=== PATIENT | male | born 1955 | race African-American/Black ===

== ENCOUNTER → 2017-02-03 | Outpatient (CLI) | payer MEDICARE, BC ==
--- NOTE | 2017-02-10 13:30 | SLS ---
DATE OF SERVICE: 02/03/2017 A 61-year-old gentleman who has been followed in the sleep center for treatment of obstructive sleep apnea-hypopnea syndrome. Patient continued treatment with CPAP every night without significant problem. He lost his weight from 345 pounds down to 314 pounds. No sleepiness during the day. [place] Sleepiness scale is 3. I checked his CPAP unit, usage is 29 out of 30 nights for more than 4 hours. Humidity is at 5. CPAP pressure 15 cm of water. Patient is on hemodialysis for endstage renal disease. MEDICATIONS: Naproxen, Nephro Caps, nitroglycerine, Sensipar, Tramadol. During physical exam, patient in no distress. BP 138/86, HR 102, RR 19, height 7.5, weight 314.6, BMP 44.8, temperature 98.3, oxygen saturation at room air 98% . OROPHARYNX: Low position of soft palate. ABDOMEN: Obese. NECK: Supple, no JVD, thyroid is not palpable. LUNGS: Clear to percussion and to auscultation. Good air exchange. No wheezing or rhonchi. HEART: S1, S2. No murmur, gallops or rubs. EXTREMITIES: No clubbing or cyanosis. 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 Cranial nerves 2 to 7 intact. There is no fasciculation or atrophy noted. No focal deficits observed. IMPRESSION: 1. Obstructive sleep apnea-hypopnea syndrome, on control with CPAP on 15 cm of water. 2. Obesity. 3. Endstage renal disease or hemodialysis. 4. Hypertension. 5. Gout. PLAN: 1. Continue treatment with CPAP every night for the whole night. 2. Continue losing weight. 3. No driving if feeling any sleepiness. 4. Sleep hygiene with regular time in bed for at least 8 hours. 5. Prescription for all necessary CPAP supplies. 6. Follow up visit in 1 year. ALEX
== END ==
LOC: SLEEP 13:24
PROVIDERS: ATTEND Internal Medicine
DX: G47.33 Obstructive sleep apnea (adult) (pediatric) (principal); E66.9 Obesity, unspecified; I10 Essential (primary) hypertension; M10.9 Gout, unspecified; N18.6 End stage renal disease

== ENCOUNTER → 2017-12-22 | Outpatient (CLI) | payer MEDICARE, BC ==
--- NOTE | 2017-12-22 16:15 | PN ---
PROGRESS NOTE DATE OF SERVICE: 12/22/2017 62-year-old gentleman who has been followed in the Sleep Center for treatment of obstructive sleep apnea-hypopnea syndrome. The patient continued to use his CPAP equipment every night for the whole night without any pressure related present to the mask fitting, pressure, or humidification. No snoring with the machine. [place] Sleepiness Scale is 1. The patient is on hemodialysis 3 times per week for end-stage renal disease. Medications the same. Naproxen, Nephrocaps, nitroglycerin, Sensipar, Tramadol. PHYSICAL EXAM: Patient in no distress. BP 125/79, HR around 100, RR 16, height 5 feet 9 inches, weight 310, which is 4 pounds less than during previous visit, BMI 45.7, temperature 98.1, oxygen saturation on room air 98%. Oropharynx extremely low position of soft palate. ABDOMEN: Obese. Neck Supple, no JVD. Thyroid is not palpable. LUNGS Clear to percussion and to auscultation. Good air exchange. No wheezing or rhonchi. HEART S1, S2 regular. No murmurs, gallops, or rubs. ABDOMEN: Obese. Soft and nontender. Bowel sounds are present. No organomegaly appreciated. EXTREMITIES No clubbing or cyanosis. COFFEE HOST Awake, alert, and oriented X3. Cranial nerves 2 to 7 intact. There is no fasciculation or atrophy. noted. No focal deficits observed. Under physical exam normal just: My template. IMPRESSION: 1. Obstructive sleep apnea-hypopnea syndrome on control with CPAP at 15 cm of water. Patient demonstrated good compliance with treatment benefitting from treatment. 2. End-stage renal disease, on treatment with hemodialysis. 3. Obesity. 4. Hypertension. 5. History of gout. PLAN: 1. Patient will continue to use his CPAP equipment every night for the whole night. 2. Prescription for all necessary CPAP supplies including mask, tube, filters. 3. The patient will continue to get his supplies for CPAP treatment on a regular basis. 4. Losing weight. 5. No driving if feeling sleepiness. 6. Followup visit in 1 year or earlier if patient has any problems. Thank you very much for allowing me to participate in management of your patient. Sincerely, Emery Kaiser MD, PhD, FAASM Diplomat of [place] [employer] [place] [employer] Driver License Agent of [facility] JAY / SESAR: [id number] /
== END | disposition home or self-care (01) ==
LOC: SLEEP 13:55
PROVIDERS: ATTEND Internal Medicine
DX: G47.33 Obstructive sleep apnea (adult) (pediatric) (principal); E66.9 Obesity, unspecified; I12.0 Hypertensive chronic kidney disease with stage 5 chronic kidney disease or end stage renal disease; N18.6 End stage renal disease; M10.9 Gout, unspecified; Z68.42 Body mass index [BMI] 45.0-49.9, adult; Z99.89 Dependence on other enabling machines and devices; Z99.2 Dependence on renal dialysis; Z79.891 Long term (current) use of opiate analgesic; Z79.899 Other long term (current) drug therapy

== ENCOUNTER 2018-08-25 13:54 | Inpatient (IN) | payer MEDICARE, BC ==
[2018-08-25] MEDS ORDERED: SODIUM CHLORIDE 0.9% 500 ML 500 ML IV STA (14:17)
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
--- NOTE | 2018-08-25 15:05 | XR ---
EXAMINATION TYPE: XR chest 2V DATE OF EXAM: 08/25/2018 COMPARISON: March 12, 2016 HISTORY: Shortness of breath TECHNIQUE: Frontal and lateral views of the chest are obtained. FINDINGS: Scattered senescent parenchymal changes noted. Hyperinflation compatible with COPD. No evidence for infiltrate. No evidence for atelectasis. Heart size is stable. Mediastinal structures are stable and grossly unremarkable. No evidence for hilar prominence. Degenerative changes dorsal spine. IMPRESSION: 1. No evidence for acute pulmonary disease.
[2018-08-25 15:09] LABS: Basophils % (A) 1 %; Eosinophils # (A) 0.1 k/uL (0-0.7); Eosinophils % (A) 2 %; HCT 31.3 % (39.0-53.0); HGB 10.4 gm/dL (13.0-17.5); Lymphocytes # (A) 0.9 k/uL (1.0-4.8); Lymphocytes % (A) 16 %; MCH 30.4 pg (25.0-35.0); MCHC 33.2 g/dL (31.0-37.0); MCV 91.5 fL (80.0-100.0); Mean Platelet Volume 8.1; Monocytes # (A) 0.2 k/uL (0-1.0); Monocytes % (A) 4 %; Neutrophils # (A) 4.5 k/uL (1.3-7.7); Neutrophils % (A) 76 %; Platelet Count 177 k/uL (150-450); RBC 3.42 m/uL (4.30-5.90); RDW 14.9 % (11.5-15.5); WBC 5.9 k/uL (3.8-10.6)
[2018-08-25 15:19] LABS: Albumin 3.9 g/dL (3.5-5.0); Calcium 10.2 mg/dL (8.4-10.2); Potassium 3.5 mmol/L (3.5-5.1); Total Bilirubin 0.7 mg/dL (0.2-1.3); Total Protein 6.9 g/dL (6.3-8.2)
[2018-08-25 15:20] LABS: INR 0.9 (<1.2); Partial Thromboplastin Time 23.2 sec (22.0-30.0)
[2018-08-25 15:43] LABS: Troponin I 0.045 ng/mL (0.000-0.034)
[2018-08-25] MEDS ORDERED: NALOXONE 0.4 MG/ML 1 ML VIAL IV PRN (17:37)
[2018-08-25] MEDS ORDERED: HYDROcodone/APAP 5-325MG 1 EACH TAB PO PRN (17:37)
[2018-08-25] MEDS ORDERED: ACETAMINOPHEN TAB 325 MG TAB PO PRN (17:37)
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
[2018-08-25 18:21] VITALS: BMI 45.9
[2018-08-25] MEDS ORDERED: NAPROXEN 250 MG TAB PO PRN (18:39)
[2018-08-25] MEDS ORDERED: Potassium Replacement Protocol 1 EACH MISC MISCELLANE PRN (18:45)
[2018-08-25] MEDS: SODIUM CHLORIDE 0.9% 1,000 ML IV SCH (19:07)
[2018-08-25] MEDS: POTASSIUM CHLORIDE ER 20 MEQ TAB.ER PO SCH ×2 (19:07→19:44)
[2018-08-25] MEDS: ATORVASTATIN 40 MG TAB PO SCH (19:44)
[2018-08-25 21:46] LABS: Creatine Kinase MB 0.8 ng/mL (0.0-2.4)
[2018-08-25 21:47] LABS: Troponin I 0.058 ng/mL (0.000-0.034)
[2018-08-26 03:39] LABS: Albumin 3.6 g/dL (3.5-5.0); Calcium 10.2 mg/dL (8.4-10.2); Magnesium 2.2 mg/dL (1.6-2.3); Potassium 3.8 mmol/L (3.5-5.1); Total Bilirubin 0.6 mg/dL (0.2-1.3); Total Protein 6.4 g/dL (6.3-8.2)
[2018-08-26 03:50] LABS: Creatine Kinase MB 0.8 ng/mL (0.0-2.4)
[2018-08-26 04:04] LABS: Troponin I 0.053 ng/mL (0.000-0.034)
[2018-08-26] MEDS ORDERED: ENOXAPARIN 40 MG/0.4 ML SYRINGE SQ SCH (09:00)
[2018-08-26] MEDS: ASPIRIN 325 MG TAB PO SCH (10:24)
--- NOTE | 2018-08-26 10:39 | P.PN ---
Subjective Progress Note Date: 08/26/18 Principal diagnosis: Dizziness Patient was seen and examined. No acute events overnight. Patient reports one episode of lightheadedness as he stood up from the bed this morning. Patient reports improved chest pressure, numbness morning. He denies any shortness of breath or palpitations at this time. Objective - Vital Signs Vital signs: Vital Signs Temp 97.6 F 08/26/18 08:20 Pulse 86 08/26/18 08:20 Resp 19 08/26/18 08:20 BP 121/67 08/26/18 08:20 Pulse Ox 100 08/26/18 08:20 Intake & Output 08/25/18 08/26/18 08/26/18 18:59 06:59 18:59 Intake Total 240 160 360 Balance 240 160 360 Weight 141.2 kg 141.7 kg Intake: Intake, IV Titration 160 Amount Sodium Chloride 0.9% 1, 160 000 ml @ 20 mls/hr IV . Q24H JACI Rx#:[id number] Oral 240 360 Other: Voiding Method Urinal # Voids 0 - Exam General: [no distress], [appears at stated age] Derm: [warm], [dry] Head: [atraumatic], [normocephalic], [symmetric] Eyes: [EOMI], [no lid lag], [anicteric sclera] Mouth: [no lip lesion], [mucus membranes moist] Cardiovascular: [S1S2 reg], [no murmur], [positive DP pulse bilateral] Lungs: [CTA bilateral], [no rhonchi, no rales] , [no accessory muscle use] Abdominal: [soft], [ nontender to palpation], [obese abdomen], [no appreciable organomegaly] Ext: [no gross muscle atrophy], [no edema], [no contractures], [left upper extremity fistula] Neuro: [no focal neuro deficits] Psych: [Alert], [oriented], [appropriate affect] - Labs CBC & Chem 7: 08/25/18 14:45 08/26/18 02:48 Labs: Abnormal Lab Results - Last 24 Hours (Table) 08/25/18 08/25/18 08/25/18 Range/Units 14:45 14:45 14:45 RBC 3.42 L (4.30-5.90) m/uL Hgb 10.4 L (13.0-17.5) gm/dL Hct 31.3 L (39.0-53.0) % Lymphocytes # 0.9 L (1.0-4.8) k/uL Sodium (137-145) mmol/L Chloride 92 L (98-107) mmol/L Carbon Dioxide 34 H (22-30) mmol/L BUN 25 H (9-20) mg/dL Creatinine 4.89 H (0.66-1.25) mg/dL Glucose 137 H (74-99) mg/dL Total Creatine Kinase 217 H (55-170) U/L Troponin I 0.045 H* (0.000-0.034) ng/mL LDL Cholesterol, Calc (0-99) mg/dL 08/25/18 08/26/18 08/26/18 Range/Units 20:47 02:48 02:48 RBC (4.30-5.90) m/uL Hgb (13.0-17.5) gm/dL Hct (39.0-53.0) % Lymphocytes # (1.0-4.8) k/uL Sodium 136 L (137-145) mmol/L Chloride 95 L (98-107) mmol/L Carbon Dioxide (22-30) mmol/L BUN 37 H (9-20) mg/dL Creatinine 6.43 H (0.66-1.25) mg/dL Glucose (74-99) mg/dL Total Creatine Kinase 182 H 175 H (55-170) U/L Troponin I 0.058 H* 0.053 H* (0.000-0.034) ng/mL LDL Cholesterol, Calc 122 H (0-99) mg/dL Assessment and Plan Assessment: Assessment and Plan 1. Presyncopal episode with blurry vision 2. Chest pressure 3. ESRD 4. Hypertension 5. h/o [place] and CVA 1. Appears to be orthostatic but questionable given history, reports labile blood pressure. Plans to rule out acute coronary syndrome. Telemetry monitoring. Fall precautions. Monitor and replace electrolytes. Will obtain orthostats, echocardiogram. Will follow cardiology recommendations. 2. Concerns for acute coronary syndrome. Troponin 0.045, 0.058, 0.053 with EKG showing normal sinus rhythm. Elevated troponin likely leak from ESRD. ACS ruled out. Will follow echocardiogram results. Will follow cardiology recommendations. 3. BUN 25 to 37, creatinine 4.89 to 6.43, GFR 14 to 10. Nephrology consulted for hemodialysis, Tuesday schedule. We will monitor and replace electrolytes. Keep potassium greater than 4 and magnesium greater than 2. Daily BMP. 4. BP is 121/67. Patient is not on any antihypertensives at home. Will continue to monitor vitals, adjust medications as necessary. 5. We will start aspirin 325 mg by mouth daily, Lipitor 40 mg by mouth at bedtime. Patient would benefit from beta tracy given his previous history of [place] but we will defer that decision to cardiology due to his hypotensive nature. Lipid panel shows an elevated LDL of 122. Patient names his brother Shola Castellon indicates that he can make decisions for himself. Patient requests to be full code. Patient is admitted for presyncopal episode, chest pressure. Acute coronary syndrome ruled out. Cardiology is on consult, echocardiogram pending.
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
--- NOTE | 2018-08-26 12:53 | ECHOF ---
Referral Reason:CHest pressure MEASUREMENTS -------- HEIGHT: 175.3 cm WEIGHT: 141.5 kg BP: RVIDd: 2.8 cm (< 3.3) IVSd: 1.5 cm (0.6 - 1.1) LVIDd: 5.3 cm (3.9 - 5.3) LVPWd: 1.9 cm (0.6 - 1.1) IVSs: 1.8 cm LVIDs: 4.0 cm LVPWs: 1.8 cm LA Diam: 3.6 cm (2.7 - 3.8) Ao Diam: 3.9 cm (2.0 - 3.7) AV Cusp: 2.0 cm (1.5 - 2.6) LA Diam: 3.6 cm (2.7 - 3.8) MV EXCURSION: 19.783 mm (> 18.000) MV EF SLOPE: 70 mm/s (70 - 150) EPSS: 0.5 cm MV E Alden: 0.56 m/s MV DecT: 306 ms MV A Alden: 0.81 m/s MV E/A Ratio: 0.70 RAP: 5.00 mmHg RVSP: 15.70 mmHg FINDINGS -------- Sinus rhythm. This was a technically adequate study. Morbid Obesity The left ventricular size is normal. There is moderate concentric left ventricular hypertrophy. O verall left ventricular systolic function is normal with, an EF between 55 - 60 %. The right ventricle is normal in size. The left atrial size is normal. The right atrial size is normal. There is mild aortic valve sclerosis. There is no evidence of aortic regurgitation. Mild mitral annular calcification present. Mild mitral regurgitation is present. Mild tricuspid regurgitation present. There is no evidence of pulmonary hypertension. The right v entricular systolic pressure, as measured by Doppler, is 15.70mmHg. Trace/mild (physiologic) pulmonic regurgitation. The aortic root size is normal. There is no pericardial effusion. CONCLUSIONS -------- 1. Morbid Obesity 2. The left ventricular size is normal. 3. There is moderate concentric left ventricular hypertrophy. 4. Overall left ventricular systolic function is normal with, an EF between 55 - 60 %. 5. The right ventricle is normal in size. 6. The left atrial size is normal. 7. The right atrial size is normal. 8. There is mild aortic valve sclerosis. 9. Mild mitral annular calcification present. 10. Mild mitral regurgitation is present. 11. Mild tricuspid regurgitation present. 12. There is no evidence of pulmonary hypertension. 13. The right ventricular systolic pressure, as measured by Doppler, is 15.70mmHg. 14. Trace/mild (physiologic) pulmonic regurgitation. 15. The aortic root size is normal. 16. There is no pericardial effusion. TIMBER BUCKER: Jennifer Hernandez RDCS
[2018-08-26] MEDS: CALCIUM ACETATE 667 MG CAP PO PRN (17:59)
[2018-08-26] MEDS: SODIUM CHLORIDE 0.9% 1,000 ML IV SCH (18:00)
[2018-08-26] MEDS: ATORVASTATIN 40 MG TAB PO SCH (19:37)
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
[2018-08-27] MEDS: CALCIUM ACETATE 667 MG CAP PO PRN ×3 (07:56→17:25)
[2018-08-27] MEDS: ENOXAPARIN 30 MG/0.3 ML SYRINGE SQ SCH (07:56)
[2018-08-27] MEDS: ASPIRIN 325 MG TAB PO SCH (07:56)
--- NOTE | 2018-08-27 12:09 | P.PN ---
Subjective Progress Note Date: 08/27/18 Principal diagnosis: Chest pain Patient was seen and examined. No acute events overnight. Patient reports one episode of chest pressure last night as he was laying in bed. The chest pressure was associated with numbness in the left upper extremity fingers. Patient reports that the pain lasted for a couple of hours as he dosed off, a resolved as he woke up. He reports some dizziness when standing this morning to take a shower. He denies any shortness of breath or palpitations. No nausea or vomiting. No fever or chills. Objective - Vital Signs Vital signs: Vital Signs Temp 97 F L 08/27/18 08:00 Pulse 83 08/27/18 08:00 Resp 18 08/27/18 08:00 BP 120/75 08/27/18 08:00 Pulse Ox 97 08/27/18 08:00 Intake & Output 08/26/18 08/27/18 08/27/18 18:59 06:59 18:59 Intake Total 860 760 Balance 860 760 Weight 144.4 kg Intake: Intake, IV Titration 140 160 Amount Sodium Chloride 0.9% 1, 140 160 000 ml @ 20 mls/hr IV . Q24H [facility] Rx#:[id number] Oral 720 600 Other: Voiding Method Urinal # Voids 2 - Exam General: [no distress], [appears at stated age] Derm: [warm], [dry] Head: [atraumatic], [normocephalic], [symmetric] Eyes: [EOMI], [no lid lag], [anicteric sclera] Mouth: [no lip lesion], [mucus membranes moist] Cardiovascular: [S1S2 reg], [no murmur], [positive DP pulse bilateral] Lungs: [CTA bilateral], [no rhonchi, no rales] , [no accessory muscle use] Abdominal: [soft], [ nontender to palpation], [obese abdomen], [no appreciable organomegaly] Ext: [no gross muscle atrophy], [no edema], [no contractures], [left upper extremity fistula] Neuro: [no focal neuro deficits] Psych: [Alert], [oriented], [appropriate affect] - Labs CBC & Chem 7: 08/25/18 14:45 08/26/18 02:48 Assessment and Plan Assessment: Assessment and Plan 1. Presyncopal episode with blurry vision 2. Chest pressure 3. ESRD 4. Hypertension 5. h/o [place] and CVA 1. Appears to be orthostatic but questionable given history, reports labile blood pressure. Acute coronary syndrome has been ruled out. Telemetry monitoring. Fall precautions. Echocardiogram shows EF between 55-60% with moderate LVH. Monitor and replace electrolytes. Orthostats negative. Will follow cardiology recommendations. 2. Concerns for acute coronary syndrome. Troponin 0.045, 0.058, 0.053 with EKG showing normal sinus rhythm. Elevated troponin likely leak from ESRD. ACS ruled out. Discussed with Dr. Potter, plans for stress test tomorrow. 3. BUN 25 to 37, creatinine 4.89 to 6.43, GFR 14 to 10. Nephrology consulted for hemodialysis, Tuesday schedule. We will monitor and replace electrolytes. Keep potassium greater than 4 and magnesium greater than 2. Daily BMP. 4. BP is 120/75. Patient is not on any antihypertensives at home. Will continue to monitor vitals, adjust medications as necessary. 5. We will start aspirin 325 mg by mouth daily, Lipitor 40 mg by mouth at bedtime. Patient would benefit from beta tracy given his previous history of [place] but we will defer that decision to cardiology due to his hypotensive nature. Lipid panel shows an elevated LDL of 122. Patient names his brother Shola Castellon indicates that he can make decisions for himself. Patient requests to be full code. Patient is admitted for presyncopal episode, chest pressure. Acute coronary syndrome ruled out. Stress test tomorrow. Cardiology is on board.
[2018-08-27 13:07] LABS: HCT 29.3 % (39.0-53.0); HGB 10.2 gm/dL (13.0-17.5); MCH 31.4 pg (25.0-35.0); MCHC 34.8 g/dL (31.0-37.0); MCV 90.3 fL (80.0-100.0); Mean Platelet Volume 7.7; Platelet Count 150 k/uL (150-450); RBC 3.25 m/uL (4.30-5.90); RDW 14.8 % (11.5-15.5); WBC 4.9 k/uL (3.8-10.6)
[2018-08-27 13:14] LABS: Calcium 10.5 mg/dL (8.4-10.2); Potassium 4.5 mmol/L (3.5-5.1)
--- NOTE | 2018-08-27 13:34 | P.PN ---
Subjective Progress Note Date: 08/27/18 Principal diagnosis: Chest pain This is a pleasant 63-year-old -[place]cu[place] male patient with a past medical history significant for end stage renal disease currently maintaining hemodialysis 3 times a week presented to the emergency room because he was not feeling well. For the last several days, the patient noticed that his blood pressure has been low around dialysis. He has been checking the blood pressure and it has been in the 80s and sometimes in the 60s millimeters mercury. He was feeling dizzy and lightheaded with the low blood pressure. No syncope. Beside that he has been experiencing intermittent episodes of chest discomfort described as a pressure across the chest without any radiation to the arm or neck or shoulders and without any associated symptoms. The patient blood pressure has been on the low side. He did undergo orthostatic blood pressure this morning and that came in to be unremarkable. He is not on any blood pressure medications at home nor in the hospital. The EKG showed sinus rhythm with nonspecific changes in the inferolateral leads. The cardiac enzymes were checked and came in to be slightly abnormal but they are not consistent with acute coronary syndrome and they are flat across the board. Chest x-ray did not show any acute abnormalities. On follow-up with the patient today, August 272018, he stated he is feeling slightly better but he still have chest discomfort. I am going to consider proceeding with a stress test tomorrow morning. Objective - Vital Signs Vital signs: Vital Signs Temp 97 F L 08/27/18 08:00 Pulse 88 08/27/18 12:34 Resp 17 08/27/18 12:34 BP 125/70 08/27/18 12:34 Pulse Ox 96 08/27/18 12:34 Intake & Output 08/26/18 08/27/18 08/27/18 18:59 06:59 18:59 Intake Total 860 760 360 Balance 860 760 360 Weight 144.4 kg Intake: Intake, IV Titration 140 160 Amount Sodium Chloride 0.9% 1, 140 160 000 ml @ 20 mls/hr IV . Q24H [facility] Rx#:[id number] Oral 720 600 360 Other: Voiding Method Urinal # Voids 2 2 - Constitutional General appearance: Present: no acute distress - Respiratory Respiratory: bilateral: diminished - Cardiovascular Rhythm: regular Heart sounds: normal: S1, S2 - Labs CBC & Chem 7: 08/27/18 12:44 08/27/18 12:44 Labs: Abnormal Lab Results - Last 24 Hours (Table) 08/27/18 08/27/18 Range/Units 12:44 12:44 RBC 3.25 L (4.30-5.90) m/uL Hgb 10.2 L (13.0-17.5) gm/dL Hct 29.3 L (39.0-53.0) % Chloride 95 L (98-107) mmol/L BUN 61 H (9-20) mg/dL Creatinine 9.92 H* (0.66-1.25) mg/dL Glucose 109 H (74-99) mg/dL Calcium 10.5 H (8.4-10.2) mg/dL Assessment and Plan Assessment: Assessment #1 hypotension which has improved #2 dizziness and lightheadedness secondary to low blood pressure #3 chest discomfort #4 mildly abnormal cardiac enzymes not consistent with acute coronary syndrome #5 End stage renal disease on dialysis Plan #1 continue the current medical regimen #2 proceed with a stress test tomorrow morning
[2018-08-27] MEDS: SODIUM CHLORIDE 0.9% 1,000 ML IV SCH (18:09)
[2018-08-27] MEDS: ATORVASTATIN 40 MG TAB PO SCH (20:11)
[2018-08-28] MEDS ORDERED: REGADENOSON 0.4 MG/5 ML SYRINGE IV ONE (09:00)
[2018-08-28] MEDS ORDERED: CAFFEINE CITRATE 60 MG/3 ML VIAL IV PRN (09:00)
--- NOTE | 2018-08-28 12:08 | NM ---
EXAMINATION TYPE: NM stress lexiscan cardiolite DATE OF EXAM: 08/28/2018 COMPARISON: NONE HISTORY: Chest pain. Family history of coronary artery disease, personal history of stroke in 2001 an d 2 prior heart attacks presents with syncope and chest pain as well as difficulty breathing and numb ness in neck. TECHNIQUE: After the intravenous administration of 10.32 mCi Tc 99m Sestamibi - Cardiolite resting S PECT images acquired 50 minutes post injection. The patient received 0.4mg Lexiscan, 25.9 mCi Tc 99m Sestamibi - Stress images obtained [address] injection FINDINGS: Review of stress and rest SPECT images demonstrates diminished radiotracer uptake anteroseptal wall b asilar to mid segment suspicious for old infarct. There is diminished radiotracer uptake on stress im ages versus rest images involving the anterolateral left ventricular wall more prominent near the ape x in which area of acute ischemia cannot be excluded seen on short axis and vertical long axis images . Gated analysis shows overall ejection fraction of 49%. There is elevated end-diastolic volume of 19 4 cc IMPRESSION: There is evidence of old infarct with underlying dilated cardiomyopathy. Cannot exclude a cute ischemia inferior lateral left ventricular wall near apex. Need to further investigate with dire ct catheter angiogram should be based on clinical and EKG correlation.
[2018-08-28] MEDS: CALCIUM ACETATE 667 MG CAP PO PRN (12:37)
--- NOTE | 2018-08-28 14:23 | P.PN ---
Subjective Progress Note Date: 08/28/18 Principal diagnosis: Lightheadedness Patient was seen and examined today. No acute events overnight. Patient reports one episode of lightheadedness when standing up this morning. He denies any chest pain, palpitations. No nausea or vomiting. No fever or chills. Tolerating diet well. Just came back from [facility], pending dialysis. Objective - Vital Signs Vital signs: Vital Signs Temp 97.5 F L 08/28/18 11:52 Pulse 83 08/28/18 11:52 Resp 20 08/28/18 11:52 BP 123/71 08/28/18 11:52 Pulse Ox 100 08/28/18 11:52 Intake & Output 08/27/18 08/28/18 08/28/18 18:59 06:59 18:59 Intake Total 720 960 360 Balance 720 960 360 Weight 145.2 kg 145.15 kg Intake: Oral 720 960 360 Other: Voiding Method Urinal Urinal # Voids 2 2 - Exam General: [no distress], [appears at stated age] Derm: [warm], [dry] Head: [atraumatic], [normocephalic], [symmetric] Eyes: [EOMI], [no lid lag], [anicteric sclera] Mouth: [no lip lesion], [mucus membranes moist] Cardiovascular: [S1S2 reg], [no murmur], [positive DP pulse bilateral] Lungs: [CTA bilateral], [no rhonchi, no rales] , [no accessory muscle use] Abdominal: [soft], [ nontender to palpation], [obese abdomen], [no appreciable organomegaly] Ext: [no gross muscle atrophy], [no edema], [no contractures], [left upper extremity fistula] Neuro: [no focal neuro deficits] Psych: [Alert], [oriented], [appropriate affect] - Labs CBC & Chem 7: 08/27/18 12:44 08/27/18 12:44 Assessment and Plan Assessment: Assessment and Plan 1. Presyncopal episode with blurry vision 2. Chest pressure 3. ESRD 4. Hypertension 5. h/o [place] and CVA 1. Appears to be orthostatic but questionable given history, reports labile blood pressure. Acute coronary syndrome has been ruled out. Telemetry monitoring. Fall precautions. Echocardiogram shows EF between 55-60% with moderate LVH. Monitor and replace electrolytes. Orthostats negative. Will follow cardiology recommendations. 2. Concerns for acute coronary syndrome. Troponin 0.045, 0.058, 0.053 with EKG showing normal sinus rhythm. Elevated troponin likely leak from ESRD. ACS ruled out. Lexiscan shows old infarct with underlying dilated cardiomyopathy, cannot exclude acute ischemia in the inferior lateral left ventricular wall near the apex. Would recommend cardiac catheterization, will follow cardiology recommendations. 3. BUN 61, creatinine 9.92, GFR 6. Nephrology consulted for hemodialysis, Tuesday schedule. We will monitor and replace electrolytes. Keep potassium greater than 4 and magnesium greater than 2. Daily BMP. 4. BP is 123/71. Patient is not on any antihypertensives at home. Will continue to monitor vitals, adjust medications as necessary. 5. We will start aspirin 325 mg by mouth daily, Lipitor 40 mg by mouth at bedtime. Patient would benefit from beta tracy given his previous history of [place] but we will defer that decision to cardiology due to his hypotensive nature. Lipid panel shows an elevated LDL of 122. Patient names his brother Shola Castellon indicates that he can make decisions for himself. Patient requests to be full code. Patient is admitted for presyncopal episode, chest pressure. Acute coronary syndrome ruled out. Stress test positive, pending Cardiology evaluation for possible intervention.
[2018-08-28] MEDS ORDERED: ATORVASTATIN 80 MG TAB PO STA (15:31)
[2018-08-28] MEDS ORDERED: ASPIRIN 325 MG TAB PO STA (15:31)
[2018-08-28] MEDS ORDERED: ALPRAZolam 0.25 MG TAB PO PRN (15:31)
[2018-08-28] MEDS ORDERED: ALPRAZolam 0.5 MG TAB PO PRN (15:31)
[2018-08-28] MEDS ORDERED: NITROGLYCERIN SL TABS 0.4 MG TAB SUBLINGUAL PRN (15:31)
[2018-08-28] MEDS ORDERED: SODIUM CHLORIDE 0.9% 1,000 ML in EMPTY BAG 1 BAG IV ONE (15:31)
[2018-08-28] MEDS: ASPIRIN 325 MG TAB PO SCH (16:01)
[2018-08-28] MEDS: ENOXAPARIN 30 MG/0.3 ML SYRINGE SQ SCH (16:01)
[2018-08-28] MEDS: ATORVASTATIN 40 MG TAB PO SCH (16:02)
[2018-08-28] MEDS ORDERED: VERAPAMIL 2.5 MG/ML 2 ML AMP ONE (16:02)
[2018-08-28] MEDS ORDERED: LIDOCAINE 1% INJ 10MG/ML (20 ML MDV) ONE (16:02)
[2018-08-28] MEDS ORDERED: SODIUM CHLORIDE 0.9% 500 ML 500 ML IV ONE (16:07)
[2018-08-28] MEDS ORDERED: HEPARIN SODIUM 1,000 UN/ML (10ML VL) ONE (16:26)
[2018-08-28] MEDS ORDERED: LIDOCAINE 1% INJ 10MG/ML (20 ML MDV) SQ ONE (16:28)
[2018-08-28] MEDS ORDERED: MIDAZOLAM 2 MG/2 ML VIAL IV ONE (16:28)
[2018-08-28] MEDS: VERAPAMIL SYRINGE (5 MG/10 ML) INTRAARTER ONE ×2 (16:29→16:39)
[2018-08-28] MEDS ORDERED: HEPARIN SODIUM 1,000 UN/ML (10ML VL) IV ONE (16:31)
[2018-08-28] MEDS ORDERED: IOPAMIDOL-370 125ML BTL INJ ONE (16:39)
[2018-08-28] MEDS ORDERED: RX INFO: IV CONTRAST WAS GIVEN 1 EACH MISC MISCELLANE PRN (16:43)
[2018-08-28] MEDS ORDERED: SODIUM CHLORIDE 0.9% 1,000 ML IV SCH (16:45)
--- NOTE | 2018-08-28 17:06 | CC ---
CARDIAC CATHETERIZATION REPORT DATE OF SERVICE: 08/28/2018 PERFORMING PHYSICIAN: Leo Potter MD, aoc director combat plans officer. PROCEDURES PERFORMED: 1. Selective right and left coronary angiogram. 2. Left heart catheterization. INDICATION: This is a pleasant 63-year-old gentleman with end-stage renal disease, on hemodialysis, as well as hypertension and dyslipidemia who presented to the hospital with chest discomfort and underwent myocardial perfusion imaging stress test and that revealed reversible defects. Because of that, a heart catheterization was advised. APPROACH: Right radial artery. COMPLICATIONS: None. LEVEL OF SEDATION: Moderate, with sedation length of 12 minutes. PROCEDURE DESCRIPTION: After obtaining informed consent, the patient was brought to the cardiac lab analyst. The right radial artery was cannulated using micropuncture technique. The micropuncture wire passed easily. Then I placed a 6-[place] sheath in the right radial artery. After that I gave the patient 2 mg of verapamil IA and 10,000 units of heparin IV. Subsequently I performed selective right and left coronary angiogram using JR4 and JL3.5 catheters. Left heart catheterization was performed using 6-[place]izen [place] pigtail catheter. The procedure was completed without any complication. SELECTIVE CORONARY ANGIOGRAM: 1. The right coronary artery is an aneurysmal vessel and it is a dominant vessel. It does not have any obstructive coronary artery disease. It is calcified as well. 2. The left main is angiographically normal. It bifurcates into left circumflex and left anterior descending artery. 3. The left circumflex is aneurysmal. The proximal circumflex gives rise to a large OM branch which is aneurysmal and bifurcates into 3 subbranches that appeared to be angiographically normal and the circumflex continues after that as a moderate- caliber vessel in the AV groove. The circumflex itself does not have any obstructive disease. 4. The LAD is aneurysmal as well. The proximal LAD appeared to be normal. The mid LAD appeared to be normal and gives rise to 3 diagonal branches that appeared to be angiographically normal. The LAD distally appeared to be normal. HEMODYNAMICS: The left ventricular end-diastolic pressure was 20 mmHg and no gradient was seen across the aortic valve. CONCLUSION: 1. Aneurysmal right and left coronary systems. 2. No evidence of any obstructive coronary artery disease. 3. Elevated left ventricular end-diastolic pressure. POST-PROCEDURE MANAGEMENT: 1. Medical treatment. 2. Follow up with the patient. MMODL / IJN: [id number] /
[2018-08-28] MEDS: SODIUM CHLORIDE 0.9% 1,000 ML IV SCH (18:12)
[2018-08-28] MEDS ORDERED: GELATIN SPONGE,ABSORB (LARGE) 1 EACH SPONGE ONE (21:05)
[2018-08-29] MEDS: ENOXAPARIN 30 MG/0.3 ML SYRINGE SQ SCH (08:54)
[2018-08-29] MEDS: ASPIRIN 325 MG TAB PO SCH (08:54)
[2018-08-29 09:03] LABS: Basophils % (A) 1 %; Eosinophils # (A) 0.2 k/uL (0-0.7); Eosinophils % (A) 3 %; HCT 25.8 % (39.0-53.0); HGB 8.9 gm/dL (13.0-17.5); Lymphocytes # (A) 0.8 k/uL (1.0-4.8); Lymphocytes % (A) 17 %; MCH 31.3 pg (25.0-35.0); MCHC 34.6 g/dL (31.0-37.0); MCV 90.4 fL (80.0-100.0); Mean Platelet Volume 7.7; Monocytes # (A) 0.2 k/uL (0-1.0); Monocytes % (A) 4 %; Neutrophils # (A) 3.3 k/uL (1.3-7.7); Neutrophils % (A) 73 %; Platelet Count 138 k/uL (150-450); RBC 2.86 m/uL (4.30-5.90); RDW 14.9 % (11.5-15.5); WBC 4.6 k/uL (3.8-10.6)
[2018-08-29 09:07] LABS: Calcium 9.7 mg/dL (8.4-10.2); Potassium 5.3 mmol/L (3.5-5.1)
--- NOTE | 2018-08-29 10:47 | EST ---
- Stress Test Note Stress Test Results/Findings: Exam Performed: NM stress lexiscan cardiolite Exam Date: 08/28/18 Reason for Exam: CP, SYNCOPE Height: 5 ft 9 in Weight: 145.15 kg Protocol: LEXISCAN CARDIOLITE Stage: NA Duration of Exercise: NA Resting Heart Rate: 80 Resting Blood Pressure: 139/86 Maximum Achieved Heart Rate: 91 Maximum Achieved Blood Pressure: 159/70 85% PMHR: 135 100% PMHR: 159 METS: NA Technologist Comment: Stress Test Results/Findings: Baseline heart rate 80 beats a minute, Baseline blood pressure 139/86 mmHg Baseline twelve-lead ECG shows sinus rhythm with biphasic T waves in V5 and V6 sinus rhythm Patient received Lexiscan infusion per protocol No chest pain Heart rate and blood pressure remained stable No ECG evidence of ischemia Occasional PVCs Nuclear portion will be reported separately MTDD
[2018-08-29 11:56] VITALS: PULSE 85; RESP 15; TEMP 96.7
--- NOTE | 2018-08-29 12:20 | P.PN ---
Subjective Patient is seen in follow-up for end-stage renal disease. He is maintained on hemodialysis on a Tuesday schedule. Currently seen for follow for allowing hemodialysis. Denies chest pain or shortness of breath. Patient had cardiac catheterization yesterday which revealed no evidence of obstructive disease. Vital signs are stable. General: The patient appeared well nourished and normally developed. HEENT: Head exam is unremarkable. Neck is without jugular venous distension. LUNGS: Lungs are clear to auscultation and percussion. Breath sounds decreased. HEART: Rate and Rhythm are regular. First and second heart sounds normal. No murmurs, rubs or gallops. ABDOMEN: Abdominal exam reveals normal bowel sounds. Non-tender and non- distended. No evidence of peritonitis. EXTREMITITES: No clubbing, cyanosis, or edema. Objective - Vital Signs Vital signs: Vital Signs Temp 96.7 F L 08/29/18 11:54 Pulse 85 08/29/18 11:54 Resp 15 08/29/18 11:54 BP 152/83 08/29/18 11:54 Pulse Ox 99 08/29/18 11:54 Intake & Output 08/28/18 08/29/18 08/29/18 18:59 06:59 18:59 Intake Total 920 150 600 Balance 920 150 600 Weight 145.15 kg 144.9 kg Intake: IV 100 Intake, IV Titration 100 150 Amount Sodium Chloride 0.9% 1, 100 150 000 ml @ 50 mls/hr IV . Q20H JACI Rx#:[id number] Oral 720 600 Other: Voiding Method Urinal Urinal Toilet # Voids 2 2 1 - Labs CBC & Chem 7: 08/29/18 06:59 08/29/18 06:59 Labs: Abnormal Lab Results - Last 24 Hours (Table) 08/29/18 08/29/18 Range/Units 06:59 06:59 RBC 2.86 L (4.30-5.90) m/uL Hgb 8.9 L (13.0-17.5) gm/dL Hct 25.8 L (39.0-53.0) % Plt Count 138 L (150-450) k/uL Lymphocytes # 0.8 L (1.0-4.8) k/uL Potassium 5.3 H (3.5-5.1) mmol/L Chloride 96 L (98-107) mmol/L BUN 60 H (9-20) mg/dL Creatinine 10.33 H* (0.66-1.25) mg/dL Assessment and Plan Plan: Assessment: 1. End-stage renal disease maintained on hemodialysis on a Tuesday schedule. 2. Anemia of chronic kidney disease. 3. Chronic kidney disease mineral bone disease maintained on PhosLo. 4. Chest pain status post cardiac catheterization on August 28 which revealed no obstructive process. 5. Mild hyperkalemia secondary to chronic kidney disease. Plan: Currently seen while undergoing hemodialysis. Next treatment tomorrow. Stable to be discharged home from nephrology standpoint.
--- NOTE | 2018-08-29 13:32 | P.DS ---
Providers Date of admission: 08/29/18 08:27 Expected date of discharge: 08/29/18 Attending physician: Jones Mercado MD Consults: 08/25/18 16:38 Consult Physician Urgent Consulting Provider: Leo Potter Consult Reason/Comments: nearSyncope Do you want consulting provider notified?: Yes 08/25/18 17:38 Consult Physician Urgent Consulting Provider: Josafat Moinque Consult Reason/Comments: ESRD on HD MWF Do you want consulting provider notified?: Yes Primary care physician: Stated None Hospital Course: Discharge Diagnosis: Presyncope Aneurismal Right and Left Coronary Systems Chest pain, negative cath End stage renal disease HTN Elevated troponin secondary to end-stage renal disease and not reflective of acute coronary syndrome. Hospital Course: Patient is a 63-year-old -[place]og[place] male with a past medical history of end-stage renal disease on hemodialysis Tuesday/Tuesday/Tuesday, prior myocardial infarction, prior CVA, hypertension, and obstructive sleep apnea who presented to the emergency department for lightheadedness associated with blurry vision and chest pressure. In the ER he was found to have a slight anemia and elevated BNP. EKG showed normal sinus rhythm. He was admitted for evaluation of presyncope and chest pain. He was seen by cardiology and underwent Lexiscan stress test on 08/28 which showed possible acute ischemia. This was followed up by cardiac catheterization with Dr. Potter. He was noted to have an aneurysmal left and right coronary systems but did not have any areas of decreased flow. He will be maintained on aspirin therapy. He'll follow up with cardiology as an outpatient. He currently does not have a PCP and he is referred to Dr. Shahram Cooney to establish care. He had full elevated blood pressures prior to dialysis and low blood pressures. He is encouraged to continue to check his blood pressure at dialysis 3 times weekly. He will resume his typical dialysis schedule on 08/30 at the [place] location. Patient seen and examined at bedside. He denies any chest pain or lightheadedness. No nausea, vomiting, fever, or chills. Vital signs reviewed and stable. General: non toxic, no distress, appears at stated age Derm: warm, dry Head: atraumatic, normocephalic, symmetric Eyes: EOMI, no lid lag, anicteric sclera Mouth: no lip lesion, mucus membranes moist Cardiovascular: S1S2 reg, no murmur, positive posterior tibial pulse bilateral, Lungs: CTA bilateral, no rhonchi, no rales , no accessory muscle use Abdominal: soft, nontender to palpation, no guarding, no appreciable organomegaly Ext: no gross muscle atrophy, no edema, no contractures Neuro: CN II-XI grossly intact, no focal neuro deficits Psych: Alert, oriented, appropriate affect A total of 25 minutes of time were spent preparing this complex discharge summary . Pertinent Studies: Lexiscan stress test-old infarct with underlying cardiomyopathy, cannot exclude acute ischemia inferiorly lateral left ventricle wall near the apex Echocardiogram-ejection fraction 55-60% Procedures: Cardiac catheterization 08/28-aneurysmal dilation of left and right coronary systems Patient Condition at Discharge: Stable Plan - Discharge Summary Discharge Rx Participant: No New Discharge Prescriptions: New Atorvastatin [Lipitor] 40 mg PO HS #30 tab Continue Calcium Acetate [PhosLo] 1,334 - 2,668 mg PO AC-TID PRN PRN Reason: MEALS Naproxen [Naprosyn] 500 mg PO BID PRN PRN Reason: Pain Discharge Medication List Calcium Acetate [PhosLo] 1,334 - 2,668 mg PO AC-TID PRN 08/25/18 [History] Naproxen [Naprosyn] 500 mg PO BID PRN 08/25/18 [History] Atorvastatin [Lipitor] 40 mg PO HS #30 tab 08/29/18 [Rx] Follow up Appointment(s)/Referral(s): Leo Potter MD [STAFF PHYSICIAN] - 1 Week (Office will call with follow up appointment.) None,Stated [Primary Care Provider] - 1-2 days Patient Instructions/Handouts: *Surgery [facility] - After Heart Catheterization - Recording Studio Intern Instructions, Heart Healthy Diet (DC), Coronary Intravascular Stent Placement (DC)
[2018-08-29 14:35] VITALS: BP 171/83
[2018-08-29] MEDS ORDERED: amLODIPine 5 MG TAB PO SCH (15:30)
--- NOTE | 2018-08-29 15:43 | P.PN ---
Subjective Progress Note Date: 08/29/18 This is a pleasant 63-year-old -[place] gentleman with past medical history significant for end-stage renal disease on hemodialysis, hypertension, prior CVA, hyperlipidemia, sleep apnea, presented to the hospital with chest discomfort, underwent a stress test that was positive for reversible ischemia. Subsequent to that patient underwent a cardiac catheterization yesterday by Dr. Nelson which revealed an aneurysmal right and left coronary system with no evidence of obstructive coronary artery disease. Elevated left ventricular end- diastolic pressure. Patient was seen and examined this morning, feels well, denies any chest discomfort. Currently undergoing dialysis. Blood pressure 152 /80 with a heart rate in the 80s, 99% on room air. We will add Norvasc to the patient's medication regime today for more optimal blood pressure control. Objective - Vital Signs Vital signs: Vital Signs Temp 96.7 F L 08/29/18 11:54 Pulse 85 08/29/18 12:00 Resp 15 08/29/18 11:54 BP 171/83 08/29/18 12:00 Pulse Ox 99 08/29/18 11:54 Intake & Output 08/28/18 08/29/18 08/29/18 18:59 06:59 18:59 Intake Total 920 150 600 Balance 920 150 600 Weight 145.15 kg 144.9 kg Intake: IV 100 Intake, IV Titration 100 150 Amount Sodium Chloride 0.9% 1, 100 150 000 ml @ 50 mls/hr IV . Q20H JACI Rx#:[id number] Oral 720 600 Other: Voiding Method Urinal Urinal Toilet # Voids 2 2 1 - Exam Vital signs reviewed and stable. General: non toxic, no distress, appears at stated age Derm: warm, dry Head: atraumatic, normocephalic, symmetric Eyes: EOMI, no lid lag, anicteric sclera Mouth: no lip lesion, mucus membranes moist Cardiovascular: S1S2 reg, no murmur, positive posterior tibial pulse bilateral, Lungs: CTA bilateral, no rhonchi, no rales , no accessory muscle use Abdominal: soft, nontender to palpation, no guarding, no appreciable organomegaly Ext: no gross muscle atrophy, no edema, no contractures right radial site clean and dry, good distal pulse. Neuro: CN II-XI grossly intact, no focal neuro deficits Psych: Alert, oriented, appropriate affect - Labs CBC & Chem 7: 08/29/18 06:59 08/29/18 06:59 Labs: Abnormal Lab Results - Last 24 Hours (Table) 08/29/18 08/29/18 Range/Units 06:59 06:59 RBC 2.86 L (4.30-5.90) m/uL Hgb 8.9 L (13.0-17.5) gm/dL Hct 25.8 L (39.0-53.0) % Plt Count 138 L (150-450) k/uL Lymphocytes # 0.8 L (1.0-4.8) k/uL Potassium 5.3 H (3.5-5.1) mmol/L Chloride 96 L (98-107) mmol/L BUN 60 H (9-20) mg/dL Creatinine 10.33 H* (0.66-1.25) mg/dL Assessment and Plan Plan: Assessment #1 hypotension which has improved, patient now quite hypertensive #2 dizziness and lightheadedness secondary to low blood pressure #3 chest discomfort #4 mildly abnormal cardiac enzymes not consistent with acute coronary syndrome, status post stress test which revealed reversible ischemia. Cardiac catheterization performed yesterday revealed aneurysmal right and left coronary systems with no evidence of obstructive coronary artery disease #5 End stage renal disease on dialys Plan From cardiology's perspective, patient may be able to be discharged home today. We will add a small dose of Norvasc to his medication regime. Follow-up appointment will be made in the office post discharge. DNP note has been reviewed, I agree with a documented findings and plan of care. Patient was seen and examined.
[2018-08-30] MEDS ORDERED: ASPIRIN 81 MG PO SCH (09:00)
== END 2018-08-29 15:34 | disposition home or self-care (01) | DRG 286 ==
LOC: EC 13:54 → 3SCARD 16:38 → OBSVTOIN 08-29 08:27
PROVIDERS: ADMIT Internal Medicine; ATTEND Internal Medicine
PROC: B2111ZZ Fluoroscopy of Multiple Coronary Arteries using Low Osmolar Contrast (ICD-10-PCS; 2018-08-28)
PROC: 5A1D70Z Performance of Urinary Filtration, Intermittent, Less than 6 Hours Per Day (ICD-10-PCS; 2018-08-28)
PROC: 4A023N7 Measurement of Cardiac Sampling and Pressure, Left Heart, Percutaneous Approach (ICD-10-PCS; principal; 2018-08-28 14:00)
DX: R07.9 Chest pain, unspecified (principal); N18.6 End stage renal disease; I42.0 Dilated cardiomyopathy; R55 Syncope and collapse; I72.8 Aneurysm of other specified arteries; I95.9 Hypotension, unspecified; I50.9 Heart failure, unspecified; I11.0 Hypertensive heart disease with heart failure; E87.5 Hyperkalemia; D63.1 Anemia in chronic kidney disease; E78.5 Hyperlipidemia, unspecified; G47.33 Obstructive sleep apnea (adult) (pediatric); I25.2 Old myocardial infarction; E83.89 Other disorders of mineral metabolism; R77.9 Abnormality of plasma protein, unspecified; T39.395S Adverse effect of other nonsteroidal anti-inflammatory drugs [NSAID], sequela; H53.8 Other visual disturbances; Z79.82 Long term (current) use of aspirin; Z79.899 Other long term (current) drug therapy; Z86.73 Personal history of transient ischemic attack (TIA), and cerebral infarction without residual deficits; Z99.2 Dependence on renal dialysis; Z82.49 Family history of ischemic heart disease and other diseases of the circulatory system; Z83.3 Family history of diabetes mellitus
CPT/HCPCS: 36415; 71046; 78452; 80048; 80053; 80061; 82533; 82550; 82553; 83690; 83735; 83880; 84484; 85025; 85027; 85610; 85730; 86704; 86706; 87340; 90935; 93005; 93017; 93306; 93458; 94760; 99285

== ENCOUNTER → 2018-10-19 | Outpatient (CLI) | payer MEDICARE, BC ==
--- NOTE | 2018-10-19 12:36 | SFUN ---
SLEEP CENTER FOLLOW UP NOTE This 63-year-old gentleman has been followed in sleep center for treatment of obstructive sleep apnea-hypopnea syndrome. About 1 month ago the patient was hospitalized for chest pain. Had a cardiac cath which showed aneurysms of coronary arteries. Patient continued to use his CPAP equipment every night for the whole night. I checked his CPAP unit. CPAP pressure is 15 cm of water. Usage is every night more than 4 hours. Machine does not have information about apnea-hypopnea index. Patient lost about 50 pounds since his previous sleep study which was done more than 5 years ago. His CPAP unit also old more than 5 years and does not have information about the apnea-hypopnea index. [place] Sleepiness Scale today is 6. Patient continues to have dialysis 3 times a day. MEDICATIONS: Naproxen, Nephrocaps, nitroglycerin, , tramadol. PHYSICAL EXAMINATION: During physial exam, an gentleman without distress. VITAL SIGNS: BP 127/79, HR 91, RR 16, height 5 feet 11 inches, weight 314.0 pounds, body mass index 43.7, temperature 98.0, oxygen saturation on room air 97%. HEENT: PERRLA, EOMI. Oropharynx extremely low position of soft palate. Mallampati 4. NECK: Supple, no JVD. Thyroid is not palpable. LUNGS: Clear to percussion and to auscultation. Good air exchange. No wheezing or rhonchi. HEART: S1, S2 regular. No murmurs, gallops, or rubs. ABDOMEN: Obese. EXTREMITIES: No clubbing or cyanosis. AGRICULTURE SALES ACCOUNT MANAGER: Awake, alert, and oriented X3. Cranial nerves 2 to 7 intact. There is no fasciculation or atrophy. noted. No focal deficits observed. IMPRESSION: 1. Obstructive sleep apnea-hypopnea syndrome. The patient demonstrated 100% compliance with treatment benefitting from treatment. The patient lost around 50 pounds since the previous sleep study, CPAP unit is old. 2. Obesity, body mass index 43.7. 3. End-stage renal disease, on treatment with dialysis 3 times per week. 4. History of asthma. 5. Hypertension. 6. Aneurysms of coronary arteries by results of recent cardiac cath. 7. History of gout. PLAN: 1. We will repeat CPAP titration for evaluation of effective CPAP pressure now after patient lost weight significantly and also to get for him new CPAP if necessary BiPAP unit. 2. Losing weight. 3. Sleep hygiene with regular time in bed for at least 8 hours. 4. No driving if feeling any sleepiness. Thank you very much for allowing me to participate in management of your patient/ Sincerely, Emery Kaiser MD, PhD, FAASM Diplomat of [place] [employer] [place] [employer] [facility] [place] MMODL / ALINAN: [id number] /
== END ==
LOC: SLEEP 10:34
PROVIDERS: ATTEND Internal Medicine
DX: G47.33 Obstructive sleep apnea (adult) (pediatric) (principal); E66.9 Obesity, unspecified; I12.0 Hypertensive chronic kidney disease with stage 5 chronic kidney disease or end stage renal disease; N18.6 End stage renal disease; I25.41 Coronary artery aneurysm; M10.9 Gout, unspecified; Z87.09 Personal history of other diseases of the respiratory system; Z68.41 Body mass index [BMI] 40.0-44.9, adult; Z99.89 Dependence on other enabling machines and devices; Z79.899 Other long term (current) drug therapy

== ENCOUNTER 2018-12-14 10:25 | Inpatient (IN) | payer MEDICARE, BC ==
[2018-12-14] MEDS ORDERED: MECLIZINE 12.5 MG TAB PO STA (11:03)
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
[2018-12-14 11:55] LABS: Basophils % (A) 1 %; Eosinophils # (A) 0.2 k/uL (0-0.7); Eosinophils % (A) 3 %; HCT 34.6 % (39.0-53.0); HGB 11.7 gm/dL (13.0-17.5); Lymphocytes # (A) 0.7 k/uL (1.0-4.8); Lymphocytes % (A) 16 %; MCH 29.2 pg (25.0-35.0); MCHC 33.7 g/dL (31.0-37.0); MCV 86.6 fL (80.0-100.0); Monocytes # (A) 0.2 k/uL (0-1.0); Monocytes % (A) 5 %; Neutrophils # (A) 3.4 k/uL (1.3-7.7); Neutrophils % (A) 74 %; Platelet Count 152 k/uL (150-450); Poikilocytosis Slight; RDW 14.8 % (11.5-15.5); WBC 4.6 k/uL (3.8-10.6)
[2018-12-14 12:13] LABS: INR 3.4 (<1.2); Partial Thromboplastin Time 43.4 sec (22.0-30.0); Prothrombin Time 32.9 sec (9.0-12.0)
--- NOTE | 2018-12-14 12:30 | CT ---
EXAMINATION TYPE: CT brain wo con DATE OF EXAM: 12/14/2018 COMPARISON: None HISTORY: 63-year-old male with pain, Dizziness, Left sided numbness TECHNIQUE: Examination was done in axial plane without intravenous contrast. Coronal and sagittal r econstructions performed. CT DLP: 1091.4 mGycm Automated exposure control for dose reduction was used. FINDINGS: There is no evidence of acute intracranial hemorrhage, acute ischemic changes, mass, mass-effect, or extra-axial fluid collection. There is no effacement of cerebral sulci or basal subarachnoid cister ns. There is no hydrocephalus. There is no midline shift. Mcfarlane-white matter distinction is preserv ed. Partially empty sella. Trace mucosal thickening ethmoid air cells. Prominent vascular calcifications proximal V4 segment vertebral arteries and within the carotid sipho ns. Some additional scattered punctate atherosclerotic calcifications are present in the more periphe ral circulation. Mild generalized atrophy. Moderate patchy periventricular deep white matter hypodensities. IMPRESSION: Mild generalized atrophy and moderate patchy changes of chronic small vessel ischemic disease. No acu te intracranial abnormality seen.
[2018-12-14 12:35] LABS: Calcium 8.7 mg/dL (8.4-10.2); Total Bilirubin 0.6 mg/dL (0.2-1.3); Total Protein 6.7 g/dL (6.3-8.2)
[2018-12-14] MEDS ORDERED: NALOXONE 0.4 MG/ML 1 ML VIAL IV PRN (14:25)
[2018-12-14] MEDS: MECLIZINE 25 MG TAB PO PRN (17:14)
[2018-12-14] MEDS: CALCIUM ACETATE 667 MG CAP PO PRN (17:14)
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
[2018-12-14] MEDS: ATORVASTATIN 40 MG TAB PO SCH (21:06)
[2018-12-15] MEDS: MECLIZINE 25 MG TAB PO PRN ×4 (03:09→19:52)
[2018-12-15] MEDS: CALCIUM ACETATE 667 MG CAP PO PRN (07:52)
[2018-12-15 08:16] LABS: Albumin 4.1 g/dL (3.5-5.0); Calcium 8.9 mg/dL (8.4-10.2); Potassium 4.6 mmol/L (3.5-5.1); Total Bilirubin 0.6 mg/dL (0.2-1.3); Total Protein 6.9 g/dL (6.3-8.2)
[2018-12-15 08:49] LABS: Appearance,Urine Cloudy (Clear); Bacteria,Urine Rare /hpf; Bilirubin,Urine Negative (Negative); Blood,Urine Small (Negative); Color,Urine Yellow; Glucose,Urine (UA) Negative (Negative); Ketones,Urine Negative (Negative); Leukocyte Esterase,Urine Large (Negative); Mucus,Urine Rare /hpf; Nitrite,Urine Negative (Negative); Protein,Urine 3+ (Negative); RBC,Urine 10 /hpf (0-5); Specific Gravity,Urine 1.015 (1.001-1.035); Squamous Epithelial Cell,Urine 2 /hpf (0-4); Urobilinogen,Urine <2.0 mg/dL (<2.0); WBC,Urine 89 /hpf (0-5)
--- NOTE | 2018-12-15 10:45 | P.PN ---
Subjective 63-year-old male was admitted secondary to vertigo area neurology validate the patient and recommended carotid Doppler and also an MRI and MRA. Patient's dizziness improved but still has the symptoms. Patient will be continued on meclizine. Constitutional: Denied any fatigue denied any fever. Cardio vascular: denied any chest pain, palpitations Gastrointestinal denied any nausea vomiting Pulmonary: Denied any shortness of breath cough Neurologic denied any new focal deficits All inpatient medications were reviewed and appropriate changes in these medications as dictated in the interval history and assessment and plan. Objective - Vital Signs Vital signs: Vital Signs Temp 97 F L 12/15/18 08:00 Pulse 89 12/15/18 08:00 Resp 18 12/15/18 08:00 BP 141/80 12/15/18 08:00 Pulse Ox 99 12/15/18 08:00 Intake & Output 12/14/18 12/15/18 12/15/18 18:59 06:59 18:59 Intake Total 10 240 Balance 10 240 Weight 140.7 kg 140.8 kg Intake: IV 10 .9 10 Oral 240 - Exam PHYSICAL EXAMINATION: GENERAL: The patient is alert and oriented x3, not in any acute distress. Well developed, well nourished. HEENT: Pupils are round and equally reacting to light. EOMI. No scleral icterus. No conjunctival pallor. Normocephalic, atraumatic. No pharyngeal erythema. No thyromegaly. CARDIOVASCULAR: S1 and S2 present. No murmurs, rubs, or gallops. PULMONARY: Chest is clear to auscultation, no wheezing or crackles. ABDOMEN: Soft, nontender, nondistended, normoactive bowel sounds. No palpable organomegaly. MUSCULOSKELETAL: No joint swelling or deformity. EXTREMITIES: No cyanosis, clubbing, or pedal edema. NEUROLOGICAL: Gross neurological examination did not reveal any focal deficits. Cerebellar exam is within normal limits SKIN: No rashes. - Labs CBC & Chem 7: 12/14/18 11:40 12/15/18 07:14 Labs: Abnormal Lab Results - Last 24 Hours (Table) 12/14/18 12/14/18 12/14/18 Range/Units 11:40 11:40 11:40 RBC 4.00 L (4.30-5.90) m/uL Hgb 11.7 L (13.0-17.5) gm/dL Hct 34.6 L (39.0-53.0) % Lymphocytes # 0.7 L (1.0-4.8) k/uL PT 32.9 H (9.0-12.0) sec INR 3.4 H (<1.2) APTT 43.4 H (22.0-30.0) sec Chloride 94 L (98-107) mmol/L Carbon Dioxide 32 H (22-30) mmol/L BUN 42 H (9-20) mg/dL Creatinine 8.67 H* (0.66-1.25) mg/dL Urine Protein (Negative) Urine Blood (Negative) Ur Leukocyte Esterase (Negative) Urine RBC (0-5) /hpf Urine WBC (0-5) /hpf Urine WBC Clumps (None) /hpf Urine Bacteria (None) /hpf Urine Mucus (None) /hpf 12/15/18 12/15/18 Range/Units 07:14 08:15 RBC (4.30-5.90) m/uL Hgb (13.0-17.5) gm/dL Hct (39.0-53.0) % Lymphocytes # (1.0-4.8) k/uL PT (9.0-12.0) sec INR (<1.2) APTT (22.0-30.0) sec Chloride 94 L (98-107) mmol/L Carbon Dioxide (22-30) mmol/L BUN 56 H (9-20) mg/dL Creatinine 10.45 H* (0.66-1.25) mg/dL Urine Protein 3+ H (Negative) Urine Blood Small H (Negative) Ur Leukocyte Esterase Large H (Negative) Urine RBC 10 H (0-5) /hpf Urine WBC 89 H (0-5) /hpf Urine WBC Clumps Occasional H (None) /hpf Urine Bacteria Rare H (None) /hpf Urine Mucus Rare H (None) /hpf Assessment and Plan Plan: -Vertigo: Appears to be peripheral vertigo, will continue with meclizine. Nephrology evaluated the patient, and neurology evaluated the patient should undergo ultrasound of the carotids and MRI. 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 Patient says this is the reason why he is on Coumadin although patient may have A. fib which is rate controlled continue with Coumadin for now -Metabolic bone disease for which we'll continue with Della
--- NOTE | 2018-12-15 10:45 | P.CNNES ---
History of Present Illness Consult date: 12/15/18 Reason for Consult: Dizziness Chief complaint: Dizziness and numbness History of Present Illness: Patient is a 63-year-old male with history of hypertension, end-stage renal disease, who states that about 3 weeks ago he started having episodes of dizziness lightheadedness and left arm numbness. The symptoms comes and goes. It was short lasting in the beginning, but now they're lasting longer. The dizziness can occur in sitting standing or laying position. He states that he does not have to move to get dizzy, could be laying or sitting and becomes dizzy and everything started spinning around. The dizziness lasts for about half an hour to couple hours. Likewise the numbness is also occurring only the left arm lasting for a couple minutes. Patient denies any slurred speech facial droop or diplopia. He gets blurred vision when he gets dizzy but no loss of vision. Denies any focal weakness. Patient denies any problems with the ear like fullness in the ears, pain in the ears, discharge pain or tinnitus or loss of hearing. Patient currently is on Coumadin for "3 enlarged arteries", initiated by his concrete pump operator helper about a month ago. Patient underwent computed tomography scan of the head, which revealed mild generalized atrophy and moderate patchy changes of chronic small vessel ischemic disease. Visualized paranasal sinuses are clear. External auditory canal is clear with no excessive wax. Patient's blood test shows WBC 4.6, hemoglobin 11.7 platelets 152. PT is 32.9, INR 3.4. Sodium is normal BOM is 56 creatinine 10.45 urinalysis showed large amount of leukocyte Estrace, 89 RBCs and rare bacteria Review of Systems Patient denies any diplopia. Denies neck pain. Denies headaches, any injury. Constitutional: Reports as per HPI Eyes: bilateral blurred vision, denies decreased vision, denies diplopia, denies photophobia, denies loss of peripheral vision Ears: deny: decreased hearing, ear discharge, earache, tinnitus Ears, nose, mouth and throat: Reports as per HPI Cardiovascular: Denies chest pain, Denies shortness of breath Gastrointestinal: Denies dyspepsia, Denies vomiting Past Medical History Past Medical History: Heart Failure, CVA/TIA, Dialysis, Hyperlipidemia, Hypertension, Myocardial Infarction (LA), Osteoarthritis (OA), Renal Disease, Sleep Apnea/CPAP/BIPAP Additional Past Medical History / Comment(s): ESRD with hemodialysis M,W,F-last time 12/13/18, pulmonary edema d/t missed dialysis, chronic anemia, aneurysmal L/R coronary systems, leaky heart valve, CVA with no residual, JEWEL with Cpap, arthritis R foot and r knee. Last Myocardial Infarction Date:: 2013 History of Any Multi-Drug Resistant Organisms: None Reported Past Surgical History: Heart Catheterization Additional Past Surgical History / Comment(s): Cardiac caths with last one done 08/2018, fistular L upper arm, L neck stab wound-scar tissue (keloids) removals and radiation to area to stop keloid formation. Past Anesthesia/Blood Transfusion Reactions: No Reported Reaction Smoking Status: Never smoker - Past Family History Father Family Medical History: Coronary Artery Disease (CAD), Myocardial Infarction (LA) Additional Family Medical History / Comment(s): Pt cannot recall at what age his father had his LA Mother Family Medical History: Diabetes Mellitus Medications and Allergies Home Medications Medication Instructions Recorded Confirmed Type Calcium Acetate [PhosLo] 2,001 mg PO TID-W/MEALS PRN 08/25/18 12/14/18 History Atorvastatin [Lipitor] 40 mg PO HS #30 tab 08/29/18 12/14/18 Rx Warfarin [Coumadin] 2.5 mg PO WE 12/14/18 12/14/18 History Warfarin [Coumadin] 5 mg PO SUMOTUTHFRSA 12/14/18 12/14/18 History Allergies Allergy/AdvReac Type Severity Reaction Status Date / Time No Known Allergies Allergy Verified 12/14/18 10:50 Physical Examination - Vital Signs Vital Signs: Vital Signs Temp Pulse Pulse Resp BP BP Pulse Ox 12/15/18 08:00 97 F L 89 18 141/80 99 12/15/18 04:00 98.9 F 89 18 132/78 96 12/15/18 00:00 99.1 F 91 18 123/69 97 12/14/18 20:00 98.5 F 89 18 111/61 93 L 12/14/18 16:00 98 F 93 20 123/72 97 12/14/18 15:18 98.3 F 86 18 143/85 98 12/14/18 14:00 89 18 144/86 98 12/14/18 13:30 90 18 144/90 99 12/14/18 13:00 89 18 136/99 99 12/14/18 12:30 87 18 132/81 100 12/14/18 12:00 90 14 125/80 98 12/14/18 11:30 125/80 12/14/18 11:00 18 127/84 99 12/14/18 10:35 98.3 F 97 18 132/93 98 Intake and Output 12/14/18 12/15/18 12/15/18 22:59 06:59 14:59 Intake Total 10 240 Balance 10 240 Intake: IV 10 .9 10 Oral 240 Other: Weight 140.7 kg 140.8 kg On examination patient is a middle aged Afro-Tongan male, moderately obese in no acute distress. He is alert and awake fully oriented to time place and person. Speech and language functions are normal. On cranial nerve examination, pupils are round and reacting to light. Visual blakely are full on confrontation. Face is symmetric, tongue protrudes midline. Hearing normal. On muscle strength testing there is no pronator drift and the strength is normal in arms and legs. Reflexes are symmetric. No ataxia. Tone and bulk of mus cles normal. No obvious bruit, S1 and S2 audible. Results - Laboratory Findings CBC and BMP: 12/14/18 11:40 12/15/18 07:14 Abnormal Lab Findings: Abnormal Labs 12/14/18 12/14/18 12/14/18 11:40 11:40 11:40 RBC 4.00 L Hgb 11.7 L Hct 34.6 L Lymphocytes # 0.7 L PT 32.9 H INR 3.4 H APTT 43.4 H Chloride 94 L Carbon Dioxide 32 H BUN 42 H Creatinine 8.67 H* Urine Protein Urine Blood Ur Leukocyte Esterase Urine RBC Urine WBC Urine WBC Clumps Urine Bacteria Urine Mucus 12/15/18 12/15/18 07:14 08:15 RBC Hgb Hct Lymphocytes # PT INR APTT Chloride 94 L Carbon Dioxide BUN 56 H Creatinine 10.45 H* Urine Protein 3+ H Urine Blood Small H Ur Leukocyte Esterase Large H Urine RBC 10 H Urine WBC 89 H Urine WBC Clumps Occasional H Urine Bacteria Rare H Urine Mucus Rare H Assessment and Plan Assessment: * Recurrent episodes of vertigo of unclear etiology. Rule out TIA. Rule out p eripheral vestibular dysfunction * Recurrent episodes of left arm numbness, unclear etiology. The patient has no neck pain. Rule out TIA, less likely CTS. * Hypertension * Hyperlipidemia * End-stage renal disease on hemodialysis * Obesity Plan: * Patient will undergo carotid Doppler to rule out carotid stenosis. * We will also check MRI of the brain and MRA of the brain without contrast to rule out any vertebrobasilar insufficiency. * We will check hemoglobin A1c. * Further management will be based upon above test results.
--- NOTE | 2018-12-15 11:20 | US ---
"EXAMINATION TYPE: US carotid duplex BILAT DATE OF EXAM: 12/15/2018 COMPARISON: NONE CLINICAL HISTORY: CVA. EXAM MEASUREMENTS: RIGHT: Peak Systolic Velocity (PSV) cm/sec ----- Right CCA: 62.7 ----- Right ICA: 104.7 ----- Right ECA: 81.4 ICA/CCA ratio: 1.7 RIGHT: End Diastole cm/sec ----- Right CCA: 7.8 ----- Right ICA: 12.8 ----- Right ECA: 11.5 LEFT: Peak Systolic Velocity (PSV) cm/sec ----- Left CCA: 74.1 ----- Left ICA: 42.5 ----- Left ECA: 80.5 ICA/CCA ratio: 0.6 LEFT: End Diastole cm/sec ----- Left CCA: 9.6 ----- Left ICA: 17.1 ----- Left ECA: 4.2 VERTEBRALS (direction of flow): Right Vertebral: Antegrade Left Vertebral: Antegrade Rhythm: Arrhythmia Thrombus seen in right IJV. Floor nurse Sanjiv given technologist impression. No elevated velocities. Te chnically difficult study due to neck size. Carotid dives deep and is difficult to image. No significant focal plaque at carotid bulb level bilaterally. Partial occlusive thrombus right inter nal jugular vein noted on image 31 and 32 of 60. IMPRESSION: No significant stenosis in internal carotid arteries bilaterally. Partial occlusive th rombus in the right internal jugular vein is present. Criteria for Assigning % of Stenosis / Diameter reduction (Estimation based on the indirect measurements of the internal carotid artery velocities (ICA PSV). 1. Normal (no stenosis)=ICA PSV < 125 cm/s: ratio < 2.0: ICA EDV<40 cm/s. 2. Less than 50% stenosis=ICA PSV < 125 cm/s: ratio < 2.0: ICA EDV<40 cm/s. 3. 50 to 69% stenosis=ICA PSV of 125 to 230 cm/s: ration 2.0 ? 4.0: ICA EDV 40-100 cm/s. 4. Greater than 70% stenosis to near occlusion= ICA PSV > 230 cm/s: ratio > 4.0: ICA EDV > 100 cm/s. 5. Near occlusion= ICA PSV velocities may be low or undetectable: variable ratio and ICA EDV. 6. Total occlusion=unable to detect flow. A Yellow level critical message alert has been initiated for Bebe Townsend via the [id number] [id number] | Critical Results System on 12/15/2018 11:18 AM. This message alert has been sent to Bebe gonzales via the preferences provided by the clinician for the receipt of Radiology Critical Findings. [facility] [id number]."
[2018-12-15] MEDS: CALCIUM ACETATE 667 MG CAP PO SCH ×2 (12:42→17:42)
--- NOTE | 2018-12-15 14:26 | CONS ---
CONSULTATION REASON FOR CONSULT: End-stage renal disease. HISTORY OF PRESENT ILLNESS: Patient is a 63-year-old male with history of end-stage renal disease, on hemodialysis on a Tuesday, Tuesday, Tuesday schedule. He was admitted to the hospital with complaints of dizziness. He was started on meclizine and he states he is feeling better. The patient had been evaluated by Neurology and MRI has been ordered. PAST MEDICAL HISTORY: End-stage renal disease on hemodialysis, hypertension, history of CVA/TIA, hyperlipidemia, coronary artery disease, history of coronary artery aneurysms, maintained on anticoagulation. PAST SURGICAL HISTORY: AV fistula the left arm, cardiac catheterizations, surgery for keloid on the neck wound. SOCIAL HISTORY: Negative for smoking, drug abuse or alcohol abuse. MEDICATIONS: Medications at home prior to admission include PhosLo, Lipitor, Coumadin. ALLERGIES: None. PHYSICAL EXAMINATION: On examination, patient is comfortable, awake, alert, oriented x3, not in any acute distress. Blood pressure was 141/80, heart rate 89 per minute. He is afebrile. EXAMINATION OF THE HEART: S1, S2. EXAMINATION OF THE LUNGS: Bilateral breath sounds are heard. Abdomen is soft, nontender. Examination of lower extremities shows no evidence of edema. ENGINE REPAIRER PRODUCTION exam is grossly intact. LABS: Labs show hemoglobin of 11.7, sodium 137, potassium 4.6, BUN 56, serum creatinine 10.45. ASSESSMENT: 1. End-stage renal disease, on hemodialysis on a Tuesday, Tuesday, Tuesday schedule. The patient will be dialyzed today. He has a left arm AV fistula. 2. Vertigo. Currently maintained on meclizine, being followed by Neurology. MRI has been ordered. 3. Coronary artery aneurysms, maintained on anticoagulation, being followed by Cardiology as outpatient. 4. Chronic kidney disease mineral bone disorder, maintained on PhosLo which we will continue. PLAN: Hemodialysis today. Continue phosphate binders. Await further workup from Neurology. MMODL / IJN: [id number] /
[2018-12-15] MEDS ORDERED: WARFARIN 5 MG TAB PO SCH (18:00)
[2018-12-15 18:11] LABS: Prothrombin Time 28.5 sec (9.0-12.0)
[2018-12-15 18:28] LABS: Hemoglobin A1C 5.6 % (4.0-6.0)
[2018-12-15] MEDS: ATORVASTATIN 40 MG TAB PO SCH (19:52)
[2018-12-16 06:38] LABS: HCT 31.8 % (39.0-53.0); HGB 10.6 gm/dL (13.0-17.5); MCHC 33.4 g/dL (31.0-37.0); MCV 86.7 fL (80.0-100.0); Mean Platelet Volume 8.4; Platelet Count 140 k/uL (150-450); Poikilocytosis Slight; RBC 3.67 m/uL (4.30-5.90); RDW 14.6 % (11.5-15.5); WBC 4.6 k/uL (3.8-10.6)
[2018-12-16] MEDS: CALCIUM ACETATE 667 MG CAP PO SCH (06:50)
[2018-12-16] MEDS: MECLIZINE 25 MG TAB PO PRN (06:55)
[2018-12-16 07:00] LABS: INR 2.7 (<1.2); Prothrombin Time 25.7 sec (9.0-12.0)
[2018-12-16 07:01] LABS: Calcium 9.1 mg/dL (8.4-10.2); Potassium 4.5 mmol/L (3.5-5.1)
[2018-12-16 09:20] VITALS: BP 119/69; PULSE 103; RESP 16; TEMP 96.4
--- NOTE | 2018-12-16 10:24 | P.DS ---
Providers Date of admission: 12/15/18 15:19 Attending physician: Josue Clemente MD Consults: 12/14/18 14:26 Consult Physician Routine Consulting Provider: Yenifer Bai Consult Reason/Comments: Parasthesia left side; Dizziness Do you want consulting provider notified?: Yes 12/14/18 16:43 Consult Physician Routine Consulting Provider: Sharona Bernal Consult Reason/Comments: hemodialysis patient, MWF Do you want consulting provider notified?: Yes Primary care physician: Stated None Hospital Course: 63-year-old male was admitted secondary to vertigo area neurology evaluated the patient and recommended carotid Doppler and also an MRI and MRA. Patient's dizziness improved but still has the symptoms. Patient will be continued on meclizine. 12/16/2018 Patient's dizziness improved even compared to yesterday. Patient was discharged on meclizine carotid Doppler did not show any significant atherosclerotic occlusive disease. We're unable to get MRI and MRA because of his body habitus patient the will be discharged today follow with neurology as an outpatient and the patient will undergo open MRI. The possibility of was vertebral insufficiency is low but that need to be ruled out. Patient will be referred to vestibular rehab. PHYSICAL EXAMINATION: GENERAL: The patient is alert and oriented x3, not in any acute distress. Well developed, well nourished. HEENT: Pupils are round and equally reacting to light. EOMI. No scleral icterus. No conjunctival pallor. Normocephalic, atraumatic. No pharyngeal erythema. No thyromegaly. CARDIOVASCULAR: S1 and S2 present. No murmurs, rubs, or gallops. PULMONARY: Chest is clear to auscultation, no wheezing or crackles. ABDOMEN: Soft, nontender, nondistended, normoactive bowel sounds. No palpable organomegaly. MUSCULOSKELETAL: No joint swelling or deformity. EXTREMITIES: No cyanosis, clubbing, or pedal edema. NEUROLOGICAL: Gross neurological examination did not reveal any focal deficits. Cerebellar exam is within normal limits SKIN: No rashes. Assessment and Plan Plan: -Vertigo: Appears to be peripheral vertigo, will continue with meclizine. -End-stage renal disease on hemodialysis -Aneurysmal dilatation of the left and right coronary systems on cardiac catheterization. Possibility of atrial fibrillation presently sinus rhythm with some PVCs -Metabolic bone disease for which we'll continue with PhosLo Patient Condition at Discharge: Serious Plan - Discharge Summary Discharge Rx Participant: No New Discharge Prescriptions: New Meclizine [Antivert] 25 mg PO QID PRN #30 tab PRN Reason: Vertigo Continue Calcium Acetate [PhosLo] 2,001 mg PO TID-W/MEALS PRN PRN Reason: MEALS Atorvastatin [Lipitor] 40 mg PO HS #30 tab Warfarin [Coumadin] 2.5 mg PO WE Warfarin [Coumadin] 5 mg PO SUMOTUTHFRSA Discharge Medication List Calcium Acetate [PhosLo] 2,001 mg PO TID-W/MEALS PRN 08/25/18 [History] Atorvastatin [Lipitor] 40 mg PO HS #30 tab 08/29/18 [Rx] Warfarin [Coumadin] 2.5 mg PO WE 12/14/18 [History] Warfarin [Coumadin] 5 mg PO SUMOTUTHFRSA 12/14/18 [History] Meclizine [Antivert] 25 mg PO QID PRN #30 tab 12/16/18 [Rx] Follow up Appointment(s)/Referral(s): Shilpi Carrizales MD [REFERRING] - 1 Week Maggie Araujo MD [STAFF PHYSICIAN] - 1 Week None,Stated [Primary Care Provider] - 1-2 days Discharge Disposition: HOME SELF-CARE
--- NOTE | 2018-12-16 17:55 | PN ---
PROGRESS NOTE Patient is seen for followup for end-stage renal disease. He was admitted with dizziness and vertigo. Patient has been evaluated by Neurology. An MRI was ordered. However, patient states he was not able to fit in the machine. He is maintained on meclizine. He will likely be discharged today. PHYSICAL EXAMINATION: On examination, blood pressure was 119/69, heart rate 103 per minute. Patient is afebrile. EXAMINATION OF THE HEART: S1, S2. EXAMINATION OF THE LUNGS: Bilateral breath sounds are heard. Abdomen is soft, nontender. Examination of the lower extremities shows no significant edema. Chronic skin changes are noted. LABS: No new labs. ASSESSMENT: 1. End-stage renal disease, on hemodialysis on a Tuesday, Tuesday, Tuesday schedule. 2. Vertigo, maintained on meclizine. 3. Chronic kidney disease mineral bone disorder. 4. Coronary artery aneurysms. PLAN: Hemodialysis on Tuesday if the patient is still in the hospital, otherwise, he will follow up as outpatient. MMODL / IJN: [id number] /
[2018-12-20] MEDS ORDERED: WARFARIN 2.5 MG TAB PO SCH (18:00)
== END 2018-12-16 12:05 | disposition home or self-care (01) | DRG 149 ==
LOC: EC 10:25 → 3SCARD 14:42 → OBSVTOIN 12-15 15:19
PROVIDERS: ADMIT Internal Medicine; ATTEND Internal Medicine
PROC: 5A1D70Z Performance of Urinary Filtration, Intermittent, Less than 6 Hours Per Day (ICD-10-PCS; principal; 2018-12-15)
DX: H81.399 Other peripheral vertigo, unspecified ear (principal); N18.6 End stage renal disease; I13.2 Hypertensive heart and chronic kidney disease with heart failure and with stage 5 chronic kidney disease, or end stage renal disease; Z68.41 Body mass index [BMI] 40.0-44.9, adult; I50.9 Heart failure, unspecified; Z99.2 Dependence on renal dialysis; E66.9 Obesity, unspecified; E78.5 Hyperlipidemia, unspecified; G47.33 Obstructive sleep apnea (adult) (pediatric); M17.11 Unilateral primary osteoarthritis, right knee; M19.071 Primary osteoarthritis, right ankle and foot; I25.10 Atherosclerotic heart disease of native coronary artery without angina pectoris; E83.89 Other disorders of mineral metabolism; I25.41 Coronary artery aneurysm; Z99.89 Dependence on other enabling machines and devices; I25.2 Old myocardial infarction; Z86.73 Personal history of transient ischemic attack (TIA), and cerebral infarction without residual deficits; Z79.01 Long term (current) use of anticoagulants; Z79.899 Other long term (current) drug therapy; Z83.3 Family history of diabetes mellitus; Z82.49 Family history of ischemic heart disease and other diseases of the circulatory system
CPT/HCPCS: 36415; 70450; 80048; 80053; 81001; 83036; 84484; 85025; 85027; 85610; 85730; 90935; 93005; 93880; 94760; 99285

== ENCOUNTER → 2019-03-08 | Outpatient (CLI) | payer MEDICARE, BC ==
--- NOTE | 2019-03-08 12:33 | SFUN ---
SLEEP CENTER FOLLOW UP NOTE DATE OF SERVICE: 03/08/2019 This 63-year-old gentleman has been followed in sleep center for treatment of obstructive sleep apnea-hypopnea syndrome. Recently patient had CPAP titration and after that he received new CPAP unit. Today is his first visit after he received his new unit. The patient is able to use machine every night for the whole night without significant problem with the usage. [place] Sleepiness Scale today is 4. I checked the patient's CPAP unit, range of the pressure 10 to 16. Usage is 30 out of 30 nights for more than 4 hours with average usage is 10.8 hours per night. Average pressure is 15.8. Leak is 34 L/minute, which is quite high for the nasal mask. Patient is using Mirage FX standard mask. Reading for the last night showed leak is 47 L/minutes. Apnea-hypopnea index is 12.5 for the last night and average for the last month is 17.5. PHYSICAL EXAMINATION: During physical exam, patient in no distress. VITAL SIGNS: BP 162/97, HR 82, RR 16, weight 306 pounds, temperature 98.2, oxygen saturation at room air 98%. HEENT: PERRLA, EOMI. Oropharynx extremely low position of soft palate. Mallampati 4. NECK: Supple, no JVD. Thyroid is not palpable. LUNGS: Clear to percussion and to auscultation. Good air exchange. No wheezing or rhonchi. HEART: S1, S2 regular. No murmurs, gallops, or rubs. ABDOMEN: Obese. EXTREMITIES: No clubbing or cyanosis. GARMENT FORM ASSEMBLER: Awake, alert, and oriented X3. Cranial nerves 2 to 7 intact. There is no fasciculation or atrophy. noted. No focal deficits observed. IMPRESSION: 1. Patient demonstrated 100% compliance with treatment with CPAP therapy, benefitting from treatment, but reading showed leak from the mask and apnea-hypopnea index above range. 2. Obesity. 3. Asthma. 4. End-stage renal disease on treatment with dialysis. 5. Hypertension. 6. History of an aneurysmal coronary artery. 7. History of gout. PLAN: 1. I will change range of pressure in CPAP unit to the high level of 19. 2. Prescription for the chinstrap. 3. We may consider to use full-face mask for the patient possibly DreamWear. 4. Losing weight. 5. Sleep hygiene with regular time in bed for at least 7-1/2 to 8 hours. 6. No driving if feeling any sleepiness. Thank you very much for allowing me to participate in management of your patient . Sincerely, Emery Kaiser MD, PhD, FAASM Diplomat of [place] [employer] [place] [employer] Developer of [facility] [place] MMODL / IJN: [id number] /

== ENCOUNTER → 2019-05-17 | Outpatient (CLI) | payer MEDICARE, BC ==
--- NOTE | 2019-05-17 12:46 | SFUN ---
SLEEP CENTER FOLLOW UP NOTE DATE OF SERVICE: 05/17/2019 A 63-year-old gentleman who has been followed in the Sleep Center for treatment of obstructive sleep apnea-hypopnea syndrome. During last visit, which was about 2 months ago, average apnea-hypopnea index reading from the machine was 17.5, and leak was 47 L/minute. Subsequently, I increased range of the pressure from 10 to 19 cm of water AutoPap regimen. Patient continued to use his CPAP equipment every night. He feels better with the higher pressure. He still continued to use the same mask. He did not receive Dream Wear mask yet. I checked his CPAP unit, range of the pressure 10 to 19, average pressure 17. Leak is 23 L/minute, which is borderline. Apnea-hypopnea index for the last month 9.6, which is about 2 times better than during the previous visit with total apnea index 8.6, central apnea index 1.0. [place] Sleepiness Scale today is 4, which is normal. PHYSICAL EXAM: Patient in no distress, BP 167/98, HR 92, RR 16, height 5, 10 inches, weight 219, body mass index 42.7, temp is 98.0, oxygen saturation at room air 99%. OROPHARYNX: Extremely low soft palate. Mallampati 4. ABDOMEN: Obese. Neck Supple, no JVD. Thyroid is not palpable. LUNGS Clear to percussion and to auscultation. Good air exchange. No wheezing or rhonchi. HEART S1, S2 regular. No murmurs, gallops, or rubs. EXTREMITIES No clubbing or cyanosis. ONLINE PRODUCER Awake, alert, and oriented X3. Cranial nerves 2 to 7 intact. There is no fasciculation or atrophy. noted. No focal deficits observed. IMPRESSION: 1. Patient demonstrated 100% compliance with the treatment, benefitting from treatment. Still mild abnormalities of respiration with the CPAP. 2. Obesity. 3. Asthma. 4. End-stage renal disease, on treatment with dialysis. 5. Hypertension. 6. History of gout. 7. History of of the coronary artery. PLAN: 1. I will increase range of the pressure from 2, automatic regimen from 10-20 cm of water. 2. Patient will continue to use equipment every night for the whole night. 3. Patient will be to get Dream Wear full-face mask. 4. Losing weight. 5. Sleep hygiene with regular time in bed for at least 8 hours. 6. No driving if feeling sleepiness. 7. Followup visit in 2 months. Thank you very much for allowing me to participate in the management of your patient. Sincerely, Emery Kaiser MD, PhD, FAASM Diplomat of [place] [employer] [place] [employer] Treasury Accountant of [facility] [place] MMODL / ALINAN: [id number] /
== END | disposition home or self-care (01) ==
LOC: SLEEP 11:43
PROVIDERS: ATTEND Internal Medicine
DX: G47.33 Obstructive sleep apnea (adult) (pediatric) (principal); E66.9 Obesity, unspecified; I12.0 Hypertensive chronic kidney disease with stage 5 chronic kidney disease or end stage renal disease; J45.909 Unspecified asthma, uncomplicated; N18.6 End stage renal disease; Z68.41 Body mass index [BMI] 40.0-44.9, adult; Z99.2 Dependence on renal dialysis; Z87.39 Personal history of other diseases of the musculoskeletal system and connective tissue; Z86.79 Personal history of other diseases of the circulatory system

== ENCOUNTER 2019-05-24 11:35 | Inpatient (IN) | payer MEDICARE, BC ==
--- NOTE | 2019-05-24 12:08 | ED ---
General Adult HPI <Dominick Almazan - Last Filed: 05/24/19 14:19> - General Source: patient Mode of arrival: wheelchair Limitations: no limitations <Eduardo Caban - Last Filed: 05/24/19 14:55> - General Chief complaint: Shortness of Breath Stated complaint: ZAFAR Time Seen by Provider: 05/24/19 11:53 - History of Present Illness Initial comments: Patient is a 63-year-old male with history of heart failure and chronic kidney disease is presenting to the emergency department with a chief complaint of shortness of breath. Patient reports his symptoms started today when he developed dyspnea on exertion. Patient denies any chest pain at this point. Patient does have a headache but denies any blurry vision lightheadedness or dizziness. Patient reports she has not been to dialysis for over a week due to a confrontation with the cardiac technician that works there. Patient denies any calf pain or lower extremity swelling. Patient reports he only takes a cholesterol pill and Coumadin. Patient does have sleep apnea but denies asthma COPD or smoking. (Eduardo Caban) - Related Data Home Medications Medication Instructions Recorded Confirmed Calcium Acetate [PhosLo] 2,001 mg PO TID-W/MEALS 08/25/18 05/24/19 Warfarin [Coumadin] 5 mg PO SUMOTUTHFRSA 12/14/18 05/24/19 Previous Rx's Medication Instructions Recorded Atorvastatin [Lipitor] 40 mg PO HS #30 tab 08/29/18 Allergies Allergy/AdvReac Type Severity Reaction Status Date / Time No Known Allergies Allergy Verified 05/24/19 14:34 Review of Systems ROS Other: All systems not noted in ROS Statement are negative. <Dominick Almazan - Last Filed: 05/24/19 14:19> ROS Other: All systems not noted in ROS Statement are negative. <Eduardo Caban - Last Filed: 05/24/19 14:55> ROS Statement: Those systems with pertinent positive or pertinent negative responses have been documented in the HPI. Past Medical History Past Medical History: Heart Failure, CVA/TIA, Dialysis, Hyperlipidemia, Hypertension, Myocardial Infarction (ID), Osteoarthritis (OA), Renal Disease, Sleep Apnea/CPAP/BIPAP Additional Past Medical History / Comment(s): ESRD with hemodialysis M,W,F-last time 12/13/18, pulmonary edema d/t missed dialysis, chronic anemia, aneurysmal L/R coronary systems, leaky heart valve, CVA with no residual, JEWEL with Cpap, ar thritis R foot and r knee. Last Myocardial Infarction Date:: 2013 History of Any Multi-Drug Resistant Organisms: None Reported Past Surgical History: Heart Catheterization Additional Past Surgical History / Comment(s): Cardiac caths with last one done 08/2018, fistular L upper arm, L neck stab wound-scar tissue (keloids) removals and radiation to area to stop keloid formation. Past Anesthesia/Blood Transfusion Reactions: No Reported Reaction Past Psychological History: No Psychological Hx Reported Smoking Status: Never smoker Past Alcohol Use History: None Reported Past Drug Use History: None Reported - Past Family History Father Family Medical History: Coronary Artery Disease (CAD), Myocardial Infarction (ID) Additional Family Medical History / Comment(s): Pt cannot recall at what age his father had his ID Mother Family Medical History: Diabetes Mellitus <Eduardo Caban - Last Filed: 05/24/19 14:55> General Exam Limitations: no limitations General appearance: alert, in no apparent distress Head exam: Present: atraumatic, normocephalic, normal inspection Eye exam: Present: normal appearance Pupils: Present: normal accommodation ENT exam: Present: normal exam, normal oropharynx, mucous membranes moist, TM's normal bilaterally, normal external ear exam Neck exam: Present: normal inspection, full ROM Respiratory exam: Present: normal lung sounds bilaterally Cardiovascular Exam: Present: regular rate, normal rhythm, normal heart sounds Extremities exam: Present: normal inspection, full ROM Back exam: Present: normal inspection, full ROM Neurological exam: Present: alert, oriented X3 Psychiatric exam: Present: normal affect, normal mood Skin exam: Present: warm, intact, normal color <Eduardo Caban - Last Filed: 05/24/19 14:55> Course <Dominick Almazan - Last Filed: 05/24/19 14:19> Vital Signs 05/24/19 05/24/19 05/24/19 11:38 12:23 13:15 Temperature 97.4 F L Pulse Rate 95 92 81 Respiratory 20 22 20 Rate Blood Pressure 227/116 205/131 203/137 O2 Sat by Pulse 98 98 Oximetry 05/24/19 14:00 Temperature Pulse Rate Respiratory Rate Blood Pressure 199/129 O2 Sat by Pulse Oximetry - Reevaluation(s) Reevaluation #1: 05/24/19 14:19 ANGEL LUIS supervision: I proceeded [id number] evaluation the patient he did present with complaints of shortness of breath he is a dialysis patient but has not had dialysis for 1 week. He normally gets at a Tuesday out of town. He complained of shortness of breath. He was found have markedly elevated blood pressure he did respond to IV labetalol with improvement in his well- being. I did discuss the case with Dr. Hill as well as a Dr. Bernal. Patient be admitted with urgent dialysis. 05/24/19 14:21 E troponin elevation is likely secondary to the renal failure. Patient will complaints of chest pain (Dominick Almazan) Medical Decision Making - Lab Data Result diagrams: 05/24/19 12:19 05/24/19 12:19 <Dominick Almazan - Last Filed: 05/24/19 14:19> - Lab Data Result diagrams: 05/24/19 12:19 05/24/19 12:19 <Eduardo Caban - Last Filed: 05/24/19 14:55> - Medical Decision Making Patient is 63-year-old male with history of CKG and heart failure is presenting to emergency Department with a chief complaint of shortness of breath. Patient has not been to dialysis for about a week. Patient reports over the last day he has developed shortness of breath and reports dyspnea on exertion. Patient does report mild substernal chest pressure without any radiation. Patient denies any episodes nausea or vomiting or diaphoresis. Initial troponin was elevated although there also appeared to be elevated earlier in the year. Patient has poor kidney function although that is expected considering he isn't dialysis. EKG shows no ST elevation. Patient would need urgent dialysis which is causing the elevated blood pressure. Patient given 2 doses of labetalol. Patient will be admitted for further medical management along with dialysis. Patient given hydralazine on when necessary orders. Dr. Almazan also examined the patient and is in agreement with the treatment plan. Patient will be admitted to Dr. Gauthier. Nephrology consulted. (Eduardo Caban) - Lab Data Lab Results 10/17/19 10/17/19 10/17/19 Range/Units 12:19 12:19 12:19 WBC 4.2 (3.8-10.6) k/uL RBC 3.69 L (4.30-5.90) m/uL Hgb 10.9 L (13.0-17.5) gm/dL Hct 33.1 L (39.0-53.0) % MCV 89.5 (80.0-100.0) fL MCH 29.4 (25.0-35.0) pg MCHC 32.8 (31.0-37.0) g/dL RDW 14.5 (11.5-15.5) % Plt Count 111 L (150-450) k/uL Neutrophils % 78 % Lymphocytes % 15 % Monocytes % 4 % Eosinophils % 3 % Basophils % 1 % Neutrophils # 3.3 (1.3-7.7) k/uL Lymphocytes # 0.6 L (1.0-4.8) k/uL Monocytes # 0.2 (0-1.0) k/uL Eosinophils # 0.1 (0-0.7) k/uL Basophils # 0.0 (0-0.2) k/uL PT 29.5 H (9.0-12.0) sec INR 3.1 H (<1.2) APTT 40.8 H (22.0-30.0) sec D-Dimer 0.37 (<0.60) mg/L FEU Sodium 141 (137-145) mmol/L Potassium 5.2 H (3.5-5.1) mmol/L Chloride 97 L (98-107) mmol/L Carbon Dioxide 24 (22-30) mmol/L Anion Gap 20 mmol/L BUN 101 H* (9-20) mg/dL Creatinine 20.04 H* (0.66-1.25) mg/dL Est GFR (CKD-EPI)AfAm 2 (>60 ml/min/1.73 sqM) Est GFR (CKD-EPI)NonAf 2 (>60 ml/min/1.73 sqM) Glucose 99 (74-99) mg/dL Calcium 9.3 (8.4-10.2) mg/dL Total Bilirubin 0.6 (0.2-1.3) mg/dL AST 54 (17-59) U/L ALT 95 H (21-72) U/L Alkaline Phosphatase 61 (38-126) U/L Troponin I (0.000-0.034) ng/mL NT-Pro-B Natriuret Pep pg/mL Total Protein 7.0 (6.3-8.2) g/dL Albumin 4.2 (3.5-5.0) g/dL 05/24/19 05/24/19 Range/Units 12:19 12:19 WBC (3.8-10.6) k/uL RBC (4.30-5.90) m/uL Hgb (13.0-17.5) gm/dL Hct (39.0-53.0) % MCV (80.0-100.0) fL MCH (25.0-35.0) pg MCHC (31.0-37.0) g/dL RDW (11.5-15.5) % Plt Count (150-450) k/uL Neutrophils % % Lymphocytes % % Monocytes % % Eosinophils % % Basophils % % Neutrophils # (1.3-7.7) k/uL Lymphocytes # (1.0-4.8) k/uL Monocytes # (0-1.0) k/uL Eosinophils # (0-0.7) k/uL Basophils # (0-0.2) k/uL PT (9.0-12.0) sec INR (<1.2) APTT (22.0-30.0) sec D-Dimer (<0.60) mg/L FEU Sodium (137-145) mmol/L Potassium (3.5-5.1) mmol/L Chloride (98-107) mmol/L Carbon Dioxide (22-30) mmol/L Anion Gap mmol/L BUN (9-20) mg/dL Creatinine (0.66-1.25) mg/dL Est GFR (CKD-EPI)AfAm (>60 ml/min/1.73 sqM) Est GFR (CKD-EPI)NonAf (>60 ml/min/1.73 sqM) Glucose (74-99) mg/dL Calcium (8.4-10.2) mg/dL Total Bilirubin (0.2-1.3) mg/dL AST (17-59) U/L ALT (21-72) U/L Alkaline Phosphatase (38-126) U/L Troponin I 0.057 H* (0.000-0.034) ng/mL NT-Pro-B Natriuret Pep 14237 pg/mL Total Protein (6.3-8.2) g/dL Albumin (3.5-5.0) g/dL Disposition <Dominick Almazan - Last Filed: 05/24/19 14:19> Is patient prescribed a controlled substance at d/c from ED?: No Time of Disposition: 14:55 <Eduadro Caban - Last Filed: 05/24/19 14:55> Clinical Impression: Congestive heart failure, Hypertensive emergency, Chronic renal failure syndrome, Elevated troponin Disposition: ADMITTED IP TO THIS HOSP Condition: Good
[2019-05-24] MEDS ORDERED: hydrALAZINE HCL 20 MG/ML 1 ML VIAL IVP STA (12:29)
[2019-05-24] MEDS ORDERED: LABETALOL 5 MG/ML VIAL MDV IVP STA ×2 (12:34→13:52)
[2019-05-24 12:36] LABS: Basophils % (A) 1 %; Eosinophils # (A) 0.1 k/uL (0-0.7); Eosinophils % (A) 3 %; HCT 33.1 % (39.0-53.0); HGB 10.9 gm/dL (13.0-17.5); Lymphocytes # (A) 0.6 k/uL (1.0-4.8); Lymphocytes % (A) 15 %; MCH 29.4 pg (25.0-35.0); MCHC 32.8 g/dL (31.0-37.0); MCV 89.5 fL (80.0-100.0); Mean Platelet Volume 8.9; Monocytes # (A) 0.2 k/uL (0-1.0); Monocytes % (A) 4 %; Neutrophils # (A) 3.3 k/uL (1.3-7.7); Neutrophils % (A) 78 %; Platelet Count 111 k/uL (150-450); RBC 3.69 m/uL (4.30-5.90); RDW 14.5 % (11.5-15.5); WBC 4.2 k/uL (3.8-10.6)
--- NOTE | 2019-05-24 12:44 | XR ---
EXAMINATION TYPE: XR chest 2V DATE OF EXAM: 05/24/2019 COMPARISON: 08/25/2018 INDICATION: Difficulty breathing TECHNIQUE: Frontal and lateral views of the chest are obtained. FINDINGS: The heart size is enlarged. Mediastinum is prominent. The aorta is unfolded arch appears prominent. C onsider possible aneurysm.. The pulmonary vasculature is somewhat prominent. Scattered mild increased lung markings. The lung bases. Early volume overload should be considered.. There is mild blunting of the right costophrenic angle. Small pleural effusion should be considered. IMPRESSION: 1. Clinical consideration for early volume overload or mild congestive heart failure is recommended.
[2019-05-24 12:50] LABS: D-Dimer 0.37 mg/L FEU (<0.60); INR 3.1 (<1.2); Partial Thromboplastin Time 40.8 sec (22.0-30.0); Prothrombin Time 29.5 sec (9.0-12.0)
[2019-05-24 13:22] LABS: Albumin 4.2 g/dL (3.5-5.0); Calcium 9.3 mg/dL (8.4-10.2); Potassium 5.2 mmol/L (3.5-5.1); Total Bilirubin 0.6 mg/dL (0.2-1.3)
[2019-05-24] MEDS ORDERED: CALCIUM CARBONATE 500 MG CHEWABLE PO PRN (14:26)
[2019-05-24] MEDS ORDERED: ONDANSETRON 4 MG/2 ML VIAL IVP PRN (14:26)
[2019-05-24] MEDS ORDERED: LACTULOSE 20 GM/30 ML CUP PO PRN (14:26)
[2019-05-24] MEDS ORDERED: MORPHINE SULFATE 4 MG/ML SYRINGE IV PRN (14:26)
[2019-05-24] MEDS ORDERED: NALOXONE 0.4 MG/ML 1 ML VIAL IV PRN (14:26)
[2019-05-24] MEDS ORDERED: ACETAMINOPHEN TAB 325 MG TAB PO PRN (17:12)
--- NOTE | 2019-05-24 17:17 | P.HPIM ---
History of Present Illness H&P Date: 05/24/19 Chief Complaint: Shortness of breath 63-year-old male with PMH of diastolic CHF, ESRD on hemodialysis Tuesday, hypertension, dyslipidemia, CAD and sleep apnea presents the ED for shortness of breath. Patient states that he woke up this morning feeling short of breath at rest. Patient also experienced a frontal headache that he described as dull in nature. When symptoms persisted this prompted the patient to come to the ED. Patient denies any stiff neck or photophobia. Patient states that he usually gets dialysis on a Tuesday schedule, but has missed dialysis over the past week, his last session was on Tuesday. Patient reports taking Coumadin for "enlarged blood vessels and the heart to prevent clotting". Patient denies any lower extremity edema, nausea or vomiting, fever or chills, cough, chest pain, palpitations, changes in bowel habits. No changes in appetite or weight. Patient denies any dizziness, numbness/weakness testing of the extremities. Patient reports being oliguric. In the ED, patient was noted to be hypertensive with BP 205/131. CBC showed hemoglobin 10.9, platelets 111. Coagulation panel showed INR 3.1. D-dimer was negative. CMP showed potassium 5.2, chloride 97, BUN 101, creatinine 20.04, ALT 95. Troponin was 0.057, EKG showing normal sinus rhythm prolonged QT and incomplete RBBB. BNP was 33,500 with chest x-ray showing volume overload. Patient is admitted for pulmonary edema likely due to missed dialysis sessions and CHF exacerbation and hypertensive urgency with nephrology on consult. Review of Systems Pertinent positives and negatives as discussed in HPI, a complete review of systems was performed and all other systems are negative. Past Medical History Past Medical History: Heart Failure, CVA/TIA, Dialysis, Hyperlipidemia, Hypertension, Myocardial Infarction (SC), Osteoarthritis (OA), Renal Disease, Sleep Apnea/CPAP/BIPAP Additional Past Medical History / Comment(s): ESRD with hemodialysis M,W,F-last time 12/13/18, pulmonary edema d/t missed dialysis, chronic anemia, aneurysmal L/R coronary systems, leaky heart valve, CVA with no residual, JEWEL with Cpap, arthritis R foot and r knee. Last Myocardial Infarction Date:: 2013 History of Any Multi-Drug Resistant Organisms: None Reported Past Surgical History: Heart Catheterization Additional Past Surgical History / Comment(s): Cardiac caths with last one done 08/2018, fistular L upper arm, L neck stab wound-scar tissue (keloids) removals and radiation to area to stop keloid formation. Past Anesthesia/Blood Transfusion Reactions: No Reported Reaction Past Psychological History: No Psychological Hx Reported Smoking Status: Never smoker Past Alcohol Use History: None Reported Past Drug Use History: None Reported - Past Family History Father Family Medical History: Coronary Artery Disease (CAD), Myocardial Infarction (SC) Additional Family Medical History / Comment(s): Pt cannot recall at what age his father had his SC Mother Family Medical History: Diabetes Mellitus Medications and Allergies Home Medications Medication Instructions Recorded Confirmed Type Calcium Acetate [PhosLo] 2,001 mg PO TID-W/MEALS 08/25/18 05/24/19 History Atorvastatin [Lipitor] 40 mg PO HS #30 tab 08/29/18 05/24/19 Rx Warfarin [Coumadin] 5 mg PO SUMOTUTHFRSA 12/14/18 05/24/19 History Allergies Allergy/AdvReac Type Severity Reaction Status Date / Time No Known Allergies Allergy Verified 05/24/19 14:34 Physical Exam Vitals: Vital Signs Temp Pulse Resp BP Pulse Ox 05/24/19 15:00 186/108 96 05/24/19 14:00 199/129 05/24/19 13:15 81 20 203/137 05/24/19 12:23 92 22 205/131 98 05/24/19 11:38 97.4 F L 95 20 227/116 98 Intake and Output 05/24/19 05/24/19 05/24/19 06:59 14:59 22:59 Other: Weight 136 kg General: [non toxic], [no distress], [appears at stated age] Derm: [warm], [dry] Head: [atraumatic], [normocephalic], [symmetric] Eyes: [EOMI], [no lid lag], [anicteric sclera] Mouth: [no lip lesion], [mucus membranes moist] Cardiovascular: [S1S2 reg], [no murmur], [positive DP pulse bilateral], Lungs: [CTA bilateral], [no rhonchi, no rales] , [no accessory muscle use] Abdominal: [soft], [ nontender to palpation], [no guarding], [no appreciable organomegaly] Ext: [no gross muscle atrophy], [no edema], [no contractures], [chronic lower extremity skin changes], [left upper extremity fistula with thrill] Neuro: [ CN II-XI grossly intact], [no focal neuro deficits] Psych: [Alert], [oriented], [appropriate affect] Results CBC & Chem 7: 05/24/19 12:05/24/19 12: Labs: Abnormal Lab Results - Last 24 Hours (Table) 05/24/19 05/24/19 05/24/19 Range/Units 12: 12: 12: RBC 3.69 L (4.30-5.90) m/uL Hgb 10.9 L (13.0-17.5) gm/dL Hct 33.1 L (39.0-53.0) % Plt Count 111 L (150-450) k/uL Lymphocytes # 0.6 L (1.0-4.8) k/uL PT 29.5 H (9.0-12.0) sec INR 3.1 H (<1.2) APTT 40.8 H (22.0-30.0) sec Potassium 5.2 H (3.5-5.1) mmol/L Chloride 97 L (98-107) mmol/L BUN 101 H* (9-20) mg/dL Creatinine 20.04 H* (0.66-1.25) mg/dL ALT 95 H (21-72) U/L Troponin I (0.000-0.034) ng/mL 05/24/19 Range/Units 12:19 RBC (4.30-5.90) m/uL Hgb (13.0-17.5) gm/dL Hct (39.0-53.0) % Plt Count (150-450) k/uL Lymphocytes # (1.0-4.8) k/uL PT (9.0-12.0) sec INR (<1.2) APTT (22.0-30.0) sec Potassium (3.5-5.1) mmol/L Chloride (98-107) mmol/L BUN (9-20) mg/dL Creatinine (0.66-1.25) mg/dL ALT (21-72) U/L Troponin I 0.057 H* (0.000-0.034) ng/mL Assessment and Plan Assessment: Assessment and plan Shortness of breath due to volume overload from missed dialysis and diastolic CHF exacerbation Hypertensive urgency Troponin elevation likely from demand ischemia ESRD on hemodialysis Tuesday Hyperkalemia Supratherapeutic INR BNP is 33,500 with chest x-ray showing signs of volume overload. Has also missed dialysis over the past week. Plans: Initiate dialysis today. Will likely need dialysis tomorrow as well. O2 per NC to maintain O2 saturation greater than 92%. Strict intake and output take. Daily weights. Follow nephrology consultation. Keep potassium greater than 4 and magnesium greater than 2. Follow cardiology consultation. Patient received hydralazine IV and labetalol in the ED. Plans: Hydralazine as needed for SBP greater than 200. Start Coreg 12.5 mg by mouth twice a day and amlodipine 10 mg by mouth daily. Telemetry monitoring. Monitor vitals, adjust medications as necessary. Follow cardiology consultation. Troponin 0.057 with EKG showing normal sinus rhythm and incomplete RBBB and prolonged QT. Likely demand ischemia. Plans: Trend troponin/EKG to rule out ACS. Telemetry monitoring. Follow cardiology consultation. BUN 101, creatinine 20.04. Hemodialysis Tuesday was a Tuesday. Plans: Follow nephrology recommendations. Restart calcium acetate. Potassium 5.2. Likely due to ESRD. Plans: Needs hemodialysis. Repeat BMP in the morning. INR 3.1. States that he takes due to enlarged arteries in the heart to prevent clots. Plans: Needs follow-up with his drawing hand. Coumadin as per pharmacy dosing. DVT prophylaxis: [SCD] Discussed with: [Patient] Anticipated discharge: [2 days] Anticipated discharge place: [Home] A total of [45] minutes was spent on the care of this complex patient more than 50% of the time was spent in counseling and care coordination. Patient would like to remain full code at this time. Patient names his brother Shola decision-maker in the case that he can't make decisions for himself. Patient is admitted for anticipated greater than 48 hours admission for multiple dialysis sessions along with blood pressure control and cardiology evaluation.
[2019-05-24] MEDS ORDERED: WARFARIN 5 MG TAB PO ONE ×2 (18:00→21:45)
[2019-05-24] MEDS ORDERED: WARFARIN 5 MG TAB PO SCH (18:00)
[2019-05-24 19:56] VITALS: BMI 43.0
[2019-05-24] MEDS: CALCIUM ACETATE 667 MG CAP PO SCH (20:27)
[2019-05-24] MEDS: amLODIPine 10 MG TAB PO SCH (20:29)
[2019-05-24] MEDS: CARVEDILOL 12.5 MG TAB PO SCH (20:30)
[2019-05-24] MEDS: ATORVASTATIN 40 MG TAB PO SCH (20:30)
[2019-05-24] MEDS: FAMOTIDINE 20 MG TAB PO SCH (20:31)
[2019-05-24] MEDS: hydrALAZINE HCL 20 MG/ML 1 ML VIAL IVP PRN ×2 (20:33→23:52)
[2019-05-25] MEDS: HYDROcodone/APAP 5-325MG 1 EACH TAB PO PRN ×2 (03:39→15:29)
[2019-05-25] MEDS: CALCIUM ACETATE 667 MG CAP PO SCH ×3 (06:45→17:14)
[2019-05-25] MEDS: CARVEDILOL 12.5 MG TAB PO SCH ×2 (06:45→17:14)
[2019-05-25 06:51] LABS: INR 3.9 (<1.2); Prothrombin Time 37.7 sec (9.0-12.0)
[2019-05-25 06:53] LABS: HCT 28.9 % (39.0-53.0); HGB 9.8 gm/dL (13.0-17.5); MCH 29.3 pg (25.0-35.0); MCHC 33.9 g/dL (31.0-37.0); MCV 86.4 fL (80.0-100.0); Mean Platelet Volume 6.6; Platelet Count 123 k/uL (150-450); RBC 3.34 m/uL (4.30-5.90); RDW 14.2 % (11.5-15.5); WBC 3.6 k/uL (3.8-10.6)
[2019-05-25 07:15] LABS: Albumin 3.8 g/dL (3.5-5.0); Magnesium 2.1 mg/dL (1.6-2.3); Potassium 4.5 mmol/L (3.5-5.1); Total Bilirubin 0.6 mg/dL (0.2-1.3); Total Protein 6.6 g/dL (6.3-8.2)
[2019-05-25] MEDS: FAMOTIDINE 20 MG TAB PO SCH (08:26)
[2019-05-25] MEDS: amLODIPine 10 MG TAB PO SCH (08:26)
--- NOTE | 2019-05-25 10:13 | P.CRDCN ---
History of Present Illness Consult date: 05/25/19 Requesting physician: Corbin Hill Consult reason: hypertension Chief complaint: Shortness of breath History of present illness: This is a 63-year-old -[place] gentleman with history of end-stage renal disease on hemodialysis Tuesday and Tuesday, history of hypertension, hyperlipidemia, sleep apnea, prior CVA, hyperlipidemia, paroxysmal atrial fibrillation, although the patient does have a history of hypertension, his hypertension medications were discontinued in August because he was quite hypotensive during dialysis and during that admission. Patient underwent a ca rdiac catheterization in August of this year which revealed aneurysmal right and left coronary systems no evidence of any obstructive coronary artery disease and elevated left ventricular end-diastolic pressure. He also had an echocardiogram with Doppler study performed in August which revealed a normal left ventricular systolic function. He presents to the hospital with symptoms of shortness of breath. He also was experiencing headache. He states that he missed and entire week's worth of dialysis. Blood pressure on arrival here 227/116, heart rate in the 90s, 90% on room air. Blood pressure this morning 144/82 with a heart rate in the 80s, 96% on room air. White blood cell count 3. 6, hemoglobin 9.8, platelet count 123. Pro time 37.7 with an INR 3.9. D-dimer 0.37. Sodium 141, potassium 4.5, chloride 99, having, BUN 101 on admission with a creatinine of 20, this morning 71 and 15.5. Troponins 0.05, 0.08, 0.07. BNP level 33,500. At the time of my examination this morning, patient is currently receiving dialysis. He complained still of a mild headache that his breathing is improved significantly. He does still make some urine, however in very minimal amounts. Past Medical History Past Medical History: Heart Failure, CVA/TIA, Dialysis, Hyperlipidemia, Hypertension, Myocardial Infarction ([place]), Osteoarthritis (OA), Renal Disease, Sleep Apnea/CPAP/BIPAP Additional Past Medical History / Comment(s): ESRD with hemodialysis M,W,F- pulmonary edema d/t missed dialysis, chronic anemia, aneurysmal L/R coronary systems, leaky heart valve, CVA with no residual, JEWEL with Cpap, arthritis R foot and r knee. Last Myocardial Infarction Date:: 2013 History of Any Multi-Drug Resistant Organisms: None Reported Past Surgical History: Heart Catheterization Additional Past Surgical History / Comment(s): Cardiac caths with last one done 08/2018, fistular L upper arm, L neck stab wound-scar tissue (keloids) removals and radiation to area to stop keloid formation. Past Anesthesia/Blood Transfusion Reactions: No Reported Reaction Past Psychological History: No Psychological Hx Reported Additional Psychological History / Comment(s): Pt resides alone. He uses a cane prn. He drives. 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 He states he was a heavy drinker at one time but rare alcohol the past 7 yrs. Past Drug Use History: None Reported - Past Family History Father Family Medical History: Coronary Artery Disease (CAD), Myocardial Infarction ([place]) Additional Family Medical History / Comment(s): Pt cannot recall at what age his father had his [place] Mother Family Medical History: Diabetes Mellitus Medications and Allergies Home Medications Medication Instructions Recorded Confirmed Type Calcium Acetate [PhosLo] 2,001 mg PO TID-W/MEALS 08/25/18 05/24/19 History Atorvastatin [Lipitor] 40 mg PO HS #30 tab 08/29/18 05/24/19 Rx Warfarin [Coumadin] 5 mg PO SUMOTUTHFRSA 12/14/18 05/24/19 History Allergies Allergy/AdvReac Type Severity Reaction Status Date / Time No Known Allergies Allergy Verified 05/24/19 14:34 Physical Exam Vitals: Vital Signs Temp Pulse Pulse Resp BP BP Pulse Ox 05/25/19 07:52 98.8 F 82 18 144/83 96 05/25/19 04:00 98.0 F 83 17 159/96 96 05/25/19 00:30 147/83 05/24/19 23:00 97.2 F L 90 16 189/109 98 05/24/19 21:35 100 05/24/19 21:23 97.9 F 90 16 190/107 98 05/24/19 20:20 97.6 F 83 16 204/118 97 05/24/19 20:00 97.6 F 80 17 204/118 96 05/24/19 18:52 98 F 20 05/24/19 18:26 79 18 174/99 05/24/19 15:00 186/108 96 05/24/19 14:00 199/129 05/24/19 13:15 81 20 203/137 05/24/19 12:23 92 22 205/131 98 05/24/19 11:38 97.4 F L 95 20 227/116 98 Intake and Output 05/24/19 05/25/19 05/25/19 22:59 06:59 14:59 Intake Total 180 Output Total 3000 Balance -3000 180 Intake: Oral 180 Output: Hemodialysis 3000 Other: Voiding Method Urinal Urinal Urinal Weight 136.6 kg 136.1 kg PHYSICAL EXAMINATION: GENERAL: 63-year-old -[place] gentleman in no acute distress at the time of my examination HEENT: Head is atraumatic, normocephalic. Pupils equal, round. Sclera anicteric. Conjunctiva are clear. Mucous membranes of the mouth are moist. Neck is supple. There is no elevated jugular venous pressure. No carotid bruit is heard. HEART EXAMINATION: Heart S1, S2 normal. No murmur or gallop heard. CHEST EXAMINATION: Lungs reveal diminished air entry to bilateral bases. ABDOMEN: Soft, obese, nontender. Bowel sounds are heard. No organomegaly noted. EXTREMITIES: 2+ peripheral pulses with no evidence of peripheral edema and no calf tenderness noted. NEUROLOGIC patient is awake, alert and oriented 3 . . Results 05/25/19 06:31 05/25/19 06:31 Cardiac Enzymes 05/24/19 05/24/19 05/24/19 Range/Units 12:19 12:19 19:37 AST 54 (17-59) U/L Troponin I 0.057 H* 0.080 H* (0.000-0.034) ng/mL 05/25/19 05/25/19 Range/Units 02:07 06:31 AST 40 (17-59) U/L Troponin I 0.071 H* (0.000-0.034) ng/mL Coagulation 05/24/19 05/25/19 Range/Units 12:19 06:31 PT 29.5 H 37.7 H (9.0-12.0) sec APTT 40.8 H (22.0-30.0) sec CBC 05/24/19 05/25/19 Range/Units 12:19 06:31 WBC 4.2 3.6 L (3.8-10.6) k/uL RBC 3.69 L 3.34 L (4.30-5.90) m/uL Hgb 10.9 L 9.8 L (13.0-17.5) gm/dL Hct 33.1 L 28.9 L (39.0-53.0) % Plt Count 111 L 123 L (150-450) k/uL Comprehensive Metabolic Panel 05/24/19 05/25/19 Range/Units 12: 06:31 Sodium 141 141 (137-145) mmol/L Potassium 5.2 H 4.5 (3.5-5.1) mmol/L Chloride 97 L 99 (98-107) mmol/L Carbon Dioxide 24 27 (22-30) mmol/L BUN 101 H* 71 H (9-20) mg/dL Creatinine 20.04 H* 15.59 H* (0.66-1.25) mg/dL Glucose 99 99 (74-99) mg/dL Calcium 9.3 9.0 (8.4-10.2) mg/dL AST 54 40 (17-59) U/L ALT 95 H 79 H (21-72) U/L Alkaline Phosphatase 61 48 (38-126) U/L Total Protein 7.0 6.6 (6.3-8.2) g/dL Albumin 4.2 3.8 (3.5-5.0) g/dL Current Medications Generic Name Dose Route Start Last Admin Trade Name Freq PRN Reason Stop Dose Admin Acetaminophen 650 mg 05/24/19 17:12 Tylenol Tab PO Q6HR PRN Mild Pain or Fever > 100.5 Hydrocodone Bitart/Acetaminophen 1 each 05/24/19 17:12 05/25/19 03:39 Tensed 5-325 PO 1 each Q4HR PRN Administration Moderate Pain Amlodipine Besylate 10 mg 05/24/19 17:15 05/25/19 08:26 Norvasc PO 10 mg DAILY JACI Administration Atorvastatin Calcium 40 mg 05/24/19 21:00 05/24/19 20:30 Lipitor PO 40 mg HS JACI Administration Calcium Acetate 2,001 mg 05/24/19 17:30 05/25/19 06:45 Phoslo PO 2,001 mg TID-W/MEALS JACI Administration Calcium Carbonate/Glycine 1,000 mg 05/24/19 14:26 Tums PO Q4HR PRN Dyspepsia Carvedilol 12.5 mg 05/24/19 17:30 05/25/19 06:45 Coreg PO 12.5 mg BID-W/MEALS JACI Administration Famotidine 20 mg 05/24/19 21:00 05/25/19 08:26 Pepcid PO 20 mg BID JACI Administration Hydralazine HCl 10 mg 05/24/19 15:00 05/24/19 20:33 Apresoline IVP 10 mg Q3HR PRN Administration SYSTOLIC BP OVER 200 Lactulose 20 gm 05/24/19 14:26 Cephulac PO DAILY PRN Constipation Miscellaneous Information 1 each 05/24/19 17:15 Coumadin Per Pharmacy MISCELLANE DIRECTED PRN Per Protocol Morphine Sulfate 4 mg 05/24/19 14:26 Morphine Sulfate (Inj) IV Q4HR PRN Severe Pain Naloxone HCl 0.2 mg 05/24/19 14:26 Narcan IV Q2M PRN Opioid Reversal Ondansetron HCl 4 mg 05/24/19 14:26 Zofran IVP Q8HR PRN Nausea And Vomiting Warfarin Sodium 0 mg 05/25/19 18:00 Coumadin PO 05/25/19 18:01 ONCE@1800 ONE Intake and Output 05/24/19 05/25/19 05/25/19 22:59 06:59 14:59 Intake Total 180 Output Total 3000 Balance -3000 180 Intake: Oral 180 Output: Hemodialysis 3000 Other: Voiding Method Urinal Urinal Urinal Weight 136.6 kg 136.1 kg Patient Weight 05/26/19 06:59 Weight 136.1 kg 05/25/19 06:31 05/25/19 06:31 EKG Interpretations (text) EKG shows normal sinus rhythm with no acute changes. Assessment and Plan Plan: Assessment and plan #1 symptoms of shortness of breath secondary to volume overload from missed dialysis. Combination of also diastolic congestive heart failure. #2 hypertensive urgency #3 abnormal troponin, no significant rise and fall pattern, likely secondary to renal failure #4 end-stage renal disease on hemodialysis #5 hyperkalemia #6 history of paroxysmal atrial fibrillation, on Coumadin for anticoagulation, I NR 3.9 this morning. #7 sleep apnea #8 hyperlipidemia #9 no documented coronary artery disease, patient had a cardiac catheterization in August of this year which revealed aneurysmal right and left coronary system, no evidence of any obstructive coronary artery disease Plan We will repeat an echocardiogram with Doppler study. Patient is currently receiving dialysis. Norvasc 10 mg daily has been added to the patient's medication regime. Further recommendations to follow. DNP note has been reviewed, I agree with a documented findings and plan of care. Patient was seen and examined.
--- NOTE | 2019-05-25 10:40 | P.DS ---
Providers Date of admission: 05/24/19 14:19 Expected date of discharge: 05/25/19 Attending physician: Corbin Hill MD Consults: 05/24/19 14:26 Consult Physician Stat Consulting Provider: Sharona Bernal Consult Reason/Comments: Dialysis, heart failure, shortness of breath Do you want consulting provider notified?: Yes 05/24/19 17:09 Consult Physician Stat Consulting Provider: Leo Potter Consult Reason/Comments: hypertensive urgency, troponin elevation Do you want consulting provider notified?: Yes Primary care physician: Stated None Hospital Course: 63-year-old male with PMH of diastolic CHF, ESRD on hemodialysis Tuesday, hypertension, dyslipidemia, CAD and sleep apnea presents the ED for shortness of breath. Patient states that he woke up this morning feeling short of breath at rest. Patient also experienced a frontal headache that he described as dull in nature. When symptoms persisted this prompted the patient to come to the ED. Patient denies any stiff neck or photophobia. Patient states that he usually gets dialysis on a Tuesday schedule, but has missed dialysis over the past week, his last session was on Tuesday. Patient reports taking Coumadin for "enlarged blood vessels and the heart to prevent clotting". Patient denies any lower extremity edema, nausea or vomiting, fever or chills, cough, chest pain, palpitations, changes in bowel habits. No changes in appetite or weight. Patient denies any dizziness, numbness/weakness testing of the extremities. Patient reports being oliguric. In the ED, patient was noted to be hypertensive with BP 205/131. CBC showed hemoglobin 10.9, platelets 111. Coagulation panel showed INR 3.1. D-dimer was negative. CMP showed potassium 5.2, chloride 97, BUN 101, creatinine 20.04, ALT 95. Troponin was 0.057, EKG showing normal sinus rhythm prolonged QT and incomplete RBBB. BNP was 33,500 with chest x-ray showing volume overload. Patient is admitted for pulmonary edema likely due to missed dialysis sessions and CHF exacerbation and hypertensive urgency with nephrology on consult. Postoperative shortness of breath was due to volume overload from missed dialysis and diastolic CHF exacerbation. Patient underwent dialysis on the day of admission. Nephrology was consulted to initiate dialysis. Patient was also noted to be in hypertensive urgency with SBP greater than 200 and DVT greater than 100 on admission. He was given hydralazine and labetalol IV for better blood pressure control. He was started on Coreg 12.5 mg by mouth twice a day along with amlodipine 10 mg by mouth daily and cardiology was consulted for further recommendations. Patient was noted to have elevated troponins thought to be due to demand ischemia from hypertensive emergency. Troponin was 0.057, 0.080, 0.071 with EKG showing sinus rhythm incomplete RBBB and prolonged QT, acute coronary syndrome was ruled out. Patient was initially hyperkalemic to 5.2 which was corrected with dialysis. Patient was seen and examined. No acute events overnight. Patient reports improvement in his breathing since admission but continues to be dyspneic with exertion. His blood pressure is improved since dialysis and starting antihypertensive medication. He denies any chest pain, or palpitations. No nausea or vomiting. No fever or chills. General: [non toxic], [no distress], [appears at stated age] Derm: [warm], [dry] Head: [atraumatic], [normocephalic], [symmetric] Eyes: [EOMI], [no lid lag], [anicteric sclera] Mouth: [no lip lesion], [mucus membranes moist] Cardiovascular: [S1S2 reg], [no murmur], [positive DP pulse bilateral], Lungs: [CTA bilateral], [no rhonchi, no rales] , [no accessory muscle use] Abdominal: [soft], [ nontender to palpation], [no guarding], [no appreciable organomegaly] Ext: [no gross muscle atrophy], [no edema], [no contractures], [chronic lower extremity skin changes], [left upper extremity fistula with thrill] Neuro: [ CN II-XI grossly intact], [no focal neuro deficits] Psych: [Alert], [oriented], [appropriate affect] Assessment and plan Shortness of breath due to volume overload from missed dialysis and diastolic CHF exacerbation Hypertensive urgency Troponin elevation likely from demand ischemia ESRD on hemodialysis Tuesday Supratherapeutic INR Resolved: Hyperkalemia BNP is 33,500 with chest x-ray showing signs of volume overload. Has also missed dialysis over the past week. Plans: Dialysis again today. O2 per NC to maintain O2 saturation greater than 92%. Strict intake and output take. Daily weights. Follow nephrology consultation. Keep potassium greater than 4 and magnesium greater than 2. Follow cardiology consultation. Patient received hydralazine IV and labetalol in the ED. Plans: Hydralazine as needed for SBP greater than 200. Start Coreg 12.5 mg by mouth twice a day and amlodipine 10 mg by mouth daily. Telemetry monitoring. Monitor vitals, adjust medications as necessary. Follow cardiology consultation. Troponin 0.057, 0.08, 0.071 with EKG showing normal sinus rhythm and incomplete RBBB and prolonged QT. Likely demand ischemia. ACS ruled out. Plans: Telemetry monitoring. Follow-up echocardiogram. Follow cardiology consultation. BUN 101-71, creatinine 20.04-15.59. Hemodialysis Tuesday and Tuesday. Plans: Follow nephrology recommendations. Restart calcium acetate. INR 3.1-3.9. States that he takes due to enlarged arteries in the heart to prevent clots. 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 Coumadin as per pharmacy dosing. [Patient admitted for volume overload due to missed dialysis. His symptoms have improved since initiating dialysis. ACS has been ruled out. Blood pressure is better controlled. Follow cardiology and nephrology recommendations. Likely DC tomorrow.] Pertinent Studies: Chest x-ray Patient Condition at Discharge: Good Plan - Discharge Summary New Discharge Prescriptions: No Action Calcium Acetate [PhosLo] 2,001 mg PO TID-W/MEALS Atorvastatin [Lipitor] 40 mg PO HS #30 tab Warfarin [Coumadin] 5 mg PO SUMOTUTHFRSA Discharge Medication List Calcium Acetate [PhosLo] 2,001 mg PO TID-W/MEALS 08/25/18 [History] Atorvastatin [Lipitor] 40 mg PO HS #30 tab 08/29/18 [Rx] Warfarin [Coumadin] 5 mg PO SUMOTUTHFRSA 12/14/18 [History] Follow up Appointment(s)/Referral(s): None,Stated [Primary Care Provider] - 1-2 days
--- NOTE | 2019-05-25 13:56 | P.NPCON ---
History of Present Illness - Reason for Consult end stage renal disease - History of Present Illness Reason for consultation: End-stage renal disease History of present illness: Patient is a 63-year-old male seen in renal consultation for end-stage renal disease. He is maintained on hemodialysis on Tuesday schedule. Patient missed 1 week of hemodialysis prior to admission. Patient wants to change his hemodialysis unit which is being worked up by Multimedia Assistant. Patient underwent Hemodialysis yesterday and is currently seen while undergoing Hemodialysis yoday. Dyspnea is improved. No Vomiting or Diarrhea. Oral Intake Is Fair. Patient has been evaluated by cardiology. Echocardiogram is pending. Norvasc has been added. Patient states he wasn't taking any antihypertensives d ue to his blood pressure being low. Blood pressure this admission was over 200 systolic but has now improved. Vital signs are stable. General: The patient appeared well nourished and normally developed. HEENT: Head exam is unremarkable. Neck is without jugular venous distension. LUNGS: Lungs are clear to auscultation and percussion. Breath sounds decreased. HEART: Rate and Rhythm are regular. First and second heart sounds normal. No murmurs, rubs or gallops. ABDOMEN: Abdominal exam reveals normal bowel sounds. Non-tender and non- distended. No evidence of peritonitis. EXTREMITITES: No clubbing, cyanosis, or edema. Past Medical History Past Medical History: Heart Failure, CVA/TIA, Dialysis, Hyperlipidemia, Hypertension, Myocardial Infarction ([place]), Osteoarthritis ([place]), Renal Disease, Sleep Apnea/CPAP/BIPAP Additional Past Medical History / Comment(s): ESRD with hemodialysis M,W,F- pulmonary edema d/t missed dialysis, chronic anemia, aneurysmal L/R coronary systems, leaky heart valve, CVA with no residual, JEWEL with Cpap, arthritis R foot and r knee. Last Myocardial Infarction Date:: 2013 History of Any Multi-Drug Resistant Organisms: None Reported Past Surgical History: Heart Catheterization Additional Past Surgical History / Comment(s): Cardiac caths with last one done 08/2018, fistular L upper arm, L neck stab wound-scar tissue (keloids) removals and radiation to area to stop keloid formation. Past Anesthesia/Blood Transfusion Reactions: No Reported Reaction Past Psychological History: No Psychological Hx Reported Additional Psychological History / Comment(s): Pt resides alone. He uses a cane prn. He drives. 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 He states he was a heavy drinker at one time but rare alcohol the past 7 yrs. Past Drug Use History: None Reported - Past Family History Father Family Medical History: Coronary Artery Disease (CAD), Myocardial Infarction ([place]) Additional Family Medical History / Comment(s): Pt cannot recall at what age his father had his [place] Mother Family Medical History: Diabetes Mellitus Medications and Allergies Home Medications Medication Instructions Recorded Confirmed Type Calcium Acetate [PhosLo] 2,001 mg PO TID-W/MEALS 08/25/18 05/24/19 History Atorvastatin [Lipitor] 40 mg PO HS #30 tab 08/29/18 05/24/19 Rx Warfarin [Coumadin] 5 mg PO SUMOTUTHFRSA 12/14/18 05/24/19 History Allergies Allergy/AdvReac Type Severity Reaction Status Date / Time No Known Allergies Allergy Verified 05/24/19 14:34 Physical Exam Vitals: Vital Signs Temp Pulse Pulse Resp BP BP Pulse Ox 05/25/19 11:37 97.7 F 76 18 156/93 96 05/25/19 07:52 98.8 F 82 18 144/83 96 05/25/19 04:00 98.0 F 83 17 159/96 96 05/25/19 00:30 147/83 05/24/19 23:00 97.2 F L 90 16 189/109 98 05/24/19 21:35 100 05/24/19 21:23 97.9 F 90 16 190/107 98 05/24/19 20:20 97.6 F 83 16 204/118 97 05/24/19 20:00 97.6 F 80 17 204/118 96 05/24/19 18:52 98 F 20 05/24/19 18:26 79 18 174/99 05/24/19 15:00 186/108 96 05/24/19 14:00 199/129 Intake and Output 05/24/19 05/25/19 05/25/19 22:59 06:59 14:59 Intake Total 180 Output Total 3000 Balance -3000 180 Intake: Oral 180 Output: Hemodialysis 3000 Other: Voiding Method Urinal Urinal Urinal Weight 136.6 kg 136.1 kg Results - Lab Results Most recent lab results Calcium 9.0 mg/dL (8.4-10.2) 05/25/19 06:31 Magnesium 2.1 mg/dL (1.6-2.3) 05/25/19 06:31 05/25/19 06:31 05/25/19 06:31 Assessment and Plan Plan: Assessment: 1. End-stage renal disease maintained on hemodialysis on Tuesday schedule. Patient has a left upper extremity AV fistula. 2. Noncompliance with hemodialysis outpatient. 3. Dyspnea secondary to volume overload. 4. Hypertension with chronic kidney disease. Partially volume sensitive. 5. Chronic kidney disease mineral bone disease maintained on PhosLo. Plan: Currently seen while undergoing hemodialysis. Next treatment on Tuesday. owner manager to help facilitate hemodialysis set up at the [facility]. Amlodipine and Coreg started this admission. F/u ECHO. Thank you for the consultation. I will continue to follow the patient with you during his hospital stay.
[2019-05-25] MEDS ORDERED: WARFARIN 0.5 MG TAB PO ONE (18:00)
--- NOTE | 2019-05-25 18:45 | ECHOF ---
Referral Reason:htn MEASUREMENTS -------- HEIGHT: 152.4 cm WEIGHT: 136.1 kg BP: RVIDd: 3.0 cm (< 3.3) IVSd: 1.3 cm (0.6 - 1.1) LVIDd: 5.6 cm (3.9 - 5.3) LVPWd: 1.5 cm (0.6 - 1.1) IVSs: 1.6 cm LVIDs: 4.3 cm LVPWs: 2.2 cm LA Diam: 3.4 cm (2.7 - 3.8) Ao Diam: 3.9 cm (2.0 - 3.7) AV Cusp: 2.0 cm (1.5 - 2.6) LA Diam: 3.2 cm (2.7 - 3.8) MV EXCURSION: 22.560 mm (> 18.000) MV EF SLOPE: 89 mm/s (70 - 150) EPSS: 0.9 cm MV E Alden: 0.60 m/s MV DecT: 174 ms MV A Alden: 0.80 m/s MV E/A Ratio: 0.76 AV maxP.36 mmHg AV maxP.36 mmHg AV meanP.76 mmHg RAP: 5.00 mmHg RVSP: 16.97 mmHg FINDINGS -------- Sinus rhythm. This was a technically adequate study. The left ventricular size is normal. There is mild concentric left ventricular hypertrophy. Overa ll left ventricular systolic function is normal with, an EF between 55 - 60 %. The right ventricle is normal in size. The left atrial size is normal. The right atrial size is normal. There is mild aortic regurgitation. There is mild aortic stenosis present. Peak/mean gradient acr oss the Aortic Valve is 14.36mmHg / 7.76mmHg. Mild mitral annular calcification present. Mild mitral regurgitation is present. Mild tricuspid regurgitation present. Right ventricular systolic pressure is normal at < 35 mmHg. There is no evidence of pulmonary hypertension. There is no pulmonic regurgitation present. Aortic Root is dilated and measures 3.9cm. There is a small, generalized pericardial effusion present. CONCLUSIONS -------- 1. Sinus rhythm. 2. This was a technically adequate study. 3. The left ventricular size is normal. 4. There is mild concentric left ventricular hypertrophy. 5. Overall left ventricular systolic function is normal with, an EF between 55 - 60 %. 6. The right ventricle is normal in size. 7. The left atrial size is normal. 8. The right atrial size is normal. 9. There is mild aortic regurgitation. 10. There is mild aortic stenosis present. 11. Peak/mean gradient across the Aortic Valve is 14.36mmHg / 7.76mmHg. 12. Mild mitral annular calcification present. 13. Mild mitral regurgitation is present. 14. Mild tricuspid regurgitation present. 15. Right ventricular systolic pressure is normal at < 35 mmHg. 16. There is no evidence of pulmonary hypertension. 17. There is no pulmonic regurgitation present. 18. Aortic Root is dilated and measures 3.9cm. 19. There is a small, generalized pericardial effusion present. TECHNICAL MGR: Jennifer Hernandez RDCS
[2019-05-25] MEDS: ATORVASTATIN 40 MG TAB PO SCH (21:48)
[2019-05-26 04:36] VITALS: RESP 18
[2019-05-26] MEDS: CARVEDILOL 12.5 MG TAB PO SCH (06:49)
[2019-05-26] MEDS: CALCIUM ACETATE 667 MG CAP PO SCH ×2 (06:49→11:58)
[2019-05-26] MEDS: amLODIPine 10 MG TAB PO SCH (07:58)
[2019-05-26 08:04] LABS: INR 2.5 (<1.2); Prothrombin Time 24.6 sec (9.0-12.0)
[2019-05-26] MEDS ORDERED: FAMOTIDINE 20 MG TAB PO SCH (09:00)
--- NOTE | 2019-05-26 09:13 | P.PN ---
Subjective Progress Note Date: 05/26/19 Principal diagnosis: Shortness of breath Patient seen and examined. No acute events overnight. Patient reports significant improvement in his breathing since admission. States that he is back to baseline. He denies any chest pain or palpitations. No nausea or vomiting. No fever or chills. Has appointment with dialysis on Tuesday. He does complain of some swelling in the left upper extremity fistula along with some warmth. Objective - Vital Signs Vital signs: Vital Signs Temp 98 F 05/26/19 04:00 Pulse 79 05/26/19 04:00 Resp 18 05/26/19 04:00 BP 135/85 05/26/19 04:00 Pulse Ox 96 05/26/19 04:00 Intake & Output 05/25/19 05/26/19 05/26/19 18:59 06:59 18:59 Intake Total 900 222 360 Balance 900 222 360 Weight 136.1 kg 135.2 kg Intake: Oral 900 222 360 Other: Voiding Method Urinal Toilet Urinal # Voids 1 - Exam General: [non toxic], [no distress], [appears at stated age] Derm: [warm], [dry] Head: [atraumatic], [normocephalic], [symmetric] Eyes: [EOMI], [no lid lag], [anicteric sclera] Mouth: [no lip lesion], [mucus membranes moist] Cardiovascular: [S1S2 reg], [no murmur], [positive DP pulse bilateral], Lungs: [CTA bilateral], [no rhonchi, no rales] , [no accessory muscle use] Abdominal: [soft], [ nontender to palpation], [no guarding], [no appreciable organomegaly] Ext: [no gross muscle atrophy], [no edema], [no contractures], [chronic lower extremity skin changes], [left upper extremity fistula with thrill, warm to touch, no significant swelling or erythema noted] Neuro: [ [no focal neuro deficits] Psych: [Alert], [oriented], [appropriate affect] - Labs CBC & Chem 7: 05/25/19 06:31 05/25/19 06:31 Labs: Abnormal Lab Results - Last 24 Hours (Table) 05/26/19 Range/Units 06:47 PT 24.6 H (9.0-12.0) sec INR 2.5 H (<1.2) Assessment and Plan Assessment: Assessment and plan Shortness of breath due to volume overload from missed dialysis and diastolic CHF exacerbation Hypertensive urgency Troponin elevation likely from demand ischemia ESRD on hemodialysis Tuesday Supratherapeutic INR Resolved: Hyperkalemia, supratherapeutic INR BNP is 33,500 with chest x-ray showing signs of volume overload. Has also missed dialysis over the past week. Echocardiogram shows EF 55-60% with mild concentric LVH. Plans: Restart dialysis on Tuesday. O2 per NC to maintain O2 saturation greater than 92%. Strict intake and output take. Daily weights. Follow nephrology consultation. Keep potassium greater than 4 and magnesium greater than 2. Follow cardiology consultation. Patient received hydralazine IV and labetalol in the ED. Plans: Hydralazine as needed for SBP greater than 200. Continue Coreg 12.5 mg by mouth twice a day and amlodipine 10 mg by mouth daily. Telemetry monitoring. Monitor vitals, adjust medications as necessary. Follow cardiology consultation. Troponin 0.057, 0.08, 0.071 with EKG showing normal sinus rhythm and incomplete RBBB and prolonged QT. Likely demand ischemia. ACS ruled out. Echocardiogram as above. Plans: Telemetry monitoring. Follow cardiology consultation. BUN 101-71, creatinine 20.04-15.59. Hemodialysis Tuesday and Tuesday. Plans: Follow nephrology recommendations. Restart calcium acetate. [Patient admitted for volume overload due to missed dialysis. His symptoms have improved since initiating dialysis. ACS has been ruled out. Blood pressure is better controlled. Complains of swelling at fistula site. Obtain CBC to check for leukocytosis and BMP. Will get nephrology to evaluate. Likely DC today.]
[2019-05-26 09:17] VITALS: TEMP 97
[2019-05-26 09:55] LABS: Basophils # (A) 0.1 k/uL (0-0.2); Basophils % (A) 3 %; Eosinophils # (A) 0.2 k/uL (0-0.7); Eosinophils % (A) 6 %; HCT 31.8 % (39.0-53.0); HGB 10.4 gm/dL (13.0-17.5); Hypochromasia Slight; Lymphocytes # (A) 0.8 k/uL (1.0-4.8); Lymphocytes % (A) 31 %; MCHC 32.8 g/dL (31.0-37.0); Monocytes # (A) 0.2 k/uL (0-1.0); Monocytes % (A) 7 %; Neutrophils # (A) 1.4 k/uL (1.3-7.7); Neutrophils % (A) 51 %; Platelet Count 115 k/uL (150-450); RBC 3.47 m/uL (4.30-5.90); RDW 14.5 % (11.5-15.5); WBC 2.8 k/uL (3.8-10.6)
[2019-05-26 10:02] LABS: Calcium 9.3 mg/dL (8.4-10.2); Potassium 4.7 mmol/L (3.5-5.1)
--- NOTE | 2019-05-26 10:19 | P.PN ---
Subjective Progress Note Date: 05/26/19 Seen and examined for the follow-up of ESRD on hemodialysis. Complaining of some swelling in the fistula. No nausea vomiting diarrhea. Had dialysis yesterday. Objective - Vital Signs Vital signs: Vital Signs Temp 97 F L 05/26/19 08:20 Pulse 78 05/26/19 08:20 Resp 18 05/26/19 08:20 BP 131/76 05/26/19 08:20 Pulse Ox 99 05/26/19 08:20 Intake & Output 05/25/19 05/26/19 05/26/19 18:59 06:59 18:59 Intake Total 900 222 360 Balance 900 222 360 Weight 136.1 kg 135.2 kg Intake: Oral 900 222 360 Other: Voiding Method Urinal Toilet Urinal # Voids 1 - Exam No acute distress. S1-S2 heard Lungs clear Left upper arm AV fistula. 2 pseudoaneurysms, not shiny or tenderness. Trace edema - Labs CBC & Chem 7: 05/25/19 06:31 05/26/19 06:47 Labs: Abnormal Lab Results - Last 24 Hours (Table) 05/26/19 05/26/19 Range/Units 06:47 06:47 PT 24.6 H (9.0-12.0) sec INR 2.5 H (<1.2) BUN 45 H (9-20) mg/dL Creatinine 9.94 H* (0.66-1.25) mg/dL Assessment and Plan Assessment: #1 ESRD on hemodialysis MWF schedule via left upper arm AV fistula. #2 noncompliance with hemodialysis #3 left upper arm AV fistula with 2 pseudoaneurysms. #4 hypertension with ESRD #5 anemia with ESRD #6 metabolic bone disease with ESRD. Plan: #1 clinical signs and symptoms of infection in the fistula. He needs an angiogram to look for the venous stenosis,, which can be done as outpatient. #2 plan hemodialysis Tuesday if he stays in the hospital. #3 telephonic case manager working on dialysis chair time at [facility] dialysis unit. #4 ESRD medications.
[2019-05-26 10:23] LABS: MCV 91.6 fL (80.0-100.0)
[2019-05-26 13:09] VITALS: BP 131/83; PULSE 74
--- NOTE | 2019-05-26 16:48 | P.PN ---
Subjective This is Nathalie Martinez PA-C dictating a progress note on this patient The patient was interviewed and examined by me as well as by Dr. Cheney Case discussed with Dr. Cheney and he agrees with the plan of care IMPRESSION / ASSESSMENT: Shortness of breath secondary to volume overload from his dialysis, improved after receiving dialysis Diastolic congestive heart failure, macerated with volume overload from missing dialysis, symptoms improved Hypertensive urgency, blood pressure has improved Abnormal troponin secondary to renal failure ESRD on dialysis History of paroxysmal A. fib, on Coumadin, has been sinus overnight Dyslipidemia PLAN: Continue current medication regimen Encouraged patient to be compliant with dialysis Patient is clear for discharge from a cardiac standpoint HPI/interval history Patient is a 63-year-old male with a past medical history of ESRD on dialysis, hypertension, dyslipidemia, sleep apnea, paroxysmal atrial fibrillation who presented with shortness of breath. He had missed dialysis. He was quite hypertensive on admission. He received dialysis on admission. Telemetry revealed sinus rhythm in the 70s overnight. His blood pressure has improved since receiving dialysis. Patient seen and examined resting comfortably in bed, lying flat. States his breathing has improved. No chest pain or dizziness. EXAMINATION Temperature 90.7F, pulse 78, respirations 18, blood pressure 131/76, oxygen s aturation 99% on room air Patient seen and examined resting comfortably in bed, in no acute distress Lungs are clear to auscultation bilaterally Heart is regular, no murmurs noted No lower extremity edema No elevated JVD REVIEW OF LABS, ECG WBC 2.8, hemoglobin 10.4, platelets 115, potassium 4.7, BUN 45, creatinine 9.94 Objective - Vital Signs Vital signs: Vital Signs Temp 97 F L 05/26/19 08:20 Pulse 74 05/26/19 12:15 Resp 18 05/26/19 12:15 BP 131/83 05/26/19 12:15 Pulse Ox 99 05/26/19 12:15 Intake & Output 05/25/19 05/26/19 05/26/19 18:59 06:59 18:59 Intake Total 900 222 720 Balance 900 222 720 Weight 136.1 kg 135.2 kg Intake: Oral 900 222 720 Other: Voiding Method Urinal Toilet Urinal # Voids 1 - Labs CBC & Chem 7: 05/26/19 06:47 05/26/19 06:47 Labs: Abnormal Lab Results - Last 24 Hours (Table) 05/26/19 05/26/19 05/26/19 Range/Units 06:47 06:47 06:47 WBC 2.8 L (3.8-10.6) k/uL RBC 3.47 L (4.30-5.90) m/uL Hgb 10.4 L (13.0-17.5) gm/dL Hct 31.8 L (39.0-53.0) % Plt Count 115 L (150-450) k/uL Lymphocytes # 0.8 L (1.0-4.8) k/uL PT 24.6 H (9.0-12.0) sec INR 2.5 H (<1.2) BUN 45 H (9-20) mg/dL Creatinine 9.94 H* (0.66-1.25) mg/dL
[2019-05-26] MEDS ORDERED: WARFARIN 2 MG TAB PO ONE (18:00)
== END 2019-05-26 13:38 | disposition home or self-care (01) | DRG 291 ==
LOC: EC 11:35 → 3SCARD 14:19
PROVIDERS: ADMIT Family Medicine; ATTEND Family Medicine
PROC: 5A1D70Z Performance of Urinary Filtration, Intermittent, Less than 6 Hours Per Day (ICD-10-PCS; principal; 2019-05-24)
DX: I13.2 Hypertensive heart and chronic kidney disease with heart failure and with stage 5 chronic kidney disease, or end stage renal disease (principal); I50.33 Acute on chronic diastolic (congestive) heart failure; N18.6 End stage renal disease; I16.1 Hypertensive emergency; I24.8 Other forms of acute ischemic heart disease; D63.1 Anemia in chronic kidney disease; N25.0 Renal osteodystrophy; E78.5 Hyperlipidemia, unspecified; E87.5 Hyperkalemia; G47.30 Sleep apnea, unspecified; I25.10 Atherosclerotic heart disease of native coronary artery without angina pectoris; I25.2 Old myocardial infarction; I45.10 Unspecified right bundle-branch block; I48.0 Paroxysmal atrial fibrillation; R79.1 Abnormal coagulation profile; Z79.01 Long term (current) use of anticoagulants; Z79.899 Other long term (current) drug therapy; Z82.49 Family history of ischemic heart disease and other diseases of the circulatory system; Z83.3 Family history of diabetes mellitus; Z86.73 Personal history of transient ischemic attack (TIA), and cerebral infarction without residual deficits; Z91.15 Patient's noncompliance with renal dialysis; Z99.2 Dependence on renal dialysis; Z99.89 Dependence on other enabling machines and devices
CPT/HCPCS: 36415; 71046; 80048; 80053; 83735; 83880; 84484; 85025; 85027; 85379; 85610; 85730; 90935; 93005; 93306; 96374; 96376; 99285

== ENCOUNTER 2019-06-04 01:00 | Inpatient (IN) | payer MEDICARE, BC ==
[2019-06-04] MEDS ORDERED: ONDANSETRON 4 MG/2 ML VIAL IVP STA (01:43)
[2019-06-04 01:55] LABS: Basophils % (A) 0 %; Eosinophils # (A) 0.1 k/uL (0-0.7); Eosinophils % (A) 2 %; HCT 32.6 % (39.0-53.0); HGB 10.8 gm/dL (13.0-17.5); Lymphocytes # (A) 0.2 k/uL (1.0-4.8); Lymphocytes % (A) 5 %; MCH 29.3 pg (25.0-35.0); MCHC 33.2 g/dL (31.0-37.0); MCV 88.4 fL (80.0-100.0); Mean Platelet Volume 6.8; Monocytes # (A) 0.1 k/uL (0-1.0); Monocytes % (A) 2 %; Neutrophils # (A) 3.7 k/uL (1.3-7.7); Neutrophils % (A) 91 %; RBC 3.69 m/uL (4.30-5.90); RDW 14.2 % (11.5-15.5); WBC 4.1 k/uL (3.8-10.6)
[2019-06-04 02:04] LABS: INR 1.8 (<1.2); Partial Thromboplastin Time 29.9 sec (22.0-30.0); Prothrombin Time 17.9 sec (9.0-12.0)
[2019-06-04 02:05] LABS: Albumin 4.2 g/dL (3.5-5.0); Potassium 4.3 mmol/L (3.5-5.1); Total Bilirubin 0.7 mg/dL (0.2-1.3); Total Protein 7.1 g/dL (6.3-8.2)
[2019-06-04 02:21] LABS: Platelet Count 85 k/uL (150-450)
--- NOTE | 2019-06-04 02:44 | XR ---
EXAM: XR Chest, 1 View CLINICAL HISTORY: ITS.REASON XR Reason: dyspnea TECHNIQUE: Frontal view of the chest. COMPARISON: Chest radiography 05/24/19 FINDINGS: Lungs: Central interstitial edema suspected. No dense consolidation. Overall lung volumes are low. Pleural space: No significant pleural effusion or pneumothorax. Heart: Cardiomegaly and/or pericardial effusion. Mediastinum: There is no definite mediastinal or hilar enlargement. Trachea is unremarkable. Bones/joints: Unremarkable. Vasculature: Vascular congestion. IMPRESSION: Findings can be seen congestive heart failure exacerbation in the appropriate clinical setting.
[2019-06-04] MEDS ORDERED: NALOXONE 0.4 MG/ML 1 ML VIAL IV PRN (06:51)
[2019-06-04] MEDS ORDERED: ACETAMINOPHEN TAB 325 MG TAB PO PRN (06:51)
--- NOTE | 2019-06-04 06:55 | ED ---
SOB HPI - General Chief Complaint: Shortness of Breath Stated Complaint: ZAFAR Time Seen by Provider: 06/04/19 01:29 Source: patient Mode of arrival: ambulatory Limitations: no limitations - History of Present Illness Initial Comments: this patient is 63-year-old man with history of end-stage renal disease on hemodialysis. He states that he did have his normal dialysis session on Tuesday. He knows that over the course of the evening and into this morning he has been feeling more short of breath. He notes that his feet appear more swollen than usual. He is concerned that he is developing a degree of volume overload. MD Complaint: shortness of breath -: hour(s) Consistency: constant Improves With: upright position Worsens With: lying flat Known History Of: diabetes Associated Symptoms: cough, orthopnea Treatments Prior to Arrival: none - Related Data Home Medications Medication Instructions Recorded Confirmed Calcium Acetate [PhosLo] 2,001 mg PO TID-W/MEALS 08/25/18 06/04/19 Warfarin [Coumadin] 5 mg PO SUMOTUTHFRSA 12/14/18 06/04/19 Previous Rx's Medication Instructions Recorded Atorvastatin [Lipitor] 40 mg PO HS #30 tab 08/29/18 Carvedilol [Coreg*] 12.5 mg PO BID-W/MEALS #60 tab 05/26/19 amLODIPine [Norvasc] 10 mg PO DAILY #30 tab 05/26/19 Allergies Allergy/AdvReac Type Severity Reaction Status Date / Time No Known Allergies Allergy Verified 06/04/19 07:11 Review of Systems ROS Statement: Those systems with pertinent positive or pertinent negative responses have been documented in the HPI. ROS Other: All systems not noted in ROS Statement are negative. Past Medical History Past Medical History: Heart Failure, CVA/TIA, Dialysis, Hyperlipidemia, Hypertension, Myocardial Infarction ([place]), Osteoarthritis (OA), Renal Disease, Sleep Apnea/CPAP/BIPAP Additional Past Medical History / Comment(s): ESRD with hemodialysis M,W,F- pulmonary edema d/t missed dialysis, chronic anemia, aneurysmal L/R coronary systems, leaky heart valve, CVA with no residual, JEWEL with Cpap, arthritis R rio t and r knee. Last Myocardial Infarction Date:: 2013 History of Any Multi-Drug Resistant Organisms: None Reported Past Surgical History: Heart Catheterization Additional Past Surgical History / Comment(s): Cardiac caths with last one done 08/2018, fistular L upper arm, L neck stab wound-scar tissue (keloids) removals and radiation to area to stop keloid formation. Past Anesthesia/Blood Transfusion Reactions: No Reported Reaction Past Psychological History: No Psychological Hx Reported Smoking Status: Never smoker Past Alcohol Use History: None Reported Past Drug Use History: None Reported - Past Family History Father Family Medical History: Coronary Artery Disease (CAD), Myocardial Infarction ([place]) Additional Family Medical History / Comment(s): Pt cannot recall at what age his father had his [place] Mother Family Medical History: Diabetes Mellitus General Exam Limitations: no limitations General appearance: alert, in no apparent distress Head exam: Present: atraumatic, normocephalic Eye exam: Present: normal appearance ENT exam: Present: normal oropharynx Neck exam: Present: normal inspection, full ROM Respiratory exam: Present: respiratory distress (I'll tachypnea), rales (Bilateral bases). Absent: wheezes, rhonchi, stridor Cardiovascular Exam: Present: normal rhythm, tachycardia, normal heart sounds. Absent: systolic murmur, diastolic murmur, rubs, gallop GI/Abdominal exam: Present: soft. Absent: distended, tenderness, guarding, rebound, rigid, mass Extremities exam: Present: normal inspection, normal capillary refill. Absent: pedal edema, calf tenderness Back exam: Present: normal inspection. Absent: CVA tenderness (R), CVA tenderness (L) Neurological exam: Present: alert Skin exam: Present: warm, dry, intact, normal color. Absent: rash Course Vital Signs 06/04/19 06/04/19 06/04/19 01:03 02:08 03:36 Temperature 99.7 F H 99.6 F Pulse Rate 110 H 98 90 Respiratory 24 18 20 Rate Blood Pressure 169/103 146/78 134/76 O2 Sat by Pulse 98 100 98 Oximetry 06/04/19 06/04/19 06:28 07:37 Temperature 98.9 F 98.1 F Pulse Rate 82 81 Respiratory 18 16 Rate Blood Pressure 127/69 111/61 O2 Sat by Pulse 99 98 Oximetry Medical Decision Making - Medical Decision Making Shouldn't 63-year-old man on hemodialysis who presents with volume overload. Case is discussed with nephrology and dialysis will be arranged here. Patient has improved with medical management. - Lab Data Result diagrams: 06/04/19 01:26 06/04/19 01:26 Lab Results 06/04/19 06/04/19 06/04/19 Range/Units 01: 01: 01:26 WBC 4.1 (3.8-10.6) k/uL RBC 3.69 L (4.30-5.90) m/uL Hgb 10.8 L (13.0-17.5) gm/dL Hct 32.6 L (39.0-53.0) % MCV 88.4 (80.0-100.0) fL MCH 29.3 (25.0-35.0) pg MCHC 33.2 (31.0-37.0) g/dL RDW 14.2 (11.5-15.5) % Plt Count 85 L (150-450) k/uL Neutrophils % 91 % Lymphocytes % 5 % Monocytes % 2 % Eosinophils % 2 % Basophils % 0 % Neutrophils # 3.7 (1.3-7.7) k/uL Lymphocytes # 0.2 L (1.0-4.8) k/uL Monocytes # 0.1 (0-1.0) k/uL Eosinophils # 0.1 (0-0.7) k/uL Basophils # 0.0 (0-0.2) k/uL Manual Slide Review Performed PT (9.0-12.0) sec INR (<1.2) APTT (22.0-30.0) sec Sodium 140 (137-145) mmol/L Potassium 4.3 (3.5-5.1) mmol/L Chloride 96 L (98-107) mmol/L Carbon Dioxide 31 H (22-30) mmol/L Anion Gap 13 mmol/L BUN 42 H (9-20) mg/dL Creatinine 9.34 H* (0.66-1.25) mg/dL Est GFR (CKD-EPI)AfAm 6 (>60 ml/min/1.73 sqM) Est GFR (CKD-EPI)NonAf 5 (>60 ml/min/1.73 sqM) Glucose 102 H (74-99) mg/dL Calcium 9.0 (8.4-10.2) mg/dL Magnesium 2.0 (1.6-2.3) mg/dL Total Bilirubin 0.7 (0.2-1.3) mg/dL AST 159 H (17-59) U/L ALT 146 H (21-72) U/L Alkaline Phosphatase 61 (38-126) U/L Troponin I (0.000-0.034) ng/mL NT-Pro-B Natriuret Pep 85205 pg/mL Total Protein 7.1 (6.3-8.2) g/dL Albumin 4.2 (3.5-5.0) g/dL 06/04/19 06/04/19 Range/Units 01:26 01:26 WBC (3.8-10.6) k/uL RBC (4.30-5.90) m/uL Hgb (13.0-17.5) gm/dL Hct (39.0-53.0) % MCV (80.0-100.0) fL MCH (25.0-35.0) pg MCHC (31.0-37.0) g/dL RDW (11.5-15.5) % Plt Count (150-450) k/uL Neutrophils % % Lymphocytes % % Monocytes % % Eosinophils % % Basophils % % Neutrophils # (1.3-7.7) k/uL Lymphocytes # (1.0-4.8) k/uL Monocytes # (0-1.0) k/uL Eosinophils # (0-0.7) k/uL Basophils # (0-0.2) k/uL Manual Slide Review PT 17.9 H (9.0-12.0) sec INR 1.8 H (<1.2) APTT 29.9 (22.0-30.0) sec Sodium (137-145) mmol/L Potassium (3.5-5.1) mmol/L Chloride (98-107) mmol/L Carbon Dioxide (22-30) mmol/L Anion Gap mmol/L BUN (9-20) mg/dL Creatinine (0.66-1.25) mg/dL Est GFR (CKD-EPI)AfAm (>60 ml/min/1.73 sqM) Est GFR (CKD-EPI)NonAf (>60 ml/min/1.73 sqM) Glucose (74-99) mg/dL Calcium (8.4-10.2) mg/dL Magnesium (1.6-2.3) mg/dL Total Bilirubin (0.2-1.3) mg/dL AST (17-59) U/L ALT (21-72) U/L Alkaline Phosphatase (38-126) U/L Troponin I 0.039 H* (0.000-0.034) ng/mL NT-Pro-B Natriuret Pep pg/mL Total Protein (6.3-8.2) g/dL Albumin (3.5-5.0) g/dL - EKG Data -: EKG Interpreted by Me EKG shows normal: sinus rhythm, axis (normal), intervals (normal), QRS complexes (incomplete right bundle branch block), ST-T waves (normal) Rate: tachycardia (rate 107 bpm) Disposition Clinical Impression: Chronic renal failure syndrome, Admission for dialysis, Congestive heart failure Disposition: ADMITTED IP TO THIS [facility] Condition: Fair
[2019-06-04] MEDS ORDERED: WARFARIN 5 MG TAB PO SCH (07:00)
[2019-06-04] MEDS: CARVEDILOL 12.5 MG TAB PO SCH ×2 (10:15→18:17)
[2019-06-04] MEDS: amLODIPine 10 MG TAB PO SCH (10:15)
[2019-06-04] MEDS: CALCIUM ACETATE 667 MG CAP PO SCH ×3 (10:15→18:15)
--- NOTE | 2019-06-04 11:46 | P.NPCON ---
History of Present Illness - Reason for Consult end stage renal disease - History of Present Illness Reason for consultation: End-stage renal disease History of present illness: Patient is a 63-year-old male seen in consultation for end-stage renal disease. He is maintained on hemodialysis on Tuesday schedule. Last hemodialysis was on Tuesday. Patient presented to the hospital due to shortness of breath that began early this morning. He denies history of asthma or COPD. Patient felt as if he was fluid overloaded. He did have 2 episodes of emesis this morning. No diarrhea. Patient also states that his left arm felt numb. He denies any drainage from his fistula recently. He does admit to chills. His temperature was 99.7F on admission. Currently he feels well. No abdominal pain. Hemodynamically stable. Vital signs are stable. General: The patient appeared well nourished and normally developed. HEENT: Head exam is unremarkable. Neck is without jugular venous distension. LUNGS: Lungs are clear to auscultation and percussion. Breath sounds decreased. HEART: Rate and Rhythm are regular. First and second heart sounds normal. No murmurs, rubs or gallops. ABDOMEN: Abdominal exam reveals normal bowel sounds. Non-tender and non- distended. No evidence of peritonitis. EXTREMITITES: No clubbing, cyanosis, or edema. Past Medical History Past Medical History: Heart Failure, CVA/TIA, Dialysis, Hyperlipidemia, Hypertension, Myocardial Infarction ([place]), Osteoarthritis (OA), Renal Disease, Sleep Apnea/CPAP/BIPAP, Vascular Disorder Additional Past Medical History / Comment(s): Pt recently admitted to [facility] on 05/24/19 with SOB/volume overload-missed dialysis/exacerbation CHF. Other hx: ESRD with hemodialysis M,W,F- pulmonary edema d/t missed dialysis, chronic anemia,metabolic bone disease, possible paroxysmal afib, aneurysmal L/R coronary systems, leaky heart valve, CVA with no residual, JEWEL with Cpap, vertigo at times, arthritis R foot and r knee. Last Myocardial Infarction Date:: 2013 History of Any Multi-Drug Resistant Organisms: None Reported Past Surgical History: Heart Catheterization Additional Past Surgical History / Comment(s): Cardiac caths with last one done 08/2018, fistular L upper arm, L neck stab wound-scar tissue (keloids) removals and radiation to area to stop keloid formation. Past Anesthesia/Blood Transfusion Reactions: No Reported Reaction Smoking Status: Never smoker - Past Family History Father Family Medical History: Coronary Artery Disease (CAD), Myocardial Infarction ([place]) Additional Family Medical History / Comment(s): Pt cannot recall at what age his father had his [place] Mother Family Medical History: Coronary Artery Disease (CAD), Diabetes Mellitus Medications and Allergies Home Medications Medication Instructions Recorded Confirmed Type Calcium Acetate [PhosLo] 2,001 mg PO TID-W/MEALS 08/25/18 06/04/19 History Atorvastatin [Lipitor] 40 mg PO HS #30 tab 08/29/18 06/04/19 Rx Warfarin [Coumadin] 5 mg PO SUMOTUTHFRSA 12/14/18 06/04/19 History Carvedilol [Coreg*] 12.5 mg PO BID-W/MEALS #60 tab 05/26/19 06/04/19 Rx amLODIPine [Norvasc] 10 mg PO DAILY #30 tab 05/26/19 06/04/19 Rx Allergies Allergy/AdvReac Type Severity Reaction Status Date / Time No Known Allergies Allergy Verified 06/04/19 07:11 Physical Exam Vitals: Vital Signs Temp Pulse Pulse Resp BP BP Pulse Ox 06/04/19 08:00 98 F 81 14 135/91 97 06/04/19 07:37 98.1 F 81 16 111/61 98 06/04/19 06:28 98.9 F 82 18 127/69 99 06/04/19 03:36 99.6 F 90 20 134/76 98 06/04/19 02:08 98 18 146/78 100 06/04/19 01:03 99.7 F H 110 H 24 169/103 98 Intake and Output 06/03/19 06/04/19 06/04/19 22:59 06:59 14:59 Intake Total 296 Balance 296 Intake: Oral 296 Other: Voiding Method Toilet Weight 138 kg Results - Lab Results Most recent lab results Calcium 9.0 mg/dL (8.4-10.2) 06/04/19 01:26 Magnesium 2.0 mg/dL (1.6-2.3) 06/04/19 01:26 06/04/19 01:26 06/04/19 01:26 Assessment and Plan Plan: Assessment: 1. End-stage renal disease maintained on hemodialysis on Tuesday schedule. 2. Dyspnea. Component of volume overload. 3. Anemia of chronic kidney disease. Hemoglobin at goal. 4. Hypertension with chronic kidney disease. Controlled. 5. Chronic kidney disease mineral bone disease maintained on PhosLo. Plan: Hemodialysis today with goal 3 L ultrafiltration. Follow-up cultures. Patient to follow-up with vascular surgery outpatient for fistulogram with possible angioplasty. Patient states he has an appointment scheduled. Thank you for the consultation. I will continue to follow the patient with you during his hospital stay.
--- NOTE | 2019-06-04 11:54 | P.HPIM ---
History of Present Illness H&P Date: 06/04/19 Chief Complaint: Left chest pressure with left arm achiness/numbness prior to presentation. This 63-year-old Afro-[place] male with past medical history significant for HFpEF, ESRD on HD (MWF), hypertension, hyperlipidemia, non-obstructive coronary artery disease, paroxysmal atrial fibrillation on warfarin, obstructive sleep apnea on CPAP, osteoarthritis, CVA without residual, who presented to the emergency room last night with above symptoms. Patient reports that his chest pressure was not associated with any activity or exertion. He states that it was also associated with orthopnea as he was unable to lay down and use his CPAP machine, diaphoresis, nausea/vomiting 3. Patient describes pain as dull achy heavy pressure-like sensation on the left chest with achy pain left arm and left hand numbness and tingling. It was 7/10 in intensity and nonradiating and it lasted for 3-4 hours. Patient got concerned and came back to the emergency room although he was just recently discharged home about a week ago where he was admitted for CHF exacerbation and he was stabilized and sent home. Patient has echocardiogram done at that time which showed concentric left ventricle hypertrophy, 55-60% ejection fraction, mild aortic regurgitation and mild mitral and tricuspid regurgitations. 3.9 cm aortic root dilation and no pulmonary hypertension was reported. 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 Patient was evaluated in the emergency room EKG showed sinus tachycardia with the incomplete right bundle branch block. Chest x-ray was reported as the pulmonary vascular congestion. Patient hemoglobin 10.8, platelet 85,000, BNP was 21,500, INR 1.8, troponin I 0.039, AST ALT mildly elevated with BUN 42 creatinine 9.3. Patient was admitted under hospitalist service for further management. Now patient denies chest pain, palpitation, headaches, dizziness, lightheadedness, nausea, vomiting, fever, chills, cough and denies rest of the review system. Review of Systems 12 point review of system was negative other than mentioned above in the HPI. Past Medical History Past Medical History: Heart Failure, CVA/TIA, Dialysis, Hyperlipidemia, Hypertension, Myocardial Infarction ([place]), Osteoarthritis ([place]), Renal Disease, Sleep Apnea/CPAP/BIPAP, Vascular Disorder Additional Past Medical History / Comment(s): Pt recently admitted to [facility] on 05/24/19 with SOB/volume overload-missed dialysis/exacerbation CHF. Other hx: ESRD with hemodialysis M,W,F- pulmonary edema d/t missed dialysis, chronic anemia,metabolic bone disease, possible paroxysmal afib, aneurysmal L/R coronary systems, leaky heart valve, CVA with no residual, JEWEL with Cpap, vertigo at times, arthritis R foot and r knee. Last Myocardial Infarction Date:: 2013 History of Any Multi-Drug Resistant Organisms: None Reported Past Surgical History: Heart Catheterization Additional Past Surgical History / Comment(s): Cardiac caths with last one done 08/2018, fistular L upper arm, L neck stab wound-scar tissue (keloids) removals and radiation to area to stop keloid formation. Past Anesthesia/Blood Transfusion Reactions: No Reported Reaction Smoking Status: Never smoker - Past Family History Father Family Medical History: Coronary Artery Disease (CAD), Myocardial Infarction ([place]) Additional Family Medical History / Comment(s): Pt cannot recall at what age his father had his [place] Mother Family Medical History: Coronary Artery Disease (CAD), Diabetes Mellitus Medications and Allergies Home Medications Medication Instructions Recorded Confirmed Type Calcium Acetate [PhosLo] 2,001 mg PO TID-W/MEALS 08/25/18 06/04/19 History Atorvastatin [Lipitor] 40 mg PO HS #30 tab 08/29/18 06/04/19 Rx Warfarin [Coumadin] 5 mg PO SUMOTUTHFRSA 12/14/18 06/04/19 History Carvedilol [Coreg*] 12.5 mg PO BID-W/MEALS #60 tab 05/26/19 06/04/19 Rx amLODIPine [Norvasc] 10 mg PO DAILY #30 tab 05/26/19 06/04/19 Rx Allergies Allergy/AdvReac Type Severity Reaction Status Date / Time No Known Allergies Allergy Verified 06/04/19 07:11 Physical Exam Vitals: Vital Signs Temp Pulse Pulse Resp BP BP Pulse Ox 06/04/19 08:00 98 F 81 14 135/91 97 06/04/19 07:37 98.1 F 81 16 111/61 98 06/04/19 06:28 98.9 F 82 18 127/69 99 06/04/19 03:36 99.6 F 90 20 134/76 98 06/04/19 02:08 98 18 146/78 100 06/04/19 01:03 99.7 F H 110 H 24 169/103 98 Intake and Output 06/03/19 06/04/19 06/04/19 22:59 06:59 14:59 Intake Total 296 Balance 296 Intake: Oral 296 Other: Voiding Method Toilet Weight 138 kg - Constitutional General appearance: cooperative, mild distress (Respiratory.), morbidly obese - EENT Eyes: EOMI, normal appearance - Neck Neck: no lymphadenopathy, normal ROM, no rigidity, no stridor, no thyromegaly - Respiratory Respiratory: bilateral: diminished (At bases.), rales (Basal.), negative: dullness, rhonchi, wheezing - Cardiovascular Rhythm: regular Heart sounds: normal: S1, S2 Abnormal Heart Sounds: no systolic murmur, no diastolic murmur, no S3 Gallop, no S4 Gallop - Gastrointestinal General gastrointestinal: no distended, normal bowel sounds, no rigid, soft, no tenderness - Neurologic No focal neurological deficits noted. Neurologic: CNII-XII intact - Psychiatric Psychiatric: A&O x's 3, appropriate affect Results CBC & Chem 7: 06/04/19 01:26 06/04/19 01:26 Labs: Abnormal Lab Results - Last 24 Hours (Table) 06/04/19 06/04/19 06/04/19 Range/Units 01:26 01:26 01:26 RBC 3.69 L (4.30-5.90) m/uL Hgb 10.8 L (13.0-17.5) gm/dL Hct 32.6 L (39.0-53.0) % Plt Count 85 L (150-450) k/uL Lymphocytes # 0.2 L (1.0-4.8) k/uL PT 17.9 H (9.0-12.0) sec INR 1.8 H (<1.2) Chloride 96 L (98-107) mmol/L Carbon Dioxide 31 H (22-30) mmol/L BUN 42 H (9-20) mg/dL Creatinine 9.34 H* (0.66-1.25) mg/dL Glucose 102 H (74-99) mg/dL AST 159 H (17-59) U/L ALT 146 H (21-72) U/L Troponin I (0.000-0.034) ng/mL 06/04/19 Range/Units 01:26 RBC (4.30-5.90) m/uL Hgb (13.0-17.5) gm/dL Hct (39.0-53.0) % Plt Count (150-450) k/uL Lymphocytes # (1.0-4.8) k/uL PT (9.0-12.0) sec INR (<1.2) Chloride (98-107) mmol/L Carbon Dioxide (22-30) mmol/L BUN (9-20) mg/dL Creatinine (0.66-1.25) mg/dL Glucose (74-99) mg/dL AST (17-59) U/L ALT (21-72) U/L Troponin I 0.039 H* (0.000-0.034) ng/mL Chest x-ray: report reviewed Thrombosis Risk Factor Assmnt - DVT/VTE Prophylaxis DVT/VTE Prophylaxis: Contraindicated - See note (Already on Warfarin for Proxysmal Atrial Fibrillation.) - Choose All That Apply Any of the Below Risk Factors Present?: Yes Each Factor Represents 1 point: Obesity (BMI >25), Swollen legs (current) Other Risk Factors: Yes Each Risk Factor Represents 2 Points: Age 61-74 years Other congenital or acquired thrombophilia - If yes, enter type in comment: No Thrombosis Risk Factor Assessment Total Risk Factor Score: 4 Thrombosis Risk Factor Assessment Level: Moderate Risk Assessment and Plan Plan: 1- Atypical Chest Pain r/o ACS. 2- HFpEF possible mild exacerbation due to above. 3- Elevated LFTs of ? cause or ? Significance. 4- Anemia of chronic disease. 5- Thrombocytopenia most likely related to pt's ESRD. 6- ESRD on HD, Nephrology on case. 7- Proxysmal Atrial Fibrillation on Warfarin. 8- HTN. 9- HLD. 10-Non Obstructive CAD. PLAN:- 1- Cardiology consult placed for further management of elevated Troponin-I in face of his symptoms. Further management per recs from Cardiology. 2- Will monitor strict I's and O's with daily weight and pt. is clinically not in heart failure, will continue current management. 3- Not sure why LFT's are elevated, will monitor the if continue to worsens, will consult GI for further evaluation and w/u. 4- patient's hemoglobin is stable and we will continue to monitor while he is in the hospital. 5- patient to demonstrate opinion could be multifactorial including but not limited to ESRD. No clinical evidence of bleeding at this point. 6- Dr. Monique was consulted for continuation of hemodialysis and ESRD management, await his input and recommendation. 7- currently patient is sinus rhythm, his INR is 1.8 we will continue warfarin as per pharmacy dosing service. 8- blood pressure is stable with slightly diastolic hypertension, I will continue amlodipine for now. Will monitor patient's vitals. 9- patient's statin will be continued for dyslipidemia. 10- patient was admitted for management of his presenting symptoms and once stable and cleared by cardiology services patient will be discharged home. Time with Patient: Greater than 30
--- NOTE | 2019-06-04 14:08 | P.CRDCN ---
History of Present Illness History of present illness: This is a pleasant 63-year-old male past medical history significant for end stage renal disease on hemodialysis, chronic diastolic heart failure, hypertension, dyslipidemia, obstructive sleep apnea, paroxysmal atrial fibrillation on long-term anticoagulation and CVA. He follows in the office with Dr. Potter. He underwent cardiac catheterization 08/2018 revealing normal coronary arteries with no obstructive disease, aneurysmal right and left system with elevated LVEDP. He presented to the hospital with symptoms for shortness of breath that started this morning. He is seen and examined sitting up in the chair eating lunch. He went to dialysis on Tuesday and states they removed the typical amount of fluid. He denies chest discomfort, breathing is stable, no dizziness or palpitations. Nephrology has set up for him to have dialysis here today. EKG reveals sinus tachycardia heart rate of 107, nonspecific ST abnormalities. Chest x-ray negative for pleural effusion, interstitial edema suspected. Laboratory data reviewed, WBC 4.1, hemoglobin 10.8, platelets 85, sodium 140, potassium 4.3, creatinine 9.34 with a GFR 6, AST 159, ALT 149, creatinine 0.039 and proBNP 21,500. Current cardiac medications include Coumadin, amlodipine 10 mg daily, carvedilol. 55 mg twice a day and atorvastatin 40 mg daily. Most recent echocardiogram obtained 05/25/2019 reveals preserved LV systolic function with ejection fraction 55-60%, mild aortic stenosis with a mean gradient of 7 mmHg. At the time of my exam: CONSTITUTIONAL: Denies fever. Denies chills. EYES: Denies blurred vision. Denies vision changes. Denies eye pain. EARS, NOSE, MOUTH & THROAT: Denies headache. Denies sore throat. Denies ear pain. CARDIOVASCULAR: Denies chest pain. Denies shortness of breath. Denies orthopnea. Denies PND. Denies palpitations. RESPIRATORY: Denies cough. GASTROINTESTINAL: Denies abdominal pain. Denies diarrhea. Denies constipation. Denies nausea. Denies vomiting. MUSCULOSKELETAL: Denies myalgias. INTEGUMENTARY: Denies pruitis. Denies rash. NEUROLOGIC: Denies numbness. Denies tingling. Denies weakness. PSYCHIATRIC: Denies anxiety. Denies depression. ENDOCRINE: Denies fatigue. Denies weight change. Denies polydipsia. Denies polyurina. GENITOURINARY: Denies burning, hematuria or urgency with micturation. HEMATOLOGIC: Denies history of anemia. Denies bleeding. Blood pressure 135/91 with a heart rate of 81 afebrile maintaining oxygen saturation on room GENERAL: This is a 63-year-old -[place] male in no apparent distress at the time of my examination. HEENT: Head is atraumatic, normocephalic. Pupils are equal, round. Sclerae anicteric. Conjunctivae are clear. Mucous membranes of the mouth are moist. Neck is supple. There is no jugular venous distention. No carotid bruit is heard. LUNGS: Faint rales left lung base, no wheezes or rhonchi. Right lungs clear. No chest wall tenderness is noted on palpation or with deep breathing. HEART: Regular rate and rhythm with soft systolic ejection murmur at the base, no rubs or gallops. S1 and S2 heard. ABDOMEN: Soft, nontender. Bowel sounds are heard. No organomegaly noted. EXTREMITIES: No evidence of peripheral edema and no calf tenderness noted. VASCULAR: Radial and dorsalis pedis pulses palpated, no evidence of clubbing. NEUROLOGIC: Patient is awake, alert and oriented x3. ASSESSMENT Fluid volume overload secondary to end-stage renal disease Mild troponin abnormality secondary to chronic kidney disease, not indicative of an acute coronary event. Recent cardiac catheterization revealing normal coronary arteries with no obstructive disease. Hypertension Dyslipidemia Paroxysmal atrial fibrillation on long-term anticoagulation History of CVA in the past Morbid obesity, BMI 44 PLAN Troponin elevation is chronic and secondary to abnormal renal function. Not indicative of ACS. Normal cath 08/2018. Continue current medical regimen. Dialysis should improve his volume status. Follow up with Dr. Potter upon discharge. We will follow as needed, thank you kindly for this consultation. Nurse Practitioner note has been reviewed, I agree with a documented findings and plan of care. Patient was seen and examined. Past Medical History Past Medical History: Heart Failure, CVA/TIA, Dialysis, Hyperlipidemia, Hypertension, Myocardial Infarction ([place]), Osteoarthritis (OA), Renal Disease, Sleep Apnea/CPAP/BIPAP, Vascular Disorder Additional Past Medical History / Comment(s): Pt recently admitted to [facility] on 05/24/19 with SOB/volume overload-missed dialysis/exacerbation CHF. Other hx: ESRD with hemodialysis M,W,F- pulmonary edema d/t missed dialysis, chronic anemia,metabolic bone disease, possible paroxysmal afib, aneurysmal L/R c oronary systems, leaky heart valve, CVA with no residual, JEWEL with Cpap, vertigo at times, arthritis R foot and r knee. Last Myocardial Infarction Date:: 2013 History of Any Multi-Drug Resistant Organisms: None Reported Past Surgical History: Heart Catheterization Additional Past Surgical History / Comment(s): Cardiac caths with last one done 08/2018, fistular L upper arm, L neck stab wound-scar tissue (keloids) removals and radiation to area to stop keloid formation. Past Anesthesia/Blood Transfusion Reactions: No Reported Reaction Smoking Status: Never smoker - Past Family History Father Family Medical History: Coronary Artery Disease (CAD), Myocardial Infarction ([place]) Additional Family Medical History / Comment(s): Pt cannot recall at what age his father had his [place] Mother Family Medical History: Coronary Artery Disease (CAD), Diabetes Mellitus Medications and Allergies Home Medications Medication Instructions Recorded Confirmed Type Calcium Acetate [PhosLo] 2,001 mg PO TID-W/MEALS 08/25/18 06/04/19 History Atorvastatin [Lipitor] 40 mg PO HS #30 tab 08/29/18 06/04/19 Rx Warfarin [Coumadin] 5 mg PO SUMOTUTHFRSA 12/14/18 06/04/19 History Carvedilol [Coreg*] 12.5 mg PO BID-W/MEALS #60 tab 05/26/19 06/04/19 Rx amLODIPine [Norvasc] 10 mg PO DAILY #30 tab 05/26/19 06/04/19 Rx Allergies Allergy/AdvReac Type Severity Reaction Status Date / Time No Known Allergies Allergy Verified 06/04/19 07:11 Physical Exam Vitals: Vital Signs Temp Pulse Pulse Resp BP BP Pulse Ox 06/04/19 08:00 98 F 81 14 135/91 97 06/04/19 07:37 98.1 F 81 16 111/61 98 06/04/19 06:28 98.9 F 82 18 127/69 99 06/04/19 03:36 99.6 F 90 20 134/76 98 06/04/19 02:08 98 18 146/78 100 06/04/19 01:03 99.7 F H 110 H 24 169/103 98 Intake and Output 06/03/19 06/04/19 06/04/19 22:59 06:59 14:59 Intake Total 592 Balance 592 Intake: Oral 592 Other: Voiding Method Toilet Weight 138 kg Results 06/04/19 01:26 06/04/19 01:26 Cardiac Enzymes 06/04/19 06/04/19 Range/Units 01:26 01:26 AST 159 H (17-59) U/L Troponin I 0.039 H* (0.000-0.034) ng/mL Coagulation 06/04/19 Range/Units 01:26 PT 17.9 H (9.0-12.0) sec APTT 29.9 (22.0-30.0) sec CBC 06/04/19 Range/Units 01:26 WBC 4.1 (3.8-10.6) k/uL RBC 3.69 L (4.30-5.90) m/uL Hgb 10.8 L (13.0-17.5) gm/dL Hct 32.6 L (39.0-53.0) % Plt Count 85 L (150-450) k/uL Comprehensive Metabolic Panel 06/04/19 Range/Units 01:26 Sodium 140 (137-145) mmol/L Potassium 4.3 (3.5-5.1) mmol/L Chloride 96 L (98-107) mmol/L Carbon Dioxide 31 H (22-30) mmol/L BUN 42 H (9-20) mg/dL Creatinine 9.34 H* (0.66-1.25) mg/dL Glucose 102 H (74-99) mg/dL Calcium 9.0 (8.4-10.2) mg/dL AST 159 H (17-59) U/L ALT 146 H (21-72) U/L Alkaline Phosphatase 61 (38-126) U/L Total Protein 7.1 (6.3-8.2) g/dL Albumin 4.2 (3.5-5.0) g/dL Current Medications Generic Name Dose Route Start Last Admin Trade Name Freq PRN Reason Stop Dose Admin Acetaminophen 650 mg 06/04/19 06:51 Tylenol Tab PO Q6HR PRN Mild Pain or Fever > 100.5 Amlodipine Besylate 10 mg 06/04/19 09:00 06/04/19 10:15 Norvasc PO 10 mg DAILY JACI Administration Atorvastatin Calcium 40 mg 06/04/19 21:00 Lipitor PO HS JACI Calcium Acetate 2,001 mg 06/04/19 07:30 06/04/19 12:34 Phoslo PO 2,001 mg TID-W/MEALS JACI Administration Carvedilol 12.5 mg 06/04/19 07:30 06/04/19 10:15 Coreg PO 12.5 mg BID-W/MEALS JACI Administration Miscellaneous Information 1 each 06/04/19 07:40 Coumadin Per Pharmacy MISCELLANE DIRECTED PRN INR Naloxone HCl 0.2 mg 06/04/19 06:51 Narcan IV Q2M PRN Opioid Reversal Warfarin Sodium 6 mg 06/04/19 18:00 Coumadin PO 06/04/19 18:01 ONCE@1800 ONE Intake and Output 06/03/19 06/04/19 06/04/19 22:59 06:59 14:59 Intake Total 592 Balance 592 Intake: Oral 592 Other: Voiding Method Toilet Weight 138 kg 06/04/19 01:26 06/04/19 01:26
[2019-06-04] MEDS ORDERED: WARFARIN 3 MG TAB PO ONE (18:00)
[2019-06-04] MEDS ORDERED: ATORVASTATIN 40 MG TAB PO SCH (21:00)
[2019-06-05 07:33] LABS: INR 2.1 (<1.2); Prothrombin Time 20.6 sec (9.0-12.0)
[2019-06-05] MEDS: CALCIUM ACETATE 667 MG CAP PO SCH ×2 (07:39→12:52)
[2019-06-05] MEDS: CARVEDILOL 12.5 MG TAB PO SCH (07:45)
[2019-06-05] MEDS: amLODIPine 10 MG TAB PO SCH (07:53)
[2019-06-05 08:38] VITALS: RESP 16
--- NOTE | 2019-06-05 12:10 | P.PN ---
Subjective Patient is seen in follow-up for end-stage liver disease. He is maintained on hemodialysis on Tuesday schedule. No active complaints at this time. Dyspnea is improved. Vital signs are stable. General: The patient appeared well nourished and normally developed. HEENT: Head exam is unremarkable. Neck is without jugular venous distension. LUNGS: Lungs are clear to auscultation and percussion. Breath sounds decreased. HEART: Rate and Rhythm are regular. First and second heart sounds normal. No murmurs, rubs or gallops. ABDOMEN: Abdominal exam reveals normal bowel sounds. Non-tender and non- distended. No evidence of peritonitis. EXTREMITITES: No clubbing, cyanosis, or edema. Objective - Vital Signs Vital signs: Vital Signs Temp 97.7 F 06/05/19 07:00 Pulse 71 06/05/19 07:00 Resp 16 06/05/19 07:00 BP 116/78 06/05/19 07:00 Pulse Ox 100 06/05/19 07:00 Intake & Output 06/04/19 06/05/19 06/05/19 18:59 06:59 18:59 Intake Total 1788 220 Output Total 3300 Balance -1512 220 Weight 135.4 kg Intake: Oral 1488 220 Hemodialysis 300 Output: Hemodialysis 3300 Other: Voiding Method Toilet Toilet - Labs CBC & Chem 7: 06/04/19 01:26 06/04/19 01:26 Labs: Abnormal Lab Results - Last 24 Hours (Table) 06/05/19 Range/Units 06:16 PT 20.6 H (9.0-12.0) sec INR 2.1 H (<1.2) Microbiology - Last 24 Hours (Table) 06/04/19 02:07 Blood Culture - Preliminary Blood No Growth after 24 hours Assessment and Plan Plan: Assessment: 1. End-stage renal disease maintained on hemodialysis on Tuesday schedule. 2. Dyspnea. Component of volume overload. Improved. 3. Anemia of chronic kidney disease. Hemoglobin at goal. 4. Hypertension with chronic kidney disease. Controlled. 5. Chronic kidney disease mineral bone disease maintained on PhosLo. Plan: Hemodialysis tomorrow with goal 2-3 L ultrafiltration. Follow-up cultures. Patient to follow-up with vascular surgery outpatient for fistulogram with possible angioplasty. Patient states he has an appointment scheduled. Stable to be discharged home from nephrology standpoint.
--- NOTE | 2019-06-05 14:14 | P.DS ---
Providers Date of admission: 06/04/19 06:51 Expected date of discharge: 06/05/19 Attending physician: Chilo Quiroz MD Consults: 06/04/19 06:53 Consult Physician Urgent Consulting Provider: Sharona Bernal Consult Reason/Comments: Dialysis patient. Do you want consulting provider notified?: Already Contacted 06/04/19 10:50 Consult Physician Routine Consulting Provider: Leo Potter Consult Reason/Comments: chest pain,left arm numbness,increased troponins Do you want consulting provider notified?: Yes Primary care physician: Stated None Hospital Course: This 63-year-old Afro-[place] male with past medical history significant for HFpEF, ESRD on HD (MWF), hypertension, hyperlipidemia, non-obstructive coronary artery disease, paroxysmal atrial fibrillation on warfarin, obstructive sleep apnea on CPAP, osteoarthritis, CVA without residual, who presented to the emergency room last night with Left chest pressure with left arm achiness/numbness. Patient reports that his chest pressure was not associated with any activity or exertion. He states that it was also associated with orthopnea as he was unable to lay down and use his CPAP machine, diaphoresis, nausea/vomiting 3. Patient describes pain as dull achy heavy pressure-like sensation on the left chest with achy pain left arm and left hand numbness and tingling. It was 7/10 in intensity and nonradiating and it lasted for 3-4 hours. Patient got concerned and came back to the emergency room although he was just recently discharged home about a week ago where he was admitted for CHF exacerbation and he was stabilized and sent home. Patient has echocardiogram done at that time which showed concentric left ventricle hypertrophy, 55-60% ejection fraction, mild aortic regurgitation and mild mitral and tricuspid regurgitations. 3.9 cm aortic root dilation and no pulmonary hypertension was reported. 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 Patient was evaluated in the emergency room EKG showed sinus tachycardia with the incomplete right bundle branch block. Chest x-ray was reported as the pulmonary vascular congestion. Patient hemoglobin 10.8, platelet 85,000, BNP was 21,500, INR 1.8, troponin I 0.039, AST ALT mildly elevated with BUN 42 creatinine 9.3. Cardiology cleared him from cardiac stand point that his elevated trops were due to renal failure. Pt. received HD with 3 lit fluid removed yesterday and he felt much better. O:- VSS, Afebrile, decrease BS at lung bases without ronchi or wheezes but crackles at bases. Abdomen sofe, BS+, non T/D, PP+, no edema noted. ASSESSMENT:- 1- Atypical Chest Pain r/o ACS. 2- HFpEF possible mild exacerbation due to above. 3- Elevated LFTs of ? cause or ? Significance. 4- Anemia of chronic disease. 5- Thrombocytopenia most likely related to pt's ESRD. 6- ESRD on HD, Nephrology on case. 7- Proxysmal Atrial Fibrillation on Warfarin. 8- HTN. 9- HLD. 10-Non Obstructive CAD. PLAN:- 1- Clinically stable and is cleared by Dr. Monique for discahrge home today, please see D/C instructions. Assessment: As Above. Patient Condition at Discharge: Fair Plan - Discharge Summary Discharge Rx Participant: No New Discharge Prescriptions: Continue Calcium Acetate [PhosLo] 2,001 mg PO TID-W/MEALS Atorvastatin [Lipitor] 40 mg PO HS #30 tab Warfarin [Coumadin] 5 mg PO SUMOTUTHFRSA Carvedilol [Coreg*] 12.5 mg PO BID-W/MEALS #60 tab amLODIPine [Norvasc] 10 mg PO DAILY #30 tab Discharge Medication List Calcium Acetate [PhosLo] 2,001 mg PO TID-W/MEALS 08/25/18 [History] Atorvastatin [Lipitor] 40 mg PO HS #30 tab 08/29/18 [Rx] Warfarin [Coumadin] 5 mg PO SUMOTUTHFRSA 12/14/18 [History] Carvedilol [Coreg*] 12.5 mg PO BID-W/MEALS #60 tab 05/26/19 [Rx] amLODIPine [Norvasc] 10 mg PO DAILY #30 tab 05/26/19 [Rx] Follow up Appointment(s)/Referral(s): Leo Potter MD [STAFF PHYSICIAN] - 06/18/19 3:00 pm Sharee Adams MD [STAFF PHYSICIAN] - 1 Week (Please call office to schedule this appointment, Dr. Red Montgomery is the new provider in place of Dr. Adams.) Ulises,Red [STAFF PHYSICIAN] - 1 Week None,Stated [Primary Care Provider] - 1-2 days Activity/Diet/Wound Care/Special Instructions: 1- Renal diet with 1200 to 1500 per day fluid restriction. 2- Follow-up with you warfarin clinic for PT/INR check in 1-2 days. Discharge Disposition: HOME SELF-CARE
[2019-06-05 14:35] VITALS: BP 128/84; PULSE 73; TEMP 97.5
[2019-06-05] MEDS ORDERED: WARFARIN 5 MG TAB PO ONE (18:00)
== END 2019-06-05 16:18 | disposition home or self-care (01) | DRG 291 ==
LOC: EC 01:00 → 4SSUR 06:51
PROVIDERS: ADMIT Internal Medicine; ATTEND Internal Medicine
PROC: 5A1D70Z Performance of Urinary Filtration, Intermittent, Less than 6 Hours Per Day (ICD-10-PCS; principal; 2019-06-04)
DX: I13.2 Hypertensive heart and chronic kidney disease with heart failure and with stage 5 chronic kidney disease, or end stage renal disease (principal); N18.6 End stage renal disease; I50.33 Acute on chronic diastolic (congestive) heart failure; Z68.41 Body mass index [BMI] 40.0-44.9, adult; R07.89 Other chest pain; E66.01 Morbid (severe) obesity due to excess calories; E11.22 Type 2 diabetes mellitus with diabetic chronic kidney disease; D69.59 Other secondary thrombocytopenia; E83.9 Disorder of mineral metabolism, unspecified; I08.3 Combined rheumatic disorders of mitral, aortic and tricuspid valves; K72.90 Hepatic failure, unspecified without coma; D63.1 Anemia in chronic kidney disease; I48.0 Paroxysmal atrial fibrillation; I77.810 Thoracic aortic ectasia; I25.10 Atherosclerotic heart disease of native coronary artery without angina pectoris; I45.10 Unspecified right bundle-branch block; G47.33 Obstructive sleep apnea (adult) (pediatric); E78.5 Hyperlipidemia, unspecified; R79.89 Other specified abnormal findings of blood chemistry; I25.2 Old myocardial infarction; M19.071 Primary osteoarthritis, right ankle and foot; M17.11 Unilateral primary osteoarthritis, right knee; Z99.2 Dependence on renal dialysis; Z79.01 Long term (current) use of anticoagulants; Z79.899 Other long term (current) drug therapy; Z86.73 Personal history of transient ischemic attack (TIA), and cerebral infarction without residual deficits; Z99.89 Dependence on other enabling machines and devices; Z98.890 Other specified postprocedural states; Z82.49 Family history of ischemic heart disease and other diseases of the circulatory system; Z83.3 Family history of diabetes mellitus
CPT/HCPCS: 36415; 71045; 80053; 83735; 83880; 84484; 85025; 85610; 85730; 87040; 90935; 93005; 96374; 99285

== ENCOUNTER → 2019-09-06 | Outpatient (CLI) | payer MEDICARE, BC ==
--- NOTE | 2019-09-06 12:11 | SFUN ---
SLEEP CENTER FOLLOW UP NOTE DATE OF SERVICE: 09/06/2019 A 64-year-old gentleman who has been followed in the Sleep Center for treatment of obstructive sleep apnea-hypopnea syndrome. The patient continued to use CPAP equipment every night for the whole night. Sleeps well with the machine. Several months ago, apnea-hypopnea index increased to 17.5 with the leads 47 L/minute by increase range of the pressure at that time, 10-19. Then on the following visit, which was in May of 2019, apnea-hypopnea index was 9.6, and I put machine in automatic regimen with range of the pressure 10-20 cm of water. During today's visit. I checked his CPAP unit, range of the pressure 10-20 cm of water. Average pressure 17.8 cm of water. Apnea-hypopnea index reading for the last month 13.3 with leak 26 L/minute. Central apnea index 2.3. I reviewed results of the previous sleep study and showed the range of the pressure, which was recommended during titration. The same is patient has now. The patient has lost about 20 pounds since previous visit. [place] Sleepiness Scale today is only 4, which is normal. PHYSICAL EXAM: Patient in no distress. BP 141/83, HR 80, RR 16, height 5, 10, weight 293.6, temperature 97.3, oxygen saturation at room air 97%. Body mass index 42.0. OROPHARYNX: Extremely low soft palate, Mallampati 4. ABDOMEN: Obese and surgery on the left arm. Ss of 60 which is for the recent surgery for the artery. The patient is on hemodialysis with. IMPRESSION: 1. Obstructive sleep apnea-hypopnea syndrome. Patient demonstrated 100% compliance with treatment benefitting from treatment. 2. Obesity. 3. Asthma. 4. End-stage renal disease, on treatment with dialysis 3 times per week. 5. Hypertension. 6. History of gout. 7. History of coronary artery aneurysm. PLAN: 1. Patient will continue to use CPAP treatment every night for the whole night. 2. Prescription for all necessary CPAP supplies. 3. Continue losing weight. 4. Sleep hygiene reviewed. 5. Seven 0.5 hours. 6. No driving if feeling sleepiness. 7. Follow-up visit in 3 months because apnea-hypopnea index slightly increased during reading from the machine since early in December. MMODL / IJN: [id number] /
== END | disposition home or self-care (01) ==
LOC: SLEEP 10:40
PROVIDERS: ATTEND Internal Medicine
DX: G47.33 Obstructive sleep apnea (adult) (pediatric) (principal); E66.9 Obesity, unspecified; J45.909 Unspecified asthma, uncomplicated; I12.0 Hypertensive chronic kidney disease with stage 5 chronic kidney disease or end stage renal disease; N18.6 End stage renal disease; Z99.2 Dependence on renal dialysis; Z68.41 Body mass index [BMI] 40.0-44.9, adult; Z87.39 Personal history of other diseases of the musculoskeletal system and connective tissue; Z86.79 Personal history of other diseases of the circulatory system

== ENCOUNTER → 2020-06-04 | Outpatient (CLI) | payer MEDICARE, BC ==
--- NOTE | 2020-06-04 17:44 | SFUN ---
SLEEP CENTER FOLLOW UP NOTE DATE OF SERVICE: 06/04/2020 This patient is a 64-year-old gentleman who has been followed in Sleep Center for treatment of obstructive sleep apnea-hypopnea syndrome. During the previous visit, his apnea-hypopnea index increased to 13.3 with central apnea index 2.3. Leak at that time was 26 L/minute. At present, the patient continues to use his CPAP equipment every night for the whole night. According to him, he sleeps well with the machine and is not experiencing any problems. Before I talked to him about the possibility of using the chinstrap with a nasal mask, but he does not feel comfortable with the chinstrap. I checked his CPAP unit. Range of the pressure is 10 to 20 with average pressure of 17.9. Usage is 30/30 nights and the patient sleeps quite long with the machine, about 13 hours per night. Leak is up to 41 L/minute. Apnea-hypopnea index for the last month is 11.4 and for the last night 8. Central apnea index is 2.0. During the previous visit, again, it was 13.3, so apnea-hypopnea index is reduced compared to the previous visit. PHYSICAL EXAMINATION: GENERAL: A pleasant -[place]in[place] gentleman without distress. VITAL SIGNS: BP 106/65, HR 85, RR 15, height 5 feet 10 inches, weight 289.2, temperature 97.5, oxygen saturation at room air 99%. HEENT: PERRLA, EOMI. Evaluation of oropharynx showed tongue protrudes midline. Extremely low position of soft palate. Mallampati IV. NECK: Supple. No JVD. Thyroid is not palpable. LUNGS: Clear to percussion and to auscultation. Good air exchange. No wheezing or rhonchi. HEART: S1, S2 regular. No murmurs, gallops or rubs. ABDOMEN: Obese. EXTREMITIES: No clubbing or cyanosis. SCHOOL AGE LEAD TEACHER: Awake, alert, and oriented X3. Cranial nerves 2 to 7 intact. There is no fasciculation or atrophy. noted. No focal deficits observed. IMPRESSION: 1. Obstructive sleep apnea-hypopnea syndrome. Patient demonstrated 100% compliance with treatment, benefitting from treatment. 2. Obesity. 3. Asthma. 4. End-stage renal disease, on treatment with dialysis. 5. Hypertension. 6. History of gout. 7. History of coronary artery aneurysm. PLAN: 1. Patient will continue to use PAP equipment every night for the whole night. 2. Sleep hygiene with regular time in bed for at least 7-1/2 to 8 hours. 3. Precautions related to driving. No driving if feeling sleepiness. 4. I will maintain all necessary prescription for PAP supplies including mask, tube, filters. 5. Watching weight. 6. No driving if feeling sleepiness. 7. Follow-up visit in 6 months or earlier if patient has any problems. 8. I again talked to the patient about the necessity of using a chin strap to prevent leak which is possibly related to opening his mouth. Sincerely, Emery Kaiser MD, PhD, FAASM Diplomat of [place] [employer] [employer] Prot[employer] of [facility] [place] JAY / SESAR: [id number] /
== END | disposition home or self-care (01) ==
LOC: SLEEP 11:57
PROVIDERS: ATTEND Internal Medicine
DX: G47.33 Obstructive sleep apnea (adult) (pediatric) (principal); J45.909 Unspecified asthma, uncomplicated; E66.9 Obesity, unspecified; I12.9 Hypertensive chronic kidney disease with stage 1 through stage 4 chronic kidney disease, or unspecified chronic kidney disease; N18.5 Chronic kidney disease, stage 5; Z86.79 Personal history of other diseases of the circulatory system; Z87.39 Personal history of other diseases of the musculoskeletal system and connective tissue

== ENCOUNTER → 2021-04-02 | Outpatient (CLI) | payer MEDICARE, BC ==
--- NOTE | 2021-04-02 20:49 | SFUN ---
SLEEP CENTER FOLLOW UP NOTE DATE OF SERVICE: 04/02/2021 This 65-year-old gentleman has been followed in Sleep Center for treatment of obstructive sleep apnea-hypopnea syndrome. The patient continues to use his CPAP equipment every night and also during any naps which he is taking. Patient is also on hemodialysis 3 times a week. His [place] Sleepiness Scale today is 8, which is in normal range. I checked his CPAP unit. Usage is 100% of the time for more than 4 hours. Average 11.8 hours per night. Leak is 36 L/minute, which is slightly increased. Range of the pressure is 10-20 with average pressure 17.4. Apnea-hypopnea index is 12.6, which includes central apnea-hypopnea index 3.1. The patient's weight increased by about 7 pounds since previous visit. Maximal pressure in the machine is 20 cm of water, and that is what the machine has now. MEDICATIONS: 1. Amlodipine 10 mg twice a day. 2. Calcium acetate 667 mg 3 capsules 3 times a day. 3. Coreg 6.25 mg twice a day. 4. Coumadin 5 mg once a day. 5. Lipitor 40 mg once a day. 6. Metoprolol 75 mg twice a day. 7. Midodrine 5 mg as needed before and. PHYSICAL EXAMINATION: GENERAL: A pleasant -[place]ine[place] gentleman without distress. VITAL SIGNS: BP 121/65, HR 72, RR 15, height 5 feet 10 inches, weight 296 pounds, body mass index 42.4, temperature 99.0, oxygen saturation at room air 94%. HEENT: PERRLA, EOMI, evaluation of oropharynx showed tongue protrudes midline. Extremely low position of soft palate; Mallampati IV. NECK: Supple, no JVD. Thyroid is not palpable. LUNGS: Clear to percussion and to auscultation. Good air exchange. No wheezing or rhonchi. HEART: S1, S2 regular. No murmurs, gallops, or rubs. ABDOMEN: Obese. EXTREMITIES: No clubbing or cyanosis. YARD BRAKEMAN: Awake, alert, and oriented X3. Cranial nerves 2 to 7 intact. There is no fasciculation or atrophy. noted. No focal deficits observed. IMPRESSION: 1. Obstructive sleep apnea-hypopnea syndrome. Patient demonstrated 100% compliance with treatment, benefitting from treatment. Slightly increased apnea-hypopnea index. AutoPAP maximal pressure. 2. End-stage renal disease, on treatment with dialysis 3 times a week. 3. Obesity. The patient's weight increased by 7 pounds. 4. Asthma. 5. Hypertension. 6. History of gout. 7. History of coronary artery aneurysm. PLAN: 1. Patient will continue to use PAP equipment every night for the whole night. 2. Sleep hygiene with regular time in bed for at least 7-1/2 to 8 hours. 3. Precautions related to driving. No driving if feeling sleepiness. 4. I will maintain all necessary prescription for PAP supplies including mask, tube, filters. 5. Watching weight. 6. Follow-up visit in 6 months or earlier if patient has any problems. 7. We may consider repeating titration with possible usage of BiPAP in the future, although clinically patient sleeps well on CPAP. Sincerely, Emery Kaiser MD, PhD, FAASM Diplomat of [place] [employer] Sleep Medicine Board of [place] [employer] Sales Consulting Director of [facility] [employer] MMODL / ALINAN: [id number] /
== END ==
LOC: SLEEP 12:56
PROVIDERS: ATTEND Internal Medicine
DX: G47.33 Obstructive sleep apnea (adult) (pediatric) (principal); I12.0 Hypertensive chronic kidney disease with stage 5 chronic kidney disease or end stage renal disease; N18.6 End stage renal disease; Z99.2 Dependence on renal dialysis; E66.9 Obesity, unspecified; J45.909 Unspecified asthma, uncomplicated; Z87.39 Personal history of other diseases of the musculoskeletal system and connective tissue; Z86.79 Personal history of other diseases of the circulatory system; Z68.41 Body mass index [BMI] 40.0-44.9, adult; Z79.899 Other long term (current) drug therapy

== ENCOUNTER 2021-10-17 23:29 | Inpatient (IN) | payer MEDICARE, BC ==
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
[2021-10-17] MEDS ORDERED: SODIUM CHLORIDE 0.9% 1,000 ML IV STA (23:56)
[2021-10-17] MEDS ORDERED: MORPHINE SULFATE 4 MG/ML SYRINGE IV STA (23:56)
[2021-10-18 01:57] LABS: Anisocytosis Slight; Basophils # (A) 0.1 k/uL (0-0.2); Basophils % (A) 1 %; Eosinophils # (A) 0.6 k/uL (0-0.7); Eosinophils % (A) 11 %; HCT 26.1 % (39.0-53.0); HGB 8.6 gm/dL (13.0-17.5); Hypochromasia Slight; Lymphocytes # (A) 0.6 k/uL (1.0-4.8); Lymphocytes % (A) 11 %; MCHC 33.1 g/dL (31.0-37.0); MCV 90.8 fL (80.0-100.0); Monocytes # (A) 0.2 k/uL (0-1.0); Monocytes % (A) 5 %; Neutrophils # (A) 3.4 k/uL (1.3-7.7); Neutrophils % (A) 69 %; Platelet Count 205 k/uL (150-450); Poikilocytosis Slight; RBC 2.88 m/uL (4.30-5.90); RDW 17.1 % (11.5-15.5); WBC 4.9 k/uL (3.8-10.6)
[2021-10-18 03:24] LABS: Prothrombin Time 97.2 sec (9.0-12.0)
[2021-10-18 03:36] LABS: Magnesium 2.6 mg/dL (1.6-2.3); Phosphorus 5.8 mg/dL (2.5-4.5); Potassium 5.1 mmol/L (3.5-5.1); Total Bilirubin 0.7 mg/dL (0.2-1.3); Total Protein 5.8 g/dL (6.3-8.2)
[2021-10-18 03:39] LABS: INR 9.4 (<1.2); Partial Thromboplastin Time 95.7 sec (22.0-30.0)
[2021-10-18] MEDS ORDERED: ONDANSETRON 4 MG/2 ML VIAL IVP PRN (03:54)
[2021-10-18] MEDS ORDERED: NALOXONE 0.4 MG/ML 1 ML VIAL IV PRN ×2 (03:54→14:34)
[2021-10-18] MEDS ORDERED: PHYTONADIONE 5 MG in SODIUM CHLORIDE 0.9% 50 ML IVPB STA (03:54)
[2021-10-18] MEDS: SODIUM CHLORIDE 0.9% 1,000 ML IV SCH (07:34)
[2021-10-18] MEDS: HYDROmorphone 1 MG/ML 1 ML SYRINGE IVP PRN (08:09)
[2021-10-18] MEDS: LORazepam 2 MG/ML INJ IV PRN ×2 (11:41→23:29)
[2021-10-18 14:31] LABS: Glucose,Whole Blood 108 mg/dL (75-99)
[2021-10-18] MEDS ORDERED: MIDODRINE 5 MG TAB PO PRN (14:35)
[2021-10-18] MEDS ORDERED: ACETAMINOPHEN TAB 325 MG TAB PO PRN (14:35)
[2021-10-18 14:49] LABS: ABG Base Excess 5.7 mmol/L; ABG HCO3 31 mmol/L (21-25); ABG Oxygen Saturation 98.3 % (94-97); ABG PCO2 57 mmHg (35-45); ABG PH 7.35 (7.35-7.45); ABG PO2 109 mmHg (83-108); ABG TCO2 33 mmol/L (19-24); Allen Test Performed? Yes
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
[2021-10-18 16:00] LABS: Anisocytosis Slight; Basophils % (A) 1 %; Eosinophils # (A) 0.6 k/uL (0-0.7); Eosinophils % (A) 10 %; HCT 25.3 % (39.0-53.0); HGB 8.2 gm/dL (13.0-17.5); Hypochromasia Slight; Lymphocytes # (A) 0.7 k/uL (1.0-4.8); Lymphocytes % (A) 11 %; MCH 29.4 pg (25.0-35.0); MCHC 32.5 g/dL (31.0-37.0); MCV 90.6 fL (80.0-100.0); Monocytes # (A) 0.3 k/uL (0-1.0); Monocytes % (A) 5 %; Neutrophils # (A) 4.4 k/uL (1.3-7.7); Neutrophils % (A) 73 %; Platelet Count 181 k/uL (150-450); Poikilocytosis Slight; RBC 2.79 m/uL (4.30-5.90); RDW 16.4 % (11.5-15.5); WBC 6.1 k/uL (3.8-10.6)
[2021-10-18] MEDS ORDERED: DARBEPOETIN ALFA 60 MCG/0.3 ML SYRINGE SQ SCH (16:00)
[2021-10-18 16:07] LABS: INR 2.1 (<1.2); Prothrombin Time 21.6 sec (9.0-12.0)
[2021-10-18 16:09] LABS: Calcium 8.8 mg/dL (8.4-10.2); Potassium 5.5 mmol/L (3.5-5.1); Total Bilirubin 0.8 mg/dL (0.2-1.3); Total Protein 5.9 g/dL (6.3-8.2)
[2021-10-18 16:54] LABS: Hepatitis B Surface Antigen Nonreactive (Nonreactive)
[2021-10-18 17:29] LABS: Hepatitis B Surface Antibody Reactive (Nonreactive)
[2021-10-18] MEDS: CALCIUM CARB-MAG CARB-FOLIC 1 EACH TAB PO SCH (18:51)
[2021-10-18] MEDS: CALCIUM ACETATE 667 MG TAB PO SCH (18:51)
[2021-10-18] MEDS: METOPROLOL TARTRATE 25 MG TAB PO SCH (21:30)
[2021-10-18] MEDS: ATORVASTATIN 40 MG TAB PO SCH (21:31)
[2021-10-19] MEDS: SODIUM CHLORIDE 0.9% 1,000 ML IV SCH (03:34)
[2021-10-19] MEDS: CALCIUM CARB-MAG CARB-FOLIC 1 EACH TAB PO SCH ×3 (06:38→20:30)
[2021-10-19] MEDS: CALCIUM ACETATE 667 MG TAB PO SCH ×3 (06:38→20:30)
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
[2021-10-19] MEDS: MULTIVITAMINS, THERA 1 EACH TAB PO SCH (09:52)
[2021-10-19] MEDS: AMIODARONE 200 MG TAB PO SCH (09:52)
[2021-10-19] MEDS: METOPROLOL TARTRATE 25 MG TAB PO SCH ×2 (09:52→20:29)
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
[2021-10-19 15:24] LABS: Anisocytosis Slight; Basophils % (A) 1 %; Eosinophils # (A) 0.6 k/uL (0-0.7); Eosinophils % (A) 10 %; HCT 22.5 % (39.0-53.0); HGB 7.4 gm/dL (13.0-17.5); Hypochromasia Slight; Lymphocytes # (A) 0.6 k/uL (1.0-4.8); Lymphocytes % (A) 11 %; MCH 29.6 pg (25.0-35.0); MCHC 32.8 g/dL (31.0-37.0); MCV 90.1 fL (80.0-100.0); Mean Platelet Volume 8.2; Monocytes # (A) 0.3 k/uL (0-1.0); Monocytes % (A) 5 %; Neutrophils % (A) 72 %; Platelet Count 199 k/uL (150-450); Poikilocytosis Slight; RDW 16.2 % (11.5-15.5); WBC 5.5 k/uL (3.8-10.6)
[2021-10-19 15:31] LABS: INR 2.2 (<1.2); Prothrombin Time 22.5 sec (9.0-12.0)
[2021-10-19 15:37] LABS: Albumin 2.8 g/dL (3.5-5.0); Calcium 8.5 mg/dL (8.4-10.2); Magnesium 2.5 mg/dL (1.6-2.3); Phosphorus 6.4 mg/dL (2.5-4.5); Potassium 5.8 mmol/L (3.5-5.1); Total Bilirubin 0.8 mg/dL (0.2-1.3); Total Protein 5.7 g/dL (6.3-8.2)
[2021-10-19] MEDS: ATORVASTATIN 40 MG TAB PO SCH (20:29)
[2021-10-19] MEDS: HYDROcodone/APAP 5-325MG 1 EACH TAB PO PRN (20:31)
[2021-10-20] MEDS: SODIUM CHLORIDE 0.9% 1,000 ML IV SCH (04:27)
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
[2021-10-20 09:16] LABS: Anisocytosis Slight; HCT 24.2 % (39.0-53.0); HGB 7.7 gm/dL (13.0-17.5); Hypochromasia Moderate; INR 2.9 (<1.2); MCH 29.6 pg (25.0-35.0); MCHC 31.9 g/dL (31.0-37.0); Mean Platelet Volume 7.6; Platelet Count 205 k/uL (150-450); Poikilocytosis Slight; Prothrombin Time 28.7 sec (9.0-12.0); RDW 16.8 % (11.5-15.5); WBC 4.8 k/uL (3.8-10.6)
[2021-10-20] MEDS: METOPROLOL TARTRATE 25 MG TAB PO SCH ×2 (09:33→19:59)
[2021-10-20] MEDS: AMIODARONE 200 MG TAB PO SCH (09:33)
[2021-10-20] MEDS: MULTIVITAMINS, THERA 1 EACH TAB PO SCH (09:34)
[2021-10-20 10:35] LABS: Calcium 8.9 mg/dL (8.4-10.2); Magnesium 2.4 mg/dL (1.6-2.3); Total Bilirubin 0.8 mg/dL (0.2-1.3); Total Protein 5.9 g/dL (6.3-8.2)
[2021-10-20] MEDS: CALCIUM CARB-MAG CARB-FOLIC 1 EACH TAB PO SCH ×3 (11:15→17:58)
[2021-10-20] MEDS: CALCIUM ACETATE 667 MG TAB PO SCH ×3 (11:15→17:58)
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
[2021-10-20] MEDS: HYDROcodone/APAP 5-325MG 1 EACH TAB PO PRN (19:59)
[2021-10-20] MEDS: ATORVASTATIN 40 MG TAB PO SCH (19:59)
[2021-10-21] MEDS: SODIUM CHLORIDE 0.9% 1,000 ML IV SCH (03:41)
[2021-10-21] MEDS: HYDROcodone/APAP 5-325MG 1 EACH TAB PO PRN ×3 (05:57→19:39)
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
[2021-10-21] MEDS: MULTIVITAMINS, THERA 1 EACH TAB PO SCH (09:11)
[2021-10-21] MEDS: CALCIUM CARB-MAG CARB-FOLIC 1 EACH TAB PO SCH ×3 (09:11→16:44)
[2021-10-21] MEDS: METOPROLOL TARTRATE 25 MG TAB PO SCH ×2 (09:11→19:38)
[2021-10-21] MEDS: AMIODARONE 200 MG TAB PO SCH (09:11)
[2021-10-21] MEDS: CALCIUM ACETATE 667 MG TAB PO SCH ×3 (09:11→16:44)
[2021-10-21] MEDS: HYDROmorphone 1 MG/ML 1 ML SYRINGE IVP PRN (10:47)
[2021-10-21 11:37] LABS: Anisocytosis Slight; HCT 22.3 % (39.0-53.0); HGB 7.4 gm/dL (13.0-17.5); Hypochromasia Slight; MCV 90.8 fL (80.0-100.0); Platelet Count 205 k/uL (150-450); Poikilocytosis Slight; RBC 2.46 m/uL (4.30-5.90); RDW 16.6 % (11.5-15.5); WBC 4.8 k/uL (3.8-10.6)
[2021-10-21 12:06] LABS: INR 3.6 (<1.2); Prothrombin Time 35.5 sec (9.0-12.0)
[2021-10-21 12:12] LABS: Albumin 2.8 g/dL (3.5-5.0); Calcium 8.7 mg/dL (8.4-10.2); Potassium 5.1 mmol/L (3.5-5.1); Total Bilirubin 0.8 mg/dL (0.2-1.3); Total Protein 5.5 g/dL (6.3-8.2)
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
[2021-10-21] MEDS: ATORVASTATIN 40 MG TAB PO SCH (19:38)
[2021-10-22 02:40] LABS: % Iron Saturation 20.05 (15.00-50.00)
[2021-10-22] MEDS: CALCIUM CARB-MAG CARB-FOLIC 1 EACH TAB PO SCH ×3 (06:34→17:14)
[2021-10-22] MEDS: CALCIUM ACETATE 667 MG TAB PO SCH ×3 (06:34→17:04)
[2021-10-22 07:30] LABS: Anisocytosis Slight; HCT 24.9 % (39.0-53.0); HGB 8.1 gm/dL (13.0-17.5); Hypochromasia Moderate; MCHC 32.4 g/dL (31.0-37.0); MCV 92.5 fL (80.0-100.0); Mean Platelet Volume 7.7; Platelet Count 210 k/uL (150-450); Poikilocytosis Slight; RDW 16.6 % (11.5-15.5); WBC 4.3 k/uL (3.8-10.6)
[2021-10-22 07:46] LABS: INR 3.7 (<1.2); Prothrombin Time 36.8 sec (9.0-12.0)
[2021-10-22 07:48] LABS: Albumin 2.9 g/dL (3.5-5.0); Calcium 8.8 mg/dL (8.4-10.2); Magnesium 2.4 mg/dL (1.6-2.3); Potassium 4.4 mmol/L (3.5-5.1); Total Bilirubin 0.8 mg/dL (0.2-1.3); Total Protein 5.8 g/dL (6.3-8.2)
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
[2021-10-22] MEDS: MULTIVITAMINS, THERA 1 EACH TAB PO SCH (10:02)
[2021-10-22] MEDS: HYDROcodone/APAP 5-325MG 1 EACH TAB PO PRN (10:02)
[2021-10-22] MEDS: AMIODARONE 200 MG TAB PO SCH (10:02)
[2021-10-22] MEDS: METOPROLOL TARTRATE 25 MG TAB PO SCH (10:02)
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
[2021-10-22 17:03] VITALS: BP 145/75; PULSE 73; RESP 17; TEMP 97.8
== END 2021-10-22 18:25 | DRG 314 ==
LOC: EC 23:29 → 3SCARD 10-18 03:54
PROVIDERS: ADMIT Internal Medicine; ATTEND Internal Medicine
PROC: 5A1D70Z Performance of Urinary Filtration, Intermittent, Less than 6 Hours Per Day (ICD-10-PCS; principal; 2021-10-19)
DX: T82.838A Hemorrhage due to vascular prosthetic devices, implants and grafts, initial encounter (principal); N18.6 End stage renal disease; D68.9 Coagulation defect, unspecified; E87.1 Hypo-osmolality and hyponatremia; I13.2 Hypertensive heart and chronic kidney disease with heart failure and with stage 5 chronic kidney disease, or end stage renal disease; I31.3 Pericardial effusion (noninflammatory); I50.32 Chronic diastolic (congestive) heart failure; N17.9 Acute kidney failure, unspecified; D63.1 Anemia in chronic kidney disease; E66.9 Obesity, unspecified; I25.41 Coronary artery aneurysm; Z68.35 Body mass index [BMI] 35.0-35.9, adult; E78.5 Hyperlipidemia, unspecified; E87.5 Hyperkalemia; G47.33 Obstructive sleep apnea (adult) (pediatric); I25.10 Atherosclerotic heart disease of native coronary artery without angina pectoris; I08.3 Combined rheumatic disorders of mitral, aortic and tricuspid valves; I25.2 Old myocardial infarction; I48.0 Paroxysmal atrial fibrillation; Z86.73 Personal history of transient ischemic attack (TIA), and cerebral infarction without residual deficits; E83.9 Disorder of mineral metabolism, unspecified; T45.515A Adverse effect of anticoagulants, initial encounter; Z99.2 Dependence on renal dialysis; S72.001D Fracture of unspecified part of neck of right femur, subsequent encounter for closed fracture with routine healing; S12.9XXD Fracture of neck, unspecified, subsequent encounter; V49.9XXD Car occupant (driver) (passenger) injured in unspecified traffic accident, subsequent encounter; Z98.890 Other specified postprocedural states; M17.11 Unilateral primary osteoarthritis, right knee; M19.071 Primary osteoarthritis, right ankle and foot; Z92.3 Personal history of irradiation; Z60.2 Problems related to living alone; Z77.22 Contact with and (suspected) exposure to environmental tobacco smoke (acute) (chronic); Z79.01 Long term (current) use of anticoagulants; Z79.899 Other long term (current) drug therapy; Z82.49 Family history of ischemic heart disease and other diseases of the circulatory system; Z83.3 Family history of diabetes mellitus
CPT/HCPCS: 36415; 36600; 80053; 82728; 82805; 83540; 83550; 83735; 84100; 84484; 85025; 85027; 85610; 85730; 86704; 86706; 87340; 90935; 93005; 96365; 96375; 99285

== ENCOUNTER 2021-10-23 12:21 | Observation (INO) | payer MEDICARE, BC ==
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
[2021-10-23 14:57] LABS: Anisocytosis Slight; Basophils % (A) 1 %; Eosinophils # (A) 0.5 k/uL (0-0.7); Eosinophils % (A) 11 %; HCT 24.8 % (39.0-53.0); HGB 7.9 gm/dL (13.0-17.5); Hypochromasia Slight; Lymphocytes # (A) 0.8 k/uL (1.0-4.8); Lymphocytes % (A) 18 %; MCH 29.1 pg (25.0-35.0); MCHC 31.9 g/dL (31.0-37.0); MCV 91.1 fL (80.0-100.0); Mean Platelet Volume 7.8; Monocytes # (A) 0.3 k/uL (0-1.0); Monocytes % (A) 6 %; Neutrophils # (A) 2.8 k/uL (1.3-7.7); Neutrophils % (A) 63 %; Platelet Count 196 k/uL (150-450); Poikilocytosis Slight; RBC 2.72 m/uL (4.30-5.90); RDW 16.7 % (11.5-15.5); WBC 4.5 k/uL (3.8-10.6)
[2021-10-23 15:14] LABS: Albumin 3.1 g/dL (3.5-5.0); Calcium 9.3 mg/dL (8.4-10.2); Potassium 4.7 mmol/L (3.5-5.1); Total Bilirubin 0.7 mg/dL (0.2-1.3)
[2021-10-23] MEDS ORDERED: GELATIN SPONGE,ABSORB (LARGE) 1 EACH SPONGE ONE (17:00)
--- NOTE | 2021-10-23 19:05 | CT ---
EXAMINATION TYPE: CT brain bruce wo con DATE OF EXAM: 10/23/2021 COMPARISON: 12/14/2018 HISTORY: AMS CT DLP: 1851.9 mGycm Automated exposure control for dose reduction was used. Images of the brain and cervical spine obtained without contrast. There is diffuse cerebral cortical atrophy. There is extensive hypodensity in the periventricular whi te matter. There is no mass effect or midline shift. There is no sign of intracranial hemorrhage. The re is some enlargement of the ventricles. The calvarium is intact. There is normal aeration of the ma stoid sinuses. Cervical vertebra have fairly normal alignment. There is degenerative disc space narrowing throughout the cervical spine with mild spurring of the endplates. There is a 12 mm triangular-shaped chip fracture of the anterior base of the C2 vertebral body with n o displacement. There is fracture of the left-sided lamina of C6 without significant displacement. There is also frac ture apparently through the pedicle of C6 on the left side. There is fracture of the superior articul ar facet of C7 on the left side. This is adjacent to the pedicle the C6 fracture. There are some meta llic densities in the soft tissues posterior to this the T2 and C3 spinous processes. IMPRESSION: There are fractures of C2 and C6 and C7 as above. I do not see evidence of an unstable fracture. Spondylotic changes. Cerebral atrophy and chronic small vessel ischemia without change compared to old exam..
[2021-10-23] MEDS ORDERED: NALOXONE 0.4 MG/ML 1 ML VIAL IV PRN (21:31)
[2021-10-24] MEDS ORDERED: METOPROLOL TARTRATE 25 MG TAB PO SCH (03:30)
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
[2021-10-24] MEDS ORDERED: ACETAMINOPHEN TAB 325 MG TAB PO PRN (08:45)
[2021-10-24] MEDS ORDERED: AMIODARONE 200 MG TAB PO SCH (09:00)
[2021-10-24] MEDS ORDERED: MIDODRINE 5 MG TAB PO PRN (09:00)
[2021-10-24] MEDS ORDERED: APIXABAN 5 MG TAB PO SCH (09:00)
--- NOTE | 2021-10-24 10:14 | P.CN ---
Psychiatric Consult - . Consult date: 10/24/21 Consult:: 10/24/21 10:00 History of present illness: This is a 66-year-old male who presents emergency Department from a longterm they stated the patient was weak and not acting normally. Patient disagrees with this he states he has no complaints he skipped dialysis because he wanted to talk to one of the longterm workers because he felt as though that person was going to some of his personal belongings. Patient is alert and oriented 3 and again he is without complaints. Patient states he realizes he probably should've gone to dialysis now probably upset the staff. Emergency room history: Patient who presented for altered mental status but was awake alert and oriented, dialysis was ordered because he missed his outpatient dialysis. While getting dialysis through dialysis nurse contacted me and states that she is known this patient for a long period of time and that he is not himself at all right now. She states that he is having visual hallucinations. He's having conversations with people who were not in the room. His personality is completely change from his baseline she's concerned about him. Given that a person who knows the patient quite well is reporting a significant changes and head CT was obtained given the history of remote cervical spine, CT of the head and cervical spine were obtained. No acute findings in the head, cervical spine is stable. Mental status: Patient was seen in his room. Per staff nurse at the longterm who has known the patient for years, he was seeing things that were not there. He was talking to people that were not around. He skipped dialysis and became paranoid and thought people at the longterm were going through his belongings. He is alert and orientated time place and person. He stated he came to Hospital yesterday and that he was in [facility]. He stated the month was October. He stated the president was [employer] and before him was [employer] and before him was a black president. He stated that his kidneys failed 9 years ago and he has been on dialysis ever since. When asked if he has any visual hallucinations or he thinks that the people were out to get him he stated that he does not want to talk about it. He kept laying in the bed with his eyes closed and he had a oxygen cannula going on. He denied if he wanted to hurt himself or hurt somebody else. he denied any history of anxiety or panic attacks. He denied any history of depression or mood swings. 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 He will continue to be followed up on medical unit to make sure that his mental status is cleared.
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
[2021-10-24 12:48] LABS: INR 3.1 (<1.2)
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
[2021-10-24 15:18] VITALS: BP 99/57; PULSE 86; RESP 15; TEMP 97.7
--- NOTE | 2021-10-24 15:38 | P.PN ---
Progress Note - Text Case was discussed with Dr. Gaffney son over the phone, he is not available to consult formally on this patient. Patient already was evaluated for the cervical spinal fractures and has follow-up with neurosurgical services (verified with [facility] Patient will not require transfer to a tertiary care center as there was an appropriate treatment plan in place for cervical fractures prior to this admission. Patient is under the care of Dr. Tamez from [facility] for these fractures.
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
[2021-10-24] MEDS ORDERED: HYDROcodone/APAP 5-325MG 1 EACH TAB PO PRN (16:16)
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
[2021-10-24] MEDS ORDERED: ATORVASTATIN 40 MG TAB PO SCH (21:00)
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
== END 2021-10-24 16:32 ==
LOC: EC 12:21 → 5NMEDONC 21:31 → 4SSUR 21:45
PROVIDERS: ADMIT Internal Medicine; ATTEND Internal Medicine
DX: F07.81 Postconcussional syndrome (principal); Z91.15 Patient's noncompliance with renal dialysis; S12.600A Unspecified displaced fracture of seventh cervical vertebra, initial encounter for closed fracture; S12.100A Unspecified displaced fracture of second cervical vertebra, initial encounter for closed fracture; I13.2 Hypertensive heart and chronic kidney disease with heart failure and with stage 5 chronic kidney disease, or end stage renal disease; I50.9 Heart failure, unspecified; N18.6 End stage renal disease; I25.10 Atherosclerotic heart disease of native coronary artery without angina pectoris; I25.2 Old myocardial infarction; E78.5 Hyperlipidemia, unspecified; R44.1 Visual hallucinations; I69.351 Hemiplegia and hemiparesis following cerebral infarction affecting right dominant side; M19.90 Unspecified osteoarthritis, unspecified site; F05 Delirium due to known physiological condition; F06.2 Psychotic disorder with delusions due to known physiological condition; M89.9 Disorder of bone, unspecified; L91.0 Hypertrophic scar; I48.91 Unspecified atrial fibrillation; G47.30 Sleep apnea, unspecified; D64.9 Anemia, unspecified; R79.1 Abnormal coagulation profile; Z79.01 Long term (current) use of anticoagulants; Z79.899 Other long term (current) drug therapy; Z99.2 Dependence on renal dialysis; Z71.3 Dietary counseling and surveillance; Z71.89 Other specified counseling; Z77.22 Contact with and (suspected) exposure to environmental tobacco smoke (acute) (chronic); Z83.3 Family history of diabetes mellitus; Z82.49 Family history of ischemic heart disease and other diseases of the circulatory system; Y84.1 Kidney dialysis as the cause of abnormal reaction of the patient, or of later complication, without mention of misadventure at the time of the procedure
CPT/HCPCS: 99285; 36415; 93005; 80053; 84443; 82607; 82140; 82746; 85025; 85610; 72125; 70450; G0378 ×2; 90935

== ENCOUNTER 2021-10-28 08:01 | Inpatient (IN) | payer MEDICARE, BC ==
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
[2021-10-28 08:40] LABS: Anisocytosis Slight; Basophils % (A) 1 %; Eosinophils # (A) 0.3 k/uL (0-0.7); Eosinophils % (A) 7 %; HCT 24.1 % (39.0-53.0); HGB 7.9 gm/dL (13.0-17.5); Hypochromasia Slight; Lymphocytes # (A) 0.7 k/uL (1.0-4.8); Lymphocytes % (A) 14 %; MCH 30.1 pg (25.0-35.0); MCHC 32.6 g/dL (31.0-37.0); MCV 92.1 fL (80.0-100.0); Mean Platelet Volume 8.2; Monocytes # (A) 0.2 k/uL (0-1.0); Monocytes % (A) 4 %; Neutrophils # (A) 3.4 k/uL (1.3-7.7); Neutrophils % (A) 73 %; Platelet Count 163 k/uL (150-450); Poikilocytosis Slight; RBC 2.62 m/uL (4.30-5.90); RDW 17.1 % (11.5-15.5); WBC 4.7 k/uL (3.8-10.6)
[2021-10-28 08:48] LABS: INR 1.6 (<1.2); Partial Thromboplastin Time 33.3 sec (22.0-30.0); Prothrombin Time 16.7 sec (9.0-12.0)
[2021-10-28 08:58] LABS: Albumin 3.2 g/dL (3.5-5.0); Calcium 8.5 mg/dL (8.4-10.2); Phosphorus 3.1 mg/dL (2.5-4.5); Potassium 3.7 mmol/L (3.5-5.1); Total Bilirubin 0.8 mg/dL (0.2-1.3); Total Protein 6.2 g/dL (6.3-8.2)
[2021-10-28 09:16] LABS: Glucose,Whole Blood 101 mg/dL (75-99)
--- NOTE | 2021-10-28 09:39 | CT ---
EXAMINATION TYPE: CT brain wo con DATE OF EXAM: 10/28/2021 COMPARISON: CT dated 10/23/2021 HISTORY: Altered mental status CT DLP: 1099.4 mGycm Automated exposure control for dose reduction was used. TECHNIQUE: CT scan of the brain is performed without IV contrast administration. FINDINGS: Brain volume loss changes, likely age-related. Bilateral cerebral white matter hypodensities, likely representing chronic microvascular ischemic changes. Scattered arterial atherosclerotic calcification s. Tiny left inferior cerebellar infarct, stable. No acute intracranial hemorrhage. No gross acute corti katerin infarct. No midline shift, herniation or ventriculomegaly. Unremarkable hope-basal cisterns, sella and CP angles. No gross space-occupying lesion, vasogenic manolo ma or mass effect. Unremarkable orbits. Clear visualized paranasal sinuses. Minimal opacification of the inferior mastoi d air cells. No aggressive bone lesion. IMPRESSION: Brain volume loss changes and chronic microvascular ischemic changes with left inferior cerebellar ch ronic infarct. No acute intracranial hemorrhage or gross acute cortical infarct however a small acute or hyperacute infarct cannot be excluded. Further MRI with DWI assessment can be considered if clinically required.
[2021-10-28] MEDS ORDERED: NALOXONE 0.4 MG/ML 1 ML VIAL IV PRN (10:51)
[2021-10-28] MEDS ORDERED: MIDODRINE 5 MG TAB PO PRN (14:04)
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
[2021-10-28] MEDS: CALCIUM ACETATE 667 MG TAB PO SCH (16:58)
[2021-10-28] MEDS: APIXABAN 5 MG TAB PO SCH (16:58)
[2021-10-28] MEDS: CALCIUM CARB-MAG CARB-FOLIC 1 EACH TAB PO SCH (17:21)
[2021-10-28] MEDS: METOPROLOL TARTRATE 25 MG TAB PO SCH (21:00)
[2021-10-28] MEDS: DOCUSATE 100 MG CAP PO SCH (21:00)
[2021-10-28] MEDS: ATORVASTATIN 40 MG TAB PO SCH (21:00)
[2021-10-29] MEDS ORDERED: PHENYLEPHRINE 10 MG/ML VIAL SQ PRN (06:05)
[2021-10-29] MEDS ORDERED: BENZOCAINE 20% HEMORRHOIDAL OINT 28GM RECTAL PRN (06:13)
[2021-10-29] MEDS: ACETAMINOPHEN TAB 325 MG TAB PO PRN ×2 (08:18→13:25)
[2021-10-29] MEDS: METOPROLOL TARTRATE 25 MG TAB PO SCH ×2 (08:36→20:14)
[2021-10-29] MEDS: CALCIUM CARB-MAG CARB-FOLIC 1 EACH TAB PO SCH ×3 (08:36→17:20)
[2021-10-29] MEDS: DOCUSATE 100 MG CAP PO SCH ×2 (08:36→20:12)
[2021-10-29] MEDS: APIXABAN 5 MG TAB PO SCH ×2 (08:37→17:20)
[2021-10-29] MEDS: CALCIUM ACETATE 667 MG TAB PO SCH ×3 (08:37→17:20)
[2021-10-29] MEDS: AMIODARONE 200 MG TAB PO SCH (08:37)
[2021-10-29] MEDS: MULTIVITAMINS, THERA 1 EACH TAB PO SCH (08:37)
[2021-10-29 09:31] LABS: African American GFR (CKD) 8 (>60 ml/min/1.73 sqM); Anion Gap 8 mmol/L; Blood Urea Nitrogen 38 mg/dL (9-20); Calcium 9.1 mg/dL (8.4-10.2); Carbon Dioxide 31 mmol/L (22-30); Chloride 90 mmol/L (98-107); Glucose 118 mg/dL (74-99); Non-African American GFR(CKD) 7 (>60 ml/min/1.73 sqM); Potassium 5.2 mmol/L (3.5-5.1); Sodium 129 mmol/L (137-145)
[2021-10-29 09:40] LABS: Anisocytosis Slight; Basophils % (A) 1 %; Eosinophils # (A) 0.3 k/uL (0-0.7); Eosinophils % (A) 4 %; HCT 26.2 % (39.0-53.0); HGB 8.6 gm/dL (13.0-17.5); Hypochromasia Slight; Lymphocytes # (A) 0.7 k/uL (1.0-4.8); Lymphocytes % (A) 12 %; MCH 29.5 pg (25.0-35.0); MCHC 32.7 g/dL (31.0-37.0); MCV 90.1 fL (80.0-100.0); Mean Platelet Volume 8.4; Monocytes # (A) 0.2 k/uL (0-1.0); Monocytes % (A) 4 %; Neutrophils # (A) 4.3 k/uL (1.3-7.7); Neutrophils % (A) 76 %; Platelet Count 159 k/uL (150-450); Poikilocytosis Moderate; RBC 2.91 m/uL (4.30-5.90); RDW 17.6 % (11.5-15.5); WBC 5.6 k/uL (3.8-10.6)
[2021-10-29] MEDS ORDERED: HYDROcodone/APAP 5-325MG 1 EACH TAB PO PRN (09:49)
[2021-10-29] MEDS: polyethylene glycoL 3350 17 GM POWD.PACK PO SCH ×2 (10:11→20:14)
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
--- NOTE | 2021-10-29 14:34 | EEG ---
ELECTROENCEPHALOGRAM REPORT DATE OF SERVICE: 10/29/2021 PREAMBLE: This is a 66-year-old male with altered mental status. EEG FINDINGS: This is a 21-channel digital EEG recorded with video component, utilizing 10/20 international system with referential and bipolar montages. Background consists of moderately well developed and regulated mixed frequencies of 7 to 8 hertz mixed theta and alpha activity, posterior-dominant, seen in bihemispheric region. Background seems to be minimally reactive to eye opening and closing. Photic driving response was not clearly seen. Intermittent periods of moderate-voltage generalized delta slowing were seen in bihemispheric region. Different stages of sleep were not seen. No focal or generalized epileptiform activity was seen. IMPRESSION: This is an abnormal EEG due to intermittent background slowing of mild to moderate degree. This is suggestive of mild generalized cerebral dysfunction, as can be seen with toxic metabolic encephalopathy. No epileptiform activity was seen. MMODL / IJN: [id number] /
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
[2021-10-29] MEDS ORDERED: LIDOCAINE 4% CREAM 5 GM TUBE TOPICAL PRN (16:22)
[2021-10-29] MEDS: ATORVASTATIN 40 MG TAB PO SCH (20:12)
[2021-10-30] MEDS ORDERED: DIPHENOX-ATROP 2.5-0.025 MG 1 EACH TAB PO PRN (05:25)
[2021-10-30] MEDS: polyethylene glycoL 3350 17 GM POWD.PACK PO SCH ×2 (08:02→21:42)
[2021-10-30] MEDS: DOCUSATE 100 MG CAP PO SCH ×2 (08:02→21:42)
[2021-10-30] MEDS: APIXABAN 5 MG TAB PO SCH ×3 (08:08→16:54)
[2021-10-30] MEDS: METOPROLOL TARTRATE 25 MG TAB PO SCH ×3 (08:08→21:41)
[2021-10-30] MEDS: CALCIUM ACETATE 667 MG TAB PO SCH ×3 (08:08→16:55)
[2021-10-30] MEDS: CALCIUM CARB-MAG CARB-FOLIC 1 EACH TAB PO SCH ×3 (08:09→16:55)
[2021-10-30] MEDS: MULTIVITAMINS, THERA 1 EACH TAB PO SCH (08:09)
[2021-10-30] MEDS: AMIODARONE 200 MG TAB PO SCH (08:09)
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
[2021-10-30] MEDS: ATORVASTATIN 40 MG TAB PO SCH (21:41)
[2021-10-30] MEDS: CYCLOBENZAPRINE 5 MG TAB PO PRN (23:28)
[2021-10-30] MEDS: ACETAMINOPHEN TAB 325 MG TAB PO PRN (23:28)
[2021-10-31] MEDS ORDERED: GELATIN SPONGE,ABSORB (LARGE) 1 EACH SPONGE ONE (07:00)
[2021-10-31] MEDS ORDERED: LIDOCAINE 1% INJ 10MG/ML (20 ML MDV) ONE (07:00)
[2021-10-31] MEDS: METOPROLOL TARTRATE 25 MG TAB PO SCH ×2 (09:31→20:29)
[2021-10-31] MEDS: polyethylene glycoL 3350 17 GM POWD.PACK PO SCH ×3 (09:31→23:01)
[2021-10-31] MEDS: CALCIUM ACETATE 667 MG TAB PO SCH ×3 (09:31→17:26)
[2021-10-31] MEDS: MULTIVITAMINS, THERA 1 EACH TAB PO SCH (09:31)
[2021-10-31] MEDS: DOCUSATE 100 MG CAP PO SCH ×2 (09:32→20:29)
[2021-10-31] MEDS: APIXABAN 5 MG TAB PO SCH ×2 (09:32→15:37)
[2021-10-31] MEDS: AMIODARONE 200 MG TAB PO SCH (09:32)
[2021-10-31] MEDS: CALCIUM CARB-MAG CARB-FOLIC 1 EACH TAB PO SCH ×3 (09:33→17:26)
[2021-10-31] MEDS: CYCLOBENZAPRINE 5 MG TAB PO PRN (09:38)
[2021-10-31] MEDS: ACETAMINOPHEN TAB 325 MG TAB PO PRN ×2 (09:38→20:25)
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
[2021-10-31] MEDS: ATORVASTATIN 40 MG TAB PO SCH (20:25)
[2021-11-01] MEDS: polyethylene glycoL 3350 17 GM POWD.PACK PO SCH ×2 (08:06→21:15)
[2021-11-01] MEDS: METOPROLOL TARTRATE 25 MG TAB PO SCH ×2 (08:06→21:14)
[2021-11-01] MEDS: ACETAMINOPHEN TAB 325 MG TAB PO PRN (08:07)
[2021-11-01] MEDS: APIXABAN 5 MG TAB PO SCH ×2 (08:07→16:07)
[2021-11-01] MEDS: AMIODARONE 200 MG TAB PO SCH (08:07)
[2021-11-01] MEDS: CALCIUM ACETATE 667 MG TAB PO SCH ×3 (08:08→16:06)
[2021-11-01] MEDS: CALCIUM CARB-MAG CARB-FOLIC 1 EACH TAB PO SCH ×3 (08:08→16:07)
[2021-11-01] MEDS: MULTIVITAMINS, THERA 1 EACH TAB PO SCH (08:09)
[2021-11-01] MEDS: DOCUSATE 100 MG CAP PO SCH ×2 (08:10→21:15)
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
[2021-11-01] MEDS ORDERED: SODIUM FERRIC GLUCONAT-SUCROSE 125 MG in SODIUM CHLORIDE 0.9% 100 ML IVPB ONE (10:15)
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
[2021-11-01] MEDS: ATORVASTATIN 40 MG TAB PO SCH (21:14)
[2021-11-02] MEDS: ACETAMINOPHEN TAB 325 MG TAB PO PRN ×2 (01:37→07:56)
[2021-11-02] MEDS: polyethylene glycoL 3350 17 GM POWD.PACK PO SCH (08:47)
[2021-11-02] MEDS: METOPROLOL TARTRATE 25 MG TAB PO SCH (08:47)
[2021-11-02] MEDS: AMIODARONE 200 MG TAB PO SCH (08:47)
[2021-11-02] MEDS: MULTIVITAMINS, THERA 1 EACH TAB PO SCH (08:48)
[2021-11-02] MEDS: DOCUSATE 100 MG CAP PO SCH (08:48)
[2021-11-02] MEDS: CALCIUM ACETATE 667 MG TAB PO SCH ×2 (08:48→12:53)
[2021-11-02] MEDS: APIXABAN 5 MG TAB PO SCH (08:48)
[2021-11-02] MEDS: CALCIUM CARB-MAG CARB-FOLIC 1 EACH TAB PO SCH ×2 (08:53→12:53)
--- NOTE | 2021-11-02 11:22 | P.PN ---
Subjective Patient is seen in follow-up for end-stage renal disease. He is maintained on hemodialysis on Tuesday schedule. Tolerating dialysis well. No chest pain or shortness of breath. No pain at this time. Hemodynamically stable. Vital signs are stable. General: The patient appeared well nourished and normally developed. HEENT: Head exam is unremarkable. LUNGS: Breath sounds decreased. HEART: Rate and Rhythm are regular. ABDOMEN: Soft, no distention. EXTREMITITES: No edema. Objective - Vital Signs Vital signs: Vital Signs Temp 98.0 F 11/02/21 07:48 Pulse 71 11/02/21 07:48 Resp 16 11/02/21 07:48 BP 115/70 11/02/21 07:48 Pulse Ox 100 11/02/21 07:48 Intake & Output 11/01/21 11/02/21 11/02/21 18:59 06:59 18:59 Other: # Voids 1 1 # Bowel Movements 2 2 - Labs CBC & Chem 7: 10/29/21 08:42 10/29/21 08:42 Assessment and Plan Plan: Assessment: 1. End-stage renal disease maintained on hemodialysis on Tuesday ay schedule. 2. Anemia of chronic kidney disease maintained on Aranesp. 3. A. fib. On anticoagulation and amiodarone. Also on Lopressor. 4. Chronic kidney disease mineral bone disease maintained on PhosL and magnebind. 5. Hallucinations. Seen by neurology and psychiatry. Improved. [place] and Flexeril stopped. Plan: Currently seen while undergoing hemodialysis. Add Aranesp.
[2021-11-02] MEDS ORDERED: DARBEPOETIN ALFA 40 MCG/0.4 ML SYRINGE SQ SCH (12:00)
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
[2021-11-02 14:08] VITALS: BP 138/89; PULSE 72; RESP 18; TEMP 97.8
--- NOTE | 2021-11-04 12:48 | CDI ---
Documentation Clarification Form Date: 11/04/21 From: Shanae Martin Admit Date: 10/30/2021 02:05:00 PM Patient Name: Darion Hamilton Visit Number: [id number] Discharge Date: 11/02/2021 04:00:00 PM ATTENTION: The Clinical Documentation Specialists (CDI) and [facility] Coding Staff appreciate your assistance in clarifying documentation. Please respond to the clarification below the line at the bottom and electronically sign. The CDI & [facility] Coding staff will review the response and follow-up if needed. Please note: Queries are made part of the Legal Health Record. If you have any questions, please contact the author of this message via ITS. Dr. Jerrod Chin, Atrial Fibrillation is documented in H&P, Dr Bai's consult and DS. Additional clarification regarding the type of atrial fibrillation is requested. History/Risk Factors: HTN w CHF & ESRD, metabolic encephalopathy due to opoids and postconcussion syndrome, anemia in CKD, on dialysis Clinical Indicators: Atrial fibrillation currently on Eliquis. EKG/telemetry: Sinus rhythm with first degree AV block Treatment: Home meds and hospital meds: Eliquis 5 mg PO BID : Please clarify the type of atrial fibrillation, if known: [ X ] Chronic [ ] Permanent [ ] Paroxysmal [ ] Persistent [ ] Other, please specify [ ] Unable to determine MTDD
== END 2021-11-02 16:00 | DRG 91 ==
LOC: EC 08:01 → 4SSUR 10:51 → INTOOBSV 10:51 → 4SSUR 13:07 → OBSVTOIN 10-30 14:05
PROVIDERS: ADMIT Internal Medicine; ATTEND Internal Medicine
PROC: 5A1D70Z Performance of Urinary Filtration, Intermittent, Less than 6 Hours Per Day (ICD-10-PCS; principal; 2021-10-29)
DX: G92.8 Other toxic encephalopathy (principal); N18.6 End stage renal disease; I48.20 Chronic atrial fibrillation, unspecified; I13.2 Hypertensive heart and chronic kidney disease with heart failure and with stage 5 chronic kidney disease, or end stage renal disease; F07.81 Postconcussional syndrome; D63.1 Anemia in chronic kidney disease; E83.9 Disorder of mineral metabolism, unspecified; I50.9 Heart failure, unspecified; Z99.2 Dependence on renal dialysis; T40.2X5A Adverse effect of other opioids, initial encounter; G47.33 Obstructive sleep apnea (adult) (pediatric); I25.10 Atherosclerotic heart disease of native coronary artery without angina pectoris; I25.2 Old myocardial infarction; E78.5 Hyperlipidemia, unspecified; I44.0 Atrioventricular block, first degree; K59.4 Anal spasm; K64.9 Unspecified hemorrhoids; R79.1 Abnormal coagulation profile; R19.7 Diarrhea, unspecified; M19.90 Unspecified osteoarthritis, unspecified site; S72.001D Fracture of unspecified part of neck of right femur, subsequent encounter for closed fracture with routine healing; S82.001D Unspecified fracture of right patella, subsequent encounter for closed fracture with routine healing; S12.100D Unspecified displaced fracture of second cervical vertebra, subsequent encounter for fracture with routine healing; S12.500D Unspecified displaced fracture of sixth cervical vertebra, subsequent encounter for fracture with routine healing; S12.600D Unspecified displaced fracture of seventh cervical vertebra, subsequent encounter for fracture with routine healing; Z79.01 Long term (current) use of anticoagulants; Z79.891 Long term (current) use of opiate analgesic; Z79.899 Other long term (current) drug therapy; Z86.718 Personal history of other venous thrombosis and embolism; Z86.73 Personal history of transient ischemic attack (TIA), and cerebral infarction without residual deficits; Z87.2 Personal history of diseases of the skin and subcutaneous tissue; Z87.39 Personal history of other diseases of the musculoskeletal system and connective tissue; Z92.3 Personal history of irradiation; V89.2XXD Person injured in unspecified motor-vehicle accident, traffic, subsequent encounter; Y92.410 Unspecified street and highway as the place of occurrence of the external cause; Z82.49 Family history of ischemic heart disease and other diseases of the circulatory system; Z83.3 Family history of diabetes mellitus
CPT/HCPCS: 36415; 70450; 80048; 80053; 84100; 84484; 85025; 85610; 85730; 87324; 90935; 93005; 95816; 99285

== ENCOUNTER 2021-11-18 21:42 | Emergency (ER) | payer MEDICARE, BC ==
[2021-11-18 22:02] VITALS: TEMP 98.3
[2021-11-19 00:50] LABS: Anisocytosis Slight; Basophils % (A) 1 %; Eosinophils # (A) 0.3 k/uL (0-0.7); Eosinophils % (A) 8 %; HGB 7.6 gm/dL (13.0-17.5); Hypochromasia Moderate; Lymphocytes # (A) 0.5 k/uL (1.0-4.8); Lymphocytes % (A) 14 %; MCH 29.3 pg (25.0-35.0); MCHC 31.5 g/dL (31.0-37.0); MCV 92.9 fL (80.0-100.0); Mean Platelet Volume 9.2; Monocytes # (A) 0.2 k/uL (0-1.0); Monocytes % (A) 6 %; Neutrophils # (A) 2.5 k/uL (1.3-7.7); Neutrophils % (A) 68 %; Platelet Count 163 k/uL (150-450); Poikilocytosis Slight; RBC 2.58 m/uL (4.30-5.90); RDW 16.9 % (11.5-15.5); WBC 3.7 k/uL (3.8-10.6)
[2021-11-19 01:12] LABS: Albumin 3.2 g/dL (3.5-5.0); Calcium 9.4 mg/dL (8.4-10.2); Potassium 3.5 mmol/L (3.5-5.1); Total Bilirubin 0.5 mg/dL (0.2-1.3); Total Protein 6.1 g/dL (6.3-8.2)
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
[2021-11-19] MEDS ORDERED: HYDROcodone/APAP 5-325MG 1 EACH TAB PO STA (04:56)
--- NOTE | 2021-11-19 05:31 | CT ---
EXAMINATION TYPE: CT brain wo con DATE OF EXAM: 11/19/2021 COMPARISON: 10/28/2021 HISTORY: AMS CT DLP: 1190.40 mGycm Automated exposure control for dose reduction was used. There is diffuse cerebral cortical atrophy. There is no mass effect or midline shift. There is no sig n of intracranial hemorrhage. Calvarium is intact. There is moderate patchy hypodensity in the perive ntricular white matter. Skull base is intact. IMPRESSION: Cerebral atrophy. Chronic small vessel ischemia. No change compared to old exam
[2021-11-19 11:30] VITALS: BP 134/77; PULSE 70; RESP 20
== END 2021-11-19 11:22 | disposition home or self-care (01) ==
LOC: EC 21:42
DX: R44.1 Visual hallucinations (principal); I13.2 Hypertensive heart and chronic kidney disease with heart failure and with stage 5 chronic kidney disease, or end stage renal disease; I50.9 Heart failure, unspecified; N18.6 End stage renal disease; E78.5 Hyperlipidemia, unspecified; I25.2 Old myocardial infarction; M19.90 Unspecified osteoarthritis, unspecified site; Z99.2 Dependence on renal dialysis; Z79.01 Long term (current) use of anticoagulants; Z79.899 Other long term (current) drug therapy
CPT/HCPCS: 36415; 70450; 80053; 82075; 84443; 85025; 99285

== ENCOUNTER 2022-05-31 12:50 | Observation (INO) | payer BC, MEDICARE ==
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
[2022-05-31 14:06] LABS: Anisocytosis Slight; Basophils % (A) 1 %; Eosinophils # (A) 0.4 k/uL (0-0.7); Eosinophils % (A) 9 %; HCT 24.8 % (39.0-53.0); HGB 7.5 gm/dL (13.0-17.5); Hypochromasia Marked; Lymphocytes # (A) 0.7 k/uL (1.0-4.8); Lymphocytes % (A) 17 %; MCH 27.5 pg (25.0-35.0); MCHC 30.4 g/dL (31.0-37.0); MCV 90.4 fL (80.0-100.0); Mean Platelet Volume 8.8; Monocytes # (A) 0.2 k/uL (0-1.0); Monocytes % (A) 5 %; Neutrophils # (A) 2.6 k/uL (1.3-7.7); Neutrophils % (A) 66 %; Platelet Count 138 k/uL (150-450); Poikilocytosis Slight; RBC 2.74 m/uL (4.30-5.90); RDW 17.3 % (11.5-15.5); WBC 3.9 k/uL (3.8-10.6)
[2022-05-31 14:19] LABS: Albumin 3.1 g/dL (3.5-5.0); Calcium 8.4 mg/dL (8.4-10.2); Magnesium 2.3 mg/dL (1.6-2.3); Phosphorus 8.2 mg/dL (2.5-4.5); Potassium 5.8 mmol/L (3.5-5.1); Total Bilirubin 0.4 mg/dL (0.2-1.3); Total Protein 5.7 g/dL (6.3-8.2)
--- NOTE | 2022-05-31 14:38 | XR ---
EXAMINATION TYPE: XR humerus LT DATE OF EXAM: 05/31/2022 CLINICAL HISTORY: pain TECHNIQUE: Frontal and lateral images of the left humerus are obtained. COMPARISON: None. FINDINGS: There is no acute fracture/dislocation evident. The joint spaces appear within normal limi ts. Probable hemodialysis access fistula with aneurysm. This could be further evaluated with ultrasou nd if felt to be indicated. IMPRESSION: There is no acute fracture or dislocation. ICD 10 NO FRACTURE, INITIAL EVALUATION
[2022-05-31] MEDS ORDERED: ONDANSETRON 4 MG/2 ML VIAL IVP PRN (14:54)
[2022-05-31] MEDS ORDERED: NALOXONE 0.4 MG/ML 1 ML VIAL IV PRN (14:54)
[2022-05-31] MEDS ORDERED: HYDROcodone/APAP 5-325MG 1 EACH TAB PO PRN (14:54)
[2022-05-31] MEDS ORDERED: ACETAMINOPHEN TAB 325 MG TAB PO PRN (14:54)
--- NOTE | 2022-05-31 15:36 | XR ---
EXAMINATION TYPE: XR chest 2V DATE OF EXAM: 05/31/2022 3:29 PM COMPARISON: Chest radiographs from 05/27/2019 TECHNIQUE: XR chest 2V Frontal and lateral views of the chest. CLINICAL INDICATION:Male, 66 years old with history of CHF; FINDINGS: Lungs/Pleura: Right pleural effusion with associated subsegmental atelectasis. No pneumothorax. The l eft lung is without evidence of focal consolidation or pneumothorax. Pulmonary vascularity: Unremarkable. Heart/mediastinum: Cardiomediastinal silhouette is enlarged and partially obscured on the right. Ath erosclerotic calcifications are seen in the aorta. Musculoskeletal: No acute osseous pathology. Lines/Tubes: Left internal jugular central venous catheter with distal tip at the cavoatrial junction. IMPRESSION: 1. Left central venous catheter with tip projecting at the superior cavoatrial junction in appropria te position. 2. Right pleural effusion with associated subsegmental atelectasis. Given cardiomegaly is also prese nt, findings may represent acute exacerbation of congestive heart failure.
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
--- NOTE | 2022-05-31 16:20 | US ---
EXAMINATION TYPE: US extremity nonvasc mass LT DATE OF EXAM: 05/31/2022 COMPARISON: NONE CLINICAL HISTORY: Palpable masses on left upper arm. Left medial upper arm: 2 hypoechoic complex vascular masses seen with more superior mass measuring 7 .1 x 2.9 x 3.4cm, unable to get full measurements on inferior mass due to partially covered by bandag e. 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 Vascular consult advised.
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
[2022-05-31] MEDS: SEVELAMER 800 MG TAB PO SCH (17:08)
[2022-05-31] MEDS ORDERED: SODIUM ZIRCONIUM CYCLOSILICATE 10 GM PACKET PO ONE ×2 (17:40→22:45)
[2022-05-31] MEDS ORDERED: INSULIN REGULAR 100 UNIT/ML VIAL (IV) IV ONE ×2 (17:40→22:15)
[2022-05-31] MEDS: DEXTROSE 50% SYRINGE 50 ML IVP STA (18:26)
[2022-05-31] MEDS ORDERED: QUEtiapine 25 MG TAB PO SCH (20:00)
[2022-05-31] MEDS: APIXABAN 5 MG TAB PO SCH (20:44)
[2022-05-31] MEDS: ATORVASTATIN 40 MG TAB PO SCH (20:44)
[2022-05-31] MEDS ORDERED: DEXTROSE 50% SYRINGE 50 ML IVP STA (22:02)
[2022-05-31] MEDS ORDERED: CALCIUM GLUCONATE IN NACL 1 GM in SALINE 1 100ML.BAG IVPB ONE (22:15)
[2022-05-31] MEDS ORDERED: SODIUM BICARB 8.4% 50 ML SYR (1 MEQ/ML) IV STA (22:31)
[2022-06-01 04:25] LABS: Anisocytosis Slight; Basophils % (A) 1 %; Eosinophils # (A) 0.3 k/uL (0-0.7); Eosinophils % (A) 9 %; HCT 24.5 % (39.0-53.0); HGB 7.5 gm/dL (13.0-17.5); Hypochromasia Marked; Lymphocytes # (A) 0.7 k/uL (1.0-4.8); Lymphocytes % (A) 20 %; MCH 27.9 pg (25.0-35.0); MCHC 30.5 g/dL (31.0-37.0); MCV 91.6 fL (80.0-100.0); Mean Platelet Volume 9.2; Monocytes # (A) 0.2 k/uL (0-1.0); Monocytes % (A) 5 %; Neutrophils # (A) 2.2 k/uL (1.3-7.7); Neutrophils % (A) 63 %; Platelet Count 127 k/uL (150-450); RBC 2.68 m/uL (4.30-5.90); RDW 16.8 % (11.5-15.5); WBC 3.5 k/uL (3.8-10.6)
[2022-06-01] MEDS: SEVELAMER 800 MG TAB PO SCH ×3 (06:53→20:57)
[2022-06-01] MEDS ORDERED: DEXTROSE 50% SYRINGE 50 ML IVP ONE ×2 (08:38→08:42)
[2022-06-01 08:39] LABS: Glucose,Whole Blood 24 mg/dL (70-110)
[2022-06-01] MEDS ORDERED: DEXTROSE 50% SYRINGE 50 ML IVP STA ×2 (08:39)
[2022-06-01] MEDS: DEXTROSE 50% SYRINGE 50 ML IVP STA (08:39)
[2022-06-01 08:50] LABS: Glucose,Whole Blood 161 mg/dL (70-110)
[2022-06-01 09:01] LABS: Glucose,Whole Blood 122 mg/dL (70-110)
[2022-06-01 09:14] LABS: ALT 12 U/L (4-49); AST 21 U/L (17-59); African American GFR (CKD) 7 (>60 ml/min/1.73 sqM); Albumin/Globulin Ratio 1.1; Alkaline Phosphatase 43 U/L (38-126); Anion Gap 10 mmol/L; Blood Urea Nitrogen 54 mg/dL (9-20); Calcium 8.2 mg/dL (8.4-10.2); Carbon Dioxide 29 mmol/L (22-30); Chloride 98 mmol/L (98-107); Globulin 2.8 g/dL; Glucose 105 mg/dL (74-99); Non-African American GFR(CKD) 6 (>60 ml/min/1.73 sqM); Potassium 4.1 mmol/L (3.5-5.1); Sodium 137 mmol/L (137-145); Total Bilirubin 0.5 mg/dL (0.2-1.3); Total Protein 5.8 g/dL (6.3-8.2)
[2022-06-01 09:14] LABS: Glucose,Whole Blood 87 mg/dL (70-110)
[2022-06-01] MEDS: LACTOBACILLUS ACIDOPH & BULGAR 1 EACH PACKET PO SCH (09:29)
[2022-06-01] MEDS: APIXABAN 5 MG TAB PO SCH ×2 (09:29→20:56)
[2022-06-01] MEDS: FOLIC ACID-VIT B COMPLEX-VIT C 1 CAP PO SCH (09:29)
[2022-06-01] MEDS: METOPROLOL SUCCINATE (ER) 50 MG TAB.ER.24H PO SCH (09:29)
[2022-06-01] MEDS: ASPIRIN 81 MG PO SCH (09:29)
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
[2022-06-01] MEDS ORDERED: DEXTROSE 5%-0.9% NACL 1,000 ML IV SCH (09:45)
[2022-06-01 10:04] LABS: Glucose,Whole Blood 76 mg/dL (70-110)
[2022-06-01 10:34] LABS: % Iron Saturation 30.91 (15.00-50.00)
[2022-06-01 10:35] LABS: African American GFR (CKD) 4.4 (60.0-200.0); Anion Gap 15.5 mmol/L (10.00-18.00); BUN/Creat Ratio 5.78 Ratio (12.00-20.00); Blood Urea Nitrogen 71.7 mg/dL (9.0-27.0); Calcium 8.7 mg/dL (8.7-10.3); Carbon Dioxide 27.5 mmol/L (20.0-27.5); Non-African American GFR(CKD) 3.8 (60.0-200.0); Potassium 4.7 mmol/L (3.5-5.5)
[2022-06-01 11:01] LABS: Glucose,Whole Blood 68 mg/dL (70-110)
[2022-06-01 11:16] LABS: Glucose,Whole Blood 72 mg/dL (70-110)
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
[2022-06-01] MEDS ORDERED: DARBEPOETIN ALFA 40 MCG/0.4 ML SYRINGE SQ SCH (12:00)
[2022-06-01 12:12] LABS: Glucose,Whole Blood 108 mg/dL (70-110)
[2022-06-01 13:03] LABS: Glucose,Whole Blood 143 mg/dL (70-110)
[2022-06-01 14:11] LABS: Glucose,Whole Blood 133 mg/dL (70-110)
[2022-06-01 15:05] LABS: Glucose,Whole Blood 135 mg/dL (70-110)
[2022-06-01 15:59] LABS: Glucose,Whole Blood 146 mg/dL (70-110)
[2022-06-01 16:33] LABS: Glucose,Whole Blood 135 mg/dL (70-110)
[2022-06-01 17:15] LABS: Glucose,Whole Blood 115 mg/dL (70-110)
[2022-06-01 18:09] LABS: Glucose,Whole Blood 102 mg/dL (70-110)
[2022-06-01 18:42] LABS: % Iron Saturation 35.65 (15.00-50.00)
[2022-06-01 19:05] LABS: Glucose,Whole Blood 96 mg/dL (70-110)
[2022-06-01 19:55] LABS: Glucose,Whole Blood 87 mg/dL (70-110)
[2022-06-01] MEDS: DEXTROSE 10% IN WATER 1,000 ML with SODIUM CHLORIDE 4MEQ/ML VIAL 153.8 MEQ IV SCH (20:56)
[2022-06-01] MEDS: ATORVASTATIN 40 MG TAB PO SCH (20:57)
[2022-06-01 22:04] LABS: Glucose,Whole Blood 120 mg/dL (70-110)
[2022-06-01 23:07] LABS: Glucose,Whole Blood 121 mg/dL (70-110)
[2022-06-01] MEDS ORDERED: MELATONIN 5 MG TABLET PO SCH (23:15)
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
[2022-06-02 00:09] LABS: Glucose,Whole Blood 146 mg/dL (70-110)
[2022-06-02 01:16] LABS: Glucose,Whole Blood 142 mg/dL (70-110)
[2022-06-02] MEDS: SEVELAMER 800 MG TAB PO SCH ×2 (06:31→14:22)
[2022-06-02 06:58] LABS: Glucose,Whole Blood 112 mg/dL (70-110)
[2022-06-02] MEDS: DEXTROSE 10% IN WATER 1,000 ML with SODIUM CHLORIDE 4MEQ/ML VIAL 153.8 MEQ IV SCH (09:48)
--- NOTE | 2022-06-02 10:08 | P.PN ---
Subjective Patient is seen in follow-up for end-stage renal disease. He is maintained on hemodialysis on Tuesday schedule. Scheduled for dialysis today. Complains of loose bowel movements. Blood pressure stable. No chest pain or shortness of breath. Vital signs are stable. General: Awake. No acute distress. HEENT: Head exam is unremarkable. On nasal cannula. LUNGS: Breath sounds decreased. HEART: Rate and Rhythm are regular. ABDOMEN: Soft, obese. EXTREMITITES: No edema. Objective - Vital Signs Vital signs: Vital Signs Temp 98.6 F 06/02/22 07:45 Pulse 71 06/02/22 07:45 Resp 18 06/02/22 07:45 BP 110/72 06/02/22 07:45 Pulse Ox 100 06/02/22 07:45 FiO2 Intake & Output 06/01/22 06/02/22 06/02/22 18:59 06:59 18:59 Intake Total 358 800 Output Total 2800 Balance 358 -2000 Intake: Oral 358 500 Hemodialysis 300 Output: Hemodialysis 2800 Other: Voiding Method Urinal Incontinent # Bowel Movements 1 - Labs CBC & Chem 7: 06/01/22 02:00 06/01/22 08:51 Labs: Abnormal Lab Results - Last 24 Hours (Table) 06/01/22 06/01/22 06/01/22 Range/Units 02:00 08:51 11:00 BUN 71.7 H (9.0-27.0) mg/dL Creatinine 12.4 H* (0.6-1.5) mg/dL Est GFR (CKD-EPI)AfAm 4.4 L (60.0-200.0) Est GFR (CKD-EPI)NonAf 3.8 L (60.0-200.0) BUN/Creatinine Ratio 5.78 L (12.00-20.00) Ratio Glucose 58 L (70-110) mg/dL POC Glucose (mg/dL) 68 L (70-110) mg/dL Iron 52 L 58 L (65-175) ug/dL TIBC 167 L 162 L (228-460) ug/dL Transferrin 119.0 L 116.0 L (204.0-354.0) mg/dL Ferritin 1739.0 H (22.0-322.0) ng/mL Procalcitonin (0.02-0.09) ng/mL 06/01/22 06/01/22 06/01/22 Range/Units 13:01 14:09 15:03 BUN (9.0-27.0) mg/dL Creatinine (0.6-1.5) mg/dL Est GFR (CKD-EPI)AfAm (60.0-200.0) Est GFR (CKD-EPI)NonAf (60.0-200.0) BUN/Creatinine Ratio (12.00-20.00) Ratio Glucose (70-110) mg/dL POC Glucose (mg/dL) 143 H 133 H 135 H (70-110) mg/dL Iron (65-175) ug/dL TIBC (228-460) ug/dL Transferrin (204.0-354.0) mg/dL Ferritin (22.0-322.0) ng/mL Procalcitonin (0.02-0.09) ng/mL 06/01/22 06/01/22 06/01/22 Range/Units 15:58 16:29 17:14 BUN (9.0-27.0) mg/dL Creatinine (0.6-1.5) mg/dL Est GFR (CKD-EPI)AfAm (60.0-200.0) Est GFR (CKD-EPI)NonAf (60.0-200.0) BUN/Creatinine Ratio (12.00-20.00) Ratio Glucose (70-110) mg/dL POC Glucose (mg/dL) 146 H 135 H 115 H (70-110) mg/dL Iron (65-175) ug/dL TIBC (228-460) ug/dL Transferrin (204.0-354.0) mg/dL Ferritin (22.0-322.0) ng/mL Procalcitonin (0.02-0.09) ng/mL 06/01/22 06/01/22 06/02/22 Range/Units 22:03 23:06 00:07 BUN (9.0-27.0) mg/dL Creatinine (0.6-1.5) mg/dL Est GFR (CKD-EPI)AfAm (60.0-200.0) Est GFR (CKD-EPI)NonAf (60.0-200.0) BUN/Creatinine Ratio (12.00-20.00) Ratio Glucose (70-110) mg/dL POC Glucose (mg/dL) 120 H 121 H 146 H (70-110) mg/dL Iron (65-175) ug/dL TIBC (228-460) ug/dL Transferrin (204.0-354.0) mg/dL Ferritin (22.0-322.0) ng/mL Procalcitonin (0.02-0.09) ng/mL 06/02/22 06/02/22 06/02/22 Range/Units 01:14 05:14 06:57 BUN (9.0-27.0) mg/dL Creatinine (0.6-1.5) mg/dL Est GFR (CKD-EPI)AfAm (60.0-200.0) Est GFR (CKD-EPI)NonAf (60.0-200.0) BUN/Creatinine Ratio (12.00-20.00) Ratio Glucose (70-110) mg/dL POC Glucose (mg/dL) 142 H 112 H (70-110) mg/dL Iron (65-175) ug/dL TIBC (228-460) ug/dL Transferrin (204.0-354.0) mg/dL Ferritin (22.0-322.0) ng/mL Procalcitonin 1.19 H (0.02-0.09) ng/mL Assessment and Plan Plan: Assessment: 1. End-stage renal disease maintained on hemodialysis on Tuesday schedule via a permacath. 2. Missed hemodialysis. 3. Hyperkalemia secondary to chronic kidney disease and missed hemodialysis. Improved. 4. Hypoglycemia status post D50. Resolved. Receiving D10. 5. Chronic kidney disease mineral bone disease maintained on Renvela. 6. Hypertension with chronic kidney disease. Controlled. 7. Anemia of chronic kidney disease. Iron replete. On Aranesp. 8. AV graft with aneurysm and thrombosis. Also concern for possible infection. Seen by vascular surgery and ID. Plan: Hemodialysis today. He will need to follow-up with vascular surgery at [facility] upon discharge
[2022-06-02 10:35] LABS: C Reactive Protein 4.2 mg/dL (0.00-0.80)
[2022-06-02 10:41] LABS: African American GFR (CKD) 7.5 (60.0-200.0); Anion Gap 12.5 mmol/L (10.00-18.00); BUN/Creat Ratio 4.7 Ratio (12.00-20.00); Blood Urea Nitrogen 37.1 mg/dL (9.0-27.0); Calcium 8.4 mg/dL (8.7-10.3); Carbon Dioxide 26.5 mmol/L (20.0-27.5); Non-African American GFR(CKD) 6.5 (60.0-200.0); Potassium 4.5 mmol/L (3.5-5.5)
[2022-06-02 11:58] LABS: Glucose,Whole Blood 116 mg/dL (70-110)
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
[2022-06-02 14:14] LABS: Glucose,Whole Blood 91 mg/dL (70-110)
[2022-06-02] MEDS: FOLIC ACID-VIT B COMPLEX-VIT C 1 CAP PO SCH (14:22)
[2022-06-02] MEDS: APIXABAN 5 MG TAB PO SCH (14:22)
[2022-06-02] MEDS: ASPIRIN 81 MG PO SCH (14:22)
[2022-06-02] MEDS: METOPROLOL SUCCINATE (ER) 50 MG TAB.ER.24H PO SCH (14:22)
[2022-06-02] MEDS: LACTOBACILLUS ACIDOPH & BULGAR 1 EACH PACKET PO SCH (14:23)
[2022-06-02 15:23] VITALS: BP 125/85; PULSE 87; RESP 18; TEMP 97.8
== END 2022-06-02 15:21 | disposition home or self-care (01) ==
LOC: EC 12:50 → INTOOBSV 14:54 → 4SSUR 14:54 → 6NMEDSUR 15:22
PROVIDERS: ADMIT Internal Medicine; ATTEND Internal Medicine
DX: T82.868A Thrombosis due to vascular prosthetic devices, implants and grafts, initial encounter (principal); T82.510A Breakdown (mechanical) of surgically created arteriovenous fistula, initial encounter; I13.2 Hypertensive heart and chronic kidney disease with heart failure and with stage 5 chronic kidney disease, or end stage renal disease; I50.9 Heart failure, unspecified; N18.6 End stage renal disease; E87.5 Hyperkalemia; E78.5 Hyperlipidemia, unspecified; I48.91 Unspecified atrial fibrillation; R41.82 Altered mental status, unspecified; E11.649 Type 2 diabetes mellitus with hypoglycemia without coma; E11.22 Type 2 diabetes mellitus with diabetic chronic kidney disease; E79.0 Hyperuricemia without signs of inflammatory arthritis and tophaceous disease; D63.1 Anemia in chronic kidney disease; I48.21 Permanent atrial fibrillation; E11.69 Type 2 diabetes mellitus with other specified complication; M89.8X9 Other specified disorders of bone, unspecified site; I25.2 Old myocardial infarction; Z86.73 Personal history of transient ischemic attack (TIA), and cerebral infarction without residual deficits; Z99.2 Dependence on renal dialysis; Z82.49 Family history of ischemic heart disease and other diseases of the circulatory system; Z83.3 Family history of diabetes mellitus; Z79.899 Other long term (current) drug therapy; Z79.01 Long term (current) use of anticoagulants; Z79.82 Long term (current) use of aspirin
CPT/HCPCS: 96374; 96375; 96376; 99285; 36415; 93005; 97162; 83880; 80053 ×2; 80048 ×2; 82728; 83540; 83550; 83605; 83735; 84100; 84132 ×2; 84484; 85025 ×2; 85610; 85730; 86140; 87040; 84145; 73060; 71046; 76882; G0378 ×3; J0610; J0881; 90935

== ENCOUNTER 2022-06-18 14:13 | Observation (INO) | payer MEDICARE ==
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
[2022-06-18 15:41] LABS: Anisocytosis Slight; Basophils % (A) 1 %; Eosinophils # (A) 0.2 k/uL (0-0.7); Eosinophils % (A) 5 %; HCT 21.8 % (39.0-53.0); HGB 7.1 gm/dL (13.0-17.5); Hypochromasia Marked; Lymphocytes # (A) 0.6 k/uL (1.0-4.8); Lymphocytes % (A) 16 %; MCH 30.2 pg (25.0-35.0); MCHC 32.7 g/dL (31.0-37.0); MCV 92.3 fL (80.0-100.0); Mean Platelet Volume 8.9; Monocytes # (A) 0.2 k/uL (0-1.0); Monocytes % (A) 4 %; Neutrophils # (A) 2.6 k/uL (1.3-7.7); Neutrophils % (A) 73 %; Platelet Count 114 k/uL (150-450); Poikilocytosis Slight; RBC 2.36 m/uL (4.30-5.90); RDW 17.3 % (11.5-15.5); WBC 3.5 k/uL (3.8-10.6)
[2022-06-18 15:52] LABS: Calcium 8.7 mg/dL (8.4-10.2); Potassium 5.1 mmol/L (3.5-5.1)
[2022-06-18] MEDS ORDERED: NALOXONE 0.4 MG/ML 1 ML VIAL IV PRN (16:59)
[2022-06-18] MEDS ORDERED: MELATONIN 3 MG TABLET PO PRN (17:32)
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
--- NOTE | 2022-06-18 18:33 | XR ---
EXAMINATION TYPE: XR chest 1V portable DATE OF EXAM: 06/18/2022 COMPARISON: 05/31/2022 HISTORY: Hypoxemia TECHNIQUE: Single view FINDINGS: Heart is enlarged. There is blunting of the right costophrenic angle. There is left-sided c entral venous catheter with tip in the superior vena cava. IMPRESSION: Cardiomegaly. There is mild pulmonary congestion which is increased slightly compared to old exam. Mild heart failure is likely. Right pleural effusion.
[2022-06-18] MEDS: APIXABAN 5 MG TAB PO SCH (23:22)
[2022-06-18] MEDS: ATORVASTATIN 40 MG TAB PO SCH (23:23)
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
[2022-06-19] MEDS: SEVELAMER 800 MG TAB PO SCH ×3 (15:33→18:12)
[2022-06-19] MEDS: ASPIRIN 81 MG PO SCH (15:33)
[2022-06-19] MEDS: APIXABAN 5 MG TAB PO SCH ×2 (15:34→20:14)
[2022-06-19] MEDS: QUEtiapine 25 MG TAB PO SCH ×2 (15:34→16:43)
[2022-06-19] MEDS: LACTOBACILLUS ACIDOPH & BULGAR 1 EACH PACKET PO SCH (15:34)
[2022-06-19] MEDS: FOLIC ACID-VIT B COMPLEX-VIT C 1 CAP PO SCH (15:34)
[2022-06-19] MEDS: METOPROLOL SUCCINATE (ER) 50 MG TAB.ER.24H PO SCH (15:34)
[2022-06-19] MEDS: ATORVASTATIN 40 MG TAB PO SCH (20:14)
[2022-06-19] MEDS: ACETAMINOPHEN TAB 325 MG TAB PO PRN (21:48)
[2022-06-20] MEDS: ACETAMINOPHEN TAB 325 MG TAB PO PRN (07:37)
[2022-06-20] MEDS: SEVELAMER 800 MG TAB PO SCH ×2 (09:15→12:50)
[2022-06-20] MEDS: ASPIRIN 81 MG PO SCH (09:15)
[2022-06-20] MEDS: METOPROLOL SUCCINATE (ER) 50 MG TAB.ER.24H PO SCH (09:16)
[2022-06-20] MEDS: FOLIC ACID-VIT B COMPLEX-VIT C 1 CAP PO SCH (09:16)
[2022-06-20] MEDS: QUEtiapine 25 MG TAB PO SCH (09:16)
[2022-06-20] MEDS: APIXABAN 5 MG TAB PO SCH (09:16)
[2022-06-20] MEDS: LACTOBACILLUS ACIDOPH & BULGAR 1 EACH PACKET PO SCH (09:16)
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
[2022-06-20 11:49] VITALS: BP 150/87; PULSE 87; RESP 18; TEMP 98.2
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
[2022-06-24] MEDS ORDERED: DARBEPOETIN ALFA 40 MCG/0.4 ML SYRINGE SQ SCH (09:00)
== END 2022-06-20 16:33 ==
LOC: EC 14:13 → 4SSUR 16:59 → 5NMEDONC 17:18
PROVIDERS: ADMIT Student in an Organized Health Care Education/Training Program; ATTEND Student in an Organized Health Care Education/Training Program
DX: R53.1 Weakness (principal); I13.2 Hypertensive heart and chronic kidney disease with heart failure and with stage 5 chronic kidney disease, or end stage renal disease; J96.11 Chronic respiratory failure with hypoxia; I50.9 Heart failure, unspecified; D61.818 Other pancytopenia; N18.6 End stage renal disease; R19.7 Diarrhea, unspecified; D64.9 Anemia, unspecified; G47.33 Obstructive sleep apnea (adult) (pediatric); E78.5 Hyperlipidemia, unspecified; E79.0 Hyperuricemia without signs of inflammatory arthritis and tophaceous disease; F31.9 Bipolar disorder, unspecified; I48.20 Chronic atrial fibrillation, unspecified; Z99.2 Dependence on renal dialysis; Z79.899 Other long term (current) drug therapy; Z79.01 Long term (current) use of anticoagulants; Z79.82 Long term (current) use of aspirin; Z86.73 Personal history of transient ischemic attack (TIA), and cerebral infarction without residual deficits; Z82.49 Family history of ischemic heart disease and other diseases of the circulatory system; Z83.3 Family history of diabetes mellitus; Z91.15 Patient's noncompliance with renal dialysis
CPT/HCPCS: 99285; 36415; 94760; 93005; 80048; 85025; 71045; G0378 ×3; 90935

== ENCOUNTER 2023-05-23 12:38 | Inpatient (IN) | payer MEDICARE ==
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
--- NOTE | 2023-05-23 13:32 | XR ---
EXAMINATION TYPE: XR chest 1V portable DATE OF EXAM: 05/23/2023 COMPARISON: 06/18/2022 INDICATION: CHF TECHNIQUE: Single frontal view of the chest is obtained in semiupright position. FINDINGS: The heart size is prominent. The pulmonary vasculature is normal. Mild tear appears to be in the right mid to lower lung field. There is elevation of the right diaphra gm or a subpulmonic effusion. IMPRESSION: 1. Right peripheral infiltrate. Colloid for atelectasis or pneumonia. 2. Cardiomegaly. 3. Elevation of the diaphragm versus subpulmonic effusion. Follow-up can be performed.
[2023-05-23 13:40] LABS: ALT 9 U/L (4-49); AST 19 U/L (17-59); Albumin 2.6 g/dL (3.5-5.0); Alkaline Phosphatase 105 U/L (38-126); Anion Gap 20 mmol/L; Calcium 9.1 mg/dL (8.4-10.2); Carbon Dioxide 18 mmol/L (22-30); Chloride 96 mmol/L (98-107); Glucose 69 mg/dL (74-99); INR 1.2 (<1.2); Magnesium 2.2 mg/dL (1.6-2.3); Partial Thromboplastin Time 32.4 sec (22.0-30.0); Phosphorus 3.7 mg/dL (2.5-4.5); Sodium 134 mmol/L (137-145); Total Protein 5.7 g/dL (6.3-8.2)
[2023-05-23 13:53] LABS: Anisocytosis Slight; Basophils % (A) 0 %; Eosinophils % (A) 0 %; HCT 28.3 % (39.0-53.0); HGB 9.2 gm/dL (13.0-17.5); Hypochromasia Slight; Lymphocytes # (A) 0.2 k/uL (1.0-4.8); Lymphocytes % (A) 3 %; MCH 28.5 pg (25.0-35.0); MCHC 32.4 g/dL (31.0-37.0); MCV 87.9 fL (80.0-100.0); Mean Platelet Volume 8.4; Monocytes # (A) 0.4 k/uL (0-1.0); Monocytes % (A) 4 %; Neutrophils # (A) 8.3 k/uL (1.3-7.7); Neutrophils % (A) 90 %; Poikilocytosis Slight; RBC 3.22 m/uL (4.30-5.90); RDW 16.7 % (11.5-15.5); WBC 9.1 k/uL (3.8-10.6)
[2023-05-23 14:16] LABS: African American GFR (CKD) 6 (>60 ml/min/1.73 sqM); Non-African American GFR(CKD) 5 (>60 ml/min/1.73 sqM)
[2023-05-23 14:17] LABS: Blood Urea Nitrogen 152 mg/dL (9-20); NT-Pro-B-Type Natriuretic Pept 40400 pg/mL
[2023-05-23 14:31] LABS: Platelet Count 83 k/uL (150-450)
[2023-05-23] MEDS ORDERED: NALOXONE 0.4 MG/ML 1 ML VIAL IV PRN (15:18)
[2023-05-23] MEDS ORDERED: AZITHROMYCIN 500 MG in SODIUM CHLORIDE 0.9% 250 ML IVPB STA (15:27)
[2023-05-23] MEDS ORDERED: PNEUMONIA PROTOCOL UTILIZED 1 EACH MISC PO PRN (15:27)
[2023-05-23] MEDS: SODIUM CHLORIDE 0.9% 1,000 ML IV SCH (16:41)
[2023-05-23] MEDS: metroNIDAZOLE-NS PMX 500 MG in SALINE 1 100ML.BAG IVPB SCH (17:28)
[2023-05-23] MEDS ORDERED: MELATONIN 3 MG TABLET PO PRN (17:41)
[2023-05-23] MEDS ORDERED: PROMETHAZINE 25 MG TAB PO PRN (17:41)
[2023-05-23] MEDS: MIDODRINE 5 MG TAB PO PRN (19:47)
[2023-05-23] MEDS: DILTIAZEM 125 MG in SODIUM CHLORIDE 0.9% 100 ML IV SCH (21:51)
[2023-05-23] MEDS: PANTOPRAZOLE 40 MG TABLET PO SCH (22:30)
[2023-05-23] MEDS: ATORVASTATIN 40 MG TAB PO SCH (22:30)
[2023-05-24] MEDS: QUEtiapine 25 MG TAB PO SCH ×2 (00:01→09:02)
[2023-05-24] MEDS: DIVALPROEX 250 MG TABLET.DR PO SCH ×3 (00:01→17:45)
[2023-05-24] MEDS: metroNIDAZOLE-NS PMX 500 MG in SALINE 1 100ML.BAG IVPB SCH ×3 (00:20→17:18)
--- NOTE | 2023-05-24 02:55 | HP ---
HISTORY AND PHYSICAL SUBJECTIVE: This is an -[place] male came in with renal failure, shortness of breath. He is wearing oxygen currently at this time. He has been noncompliant with his medications at home. Medication list reviewed. REVIEW OF SYSTEMS: Positive for weakness, fatigue, altered mental status. Psych fair mood and affect, otherwise negative. LABS: Show INR is 1.2, platelet count 683,000. Sodium and potassium pending. Hemoglobin is 9.2. BUN and creatinine 5 and , glucose 69, sodium 134, potassium 5.0, elevated troponins, which is stable 0.37, 0.47, 0.444. Albumin is 2.5. physician, COPD exacerbation, congestive heart failure exacerbation, generalized edema. PLAN: Continue current treatment. Possibly order echo. CT of the chest. Prognosis guarded, steroids updrafts, IV Lasix prognosis guarded. MMODL / IJN: [id number] /
[2023-05-24] MEDS: PANTOPRAZOLE 40 MG TABLET PO SCH ×2 (05:35→17:18)
[2023-05-24] MEDS ORDERED: METOPROLOL SUCCINATE (ER) 50 MG TAB.ER.24H PO SCH (08:00)
--- NOTE | 2023-05-24 08:14 | XR ---
EXAMINATION TYPE: XR chest 1V portable DATE OF EXAM: 05/24/2023 6:22 AM COMPARISON: Chest radiographs from 05/23/2023 TECHNIQUE: XR chest 1V portable Portable AP radiograph of the chest. CLINICAL INDICATION:Male, 67 years old with history of pneumonia; FINDINGS: Patient is rotated which limits evaluation. Lungs/Pleura: Left lung is clear. Moderate to large right pleural effusion associated consolidation. Pulmonary vascularity: Unremarkable. Heart/mediastinum: Cardiomediastinal silhouette is enlarged and stable. Atherosclerotic calcificatio ns are seen in the aorta. Musculoskeletal: No acute osseous pathology. IMPRESSION: Cardiomegaly with moderate to large right pleural effusion and associated consolidation which may rep resent atelectasis versus pneumonia.
--- NOTE | 2023-05-24 08:23 | CT ---
EXAMINATION TYPE: CT chest wo con CT DLP: 461 mGycm, Automated exposure control for dose reduction was used. DATE OF EXAM: 05/24/2023 8:07 AM COMPARISON: Chest radiograph earlier today. CLINICAL INDICATION:Male, 67 years old with history of dyspnea; PHH, Dyspnea. AMS. pt not able to almodovar se arms. TECHNIQUE: Multiple axial images were obtained through the chest without IV contrast. Lack of IV or o ral contrast limits evaluation of solid and hollow organ viscera. . Coronal and sagittal reformats re viewed. FINDINGS: LUNGS/ PLEURA: Moderate right pleural effusion. Elevation the right hemidiaphragm. No pneumothorax. R ight middle and lower lobe atelectasis. Left lower lobe dependent linear atelectasis. Calcified granu rosalinda within the left lung base. AIRWAY: Patent and unremarkable.. HEART: The heart is moderately increased in size.. Trace pericardial effusion.. Severe three-vessel c oronary artery calcifications. MEDIASTINUM: No gross evidence of adenopathy. VASCULATURE: Ascending thoracic aortic aneurysm measuring up to 4.3 cm. Aortic root aneurysm measuri ng up to 4.0 cm. Descending thoracic aorta measures up to 2.8 cm. Main pulmonary artery is dilated me asuring up to 4.3 cm. Atherosclerotic calcification of the aorta and its branches. MUSCULOSKELETAL: No acute osseous abnormalities. Findings compatible with DISH. SOFT TISSUES/LYMPH NODES: Unremarkable. LOWER NECK: No significant findings. UPPER ABDOMEN: Atrophic right kidney. Left renal cysts with largest measuring up to 1.7 cm. IMPRESSION: 1. Cardiomegaly with moderate right pleural effusion and atelectasis of the right middle and lower lo bes. 2. Ascending thoracic aortic root aneurysms measuring 4.3 and 4.0 cm respectively. 3. Dilated main pulmonary artery measuring up to 4.3 cm which can be seen in the setting of pulmonary arterial hypertension. 4. Severe three-vessel coronary calcifications. 5. Atrophic right kidney.
[2023-05-24] MEDS: SEVELAMER 800 MG TAB PO SCH ×3 (08:59→17:25)
[2023-05-24] MEDS ORDERED: [UNRECOGNIZED DRUG - OTHER] PO SCH (09:00)
[2023-05-24] MEDS ORDERED: ASPIRIN 81 MG PO SCH (09:00)
[2023-05-24] MEDS: CHOLESTYRAMINE (WITH SUGAR) 4 GM PACKET PO SCH (09:02)
[2023-05-24] MEDS: FLUoxetine HCL 20 MG CAP PO SCH (09:02)
[2023-05-24] MEDS: LORazepam 0.5 MG TAB PO SCH ×3 (09:02→17:18)
[2023-05-24] MEDS: AZITHROMYCIN 500 MG TAB PO SCH (09:02)
[2023-05-24] MEDS ORDERED: APIXABAN 2.5 MG TABLET PO SCH (10:30)
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
[2023-05-24] MEDS: APIXABAN 5 MG TAB PO SCH (11:52)
[2023-05-24] MEDS: MIDODRINE 5 MG TAB PO PRN (11:52)
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
[2023-05-24 12:01] LABS: ALT 10 U/L (4-49); AST 17 U/L (17-59); Albumin 2.5 g/dL (3.5-5.0); Alkaline Phosphatase 117 U/L (38-126); Anion Gap 23 mmol/L; Calcium 8.8 mg/dL (8.4-10.2); Carbon Dioxide 17 mmol/L (22-30); Chloride 95 mmol/L (98-107); Glucose 81 mg/dL (74-99); Potassium 4.3 mmol/L (3.5-5.1); Sodium 135 mmol/L (137-145); Total Bilirubin 0.7 mg/dL (0.2-1.3); Total Protein 5.4 g/dL (6.3-8.2)
[2023-05-24 12:02] LABS: Anisocytosis Slight; Basophils % (A) 0 %; Eosinophils % (A) 0 %; HGB 8.8 gm/dL (13.0-17.5); Hypochromasia Marked; Lymphocytes # (A) 0.3 k/uL (1.0-4.8); Lymphocytes % (A) 3 %; MCH 28.2 pg (25.0-35.0); MCHC 31.4 g/dL (31.0-37.0); MCV 89.9 fL (80.0-100.0); Monocytes # (A) 0.5 k/uL (0-1.0); Monocytes % (A) 5 %; Neutrophils # (A) 9.8 k/uL (1.3-7.7); Neutrophils % (A) 89 %; Poikilocytosis Slight; RBC 3.11 m/uL (4.30-5.90)
[2023-05-24 12:05] LABS: Platelet Count 69 k/uL (150-450)
[2023-05-24 12:07] LABS: African American GFR (CKD) 7 (>60 ml/min/1.73 sqM); Non-African American GFR(CKD) 6 (>60 ml/min/1.73 sqM)
[2023-05-24 12:10] LABS: Blood Urea Nitrogen 119 mg/dL (9-20)
[2023-05-24] MEDS: SODIUM CHLORIDE 0.9% 1,000 ML IV SCH (17:17)
[2023-05-24] MEDS ORDERED: SODIUM CHLORIDE 0.9% 500 ML 250 ML IV ONE (20:00)
[2023-05-24 20:22] LABS: Glucose,Whole Blood 110 mg/dL (70-110)
[2023-05-24 20:49] LABS: % Iron Saturation 15.12 (15.00-50.00); Iron 13 UG/DL (65-175); Total Iron Binding Capacity 86 UG/DL (228-460)
[2023-05-24] MEDS: NOREPINEPHRINE 4 MG in SODIUM CHLORIDE 0.9% 250 ML IV SCH (21:00)
[2023-05-24] MEDS: METOPROLOL SUCCINATE (ER) 50 MG TAB.ER.24H PO SCH (22:16)
[2023-05-24] MEDS: ATORVASTATIN 40 MG TAB PO SCH (22:32)
[2023-05-25] MEDS: DILTIAZEM 125 MG in SODIUM CHLORIDE 0.9% 100 ML IV SCH (00:22)
[2023-05-25] MEDS: LORazepam 0.5 MG TAB PO SCH ×4 (00:22→21:58)
[2023-05-25] MEDS: APIXABAN 5 MG TAB PO SCH ×3 (00:22→21:04)
[2023-05-25] MEDS: metroNIDAZOLE-NS PMX 500 MG in SALINE 1 100ML.BAG IVPB SCH ×3 (01:23→17:06)
[2023-05-25] MEDS ORDERED: DEXTROSE 5% IN WATER 1,000 ML with SODIUM BICARB (1 MEQ/ML) 150 ML IV SCH (02:15)
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
[2023-05-25] MEDS: QUEtiapine 25 MG TAB PO SCH ×3 (04:25→21:04)
[2023-05-25] MEDS: DIVALPROEX 250 MG TABLET.DR PO SCH ×3 (05:32→17:02)
[2023-05-25] MEDS: PANTOPRAZOLE 40 MG TABLET PO SCH ×2 (05:32→09:45)
--- NOTE | 2023-05-25 06:29 | PN ---
PROGRESS NOTE SUBJECTIVE: The patient came to ICU for hypotension. He is going to vasopressors to give his blood pressure medications and antibiotics. Hypertension controlled. Dialysis treatment. He still has severe hypotension. We also would like to use midodrine also, sleeping comfortably, snoring heavily on oxygen. OBJECTIVE: VITAL SIGNS: Blood pressure is 108 to 120s over 60s, respiratory rate 18 to 12, pulse 90s, and O2 saturation 98% to 100%. PROGNOSIS: Guarded. Continue current treatment. Follow up in next 24 to 48 hours. Continue current treatment. Prognosis guarded. MMODL / IJN: [id number] /
[2023-05-25 06:48] LABS: Anisocytosis Slight; Basophils % (A) 0 %; Eosinophils % (A) 0 %; HCT 26.5 % (39.0-53.0); HGB 8.2 gm/dL (13.0-17.5); Hypochromasia Marked; Lymphocytes # (A) 0.5 k/uL (1.0-4.8); Lymphocytes % (A) 4 %; MCH 27.8 pg (25.0-35.0); MCV 89.8 fL (80.0-100.0); Mean Platelet Volume 8.8; Monocytes # (A) 0.6 k/uL (0-1.0); Monocytes % (A) 6 %; Neutrophils # (A) 9.9 k/uL (1.3-7.7); Neutrophils % (A) 88 %; Platelet Count 63 k/uL (150-450); Poikilocytosis Slight; RBC 2.96 m/uL (4.30-5.90); RDW 17.3 % (11.5-15.5); WBC 11.3 k/uL (3.8-10.6)
[2023-05-25 07:11] LABS: Anion Gap 17 mmol/L; Calcium 8.7 mg/dL (8.4-10.2); Carbon Dioxide 20 mmol/L (22-30); Chloride 96 mmol/L (98-107); Glucose 110 mg/dL (74-99); Phosphorus 3.9 mg/dL (2.5-4.5); Potassium 4.4 mmol/L (3.5-5.1); Sodium 133 mmol/L (137-145)
[2023-05-25 07:18] LABS: African American GFR (CKD) 7 (>60 ml/min/1.73 sqM); Non-African American GFR(CKD) 6 (>60 ml/min/1.73 sqM)
[2023-05-25 07:54] LABS: Blood Urea Nitrogen 126 mg/dL (9-20)
--- NOTE | 2023-05-25 08:05 | P.PN ---
Subjective Progress Note Date: 05/25/23 PROGRESS NOTE The patient is a 67-year-old male with known history of end-stage renal disease, atrial fibrillation, aneurysmal coronary arteries, hyperlipidemia who has missed his dialysis and presented with symptoms of progressive dyspnea. Last night he became hypotensive, was started on norepinephrine and subsequently transferred to the ICU. He is awake, confused and combative this morning. His blood pressure is stable. He is in atrial fibrillation. He has a prior history of ablation in paroxysmal atrial fibrillation. He is scheduled to undergo dialysis today. In the past his ejection fraction was 55-60. Medications: Lipitor 40 mg daily, metoprolol 50 mg twice a day, midodrine 10 mg 3 times a day, nifedipine 60 mg daily, Prozac, Eliquis 5 mg twice a day PHYSICAL EXAMINATION: Blood pressure 104/50 heart rate 95-110 LUNGS: Clear to auscultation HEART: Irregular rate and rhythm, S1, S2. No S3. Systolic ejection murmur ABDOMEN: Soft, nontender, no organomegaly EXTREMETIES: No edema LAB: Hemoglobin 8.2, WBC 11.3, BUN 126, creatinine 8.1, potassium 4.4 IMPRESSION: 1. End-stage renal disease, noncompliant with dialysis 2. Atrial fibrillation with episodes of rapid ventricle response 3. Hypotension, improving 4. History of aneurysmal coronary arteries 5. Status post atrial fibrillation ablation 6. Hyperlipidemia 7. Change in mental status PLAN: 1. Stop nifedipine 2. Dialysis today 3. Continue anticoagulation 4. Depending on his progress further recommendations will be made Objective - Vital Signs Vital signs: Vital Signs Temp 97.1 F L 05/25/23 04:00 Pulse 105 H 05/25/23 06:30 Resp 21 05/25/23 06:30 BP 104/50 05/25/23 06:30 Pulse Ox 98 05/25/23 06:30 FiO2 Intake & Output 05/24/23 05/25/23 05/25/23 18:59 06:59 18:59 Intake Total 89.667 663.999 Output Total 0 Balance 89.667 663.999 Weight 81.647 kg 79.7 kg Intake: Intake, IV Titration 89.667 663.999 Amount Dextrose 5% in Water 1, 300 000 ml @ 75 mls/hr IV . [id number] JACI with Sodium Bicarb (1 Meq/ml) 150 ml Rx#:[id number] Diltiazem 125 mg In 89.667 Sodium Chloride 0.9% 100 ml @ 5 MG/HR 5 mls/hr IV .Q24H [facility] Rx#:[id number] Norepinephrine 4 mg In 13.999 Sodium Chloride 0.9% 250 ml @ 0.03 MCG/KG/MIN 9. 332 mls/hr IV .Q24H [facility] Rx#:[id number] Sodium Chloride 0.9% 500 250 ml 250 ml @ 999 mls/hr IV .Q16M [facility] Rx#:[id number] metroNIDAZOLE-NS PMX 500 100 mg In Saline 1 100ml.bag @ 100 mls/hr IVPB Q8HR [facility] Rx#:[id number] Oral 0 Output: Urine 0 Other: Voiding Method Diaper # Bowel Movements 1 - Labs CBC & Chem 7: 05/25/23 05:57 05/25/23 05:57 Labs: Abnormal Lab Results - Last 24 Hours (Table) 05/24/23 05/24/23 05/25/23 Range/Units 11:31 11:31 05:57 WBC 11.0 H (3.8-10.6) k/uL RBC 3.11 L (4.30-5.90) m/uL Hgb 8.8 L (13.0-17.5) gm/dL Hct 28.0 L (39.0-53.0) % RDW 17.0 H (11.5-15.5) % Plt Count 69 L (150-450) k/uL Neutrophils # 9.8 H (1.3-7.7) k/uL Lymphocytes # 0.3 L (1.0-4.8) k/uL Sodium 135 L 133 L (137-145) mmol/L Chloride 95 L 96 L (98-107) mmol/L Carbon Dioxide 17 L 20 L (22-30) mmol/L BUN 119 H* 126 H* (9-20) mg/dL Creatinine 8.27 H* 8.17 H* (0.66-1.25) mg/dL Glucose 110 H (74-99) mg/dL Iron 13 L (65-175) UG/DL TIBC 86 L (228-460) UG/DL Transferrin 61.5 L (204.0-354.0) mg/dL Ferritin 1666.0 H (22.0-322.0) ng/mL Total Protein 5.4 L (6.3-8.2) g/dL Albumin 2.5 L (3.5-5.0) g/dL 05/25/23 Range/Units 05:57 WBC 11.3 H (3.8-10.6) k/uL RBC 2.96 L (4.30-5.90) m/uL Hgb 8.2 L (13.0-17.5) gm/dL Hct 26.5 L (39.0-53.0) % RDW 17.3 H (11.5-15.5) % Plt Count 63 L (150-450) k/uL Neutrophils # 9.9 H (1.3-7.7) k/uL Lymphocytes # 0.5 L (1.0-4.8) k/uL Sodium (137-145) mmol/L Chloride (98-107) mmol/L Carbon Dioxide (22-30) mmol/L BUN (9-20) mg/dL Creatinine (0.66-1.25) mg/dL Glucose (74-99) mg/dL Iron (65-175) UG/DL TIBC (228-460) UG/DL Transferrin (204.0-354.0) mg/dL Ferritin (22.0-322.0) ng/mL Total Protein (6.3-8.2) g/dL Albumin (3.5-5.0) g/dL Microbiology - Last 24 Hours (Table) 05/23/23 17:12 Blood Culture Gram Stain - Preliminary Blood 05/23/23 17:02 Blood Culture Gram Stain - Preliminary Blood
--- NOTE | 2023-05-25 08:20 | XR ---
EXAMINATION TYPE: XR chest 1V DATE OF EXAM: 05/25/2023 COMPARISON: 05/24/2023 HISTORY: 67-year-old male with increased work of breathing, shortness of breath TECHNIQUE: Single frontal view of the chest is obtained. FINDINGS: Heart mildly enlarged. Patient is oblique towards the right limiting assessment. There is a [id number] right effusion with opacity extending up to the midlung level, similar to prior e xam. Tortuous/ectatic thoracic aorta. IMPRESSION: 1. Cardiomegaly and ongoing moderate right pleural effusion with adjacent atelectasis and/or consolid ation. 2. Tortuous/ectatic thoracic aorta redemonstrated.
[2023-05-25] MEDS: MIDODRINE 5 MG TAB PO PRN (09:24)
[2023-05-25] MEDS: SEVELAMER 800 MG TAB PO SCH ×3 (09:25→17:02)
[2023-05-25] MEDS: FLUoxetine HCL 20 MG CAP PO SCH (09:25)
[2023-05-25] MEDS: CHOLESTYRAMINE (WITH SUGAR) 4 GM PACKET PO SCH (09:44)
[2023-05-25] MEDS: METOPROLOL SUCCINATE (ER) 50 MG TAB.ER.24H PO SCH (09:45)
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
--- NOTE | 2023-05-25 10:57 | P.PN ---
Subjective Patient is seen in follow-up for end-stage renal disease. He is maintained on hemodialysis on Tuesday schedule. Tolerating dialysis well. Blood pressure on the lower side. Heart rate high. Patient is not a reliable historian. Vital signs are stable. In A. fib. General: No acute distress. HEENT: Head exam is unremarkable. LUNGS: No audible rhonchi or wheezes. HEART: Irregular rate and rhythm. ABDOMEN: Nontender. EXTREMITITES: No edema. Objective - Vital Signs Vital signs: Vital Signs Temp 97.3 F L 05/25/23 08:00 Pulse 111 H 05/25/23 10:30 Resp 20 05/25/23 10:30 BP 90/61 05/25/23 10:30 Pulse Ox 96 05/25/23 10:30 FiO2 Intake & Output 05/24/23 05/25/23 05/25/23 18:59 06:59 18:59 Intake Total 89.667 663.999 300 Output Total 0 0 Balance 89.667 663.999 300 Weight 81.647 kg 79.7 kg 79.7 kg Intake: Intake, IV Titration 89.667 663.999 300 Amount Dextrose 5% in Water 1, 300 300 000 ml @ 75 mls/hr IV . [id number] JACI with Sodium Bicarb (1 Meq/ml) 150 ml Rx#:[id number] Diltiazem 125 mg In 89.667 Sodium Chloride 0.9% 100 ml @ 5 MG/HR 5 mls/hr IV .Q24H [facility] Rx#:[id number] Norepinephrine 4 mg In 13.999 0 Sodium Chloride 0.9% 250 ml @ 0.03 MCG/KG/MIN 9. 332 mls/hr IV .Q24H [facility] Rx#:[id number] Sodium Chloride 0.9% 500 250 ml 250 ml @ 999 mls/hr IV .Q16M ONE Rx#:[id number] metroNIDAZOLE-NS PMX 500 100 mg In Saline 1 100ml.bag @ 100 mls/hr IVPB Q8HR [facility] Rx#:[id number] Oral 0 Output: Urine 0 0 Other: Voiding Method Diaper # Bowel Movements 1 - Labs CBC & Chem 7: 05/25/23 05:57 05/25/23 05:57 Labs: Abnormal Lab Results - Last 24 Hours (Table) 05/24/23 05/24/23 05/25/23 Range/Units 11:31 11:31 05:57 WBC 11.0 H (3.8-10.6) k/uL RBC 3.11 L (4.30-5.90) m/uL Hgb 8.8 L (13.0-17.5) gm/dL Hct 28.0 L (39.0-53.0) % RDW 17.0 H (11.5-15.5) % Plt Count 69 L (150-450) k/uL Neutrophils # 9.8 H (1.3-7.7) k/uL Lymphocytes # 0.3 L (1.0-4.8) k/uL Sodium 135 L 133 L (137-145) mmol/L Chloride 95 L 96 L (98-107) mmol/L Carbon Dioxide 17 L 20 L (22-30) mmol/L BUN 119 H* 126 H* (9-20) mg/dL Creatinine 8.27 H* 8.17 H* (0.66-1.25) mg/dL Glucose 110 H (74-99) mg/dL Iron 13 L (65-175) UG/DL TIBC 86 L (228-460) UG/DL Transferrin 61.5 L (204.0-354.0) mg/dL Ferritin 1666.0 H (22.0-322.0) ng/mL Total Protein 5.4 L (6.3-8.2) g/dL Albumin 2.5 L (3.5-5.0) g/dL 05/25/23 Range/Units 05:57 WBC 11.3 H (3.8-10.6) k/uL RBC 2.96 L (4.30-5.90) m/uL Hgb 8.2 L (13.0-17.5) gm/dL Hct 26.5 L (39.0-53.0) % RDW 17.3 H (11.5-15.5) % Plt Count 63 L (150-450) k/uL Neutrophils # 9.9 H (1.3-7.7) k/uL Lymphocytes # 0.5 L (1.0-4.8) k/uL Sodium (137-145) mmol/L Chloride (98-107) mmol/L Carbon Dioxide (22-30) mmol/L BUN (9-20) mg/dL Creatinine (0.66-1.25) mg/dL Glucose (74-99) mg/dL Iron (65-175) UG/DL TIBC (228-460) UG/DL Transferrin (204.0-354.0) mg/dL Ferritin (22.0-322.0) ng/mL Total Protein (6.3-8.2) g/dL Albumin (3.5-5.0) g/dL Microbiology - Last 24 Hours (Table) 05/23/23 17:12 Blood Culture Gram Stain - Preliminary Blood 05/23/23 17:02 Blood Culture Gram Stain - Preliminary Blood Assessment and Plan Plan: Assessment: 1. End-stage renal disease maintained on hemodialysis on Tuesday schedule. 2. A. fib with RVR maintain on metoprolol and anticoagulation. 3. Anemia of chronic kidney disease. High ferritin noted. 4. Noncompliance with hemodialysis. 5. Hypertension with chronic kidney disease. Blood pressure currently on the lower side. 6. Chronic kidney disease mineral bone disease maintained on Renvela. Phosphorus level 3.9 dated 05/25/2023. 7. Metabolic acidosis secondary to chronic kidney disease. On bicarb drip. Plan: Currently seen while undergoing hemodialysis. Add Aranesp. Follow-up echocardiogram. Off vasopressors at this time. Hep-Lock IV fluids. Discussed with patient again importance of being compliant with hemodialysis treatments outpatient. Also discussed CODE STATUS with patient at length. Patient has a public guardian. He is a permanent resident at an [facility]. Patient states he will come to dialysis and wants to continue with all medical care at this time. 20 minutes spent discussing CODE STATUS.
--- NOTE | 2023-05-25 10:59 | CA ---
Transthoracic Echo Report Name: Darion Hamilton Age: 67 Gender: M : 1955 Exam Date: 05/24/2023 11:52 Exam Location: [facility] Ht (in): 69 Wt (lb): 180 Ordering Physician: Simi Bermudez Attending/Referring Phys: [id number], Aidan Casing Machine Operator Karen Daly RDCS Procedure CPT: Indications: LV function Cardiac Hx: Technical Quality: Fair Contrast 1: Total Dose (mL): Contrast 2: Total Dose (mL): MEASUREMENTS (Male / Female) Normal Values 2D ECHO LV Diastolic Diameter PLAX 3.4 cm 4.2 - 5.9 / 3.9 - 5.3 cm LV Systolic Diameter PLAX 2.8 cm IVS Diastolic Thickness 1.3 cm 0.6 - 1.0 / 0.6 - 0.9 cm LVPW Diastolic Thickness 1.7 cm 0.6 - 1.0 / 0.6 - 0.9 cm LV Relative Wall Thickness 0.9 RV Internal Dim ED PLAX 3.0 cm LA Volume 127.5 cm??? 18 - 58 / 22 - 52 cm??? LA Volume Index 63.5 cm???/m??? 16 - 28 cm???/m??? M-MODE Aortic Root Diameter MM 4.0 cm LA Systolic Diameter MM 3.9 cm LA Ao Ratio MM 1.0 AV Cusp Separation MM 1.1 cm DOPPLER AV Peak Velocity 245.0 cm/s AV Peak Gradient 24.0 mmHg AV Mean Velocity 173.2 cm/s AV Mean Gradient 13.7 mmHg AV Velocity Time Integral 37.6 cm AI Peak Velocity 341.7 cm/s AI Peak Gradient 46.7 mmHg AI Pressure Half Time 655.2 ms LVOT Peak Velocity 92.9 cm/s LVOT Peak Gradient 3.5 mmHg LVOT Velocity Time Integral 15.0 cm MV Area PHT 5.5 cm??? Mitral E Point Velocity 139.4 cm/s Mitral A Point Velocity 2.0 cm/s Mitral E to A Ratio 70.5 MV Deceleration Time 139.0 ms MV E' Velocity 7.2 cm/s Mitral E to MV E' Ratio 19.3 TR Peak Velocity 293.6 cm/s TR Peak Gradient 34.5 mmHg Right Ventricular Systolic Press 38.6 mmHg FINDINGS Left Ventricle Mildly increased left ventricular wall thickness. Left ventricular cavity size normal. Mildly reduced global left ventricular systolic function. Left ventricular ejection fraction is estimated at 40 - 45 %. Right Ventricle Normal right ventricular size and function. Mild pulmonary hypertension. Right Atrium Mild right atrial dilatation. Left Atrium Severely increased left atrial volume. Mildly increased left atrial area. Mitral Valve Mitral valve thickened. Severe mitral annular calcification. [id number]-[id number] mitral regurgitation. Aortic Valve Mild aortic stenosis with a peak gradient of 24 mmHg and a mean gradient of 14 mmHg. Tricuspid Valve Structurally normal tricuspid valve. Mild tricuspid regurgitation. Pulmonic Valve Structurally normal pulmonic valve. Trace pulmonic regurgitation. Pericardium No pericardial effusion. Aorta Normal size aortic root and proximal ascending aorta. CONCLUSIONS Patient is tachycardic LVH with reduced LV systolic function Mitral annular calcification Thickened aortic valve leaflets with mild stenosis Previewed by: Dr. Sam Cheney MD (Electronically Signed) Final Date: 25 May 2023 10:58
[2023-05-25] MEDS: DARBEPOETIN ALFA 40 MCG/0.4 ML SYRINGE SQ SCH (11:53)
[2023-05-25] MEDS: AZITHROMYCIN 500 MG TAB PO SCH ×2 (12:25→17:03)
[2023-05-25] MEDS: METOPROLOL TARTRATE 5 MG/5 ML VIAL IVP SCH (14:45)
[2023-05-25 15:34] LABS: ABG Base Excess 3.9 mmol/L; ABG HCO3 29 mmol/L (21-25); ABG Oxygen Saturation 97.9 % (94-97); ABG PCO2 46 mmHg (35-45); ABG PO2 102 mmHg (83-108); ABG TCO2 30 mmol/L (19-24); Allen Test Performed? Yes
[2023-05-25] MEDS: MIDODRINE 5 MG TAB PO SCH ×2 (15:53→21:05)
[2023-05-25 16:07] LABS: Glucose,Whole Blood 106 mg/dL (70-110)
[2023-05-25 16:14] LABS: ALT 9 U/L (4-49); AST 25 U/L (17-59); African American GFR (CKD) 19 (>60 ml/min/1.73 sqM); Albumin 2.2 g/dL (3.5-5.0); Alkaline Phosphatase 69 U/L (38-126); Anion Gap 14 mmol/L; Blood Urea Nitrogen 56 mg/dL (9-20); Calcium 7.9 mg/dL (8.4-10.2); Carbon Dioxide 24 mmol/L (22-30); Chloride 93 mmol/L (98-107); Glucose 102 mg/dL (74-99); Non-African American GFR(CKD) 16 (>60 ml/min/1.73 sqM); Sodium 131 mmol/L (137-145); Total Bilirubin 0.8 mg/dL (0.2-1.3); Total Protein 5.1 g/dL (6.3-8.2)
[2023-05-25 16:16] LABS: Potassium 3.6 mmol/L (3.5-5.1)
--- NOTE | 2023-05-25 17:02 | CT ---
EXAMINATION TYPE: CT brain wo con CT DLP: 1189.5 mGycm, Automated exposure control for dose reduction was used. DATE OF EXAM: 05/25/2023 4:37 PM COMPARISON: 11/19/2021. CLINICAL INDICATION:Male, 67 years old with history of neuro changes, ams TECHNIQUE: Brain: Axial CT images of the brain were obtained with coronal and sagittal reformats created and rev iewed. Contrast used: None. Oral contrast used: None. FINDINGS: Brain: Extra-axial spaces: No abnormal extra-axial fluid collections. Ventricular system: Dilatation in proportion to cerebral atrophy. Cerebral parenchyma: No acute intraparenchymal hemorrhage or mass effect. The hope-white junction is well differentiated. Scattered hypoattenuating areas are seen within the white matter. Cerebellum: Unremarkable. Mass effect: No evidence of midline shift. Intracranial vasculature: Atherosclerotic calcifications of the intracranial vessels. Soft tissues: Normal. Calvarium/osseous structures: No depressed skull fracture. Paranasal sinuses and mastoid air cells: Mild scattered paranasal sinus disease. Visualized orbits: Orbital contents are intact. IMPRESSION: 1. No acute intracranial process. 2. Nonspecific white matter changes, likely secondary to chronic small vessel ischemic disease.
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
[2023-05-25 18:06] LABS: Hepatitis B Surface Antigen Nonreactive
[2023-05-25] MEDS: PANTOPRAZOLE 40 MG/10 ML VIAL IVP SCH (21:05)
[2023-05-25] MEDS: ATORVASTATIN 40 MG TAB PO SCH (21:05)
[2023-05-26] MEDS: metroNIDAZOLE-NS PMX 500 MG in SALINE 1 100ML.BAG IVPB SCH ×3 (06:54→16:34)
[2023-05-26] MEDS: NOREPINEPHRINE 4 MG in SODIUM CHLORIDE 0.9% 250 ML IV SCH ×2 (06:54→21:01)
[2023-05-26] MEDS: METOPROLOL TARTRATE 5 MG/5 ML VIAL IVP SCH ×3 (06:55→17:36)
[2023-05-26] MEDS: DIVALPROEX 250 MG TABLET.DR PO SCH ×2 (07:22→17:36)
--- NOTE | 2023-05-26 07:48 | P.PN ---
Subjective Progress Note Date: 05/26/23 PROGRESS NOTE The patient is a 67-year-old male with known history of end-stage renal disease, atrial fibrillation, aneurysmal coronary arteries, hyperlipidemia who has missed his dialysis and presented with symptoms of progressive dyspnea. Last night he became hypotensive, was started on norepinephrine and subsequently transferred to the ICU. He is awake, confused and combative this morning. His blood pressure is stable. He is in atrial fibrillation. He has a prior history of ablation in paroxysmal atrial fibrillation. He is scheduled to undergo dialysis today. In the past his ejection fraction was 55-60. May 26: The patient is drowsy this morning. He continues to be confused during the night. He continues to be in atrial fibrillation with episodes of rapid ventricle response, he is nothing by mouth and receiving IV beta tracy. He is undergoing an EEG. He underwent dialysis yesterday. There is no evidence of ventricular ectopic activity. He is off norepinephrine. His echocardiogram showed an ejection fraction of 40-45% with mild pulmonary hypertension and [id number] mitral regurgitation. Medications: Lopressor 5 mg IV every 8 hours. He has not received his oral medication earlier. PHYSICAL EXAMINATION: Blood pressure 113/55 heart rate 1:15 LUNGS: Clear to auscultation anteriorly HEART: Irregular rate and rhythm, S1, S2. No S3. Systolic ejection murmur ABDOMEN: Soft, nontender, no organomegaly EXTREMETIES: No edema LAB: Pending IMPRESSION: 1. End-stage renal disease, noncompliant with dialysis 2. Atrial fibrillation with episodes of rapid ventricle response 3. Hypotension, improving 4. History of aneurysmal coronary arteries 5. Status post atrial fibrillation ablation 6. Hyperlipidemia 7. Change in mental status PLAN: 1. Increase IV metoprolol to every 6 hours 2. If patient continues not to be able to take oral medication start IV heparin 3. Continue supportive care Objective - Vital Signs Vital signs: Vital Signs Temp 97.5 F L 05/26/23 04:00 Pulse 115 H 05/26/23 04:00 Resp 14 05/26/23 04:00 BP 113/55 05/26/23 04:00 Pulse Ox 98 05/26/23 04:00 FiO2 Intake & Output 05/25/23 05/26/23 05/26/23 18:59 06:59 18:59 Intake Total 1695 548.664 5 Output Total 500 0 Balance 1195 548.664 5 Weight 79.7 kg 81 kg Intake: IV 1120 460 5 .9 @ 5 45 60 5 Dextrose 5% in Water 1, 825 300 000 ml @ 75 mls/hr IV . [id number] [facility] with Sodium Bicarb (1 Meq/ml) 150 ml Rx#:[id number] cefTRIAXone 2 gm In 50 Sodium Chloride 0.9% 50 ml @ 100 mls/hr IVPB Q24HR [facility] Rx#:[id number] metroNIDAZOLE-NS PMX 500 200 100 mg In Saline 1 100ml.bag @ 100 mls/hr IVPB Q8HR [facility] Rx#:[id number] Intake, IV Titration 75 88.664 Amount Dextrose 5% in Water 1, 75 000 ml @ 75 mls/hr IV . [id number] [facility] with Sodium Bicarb (1 Meq/ml) 150 ml Rx#:[id number] Norepinephrine 4 mg In 0 88.664 Sodium Chloride 0.9% 250 ml @ 0.03 MCG/KG/MIN 9. 332 mls/hr IV .Q24H [facility] Rx#:[id number] Hemodialysis 500 Output: Urine 0 0 Hemodialysis 500 Other: # Bowel Movements 1 - Labs CBC & Chem 7: 05/25/23 05:57 05/25/23 15:06 Labs: Abnormal Lab Results - Last 24 Hours (Table) 05/24/23 05/25/23 05/25/23 Range/Units 11:31 05:57 05:57 ABG pCO2 (35-45) mmHg ABG HCO3 (21-25) mmol/L ABG Total CO2 (19-24) mmol/L ABG O2 Saturation (94-97) % Sodium 133 L (137-145) mmol/L Chloride 96 L (98-107) mmol/L Carbon Dioxide 20 L (22-30) mmol/L BUN 126 H* (9-20) mg/dL Creatinine 8.17 H* (0.66-1.25) mg/dL Glucose 110 H (74-99) mg/dL Calcium (8.4-10.2) mg/dL Total Protein (6.3-8.2) g/dL Albumin (3.5-5.0) g/dL Procalcitonin 11.50 H (0.02-0.09) ng/mL Hep Bs Antibody A (Negative) 05/25/23 05/25/23 Range/Units 15:06 15:31 ABG pCO2 46 H (35-45) mmHg ABG HCO3 29 H (21-25) mmol/L ABG Total CO2 30 H (19-24) mmol/L ABG O2 Saturation 97.9 H (94-97) % Sodium 131 L (137-145) mmol/L Chloride 93 L (98-107) mmol/L Carbon Dioxide (22-30) mmol/L BUN 56 H (9-20) mg/dL Creatinine 3.67 H (0.66-1.25) mg/dL Glucose 102 H (74-99) mg/dL Calcium 7.9 L (8.4-10.2) mg/dL Total Protein 5.1 L (6.3-8.2) g/dL Albumin 2.2 L (3.5-5.0) g/dL Procalcitonin (0.02-0.09) ng/mL Hep Bs Antibody (Negative) Microbiology - Last 24 Hours (Table) 05/23/23 17:12 Blood Culture Gram Stain - Preliminary Blood Blood Culture - Preliminary Gram Neg Bacilli
--- NOTE | 2023-05-26 07:49 | XR ---
EXAMINATION TYPE: XR chest 1V portable DATE OF EXAM: 05/26/2023 5:59 AM CLINICAL INDICATION:Male, 67 years old with history of pleural effusion; COMPARISON: Chest radiographs from 05/25/2023 TECHNIQUE: XR chest 1V portable Frontal view of the chest. FINDINGS: Lungs/Pleura: There is no evidence of left pleural effusion, focal consolidation, or pneumothorax. B lunting of the right costophrenic angle with associated atelectasis. Pulmonary vascularity: Unremarkable. Heart/mediastinum: Cardiomediastinal silhouette is unremarkable. Musculoskeletal: No acute osseous pathology. Other findings: None IMPRESSION: 1. No acute cardiopulmonary disease/process. 2. Small right pleural effusion with associated atelectasis.
[2023-05-26 08:03] LABS: African American GFR (CKD) 15 (>60 ml/min/1.73 sqM); Anion Gap 14 mmol/L; Blood Urea Nitrogen 59 mg/dL (9-20); Calcium 7.7 mg/dL (8.4-10.2); Carbon Dioxide 23 mmol/L (22-30); Chloride 95 mmol/L (98-107); Glucose 91 mg/dL (74-99); Non-African American GFR(CKD) 13 (>60 ml/min/1.73 sqM); Potassium 3.2 mmol/L (3.5-5.1); Sodium 132 mmol/L (137-145)
[2023-05-26] MEDS: PANTOPRAZOLE 40 MG/10 ML VIAL IVP SCH ×2 (08:47→21:59)
[2023-05-26] MEDS: MIDODRINE 5 MG TAB PO SCH ×3 (08:47→22:01)
[2023-05-26] MEDS: FLUoxetine HCL 20 MG CAP PO SCH (08:47)
[2023-05-26] MEDS: SEVELAMER 800 MG TAB PO SCH ×3 (08:48→17:37)
[2023-05-26] MEDS: CHOLESTYRAMINE (WITH SUGAR) 4 GM PACKET PO SCH (08:49)
[2023-05-26] MEDS: QUEtiapine 25 MG TAB PO SCH (08:49)
[2023-05-26 08:52] LABS: Anisocytosis Slight; HCT 24.3 % (39.0-53.0); HGB 7.8 gm/dL (13.0-17.5); Hypochromasia Moderate; MCH 28.6 pg (25.0-35.0); MCHC 32.2 g/dL (31.0-37.0); MCV 88.8 fL (80.0-100.0); Mean Platelet Volume 9.8; Poikilocytosis Slight; RBC 2.73 m/uL (4.30-5.90); RDW 17.4 % (11.5-15.5)
[2023-05-26 08:53] LABS: Platelet Count 56 k/uL (150-450)
[2023-05-26] MEDS: BISMUTH SUBSALICYLATE 4,192 MG/240 ML BOTTLE PO PRN (09:29)
[2023-05-26] MEDS ORDERED: POTASSIUM CHLORIDE ER 20 MEQ TAB.ER PO STA ×2 (10:00→17:37)
[2023-05-26] MEDS ORDERED: LORazepam 0.5 MG TAB PO PRN (10:03)
[2023-05-26] MEDS: APIXABAN 5 MG TAB PO SCH (10:06)
--- NOTE | 2023-05-26 11:30 | P.PN ---
Subjective Patient is seen in follow-up for end-stage renal disease. He is maintained on hemodialysis on Tuesday schedule. No problems with dialysis yesterday. Blood pressure stable. Heart rate high. Poor historian. Vital signs are stable. In A. fib. General: No acute distress. HEENT: Head exam is unremarkable. LUNGS: No audible rhonchi or wheezes. HEART: Irregular rate and rhythm. ABDOMEN: Nontender. EXTREMITITES: No edema. Objective - Vital Signs Vital signs: Vital Signs Temp 97.4 F L 05/26/23 08:00 Pulse 131 H 05/26/23 11:00 Resp 15 05/26/23 11:00 BP 128/67 05/26/23 11:00 Pulse Ox 100 05/26/23 11:00 FiO2 Intake & Output 05/25/23 05/26/23 05/26/23 18:59 06:59 18:59 Intake Total 1695 548.664 175 Output Total 500 0 0 Balance 1195 548.664 175 Weight 79.7 kg 81 kg Intake: IV 1120 460 175 0.9 Normal Saline @ 5mL/ 45 60 25 hr Dextrose 5% in Water 1, 825 300 000 ml @ 75 mls/hr IV . [id number] [facility] with Sodium Bicarb (1 Meq/ml) 150 ml Rx#:[id number] cefTRIAXone 2 gm In 50 50 Sodium Chloride 0.9% 50 ml @ 100 mls/hr IVPB Q24HR [facility] Rx#:[id number] metroNIDAZOLE-NS PMX 500 200 100 100 mg In Saline 1 100ml.bag @ 100 mls/hr IVPB Q8HR [facility] Rx#:[id number] Intake, IV Titration 75 88.664 Amount Dextrose 5% in Water 1, 75 000 ml @ 75 mls/hr IV . [id number] [facility] with Sodium Bicarb (1 Meq/ml) 150 ml Rx#:[id number] Norepinephrine 4 mg In 0 88.664 Sodium Chloride 0.9% 250 ml @ 0.03 MCG/KG/MIN 9. 332 mls/hr IV .Q24H [facility] Rx#:[id number] Hemodialysis 500 Output: Urine 0 0 0 Hemodialysis 500 Other: # Bowel Movements 1 1 - Labs CBC & Chem 7: 05/26/23 08:18 05/26/23 06:45 Labs: Abnormal Lab Results - Last 24 Hours (Table) 05/24/23 05/25/23 05/25/23 Range/Units 11:31 05:57 15:06 RBC (4.30-5.90) m/uL Hgb (13.0-17.5) gm/dL Hct (39.0-53.0) % RDW (11.5-15.5) % Plt Count (150-450) k/uL ABG pCO2 (35-45) mmHg ABG HCO3 (21-25) mmol/L ABG Total CO2 (19-24) mmol/L ABG O2 Saturation (94-97) % Sodium 131 L (137-145) mmol/L Potassium (3.5-5.1) mmol/L Chloride 93 L (98-107) mmol/L BUN 56 H (9-20) mg/dL Creatinine 3.67 H (0.66-1.25) mg/dL Glucose 102 H (74-99) mg/dL Calcium 7.9 L (8.4-10.2) mg/dL Total Protein 5.1 L (6.3-8.2) g/dL Albumin 2.2 L (3.5-5.0) g/dL Procalcitonin 11.50 H (0.02-0.09) ng/mL Hep Bs Antibody A (Negative) 05/25/23 05/26/23 05/26/23 Range/Units 15:31 06:45 08:18 RBC 2.73 L (4.30-5.90) m/uL Hgb 7.8 L (13.0-17.5) gm/dL Hct 24.3 L (39.0-53.0) % RDW 17.4 H (11.5-15.5) % Plt Count 56 L (150-450) k/uL ABG pCO2 46 H (35-45) mmHg ABG HCO3 29 H (21-25) mmol/L ABG Total CO2 30 H (19-24) mmol/L ABG O2 Saturation 97.9 H (94-97) % Sodium 132 L (137-145) mmol/L Potassium 3.2 L (3.5-5.1) mmol/L Chloride 95 L (98-107) mmol/L BUN 59 H (9-20) mg/dL Creatinine 4.33 H (0.66-1.25) mg/dL Glucose (74-99) mg/dL Calcium 7.7 L (8.4-10.2) mg/dL Total Protein (6.3-8.2) g/dL Albumin (3.5-5.0) g/dL Procalcitonin (0.02-0.09) ng/mL Hep Bs Antibody (Negative) Microbiology - Last 24 Hours (Table) 05/23/23 17:12 Blood Culture Gram Stain - Preliminary Blood Blood Culture - Preliminary Gram Neg Bacilli Assessment and Plan Plan: Assessment: 1. End-stage renal disease maintained on hemodialysis on Tuesday schedule. 2. A. fib with RVR maintain on metoprolol and anticoagulation. 3. Anemia of chronic kidney disease. High ferritin noted. On Aranesp. 4. Noncompliance with hemodialysis. 5. Hypertension with chronic kidney disease. Controlled. 6. Chronic kidney disease mineral bone disease maintained on Renvela. Phosphorus level 3.9 dated 05/25/2023. 7. Metabolic acidosis secondary to chronic kidney disease. Status post bicarb drip. Improved. 8. Chronic systolic CHF with ejection fraction of 40-45% with mild to moderate mitral regurgitation. Plan: Hemodialysis tomorrow. Potassium replaced. Off vasopressors at this time. Life-threatening risks of noncompliance with medications and hemodialysis rach tments has been discussed with patient multiple times.
--- NOTE | 2023-05-26 12:05 | P.PN ---
Subjective Progress Note Date: 05/26/23 Principal diagnosis: Respiratory failure, hypotension. I am seeing this patient in consultation today 05/25/2023 in the intensive care unit after the patient was found to be hypotensive during the hemodialysis and transferred to the intensive care unit. Patient is a 67-year-old white male with past medical history significant for end-stage renal disease, hemodialysis maintain on a Tuesday, Tuesday, Tuesday schedule, congestive heart failure, paroxysmal atrial fibrillation anticoagulated on Eliquis, CVA/TIA, hyperlipidemia, hypertension, coronary artery disease, obstructive sleep apnea, among other things. Patient is currently a poor historian, not able to participate in HPI. Apparently, the patient has been refusing hemodialysis as his extended care facility. He became confused, and was sent into the emergency room 2 days ago. Apparently, on resuming patient's hemodialysis treatments the patient became hypotensive. He also was in atrial fibrillation with rapid ventricular ventricular rate he was started on a Cardizem infusion temporarily, and transferred to the intensive care unit last night. Patient was placed on when necessary Midodrine earlier in the day, does not look like his evening dose was given. The patient was temporarily started on norepinephrine infusion, which is currently on hold. Heart rate is better controlled. Cardizem is off. Patient is lying in bed, on 2 L/m nasal cannula, in no acute distress. He is confused. Chest CT this admission shows cardiomegaly and moderate right pleural effusion and atelectasis of the right middle lobe and lower lobes. 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 Dilated main pulmonary artery measuring 4.3 cm consistent with pulmonary arterial hypertension. An severe three-vessel coronary artery calcifications. Most recent CBC from yesterday shows a WBC count of 11, hemoglobin 8.8, hematocrit 28, platelets 69,000. Most recent BMP from yesterday shows a sodium 135, potassium 4.3, chloride 95, serum bicarb down to 17, BUN 119, creatinine 8.27, glucose 81. No IV maintenance fluids infusing. Troponins were elevated at 0.037, 0.047, 0.044 respectfully. NT proBNP elevated at 40,000. Patient was placed on empiric antibiotics for possible CAP. Remains afebrile. The patient will be monitored in the intensive care unit for now. Progress note dated 05/26/2023. 67-year-old black male, seen again in the intensive care unit, room 266. Yesterday, he had a change in his neurologic status. We will like gas, and a computed tomography scan of the brain, without contrast, as well as a neurology consultation. The patient apparently is also had an EEG. Blood gases show a PaO2 of 102, pCO2 46, and a pH is 7.4. Currently, the patient is on 2 L of oxygen. He is getting saline at 5 mL an hour. He did have hemodialysis yester day, May 25. In addition, for his hypotension, we added the midodrine, back at 10 mg 3 times a day. Currently he is much more awake and alert. Labs today include a white count of 10, hemoglobin 7.8, hematocrit 24.3, and a platelet count of 56,000. Sodium 132, potassium 3.2, chloride 95, CO2 23, BUN 59, creatinine 4.33. Blood cultures are showing evidence of gram-negative bacilli. Chest x-ray shows only a small right pleural effusion. The patient is currently on Rocephin and Flagyl. Objective - Vital Signs Vital signs: Vital Signs Temp 97.4 F L 05/26/23 08:00 Pulse 131 H 05/26/23 11:00 Resp 15 05/26/23 11:00 BP 128/67 05/26/23 11:00 Pulse Ox 100 05/26/23 11:00 FiO2 Intake & Output 05/25/23 05/26/23 05/26/23 18:59 06:59 18:59 Intake Total 1695 548.664 175 Output Total 500 0 0 Balance 1195 548.664 175 Weight 79.7 kg 81 kg Intake: IV 1120 460 175 0.9 Normal Saline @ 5mL/ 45 60 25 hr Dextrose 5% in Water 1, 825 300 000 ml @ 75 mls/hr IV . [id number] JACI with Sodium Bicarb (1 Meq/ml) 150 ml Rx#:[id number] cefTRIAXone 2 gm In 50 50 Sodium Chloride 0.9% 50 ml @ 100 mls/hr IVPB Q24HR JACI Rx#:[id number] metroNIDAZOLE-NS PMX 500 200 100 100 mg In Saline 1 100ml.bag @ 100 mls/hr IVPB Q8HR JACI Rx#:[id number] Intake, IV Titration 75 88.664 Amount Dextrose 5% in Water 1, 75 000 ml @ 75 mls/hr IV . [id number] JACI with Sodium Bicarb (1 Meq/ml) 150 ml Rx#:[id number] Norepinephrine 4 mg In 0 88.664 Sodium Chloride 0.9% 250 ml @ 0.03 MCG/KG/MIN 9. 332 mls/hr IV .Q24H JACI Rx#:[id number] Hemodialysis 500 Output: Urine 0 0 0 Hemodialysis 500 Other: # Bowel Movements 1 1 - Exam No acute distress, oriented 3. At 2 L saturation is 100%. HEENT examination is grossly unremarkable. Mucous membranes are moist. No oral lesions. Neck supple. Full range of motion. No adenopathy thyromegaly or neck vein distention. Cardiovascular examination reveals regular rhythm rate. S1-S2 normal. No S3 or S4. No discernible murmur noted. Heart rate is 122 bpm. Heart sounds are distant. Lungs reveal mostly clear breath sounds. Scattered crackles are noted. No wheezes or rhonchi. Breath sounds are equal bilaterally. 2 L saturations is 100%. Abdomen soft bowel sounds are heard. No masses or tenderness. Extremities are intact. No cyanosis clubbing or edema. Skin is without rash or lesion. Neurologic examination is brief but nonfocal. - Labs CBC & Chem 7: 05/26/23 08:18 05/26/23 06:45 Labs: Abnormal Lab Results - Last 24 Hours (Table) 05/24/23 05/25/23 05/25/23 Range/Units 11:31 05:57 15:06 RBC (4.30-5.90) m/uL Hgb (13.0-17.5) gm/dL Hct (39.0-53.0) % RDW (11.5-15.5) % Plt Count (150-450) k/uL ABG pCO2 (35-45) mmHg ABG HCO3 (21-25) mmol/L ABG Total CO2 (19-24) mmol/L ABG O2 Saturation (94-97) % Sodium 131 L (137-145) mmol/L Potassium (3.5-5.1) mmol/L Chloride 93 L (98-107) mmol/L BUN 56 H (9-20) mg/dL Creatinine 3.67 H (0.66-1.25) mg/dL Glucose 102 H (74-99) mg/dL Calcium 7.9 L (8.4-10.2) mg/dL Total Protein 5.1 L (6.3-8.2) g/dL Albumin 2.2 L (3.5-5.0) g/dL Procalcitonin 11.50 H (0.02-0.09) ng/mL Hep Bs Antibody A (Negative) 05/25/23 05/26/23 05/26/23 Range/Units 15:31 06:45 08:18 RBC 2.73 L (4.30-5.90) m/uL Hgb 7.8 L (13.0-17.5) gm/dL Hct 24.3 L (39.0-53.0) % RDW 17.4 H (11.5-15.5) % Plt Count 56 L (150-450) k/uL ABG pCO2 46 H (35-45) mmHg ABG HCO3 29 H (21-25) mmol/L ABG Total CO2 30 H (19-24) mmol/L ABG O2 Saturation 97.9 H (94-97) % Sodium 132 L (137-145) mmol/L Potassium 3.2 L (3.5-5.1) mmol/L Chloride 95 L (98-107) mmol/L BUN 59 H (9-20) mg/dL Creatinine 4.33 H (0.66-1.25) mg/dL Glucose (74-99) mg/dL Calcium 7.7 L (8.4-10.2) mg/dL Total Protein (6.3-8.2) g/dL Albumin (3.5-5.0) g/dL Procalcitonin (0.02-0.09) ng/mL Hep Bs Antibody (Negative) Microbiology - Last 24 Hours (Table) 05/23/23 17:12 Blood Culture Gram Stain - Preliminary Blood Blood Culture - Preliminary Gram Neg Bacilli Assessment and Plan Assessment: Hypotension, resolved, likely secondary to volume depletion. End-stage renal disease, normally maintained on hemodialysis Tuesday, Tuesday, Tuesday. Gram-negative bacteremia. Acute metabolic encephalopathy. Anion gap metabolic acidosis. Acute hypoxemic respiratory failure, currently on 2 L/m nasal cannula, secondary to fluid overload and a moderate to large right-sided pleural effusion. Obstructive sleep apnea, utilizes CPAP outpatient. Atrial fibrillation with rapid ventricular rate. Anemia of chronic disease. Thrombocytopenia. Decubitus pressure injury. Hyperlipidemia. History of CVA/TIA. Coronary artery disease. Plan: Plan dated 05/26/2023. The patient is seen in the intensive care unit. The patient's currently on 2 L of oxygen. The patient's getting saline at 5 mL an hour. The patient's blood gases showed a pO2 102, pCO2 46, and a pH is 7.40. The computed tomography scan of the brain showed nothing acute. The patient was seen by neurology. An EEG was ordered, but not interpreted as yet. The patient had hemodialysis yesterday. The patient continues on antibiotics. We will await the findings, as it relates to the gram-negative bacilli in the blood. The patient continues on Rocephin, and Flagyl. Prognosis is guarded. Time with Patient: Greater than 30
--- NOTE | 2023-05-26 13:34 | EEG ---
ELECTROENCEPHALOGRAM REPORT PREAMBLE: This is a 67-year-old male with altered mental status. EEG FINDINGS: This is a 21-channel digital EEG recorded with video component, utilizing 10/20 international system with referential and bipolar montages. The recording starts and continues with presence of diffuse moderate amplitude mixed delta and theta frequency during the study. Some brief periods of more better appearing 10 to 12 Hz alpha activity. Posterior dominant was seen sporadically during the study. Background does not seem to be clearly reactive to eye opening or closing. Photic driving response was not seen. Different stages of sleep were not seen. No focal or generalized epileptiform activity was seen. IMPRESSION: This is an abnormal EEG due to background slowing of moderate degree. This is suggestive of generalized cerebral dysfunction as can be seen with toxic metabolic encephalopathy or related to diffuse structural brain abnormality. Clinical correlation is recommended. No epileptiform activity was seen. MMLUPILLOL / IJN: [id number] / MTDD
[2023-05-26] MEDS ORDERED: CEFEPIME 2 GM in SODIUM CHLORIDE 0.9% 50 ML IVPB STA (15:36)
[2023-05-26] MEDS ORDERED: CEFEPIME 2 GM in SODIUM CHLORIDE 0.9% 100 ML IVPB STA (15:39)
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
--- NOTE | 2023-05-26 17:27 | CDI ---
Documentation Clarification Form Date: From: Celena Bro Phone: [phone] Admit Date: 05/23/2023 03:20:00 PM Patient Name: Darion Hamilton Visit Number: [id number] Discharge Date: ATTENTION: The Clinical Documentation Specialists (CDI) and [facility] Coding Staff appreciate your assistance in clarifying documentation. Please respond to the clarification below the line at the bottom and electronically sign. The CDI & [facility] Coding staff will review the response and follow-up if needed. Please note: Queries are made part of the Legal Health Record. If you have any questions, please contact the author of this message via ITS. Dr. Shahram Almanza The patient has increased heart rate, respiratory rate and bacteremia noted in the chart. Based on this information and the findings below, is there an additional diagnosis that is clinically appropriate for this patient? History/Risk Factors: " 67-year-old male to the emergency department for evaluation today. Patient Dese for evaluation regards to altered mental status" - Per ED Note on 05/23 Clinical Indicators: "Pneumonia" - Per ED Note on 05/23 Missed entire week of Hemodialysis - Per Nephrology note on 05/24 "resuming patient's hemodialysis treatments the patient became hypotensive. He also was in atrial fibrillation with rapid ventricular ventricular rate" " CT this admission shows cardiomegaly and moderate right pleural effusion and atelectasis of the right middle lobe and lower lobes." "Pneumonia is within the differential, but felt to be less likely" - Per Pulmonology note on 05/25 "altered mental status, felt to be related to metabolic encephalopathy as patient has missed his dialysis." - Per Neurology note on 05/25 "Gram-negative bacteremia." - Per Progress Note on 05/26 WBC: 05/23 - 9.1, 05/24 - 11.0, 05/25 - 11.3, 05/26 - 10.0 Procalcitonin: 05/24 - 11.5 Blood cultures: Collected 05/23, Final Results: Providencia stuartii on 05/26 Vitals signs: 05/23: Temp. 97.9, HR 104, RR 24, BP 90/57, O2 99% ON 3L NC Treatment: "Patient was placed on empiric antibiotics for possible CAP" "temporarily started on norepinephrine infusion, which is currently on hold" - Per Pulmonology note on 05/25 "currently on Rocephin and Flagyl." - Per Progress Note on 05/26 Is there an additional diagnosis that is clinically appropriate for this patient? [ ] Sepsis, present on admission [ ] Sepsis ruled out [ ] Severe Sepsis with organ failure [ ] Septic Shock [ ] SIRS, without underlying infectious process, Pneumonia ruled out [ ] Other, please specify [ ] Unable to determine SIRS Criteria: 2 or more of the following may indicate SIRS Temperature < 96.8F (36C) or > 101.0F (38.3C) Heart Rate > 90 bpm Respiratory Rate > 20 breaths/min or PaCO2 < 32 mmHg White Blood Cell Count > 12,000 or < 4,000 cells/mm3 or > 10% bands MTDD
--- NOTE | 2023-05-26 17:39 | CDI ---
Documentation Clarification Form Date: From: Celena Bro Phone: [phone] Admit Date: 05/23/2023 03:20:00 PM Patient Name: Darion Hamilton Visit Number: [id number] Discharge Date: ATTENTION: The Clinical Documentation Specialists (CDI) and [facility] Coding Staff appreciate your assistance in clarifying documentation. Please respond to the clarification below the line at the bottom and electronically sign. The CDI & [facility] Coding staff will review the response and follow-up if needed. Please note: Queries are made part of the Legal Health Record. If you have any questions, please contact the author of this message via ITS. Dr. Shahram Almanza Your patient has increased troponin levels. Please clarify if there is an additional diagnosis and/or clinical significance related to this value. Patient history/risk factors: "67-year-old male with a past medical history significant for end-stage renal disease on hemodialysis, aneurysmal right and left coronary system, hypertension, hyperlipidemia, and paroxysmal atrial fibrillation with previous ablation. Patient used to follow in the office with Dr. Nelson but has not been seen since March 2019. We have been asked to see the patient in consultation for CHF." - Per Cardiology Consult Note on 05/24 Clinical indicators: "Elevated troponins, flat, not consistent with ACS" - Per Pulmonology Note on 05/25 "EKG reveals sinus tachycardia with no signs of acute ischemia" "CARDIOVASCULAR: Denies chest pain. Denies orthopnea. Denies PND. Denies palpitations" "RESPIRATORY: Denies shortness of breath." "End-stage renal disease on hemodialysis" "Paroxysmal atrial fibrillation, currently A. fib with RVR" "Noncompliance with hemodialysis" - Per Cardiology Consult note on 05/24 "Troponins were elevated at 0.037, 0.047, 0.044" - Per Pulmonology Note on 05/25 Treatment: Per Cardiology Consult Note on 05/24 "Obtain 2-D echo to assess cardiac structure and function Resume home cardiac medications We will begin anticoagulation with Eliquis 5mg BID Increase metoprolol succinate to 50 mg twice a day" Is there an additional diagnosis and/or clinical significance related to the above lab result/information: [ ] Type 2 ND due to (specify cause ____) [ ] Non-ischemic with acute myocardial injury [ ] No additional diagnosis/Not clinically significant [ ] Other, please specify [ ] Unable to determine MTDD
[2023-05-26] MEDS ORDERED: CEFEPIME 1 GM VIAL IM SCH (21:00)
[2023-05-26] MEDS ORDERED: QUEtiapine 25 MG TAB PO PRN (21:00)
[2023-05-26] MEDS: CEFEPIME 1 GM in SODIUM CHLORIDE 0.9% 50 ML IVPB SCH (21:02)
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
[2023-05-26] MEDS: ATORVASTATIN 40 MG TAB PO SCH (22:00)
[2023-05-26] MEDS ORDERED: DILTIAZEM DRIP BOLUS FROM BAG 1 MG SOLN IV ONE (22:58)
[2023-05-26] MEDS: DILTIAZEM 125 MG in SODIUM CHLORIDE 0.9% 100 ML IV SCH (23:14)
[2023-05-27] MEDS: metroNIDAZOLE-NS PMX 500 MG in SALINE 1 100ML.BAG IVPB SCH ×3 (01:18→16:00)
[2023-05-27] MEDS: METOPROLOL TARTRATE 5 MG/5 ML VIAL IVP SCH ×4 (01:18→18:38)
[2023-05-27] MEDS: IOPAMIDOL CONTRAST (ORAL USE) VIAL PO PRN ×2 (04:27→05:35)
[2023-05-27] MEDS: SEVELAMER 800 MG TAB PO SCH ×3 (07:03→18:38)
[2023-05-27] MEDS: DIVALPROEX 250 MG TABLET.DR PO SCH ×2 (07:03→18:38)
--- NOTE | 2023-05-27 07:53 | P.PN ---
Subjective Progress Note Date: 05/27/23 PROGRESS NOTE The patient is a 67-year-old male with known history of end-stage renal disease, atrial fibrillation, aneurysmal coronary arteries, hyperlipidemia who has missed his dialysis and presented with symptoms of progressive dyspnea. Last night he became hypotensive, was started on norepinephrine and subsequently transferred to the ICU. He is awake, confused and combative this morning. His blood pressure is stable. He is in atrial fibrillation. He has a prior history of ablation in paroxysmal atrial fibrillation. He is scheduled to undergo dialysis today. In the past his ejection fraction was 55-60. May 26: The patient is drowsy this morning. He continues to be confused during the night. He continues to be in atrial fibrillation with episodes of rapid ventricle response, he is nothing by mouth and receiving IV beta tracy. He is undergoing an EEG. He underwent dialysis yesterday. There is no evidence of ventricular ectopic activity. He is off norepinephrine. His echocardiogram showed an ejection fraction of 40-45% with mild pulmonary hypertension and [id number] mitral regurgitation. May 27: The patient is sleepy. He has been started on IV Cardizem because of persistent atrial fibrillation with rapid ventricle response. His blood pressure is stable. He is scheduled to undergo dialysis today. He has not been anticoagulated because of anemia and positive blood in the stool. He has thrombocytopenia. He continues to be on IV beta tracy. He underwent an abdominal computed tomography scan, the results are pending Medications: Lopressor 5 mg IV every 8 hours. IV Cardizem. PHYSICAL EXAMINATION: Blood pressure 121/80 heart rate 85, somnolent, not answering questions LUNGS: Clear to auscultation anteriorly HEART: Irregular rate and rhythm, S1, S2. No S3. Systolic ejection murmur ABDOMEN: Soft, nontender, no organomegaly EXTREMETIES: No edema LAB: Stool heme positive, potassium 3.4 IMPRESSION: 1. End-stage renal disease, noncompliant with dialysis 2. Atrial fibrillation with episodes of rapid ventricle response 3. Hypotension, improving 4. History of aneurysmal coronary arteries 5. Status post atrial fibrillation ablation 6. Hyperlipidemia 7. Change in mental status PLAN: 1. continue IV Cardizem and IV beta tracy 2. Dialysis today 3. Follow mental status 4. Follow hemoglobin to make decision regarding anticoagulation 5. Prognosis is guarded Objective - Vital Signs Vital signs: Vital Signs Temp 97.5 F L 05/27/23 04:00 Pulse 85 05/27/23 07:00 Resp 18 05/27/23 07:00 BP 121/80 05/27/23 07:00 Pulse Ox 94 L 05/27/23 07:00 FiO2 Intake & Output 05/26/23 05/27/23 05/27/23 18:59 06:59 18:59 Intake Total 410 213.333 59 Output Total 0 0 Balance 410 213.333 59 Weight 82.4 kg Intake: IV 410 110 5 0.9 Normal Saline @ 5mL/ 60 60 5 hr Cefepime 1 gm In Sodium 50 Chloride 0.9% 50 ml @ 12. 5 mls/hr IVPB Q12HR [facility] Rx#:[id number] Cefepime 2 gm In Sodium 100 Chloride 0.9% 100 ml @ 200 mls/hr IVPB [facility] Rx#:[id number] cefTRIAXone 2 gm In 50 Sodium Chloride 0.9% 50 ml @ 100 mls/hr IVPB Q24HR [facility] Rx#:[id number] metroNIDAZOLE-NS PMX 500 200 mg In Saline 1 100ml.bag @ 100 mls/hr IVPB Q8HR [facility] Rx#:[id number] Intake, IV Titration 3.333 54 Amount Diltiazem 125 mg In 3.333 54 Sodium Chloride 0.9% 100 ml @ Per Protocol IV .Q0M [facility] Rx#:[id number] Oral 100 Output: Urine 0 0 Other: # Bowel Movements 1 - Labs CBC & Chem 7: 05/26/23 08:18 05/26/23 15:03 Labs: Abnormal Lab Results - Last 24 Hours (Table) 05/26/23 05/26/23 05/26/23 Range/Units 06:45 08:18 15:03 RBC 2.73 L (4.30-5.90) m/uL Hgb 7.8 L (13.0-17.5) gm/dL Hct 24.3 L (39.0-53.0) % RDW 17.4 H (11.5-15.5) % Plt Count 56 L (150-450) k/uL Sodium 132 L (137-145) mmol/L Potassium 3.2 L 3.4 L (3.5-5.1) mmol/L Chloride 95 L (98-107) mmol/L BUN 59 H (9-20) mg/dL Creatinine 4.33 H (0.66-1.25) mg/dL Calcium 7.7 L (8.4-10.2) mg/dL Microbiology - Last 24 Hours (Table) 05/23/23 17:12 Blood Culture Gram Stain - Final Blood Blood Culture - Final Providencia stuartii 05/23/23 17:02 Blood Culture Gram Stain - Final Blood Blood Culture - Final Providencia stuartii
[2023-05-27 08:12] LABS: Anisocytosis Slight; HCT 23.6 % (39.0-53.0); HGB 7.5 gm/dL (13.0-17.5); Hypochromasia Marked; MCH 28.1 pg (25.0-35.0); MCHC 31.6 g/dL (31.0-37.0); MCV 88.9 fL (80.0-100.0); Mean Platelet Volume 9.9; Poikilocytosis Slight; RBC 2.66 m/uL (4.30-5.90); RDW 17.5 % (11.5-15.5); WBC 16.2 k/uL (3.8-10.6)
[2023-05-27 08:14] LABS: Platelet Count 62 k/uL (150-450)
[2023-05-27 08:18] LABS: ALT 12 U/L (4-49); AST 20 U/L (17-59); African American GFR (CKD) 15 (>60 ml/min/1.73 sqM); Albumin 2.2 g/dL (3.5-5.0); Alkaline Phosphatase 95 U/L (38-126); Anion Gap 13 mmol/L; Blood Urea Nitrogen 73 mg/dL (9-20); Calcium 8.3 mg/dL (8.4-10.2); Carbon Dioxide 22 mmol/L (22-30); Chloride 95 mmol/L (98-107); Glucose 116 mg/dL (74-99); Non-African American GFR(CKD) 13 (>60 ml/min/1.73 sqM); Potassium 4.5 mmol/L (3.5-5.1); Sodium 130 mmol/L (137-145); Total Bilirubin 0.7 mg/dL (0.2-1.3); Total Protein 5.1 g/dL (6.3-8.2)
[2023-05-27] MEDS: ONDANSETRON 4 MG/2 ML VIAL IVP PRN (08:18)
[2023-05-27] MEDS: CHOLESTYRAMINE (WITH SUGAR) 4 GM PACKET PO SCH (09:23)
[2023-05-27] MEDS: PANTOPRAZOLE 40 MG/10 ML VIAL IVP SCH ×2 (09:23→20:15)
[2023-05-27] MEDS: CEFEPIME 1 GM in SODIUM CHLORIDE 0.9% 50 ML IVPB SCH ×2 (09:25→20:15)
[2023-05-27] MEDS: MIDODRINE 5 MG TAB PO SCH ×3 (09:25→18:38)
[2023-05-27] MEDS: FLUoxetine HCL 20 MG CAP PO SCH (09:39)
--- NOTE | 2023-05-27 10:23 | P.PN ---
Subjective Patient is seen for follow-up for end-stage renal disease. Maintained on Tuesday schedule. Scheduled for hemodialysis today. Maintained on Cardizem drip for A. fib with RVR. Patient is sleeping but arousable. No major complaints. Objective - Vital Signs Vital signs: Vital Signs Temp 97.2 F L 05/27/23 08:00 Pulse 96 05/27/23 09:00 Resp 10 L 05/27/23 08:00 BP 122/62 05/27/23 09:00 Pulse Ox 100 05/27/23 09:00 FiO2 Intake & Output 05/26/23 05/27/23 05/27/23 18:59 06:59 18:59 Intake Total 410 213.333 69 Output Total 0 0 Balance 410 213.333 69 Weight 82.4 kg Intake: IV 410 110 15 0.9 Normal Saline @ 5mL/ 60 60 15 hr Cefepime 1 gm In Sodium 50 Chloride 0.9% 50 ml @ 12. 5 mls/hr IVPB Q12HR [facility] Rx#:[id number] Cefepime 2 gm In Sodium 100 Chloride 0.9% 100 ml @ 200 mls/hr IVPB [facility]CE [facility] Rx#:[id number] cefTRIAXone 2 gm In 50 Sodium Chloride 0.9% 50 ml @ 100 mls/hr IVPB Q24HR [facility] Rx#:[id number] metroNIDAZOLE-NS PMX 500 200 mg In Saline 1 100ml.bag @ 100 mls/hr IVPB Q8HR [facility] Rx#:[id number] Intake, IV Titration 3.333 54 Amount Diltiazem 125 mg In 3.333 54 Sodium Chloride 0.9% 100 ml @ Per Protocol IV .Q0M [facility] Rx#:[id number] Oral 100 Output: Urine 0 0 Other: # Bowel Movements 1 - Exam Sleeping but arousable Examination of the heart S1 and S2 Examination of the lungs bilateral breath sounds are heard Abdomen is soft nontender Examination lower extremity shows no significant edema - Labs CBC & Chem 7: 05/27/23 07:51 05/27/23 07:51 Labs: Abnormal Lab Results - Last 24 Hours (Table) 05/26/23 05/27/23 05/27/23 Range/Units 15:03 07:51 07:51 WBC 16.2 H (3.8-10.6) k/uL RBC 2.66 L (4.30-5.90) m/uL Hgb 7.5 L (13.0-17.5) gm/dL Hct 23.6 L (39.0-53.0) % RDW 17.5 H (11.5-15.5) % Plt Count 62 L (150-450) k/uL Sodium 130 L (137-145) mmol/L Potassium 3.4 L (3.5-5.1) mmol/L Chloride 95 L (98-107) mmol/L BUN 73 H (9-20) mg/dL Creatinine 4.50 H (0.66-1.25) mg/dL Glucose 116 H (74-99) mg/dL Calcium 8.3 L (8.4-10.2) mg/dL Total Protein 5.1 L (6.3-8.2) g/dL Albumin 2.2 L (3.5-5.0) g/dL Microbiology - Last 24 Hours (Table) 05/23/23 17:12 Blood Culture Gram Stain - Final Blood Blood Culture - Final Providencia stuartii 05/23/23 17:02 Blood Culture Gram Stain - Final Blood Blood Culture - Final Providencia stuartii Assessment and Plan Assessment: 1. End-stage renal disease maintained on hemodialysis on Tuesday schedule. 2. A. fib with RVR maintain on metoprolol and anticoagulation. 3. Anemia of chronic kidney disease. High ferritin noted. On Aranesp. 4. Noncompliance with hemodialysis. 5. Hypertension with chronic kidney disease. Controlled. 6. Chronic kidney disease mineral bone disease maintained on Renvela. Phosphorus level 3.9 dated 05/25/2023. 7. Metabolic acidosis secondary to chronic kidney disease. Status post bicarb drip. Improved. 8. Chronic systolic CHF with ejection fraction of 40-45% with mild to moderate mitral regurgitation. Plan: Hemodialysis today Low UF Continue with midodrine.
--- NOTE | 2023-05-27 10:36 | CT ---
EXAMINATION TYPE: CT abdomen pelvis wo con DATE OF EXAM: 05/27/2023 COMPARISON: chest CT 05/24/23 HISTORY: 67-year-old male bacteremia CT DLP: 824.6 mGycm. Automated exposure control for dose reduction was used. TECHNIQUE: Contiguous axial scanning of the abdomen and pelvis without IV contrast. Coronal and sagit laci reconstructions performed. FINDINGS: Heart mildly enlarged without pericardial effusion. Extensive three-vessel coronary artery calcificat ions are present. Moderate right and trace left pleural effusions redemonstrated. In addition, asymme tric elevation right hemidiaphragm persists. If concern for hemidiaphragmatic paralysis, a fluoroscop ic septostomy performed. Severe generalized anasarca change. Moderate bilateral gynecomastia. Noncontrast appearance of the liver, adrenal glands, spleen, and pancreas shows no gross abnormality. Layering gravel/tiny calculi within the nondistended gallbladder. Numerous bilateral renal cysts measuring up tor 2.3 cm. No dilated small bowel, free fluid, or free air. No mesenteric or retroperitoneal lymphadenopathy see n. There is some type of collection or mass measuring 5.1 cm in the right paramedian posterior mid to lo wer back subcutaneous fat layer. Recommend physical exam assessment and ultrasound to determine if th is is cystic or worrisome and solid. No significant stool burden. Redundant sigmoid colon. There is moderate circumferential wall thickeni ng mid to distal sigmoid colon and rectum with moderate stool here. There is moderate circumferential bladder wall thickening. Mild prostatomegaly of 4.6 cm wide. Presacral edema and generalized anasarca change. No abnormal fluid collection in the pelvis or pelvic lymphadenopathy. Bones: Extensive DISH throughout the visualized spine. Heterogeneous osseous density may reflect nallely l osteodystrophy in the setting of chronic kidney disease. IMPRESSION: 1. Correlate for CHF or fluid overload state given severe generalized anasarca. Ongoing moderate rig ht and small left pleural effusions. Cardiomegaly. Extensive three-vessel coronary artery calcificati ons. 2. Moderate circumferential wall thickening mid to distal sigmoid colon and rectum. Correlate for no nspecific distal colitis. No abscess or free air. 3. Additional moderate circumferential bladder wall thickening. Correlate to exclude cystitis. 4. Some type of collection or mass measuring 5.1 cm right paramedian posterior mid to lower back sub cutaneous fat layer. Correlate with physical exam assessment ultrasound to determine if this is cysti c or worrisome solid mass. 5. Multiple small cysts within the kidneys. Query chronic kidney disease.
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
--- NOTE | 2023-05-27 12:42 | P.PN ---
Subjective Progress Note Date: 05/27/23 Principal diagnosis: Respiratory failure, hypotension. I am seeing this patient in consultation today 05/25/2023 in the intensive care unit after the patient was found to be hypotensive during the hemodialysis and transferred to the intensive care unit. Patient is a 67-year-old white male with past medical history significant for end-stage renal disease, hemodialysis maintain on a Tuesday, Tuesday, Tuesday schedule, congestive heart failure, paroxysmal atrial fibrillation anticoagulated on Eliquis, CVA/TIA, hyperlipidemia, hypertension, coronary artery disease, obstructive sleep apnea, among other things. Patient is currently a poor historian, not able to participate in HPI. Apparently, the patient has been refusing hemodialysis as his extended care facility. He became confused, and was sent into the emergency room 2 days ago. Apparently, on resuming patient's hemodialysis treatments the patient became hypotensive. He also was in atrial fibrillation with rapid ventricular ventricular rate he was started on a Cardizem infusion temporarily, and transferred to the intensive care unit last night. Patient was placed on when necessary Midodrine earlier in the day, does not look like his evening dose was given. The patient was temporarily started on norepinephrine infusion, which is currently on hold. Heart rate is better controlled. Cardizem is off. Patient is lying in bed, on 2 L/m nasal cannula, in no acute distress. He is confused. Chest CT this admission shows cardiomegaly and moderate right pleural effusion and atelectasis of the right middle lobe and lower lobes. 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 Dilated main pulmonary artery measuring 4.3 cm consistent with pulmonary arterial hypertension. An severe three-vessel coronary artery calcifications. Most recent CBC from yesterday shows a WBC count of 11, hemoglobin 8.8, hematocrit 28, platelets 69,000. Most recent BMP from yesterday shows a sodium 135, potassium 4.3, chloride 95, serum bicarb down to 17, BUN 119, creatinine 8.27, glucose 81. No IV maintenance fluids infusing. Troponins were elevated at 0.037, 0.047, 0.044 respectfully. NT proBNP elevated at 40,000. Patient was placed on empiric antibiotics for possible CAP. Remains afebrile. The patient will be monitored in the intensive care unit for now. Progress note dated 05/26/2023. 67-year-old black male, seen again in the intensive care unit, room 266. Yesterday, he had a change in his neurologic status. We will like gas, and a computed tomography scan of the brain, without contrast, as well as a neurology consultation. The patient apparently is also had an EEG. Blood gases show a PaO2 of 102, pCO2 46, and a pH is 7.4. Currently, the patient is on 2 L of oxygen. He is getting saline at 5 mL an hour. He did have hemodialysis yester day, May 25. In addition, for his hypotension, we added the midodrine, back at 10 mg 3 times a day. Currently he is much more awake and alert. Labs today include a white count of 10, hemoglobin 7.8, hematocrit 24.3, and a platelet count of 56,000. Sodium 132, potassium 3.2, chloride 95, CO2 23, BUN 59, creatinine 4.33. Blood cultures are showing evidence of gram-negative bacilli. Chest x-ray shows only a small right pleural effusion. The patient is currently on Rocephin and Flagyl. Progress note dated 05/27/2023. 67-year-old black male seen today in room 266. The patient is very lethargic. He does arouse, and he answers simple questions. Currently, he's on 2 L of oxygen. He's given Cardizem drip of 5 mg an hour, and saline at KVO. He continues on cefepime and Flagyl. The patient has had intermittent episodes of hypotension, requiring norepinephrine. The patient was to have hemodialysis today. White count 16.2, hemoglobin 7.5, hematocrit 23.6, with a platelet count a 62,000. Sodium 1:30, potassium 4.5, chlorides 95, CO2 22, anion gap 13, BUN 73, and creatinine 4.50. Blood cultures are positive for Povidencia. Objective - Vital Signs Vital signs: Vital Signs Temp 97.2 F L 05/27/23 08:00 Pulse 93 05/27/23 12:00 Resp 15 05/27/23 12:00 BP 125/75 05/27/23 12:00 Pulse Ox 85 L 05/27/23 12:00 FiO2 Intake & Output 05/26/23 05/27/23 05/27/23 18:59 06:59 18:59 Intake Total 410 213.333 79 Output Total 0 0 0 Balance 410 213.333 79 Weight 82.4 kg 82.4 kg Intake: IV 410 110 25 0.9 Normal Saline @ 5mL/ 60 60 25 hr Cefepime 1 gm In Sodium 50 Chloride 0.9% 50 ml @ 12. 5 mls/hr IVPB Q12HR [facility] Rx#:[id number] Cefepime 2 gm In Sodium 100 Chloride 0.9% 100 ml @ 200 mls/hr IVPB ONCE [facility] Rx#:[id number] cefTRIAXone 2 gm In 50 Sodium Chloride 0.9% 50 ml @ 100 mls/hr IVPB Q24HR [facility] Rx#:[id number] metroNIDAZOLE-NS PMX 500 200 mg In Saline 1 100ml.bag @ 100 mls/hr IVPB Q8HR [facility] Rx#:[id number] Intake, IV Titration 3.333 54 Amount Diltiazem 125 mg In 3.333 54 Sodium Chloride 0.9% 100 ml @ Per Protocol IV .Q0M [facility] Rx#:[id number] Oral 100 Output: Urine 0 0 0 Other: # Bowel Movements 1 - Exam No acute distress, oriented 3. At 2 L saturation is 97 %. HEENT examination is grossly unremarkable. Mucous membranes are moist. No oral lesions. Neck supple. Full range of motion. No adenopathy thyromegaly or neck vein distention. Cardiovascular examination reveals regular rhythm rate. S1-S2 normal. No S3 or S4. No discernible murmur noted. Heart rate is 93 bpm. Heart sounds are dista nt. Lungs reveal mostly clear breath sounds. Scattered crackles are noted. No wheezes or rhonchi. Breath sounds are equal bilaterally. 2 L saturations is 97 %. Abdomen soft bowel sounds are heard. No masses or tenderness. Extremities are intact. No cyanosis clubbing or edema. Skin is without rash or lesion. Neurologic examination is brief but nonfocal. - Labs CBC & Chem 7: 05/27/23 07:51 05/27/23 07:51 Labs: Abnormal Lab Results - Last 24 Hours (Table) 05/26/23 05/27/23 05/27/23 Range/Units 15:03 07:51 07:51 WBC 16.2 H (3.8-10.6) k/uL RBC 2.66 L (4.30-5.90) m/uL Hgb 7.5 L (13.0-17.5) gm/dL Hct 23.6 L (39.0-53.0) % RDW 17.5 H (11.5-15.5) % Plt Count 62 L (150-450) k/uL Sodium 130 L (137-145) mmol/L Potassium 3.4 L (3.5-5.1) mmol/L Chloride 95 L (98-107) mmol/L BUN 73 H (9-20) mg/dL Creatinine 4.50 H (0.66-1.25) mg/dL Glucose 116 H (74-99) mg/dL Calcium 8.3 L (8.4-10.2) mg/dL Total Protein 5.1 L (6.3-8.2) g/dL Albumin 2.2 L (3.5-5.0) g/dL Microbiology - Last 24 Hours (Table) 05/23/23 17:12 Blood Culture Gram Stain - Final Blood Blood Culture - Final Providencia stuartii 05/23/23 17:02 Blood Culture Gram Stain - Final Blood Blood Culture - Final Providencia stuartii Assessment and Plan Assessment: Hypotension, resolved, likely secondary to volume depletion, and sepsis. End-stage renal disease, normally maintained on hemodialysis Tuesday, Tuesday, Tuesday. Gram-negative bacteremia, secondary to Providencia. Acute metabolic encephalopathy. Anion gap metabolic acidosis. Acute hypoxemic respiratory failure, currently on 2 L/m nasal cannula, secondary to fluid overload and a moderate to large right-sided pleural effusion. Obstructive sleep apnea, utilizes CPAP outpatient. Atrial fibrillation with rapid ventricular rate. Anemia of chronic disease. Thrombocytopenia. Decubitus pressure injury. Hyperlipidemia. History of CVA/TIA. Coronary artery disease. Plan: Plan dated 05/26/2023. The patient is seen in the intensive care unit. The patient's currently on 2 L of oxygen. The patient's getting saline at 5 mL an hour. The patient's blood gases showed a pO2 102, pCO2 46, and a pH is 7.40. The computed tomography scan of the brain showed nothing acute. The patient was seen by neurology. An EEG was ordered, but not interpreted as yet. The patient had hemodialysis yesterday. The patient continues on antibiotics. We will await the findings, as it relates to the gram-negative bacilli in the blood. The patient continues on Rocephin, and Flagyl. Prognosis is guarded. Plan dated 05/27/2023. The patient is seen today in room 266. He remains on 2 L of oxygen. He is currently on cefepime and Flagyl. Remains on Cardizem drip at 5 mg an hour. He is to have hemodialysis today. Blood cultures were positive for Providencia and, the patient is on cefepime and Flagyl. Addition, the patient has intermittent hypotension, and requires norepinephrine. The patient's along the way. Overall prognosis remains very guarded. Labs, x-rays, and all medications are reviewed.
--- NOTE | 2023-05-27 14:23 | PN ---
PROGRESS NOTE SUBJECTIVE: This is a 67-year-old white male. He is in ICU. Due to altered mental status, he came down to ICU. He is more alert and awake down here. He was upstairs for end-stage renal disease and hypotension. He came down. Neurology, CAT scan of the brain was done. EEG was done. He is on midodrine 10 mg t.i.d. for hypotension. Hemoglobin 7.8, potassium 3.2, CO2 23, creatinine 4.33. Blood culture gram-negative bacilli. Rocephin, Flagyl. He is talking more than he was upstairs. He keeps repeating sentences over and over again. He has more near his baseline. OBJECTIVE: CARDIOVASCULAR: S1, S2. LUNGS: Scattered crackles. ABDOMEN: Soft. EXTREMITIES: No edema. SKIN: No rash or excoriation. VITAL SIGNS: He is on 2 L oxygen 100%. Still remains hypotensive a little bit. He is being treated for sepsis. His hemoglobin is low, potassium is low. Sodium is low, elevated BUN, creatinine, gram- negative bacilli in the blood. Hypotension was resolved. Volume depletion, end-stage renal disease, midodrine. Take down the fluids in the dialysis, gram-negative bacteremia of unclear source. Obstructive sleep apnea. CPAP, needs to wear it at night 2 L through the day. After metabolic encephalopathy, he is going to get metabolic acidosis, atrial fibrillation, RVR, sleep apnea, anemia of chronic disease, thrombocytopenia, decubitus pressure injury, dyslipidemia, history of CVA, TIA, coronary artery disease, pCO2 is 46. CAT scan of the brain is negative. EEG not read. He is on antibiotics, wait to final gram-negative bacilli in the blood. He is on Rocephin, Flagyl. Prognosis guarded. Please see further orders. MMODL / IJN: [id number] /
[2023-05-27] MEDS: DILTIAZEM 125 MG in SODIUM CHLORIDE 0.9% 100 ML IV SCH (15:18)
--- NOTE | 2023-05-27 16:10 | P.PN ---
Subjective Progress Note Date: 05/27/23 Principal diagnosis: Gram-negative bacteremia Patient is a 67-year-old male with a past medical history significant for hypertension hyperlipidemia CA end-stage renal disease on hemodialysis to the right arm AV fistula patient presenting to the hospital 3 days ago for e valuation of mental status changes, patient was noticed to have a positive blood culture with a drug-resistant Providencia probably this infectious disease consultation patient did have CT of abdominal pelvis with evidence of colitis On today's evaluation and that is 05/27/2023, the patient remains to be afebrile the patient is breathing comfortably on 2 L nasal cannula supplemental oxygen, the patient denies chest pain, shortness of breath or cough, patient denies nausea/vomiting , no diarrhea and no abdominal pain, however overall the patient is not a good historian. Patient white count was 16.2, creatinine 4.50 Objective - Vital Signs Vital signs: Vital Signs Temp 97.2 F L 05/27/23 08:00 Pulse 93 05/27/23 12:00 Resp 15 05/27/23 12:00 BP 125/75 05/27/23 12:00 Pulse Ox 85 L 05/27/23 12:00 FiO2 Intake & Output 05/26/23 05/27/23 05/27/23 18:59 06:59 18:59 Intake Total 410 213.333 79 Output Total 0 0 0 Balance 410 213.333 79 Weight 82.4 kg 82.4 kg Intake: IV 410 110 25 0.9 Normal Saline @ 5mL/ 60 60 25 hr Cefepime 1 gm In Sodium 50 Chloride 0.9% 50 ml @ 12. 5 mls/hr IVPB Q12HR [facility] Rx#:[id number] Cefepime 2 gm In Sodium 100 Chloride 0.9% 100 ml @ 200 mls/hr IVPB ONCE [facility] Rx#:[id number] cefTRIAXone 2 gm In 50 Sodium Chloride 0.9% 50 ml @ 100 mls/hr IVPB Q24HR [facility] Rx#:[id number] metroNIDAZOLE-NS PMX 500 200 mg In Saline 1 100ml.bag @ 100 mls/hr IVPB Q8HR [facility] Rx#:[id number] Intake, IV Titration 3.333 54 Amount Diltiazem 125 mg In 3.333 54 Sodium Chloride 0.9% 100 ml @ Per Protocol IV .Q0M [facility] Rx#:[id number] Oral 100 Output: Urine 0 0 0 Other: # Bowel Movements 1 - Exam GENERAL DESCRIPTION: An elderly male lying in bed in no distress RESPIRATORY SYSTEM: Unlabored breathing , decreased breath sounds at bases HEART: S1 S2 regular rate and rhythm , ABDOMEN: Soft , mild distention EXTREMITIES: No edema feet - Labs CBC & Chem 7: 05/27/23 07:51 05/27/23 07:51 Labs: Abnormal Lab Results - Last 24 Hours (Table) 05/26/23 05/27/23 05/27/23 Range/Units 15:03 07:51 07:51 WBC 16.2 H (3.8-10.6) k/uL RBC 2.66 L (4.30-5.90) m/uL Hgb 7.5 L (13.0-17.5) gm/dL Hct 23.6 L (39.0-53.0) % RDW 17.5 H (11.5-15.5) % Plt Count 62 L (150-450) k/uL Sodium 130 L (137-145) mmol/L Potassium 3.4 L (3.5-5.1) mmol/L Chloride 95 L (98-107) mmol/L BUN 73 H (9-20) mg/dL Creatinine 4.50 H (0.66-1.25) mg/dL Glucose 116 H (74-99) mg/dL Calcium 8.3 L (8.4-10.2) mg/dL Total Protein 5.1 L (6.3-8.2) g/dL Albumin 2.2 L (3.5-5.0) g/dL Microbiology - Last 24 Hours (Table) 05/23/23 17:12 Blood Culture Gram Stain - Final Blood Blood Culture - Final Providencia stuartii 05/23/23 17:02 Blood Culture Gram Stain - Final Blood Blood Culture - Final Providencia stuartii Assessment and Plan (1) Gram-negative bacteremia Current Visit: Yes Status: Acute Code(s): R78.81 - BACTEREMIA SNOMED Code(s): 824674910682 (2) Colitis Current Visit: Yes Status: Acute Code(s): K52.9 - NONINFECTIVE GASTROENTERITIS AND COLITIS, UNSPECIFIED SNOMED Code(s): 82374839 Plan: 1patient with the providencia bacteremia with the source questionably abdominal versus pneumonia as there was evidence of moderate right-sided effusion and some infiltrate on the CT of the chest and the patient did have mild abdominal distention however no significant tenderness was noticed 2-blood cultures has been repeated document clearance of his bacteremia 3-patient did have CT abdominal pelvis with oral contrast only, with evidence of colitis possible source of bacteremia Patient to continue with cefepime 1 g every 12 hours and Flagyl and monitor clinical course closely Dictation was produced using [employer] dictation software. please excuse any gramm atical, word or spelling errors.
[2023-05-27] MEDS: ATORVASTATIN 40 MG TAB PO SCH (20:15)
[2023-05-27] MEDS: NOREPINEPHRINE 4 MG in SODIUM CHLORIDE 0.9% 250 ML IV SCH (20:16)
[2023-05-27] MEDS: QUEtiapine 25 MG TAB PO SCH (20:16)
[2023-05-28] MEDS: metroNIDAZOLE-NS PMX 500 MG in SALINE 1 100ML.BAG IVPB SCH ×3 (00:13→15:53)
[2023-05-28] MEDS: METOPROLOL TARTRATE 5 MG/5 ML VIAL IVP SCH ×3 (00:13→11:18)
--- NOTE | 2023-05-28 03:32 | PN ---
PROGRESS NOTE SUBJECTIVE: Remains in ICU, very lethargic, . He is on cefepime, Flagyl. Intermittent episodes of , requiring norepinephrine. White count is 16.2, hemoglobin is 7.5, and platelet count is 62,000. Potassium is 4.5, CO2 is 22. Blood culture is positive for Providencia. OBJECTIVE: VITAL SIGNS: Temperature 97.2, pulse 93, respiratory rate 14 to 16, blood pressure 125/75, O2 is 85%. GENERAL: Resting comfortably. CARDIOVASCULAR: S1, S2. LUNGS: Clear. GI: Soft. HEMATOLOGY: Negative Homans. LABORATORY DATA: White count 16.2. ASSESSMENT AND PLAN: 1. . 2. Volume depletion. 3. Sepsis. 4. End-stage renal failure. 5. Gram-negative bacteremia. 6. Metabolic encephalopathy. 7. Anion gap metabolic acidosis. 8. Hypoxemic respiratory failure. 9. Sleep apnea. 10.Atrial fibrillation with rapid ventricular response. 11.Chronic anemia. ordered. Remains on cefepime and Flagyl. Remains on Cardizem drip. requiring norepinephrine. Prognosis is guarded. Continue with sepsis treatment. MMODL / IJN: [id number] /
--- NOTE | 2023-05-28 03:35 | PN ---
PROGRESS NOTE Sepsis present on admission. MMODL / IJN: [id number] /
[2023-05-28 05:23] LABS: Anisocytosis Slight; Basophils % (A) 0 %; Eosinophils % (A) 0 %; HCT 22.3 % (39.0-53.0); Hypochromasia Marked; Lymphocytes # (A) 0.6 k/uL (1.0-4.8); Lymphocytes % (A) 5 %; MCH 27.9 pg (25.0-35.0); MCHC 31.1 g/dL (31.0-37.0); MCV 89.6 fL (80.0-100.0); Mean Platelet Volume 10.3; Monocytes # (A) 0.5 k/uL (0-1.0); Monocytes % (A) 4 %; Neutrophils # (A) 11.8 k/uL (1.3-7.7); Neutrophils % (A) 89 %; Poikilocytosis Slight; RBC 2.48 m/uL (4.30-5.90); RDW 17.4 % (11.5-15.5); WBC 13.1 k/uL (3.8-10.6)
[2023-05-28 05:28] LABS: HGB 6.9 gm/dL (13.0-17.5); Platelet Count 63 k/uL (150-450)
[2023-05-28 05:42] LABS: ALT 11 U/L (4-49); AST 17 U/L (17-59); African American GFR (CKD) 26 (>60 ml/min/1.73 sqM); Alkaline Phosphatase 88 U/L (38-126); Anion Gap 8 mmol/L; Blood Urea Nitrogen 39 mg/dL (9-20); Calcium 8.2 mg/dL (8.4-10.2); Carbon Dioxide 27 mmol/L (22-30); Chloride 97 mmol/L (98-107); Glucose 85 mg/dL (74-99); Non-African American GFR(CKD) 23 (>60 ml/min/1.73 sqM); Potassium 3.8 mmol/L (3.5-5.1); Sodium 132 mmol/L (137-145); Total Bilirubin 0.5 mg/dL (0.2-1.3); Total Protein 4.7 g/dL (6.3-8.2)
[2023-05-28] MEDS: DIVALPROEX 250 MG TABLET.DR PO SCH ×2 (06:12→17:38)
[2023-05-28] MEDS: DILTIAZEM 125 MG in SODIUM CHLORIDE 0.9% 100 ML IV SCH (06:28)
[2023-05-28] MEDS: SEVELAMER 800 MG TAB PO SCH ×3 (06:30→16:19)
[2023-05-28] MEDS: MIDODRINE 5 MG TAB PO SCH ×3 (06:30→17:38)
[2023-05-28] MEDS: PANTOPRAZOLE 40 MG/10 ML VIAL IVP SCH ×2 (08:12→20:34)
[2023-05-28] MEDS: FLUoxetine HCL 20 MG CAP PO SCH (08:12)
[2023-05-28] MEDS: BISMUTH SUBSALICYLATE 4,192 MG/240 ML BOTTLE PO PRN ×2 (08:13→14:27)
[2023-05-28] MEDS: CHOLESTYRAMINE (WITH SUGAR) 4 GM PACKET PO SCH (08:25)
[2023-05-28] MEDS: CEFEPIME 1 GM in SODIUM CHLORIDE 0.9% 50 ML IVPB SCH ×2 (11:17→20:37)
--- NOTE | 2023-05-28 11:30 | P.PN ---
Subjective Progress Note Date: 05/28/23 Principal diagnosis: Respiratory failure, hypotension. I am seeing this patient in consultation today 05/25/2023 in the intensive care unit after the patient was found to be hypotensive during the hemodialysis and transferred to the intensive care unit. Patient is a 67-year-old white male with past medical history significant for end-stage renal disease, hemodialysis maintain on a Tuesday, Tuesday, Tuesday schedule, congestive heart failure, paroxysmal atrial fibrillation anticoagulated on Eliquis, CVA/TIA, hyperlipidemia, hypertension, coronary artery disease, obstructive sleep apnea, among other things. Patient is currently a poor historian, not able to participate in HPI. Apparently, the patient has been refusing hemodialysis as his extended care facility. He became confused, and was sent into the emergency room 2 days ago. Apparently, on resuming patient's hemodialysis treatments the patient became hypotensive. He also was in atrial fibrillation with rapid ventricular ventricular rate he was started on a Cardizem infusion temporarily, and transferred to the intensive care unit last night. Patient was placed on when necessary Midodrine earlier in the day, does not look like his evening dose was given. The patient was temporarily started on norepinephrine infusion, which is currently on hold. Heart rate is better controlled. Cardizem is off. Patient is lying in bed, on 2 L/m nasal cannula, in no acute distress. He is confused. Chest CT this admission shows cardiomegaly and moderate right pleural effusion and atelectasis of the right middle lobe and lower lobes. 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 Dilated main pulmonary artery measuring 4.3 cm consistent with pulmonary arterial hypertension. An severe three-vessel coronary artery calcifications. Most recent CBC from yesterday shows a WBC count of 11, hemoglobin 8.8, hematocrit 28, platelets 69,000. Most recent BMP from yesterday shows a sodium 135, potassium 4.3, chloride 95, serum bicarb down to 17, BUN 119, creatinine 8.27, glucose 81. No IV maintenance fluids infusing. Troponins were elevated at 0.037, 0.047, 0.044 respectfully. NT proBNP elevated at 40,000. Patient was placed on empiric antibiotics for possible CAP. Remains afebrile. The patient will be monitored in the intensive care unit for now. Progress note dated 05/26/2023. 67-year-old black male, seen again in the intensive care unit, room 266. Yesterday, he had a change in his neurologic status. We will like gas, and a computed tomography scan of the brain, without contrast, as well as a neurology consultation. The patient apparently is also had an EEG. Blood gases show a PaO2 of 102, pCO2 46, and a pH is 7.4. Currently, the patient is on 2 L of oxygen. He is getting saline at 5 mL an hour. He did have hemodialysis yester day, May 25. In addition, for his hypotension, we added the midodrine, back at 10 mg 3 times a day. Currently he is much more awake and alert. Labs today include a white count of 10, hemoglobin 7.8, hematocrit 24.3, and a platelet count of 56,000. Sodium 132, potassium 3.2, chloride 95, CO2 23, BUN 59, creatinine 4.33. Blood cultures are showing evidence of gram-negative bacilli. Chest x-ray shows only a small right pleural effusion. The patient is currently on Rocephin and Flagyl. Progress note dated 05/27/2023. 67-year-old black male seen today in room 266. The patient is very lethargic. He does arouse, and he answers simple questions. Currently, he's on 2 L of oxygen. He's given Cardizem drip of 5 mg an hour, and saline at KVO. He continues on cefepime and Flagyl. The patient has had intermittent episodes of hypotension, requiring norepinephrine. The patient was to have hemodialysis today. White count 16.2, hemoglobin 7.5, hematocrit 23.6, with a platelet count a 62,000. Sodium 1:30, potassium 4.5, chlorides 95, CO2 22, anion gap 13, BUN 73, and creatinine 4.50. Blood cultures are positive for Povidencia. Progress note dated 05/28/2023. 67-year-old male seen in room 266. He currently is on room air. Saturations are 95%. The patient is in atrial fibrillation, with controlled rate. He continues on Cardizem 5 mg an hour, and saline at 10 mL an hour. The patient received 1 unit of packed red blood cells. He had hemodialysis yesterday, where 500 mL was removed. Clinically, he appears to be relatively stable. Currently labs include a white count 13.1, hemoglobin 6.9, hematocrit 22.3, and a platelet count a 63,000. Sodium 132, potassium 3.8, chlorides 97, CO2 27, BUN 39, and creatinine down to 2.79 from 4.50. Albumin is 2. Objective - Vital Signs Vital signs: Vital Signs Temp 97.8 F 05/28/23 11:12 Pulse 116 H 05/28/23 11:12 Resp 16 05/28/23 11:12 BP 103/62 05/28/23 11:12 Pulse Ox 94 L 05/28/23 11:12 FiO2 Intake & Output 05/27/23 05/28/23 05/28/23 18:59 06:59 18:59 Intake Total 750 315.833 495 Output Total 1050 0 0 Balance -300 315.833 495 Weight 82.4 kg 88 kg Intake: IV 55 240 135 0.9 Normal Saline @ 5mL/ 55 90 35 hr Cefepime 1 gm In Sodium 50 Chloride 0.9% 50 ml @ 12. 5 mls/hr IVPB Q12HR JACI Rx#:[id number] metroNIDAZOLE-NS PMX 500 100 100 mg In Saline 1 100ml.bag @ 100 mls/hr IVPB Q8HR JACI Rx#:[id number] Intake, IV Titration 95 75.833 50 Amount Cefepime 1 gm In Sodium 50 Chloride 0.9% 50 ml @ 12. 5 mls/hr IVPB Q12HR JACI Rx#:[id number] Diltiazem 125 mg In 95 75.833 Sodium Chloride 0.9% 100 ml @ Per Protocol IV .Q0M JACI Rx#:[id number] Blood Product 310 Rc As-1 Unit 310 [id number] Hemodialysis 600 Output: Urine 0 0 0 Hemodialysis 1050 Other: # Bowel Movements 1 1 - Exam No acute distress, oriented 3. Room air saturation 95%. HEENT examination is grossly unremarkable. Mucous membranes are moist. No oral lesions. Neck supple. Full range of motion. No adenopathy thyromegaly or neck vein distention. Cardiovascular examination reveals an irregular rhythm and rate. S1-S2 normal. No S3 or S4. No discernible murmur noted. Heart rate is 99 bpm. Heart sounds are distant. Lungs reveal mostly clear breath sounds. Scattered crackles are noted. No wheezes or rhonchi. Breath sounds are equal bilaterally. Abdomen soft bowel sounds are heard. No masses or tenderness. Extremities are intact. No cyanosis clubbing or edema. Skin is without rash or lesion. Neurologic examination is brief but nonfocal. - Labs CBC & Chem 7: 05/28/23 04:30 05/28/23 04:30 Labs: Abnormal Lab Results - Last 24 Hours (Table) 05/28/23 05/28/23 05/28/23 Range/Units 04:30 04:30 06:25 WBC 13.1 H (3.8-10.6) k/uL RBC 2.48 L (4.30-5.90) m/uL Hgb 6.9 L* (13.0-17.5) gm/dL Hct 22.3 L (39.0-53.0) % RDW 17.4 H (11.5-15.5) % Plt Count 63 L (150-450) k/uL Neutrophils # 11.8 H (1.3-7.7) k/uL Lymphocytes # 0.6 L (1.0-4.8) k/uL Sodium 132 L (137-145) mmol/L Chloride 97 L (98-107) mmol/L BUN 39 H (9-20) mg/dL Creatinine 2.79 H (0.66-1.25) mg/dL Calcium 8.2 L (8.4-10.2) mg/dL Total Protein 4.7 L (6.3-8.2) g/dL Albumin 2.0 L (3.5-5.0) g/dL Crossmatch See Detail Microbiology - Last 24 Hours (Table) 05/26/23 16:27 Blood Culture - Preliminary Blood Assessment and Plan Assessment: Hypotension, resolved, likely secondary to volume depletion, and sepsis. End-stage renal disease, normally maintained on hemodialysis Tuesday, Tuesday, Tuesday. Gram-negative bacteremia, secondary to Providencia. Acute metabolic encephalopathy. Anion gap metabolic acidosis. Acute hypoxemic respiratory failure, improved. Obstructive sleep apnea, utilizes CPAP outpatient. Atrial fibrillation with rapid ventricular rate. Anemia of chronic disease. Thrombocytopenia. Decubitus pressure injury. Hyperlipidemia. History of CVA/TIA. Coronary artery disease. Plan: Plan dated 05/26/2023. The patient is seen in the intensive care unit. The patient's currently on 2 L of oxygen. The patient's getting saline at 5 mL an hour. The patient's blood gases showed a pO2 102, pCO2 46, and a pH is 7.40. The computed tomography scan of the brain showed nothing acute. The patient was seen by neurology. An EEG was ordered, but not interpreted as yet. The patient had hemodialysis yesterday. The patient continues on antibiotics. We will await the findings, as it relates to the gram-negative bacilli in the blood. The patient continues on Rocephin, and Flagyl. Prognosis is guarded. Plan dated 05/27/2023. The patient is seen today in room 266. He remains on 2 L of oxygen. He is currently on cefepime and Flagyl. Remains on Cardizem drip at 5 mg an hour. He is to have hemodialysis today. Blood cultures were positive for Providencia and, the patient is on cefepime and Flagyl. Addition, the patient has intermittent hypotension, and requires norepinephrine. The patient's along the way. Overall prognosis remains very guarded. Labs, x-rays, and all medications are reviewed. Plan dated 05/28/2023. 67-year-old black male seen in room 266. Currently is on room air. His saturations are adequate. Labs, x-rays, and medications are reviewed. The patient continues on a Cardizem drip at 5 mg an hour. He gets 1 unit of packed red blood cells for hemoglobin is below 7. He did have hemodialysis in May 27. He is also getting saline at 10 mL an hour. He continues on cefepime, and Flagyl, for his Providencia sepsis. We will continue to follow make recommendations along the way. Prognosis is guarded. Time with Patient: Greater than 30
--- NOTE | 2023-05-28 11:56 | P.PN ---
Subjective Patient is seen for follow-up for end-stage renal disease. Maintained on Tuesday schedule. Status post hemodialysis yesterday. Patient tolerated treatment well.. Maintained on Cardizem drip for A. fib with RVR. Patient is awake. He also is questions appropriately but has been confused on and off. No major complaints. Objective - Vital Signs Vital signs: Vital Signs Temp 97.8 F 05/28/23 11:12 Pulse 116 H 05/28/23 11:12 Resp 16 05/28/23 11:12 BP 103/62 05/28/23 11:12 Pulse Ox 94 L 05/28/23 11:12 FiO2 Intake & Output 05/27/23 05/28/23 05/28/23 18:59 06:59 18:59 Intake Total 750 315.833 521.083 Output Total 1050 0 0 Balance -300 315.833 521.083 Weight 82.4 kg 88 kg Intake: IV 55 240 135 0.9 Normal Saline @ 5mL/ 55 90 35 hr Cefepime 1 gm In Sodium 50 Chloride 0.9% 50 ml @ 12. 5 mls/hr IVPB Q12HR JACI Rx#:[id number] metroNIDAZOLE-NS PMX 500 100 100 mg In Saline 1 100ml.bag @ 100 mls/hr IVPB Q8HR JACI Rx#:[id number] Intake, IV Titration 95 75.833 76.083 Amount Cefepime 1 gm In Sodium 50 Chloride 0.9% 50 ml @ 12. 5 mls/hr IVPB Q12HR JACI Rx#:[id number] Diltiazem 125 mg In 95 75.833 26.083 Sodium Chloride 0.9% 100 ml @ Per Protocol IV .Q0M JACI Rx#:[id number] Blood Product 310 Rc As-1 Unit 310 [id number] Hemodialysis 600 Output: Urine 0 0 0 Hemodialysis 1050 Other: # Bowel Movements 1 1 - Exam Awake, no acute distress Examination of the heart S1 and S2 Examination of the lungs bilateral breath sounds are heard Abdomen is soft nontender Examination lower extremity shows no significant edema - Labs CBC & Chem 7: 05/28/23 04:30 05/28/23 04:30 Labs: Abnormal Lab Results - Last 24 Hours (Table) 05/28/23 05/28/23 05/28/23 Range/Units 04:30 04:30 06:25 WBC 13.1 H (3.8-10.6) k/uL RBC 2.48 L (4.30-5.90) m/uL Hgb 6.9 L* (13.0-17.5) gm/dL Hct 22.3 L (39.0-53.0) % RDW 17.4 H (11.5-15.5) % Plt Count 63 L (150-450) k/uL Neutrophils # 11.8 H (1.3-7.7) k/uL Lymphocytes # 0.6 L (1.0-4.8) k/uL Sodium 132 L (137-145) mmol/L Chloride 97 L (98-107) mmol/L BUN 39 H (9-20) mg/dL Creatinine 2.79 H (0.66-1.25) mg/dL Calcium 8.2 L (8.4-10.2) mg/dL Total Protein 4.7 L (6.3-8.2) g/dL Albumin 2.0 L (3.5-5.0) g/dL Crossmatch See Detail Microbiology - Last 24 Hours (Table) 05/26/23 16:27 Blood Culture - Preliminary Blood Assessment and Plan Assessment: 1. End-stage renal disease maintained on hemodialysis on Tuesday schedule. 2. A. fib with RVR maintain on metoprolol and anticoagulation. On Cardizem drip 3. Anemia of chronic kidney disease. High ferritin noted. On Aranesp. H emoglobin 6.9 today, receiving 1 unit packed RBCs 4. Noncompliance with hemodialysis. 5. Hypertension with chronic kidney disease. Controlled. 6. Chronic kidney disease mineral bone disease maintained on Renvela. Phosphorus level 3.9 dated 05/25/2023. 7. Metabolic acidosis secondary to chronic kidney disease. Status post bicarb drip. Improved. 8. Chronic systolic CHF with ejection fraction of 40-45% with mild to moderate mitral regurgitation. Plan: Hemodialysis on 05/30/2023 Continue with midodrine.
--- NOTE | 2023-05-28 14:24 | P.PN ---
Subjective Progress Note Date: 05/28/23 PROGRESS NOTE The patient is a 67-year-old male with known history of end-stage renal disease, atrial fibrillation, aneurysmal coronary arteries, hyperlipidemia who has missed his dialysis and presented with symptoms of progressive dyspnea. Last night he became hypotensive, was started on norepinephrine and subsequently transferred to the ICU. He is awake, confused and combative this morning. His blood pressure is stable. He is in atrial fibrillation. He has a prior history of ablation in paroxysmal atrial fibrillation. He is scheduled to undergo dialysis today. In the past his ejection fraction was 55-60. May 26: The patient is drowsy this morning. He continues to be confused during the night. He continues to be in atrial fibrillation with episodes of rapid ventricle response, he is nothing by mouth and receiving IV beta sarah. He is undergoing an EEG. He underwent dialysis yesterday. There is no evidence of ventricular ectopic activity. He is off norepinephrine. His echocardiogram showed an ejection fraction of 40-45% with mild pulmonary hypertension and [id number] mitral regurgitation. May 27: The patient is sleepy. He has been started on IV Cardizem because of persistent atrial fibrillation with rapid ventricle response. His blood pressure is stable. He is scheduled to undergo dialysis today. He has not been anticoagulated because of anemia and positive blood in the stool. He has thrombocytopenia. He continues to be on IV beta saarh. He underwent an abdominal computed tomography scan, the results are pending 05/28/23 Patient is laying in bed, awake. He is tolerating oral diet and has been started on oral medications. He was noticed to be anemic with hemoglobin of 6.9 today. Yesterday 7.5. He is status post 1 unit of blood transfusion. Stools Hem +ve Creatinine is much better as compared to yesterday 2.79 today yesterday 4.5 BP 129/52, heart rate 96 beats a minute Continues to be atrial fibrillation on telemetry PHYSICAL EXAMINATION: LUNGS: Clear to auscultation anteriorly HEART: Irregular rate and rhythm, S1, S2. No S3. Systolic ejection murmur ABDOMEN: Soft, nontender, no organomegaly EXTREMETIES: No edema IMPRESSION: 1. End-stage renal disease, noncompliant with dialysis 2. Atrial fibrillation with episodes of rapid ventricle response 3. Hypotension, improving 4. History of aneurysmal coronary arteries 5. Status post atrial fibrillation ablation 6. Hyperlipidemia 7. Change in mental status PLAN: 1. continue IV Cardizem. Change B Sarah to PO 25 mg BID. Hold Anticoagulation due to Hem+ve stools, anemia and active transfusion with low platelets 2. Dialysis as per nephro 3. Follow mental status 4. Prognosis is guarded Objective - Vital Signs Vital signs: Vital Signs Temp 97.8 F 05/28/23 12:00 Pulse 89 05/28/23 14:00 Resp 16 05/28/23 14:00 BP 114/58 05/28/23 14:00 Pulse Ox 95 05/28/23 14:00 FiO2 Intake & Output 05/27/23 05/28/23 05/28/23 18:59 06:59 18:59 Intake Total 750 315.833 551.083 Output Total 1050 0 0 Balance -300 315.833 551.083 Weight 82.4 kg 88 kg Intake: IV 55 240 165 0.9 Normal Saline @ 5mL/ 55 90 65 hr Cefepime 1 gm In Sodium 50 Chloride 0.9% 50 ml @ 12. 5 mls/hr IVPB Q12HR [facility] Rx#:[id number] metroNIDAZOLE-NS PMX 500 100 100 mg In Saline 1 100ml.bag @ 100 mls/hr IVPB Q8HR JACI Rx#:[id number] Intake, IV Titration 95 75.833 76.083 Amount Cefepime 1 gm In Sodium 50 Chloride 0.9% 50 ml @ 12. 5 mls/hr IVPB Q12HR JACI Rx#:[id number] Diltiazem 125 mg In 95 75.833 26.083 Sodium Chloride 0.9% 100 ml @ Per Protocol IV .Q0M JACI Rx#:[id number] Blood Product 310 Rc As-1 Unit 310 [id number] Hemodialysis 600 Output: Urine 0 0 0 Hemodialysis 1050 Other: # Bowel Movements 1 1 - Labs CBC & Chem 7: 05/28/23 04:30 05/28/23 04:30 Labs: Abnormal Lab Results - Last 24 Hours (Table) 05/28/23 05/28/23 05/28/23 Range/Units 04:30 04:30 06:25 WBC 13.1 H (3.8-10.6) k/uL RBC 2.48 L (4.30-5.90) m/uL Hgb 6.9 L* (13.0-17.5) gm/dL Hct 22.3 L (39.0-53.0) % RDW 17.4 H (11.5-15.5) % Plt Count 63 L (150-450) k/uL Neutrophils # 11.8 H (1.3-7.7) k/uL Lymphocytes # 0.6 L (1.0-4.8) k/uL Sodium 132 L (137-145) mmol/L Chloride 97 L (98-107) mmol/L BUN 39 H (9-20) mg/dL Creatinine 2.79 H (0.66-1.25) mg/dL Calcium 8.2 L (8.4-10.2) mg/dL Total Protein 4.7 L (6.3-8.2) g/dL Albumin 2.0 L (3.5-5.0) g/dL Crossmatch See Detail Microbiology - Last 24 Hours (Table) 05/26/23 16:27 Blood Culture - Preliminary Blood
[2023-05-28 15:24] LABS: Anisocytosis Slight; HGB 8.2 gm/dL (13.0-17.5); Hypochromasia Moderate; MCH 28.6 pg (25.0-35.0); MCHC 32.9 g/dL (31.0-37.0); MCV 86.9 fL (80.0-100.0); Poikilocytosis Slight; RBC 2.88 m/uL (4.30-5.90); RDW 17.1 % (11.5-15.5); WBC 17.2 k/uL (3.8-10.6)
[2023-05-28 15:25] LABS: Platelet Count 68 k/uL (150-450)
[2023-05-28] MEDS: METOPROLOL TARTRATE 50 MG TAB PO SCH (20:34)
[2023-05-28] MEDS: QUEtiapine 25 MG TAB PO SCH (20:34)
[2023-05-28] MEDS: ATORVASTATIN 40 MG TAB PO SCH (20:34)
[2023-05-28] MEDS: ONDANSETRON 4 MG/2 ML VIAL IVP PRN (21:02)
[2023-05-28] MEDS: NOREPINEPHRINE 4 MG in SODIUM CHLORIDE 0.9% 250 ML IV SCH (21:37)
[2023-05-29] MEDS: metroNIDAZOLE-NS PMX 500 MG in SALINE 1 100ML.BAG IVPB SCH ×3 (00:16→15:52)
[2023-05-29 01:10] LABS: African American GFR (CKD) 22 (>60 ml/min/1.73 sqM); Anion Gap 9 mmol/L; Blood Urea Nitrogen 46 mg/dL (9-20); Calcium 8.7 mg/dL (8.4-10.2); Carbon Dioxide 26 mmol/L (22-30); Chloride 98 mmol/L (98-107); Glucose 94 mg/dL (74-99); Magnesium 1.9 mg/dL (1.6-2.3); Non-African American GFR(CKD) 19 (>60 ml/min/1.73 sqM); Sodium 133 mmol/L (137-145)
[2023-05-29] MEDS: DIVALPROEX 250 MG TABLET.DR PO SCH ×2 (06:23→18:00)
[2023-05-29] MEDS: MIDODRINE 5 MG TAB PO SCH ×3 (06:23→19:10)
[2023-05-29] MEDS: SEVELAMER 800 MG TAB PO SCH ×3 (06:23→18:00)
[2023-05-29 06:24] LABS: Anisocytosis Slight; Basophils % (A) 0 %; Eosinophils % (A) 0 %; HCT 24.6 % (39.0-53.0); HGB 7.8 gm/dL (13.0-17.5); Hypochromasia Marked; Lymphocytes # (A) 0.9 k/uL (1.0-4.8); Lymphocytes % (A) 7 %; MCH 28.5 pg (25.0-35.0); MCHC 31.5 g/dL (31.0-37.0); MCV 90.4 fL (80.0-100.0); Mean Platelet Volume 9.9; Monocytes # (A) 0.5 k/uL (0-1.0); Monocytes % (A) 4 %; Neutrophils # (A) 11.1 k/uL (1.3-7.7); Neutrophils % (A) 87 %; Platelet Count 74 k/uL (150-450); Poikilocytosis Slight; RBC 2.73 m/uL (4.30-5.90); WBC 12.8 k/uL (3.8-10.6)
[2023-05-29] MEDS: DILTIAZEM 125 MG in SODIUM CHLORIDE 0.9% 100 ML IV SCH (06:38)
[2023-05-29] MEDS: CEFEPIME 1 GM in SODIUM CHLORIDE 0.9% 50 ML IVPB SCH ×2 (08:14→20:47)
[2023-05-29] MEDS: METOPROLOL TARTRATE 50 MG TAB PO SCH ×2 (08:14→20:47)
[2023-05-29] MEDS: PANTOPRAZOLE 40 MG/10 ML VIAL IVP SCH ×2 (08:14→20:47)
[2023-05-29] MEDS: CHOLESTYRAMINE (WITH SUGAR) 4 GM PACKET PO SCH (08:15)
[2023-05-29] MEDS: FLUoxetine HCL 20 MG CAP PO SCH (08:16)
--- NOTE | 2023-05-29 10:33 | P.PN ---
Subjective Progress Note Date: 05/29/23 Principal diagnosis: Respiratory failure, hypotension. I am seeing this patient in consultation today 05/25/2023 in the intensive care unit after the patient was found to be hypotensive during the hemodialysis and transferred to the intensive care unit. Patient is a 67-year-old white male with past medical history significant for end-stage renal disease, hemodialysis maintain on a Tuesday, Tuesday, Tuesday schedule, congestive heart failure, paroxysmal atrial fibrillation anticoagulated on Eliquis, CVA/TIA, hyperlipidemia, hypertension, coronary artery disease, obstructive sleep apnea, among other things. Patient is currently a poor historian, not able to participate in HPI. Apparently, the patient has been refusing hemodialysis as his extended care facility. He became confused, and was sent into the emergency room 2 days ago. Apparently, on resuming patient's hemodialysis treatments the patient became hypotensive. He also was in atrial fibrillation with rapid ventricular ventricular rate he was started on a Cardizem infusion temporarily, and transferred to the intensive care unit last night. Patient was placed on when necessary Midodrine earlier in the day, does not look like his evening dose was given. The patient was temporarily started on norepinephrine infusion, which is currently on hold. Heart rate is better controlled. Cardizem is off. Patient is lying in bed, on 2 L/m nasal cannula, in no acute distress. He is confused. Chest CT this admission shows cardiomegaly and moderate right pleural effusion and atelectasis of the right middle lobe and lower lobes. 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 Dilated main pulmonary artery measuring 4.3 cm consistent with pulmonary arterial hypertension. An severe three-vessel coronary artery calcifications. Most recent CBC from yesterday shows a WBC count of 11, hemoglobin 8.8, hematocrit 28, platelets 69,000. Most recent BMP from yesterday shows a sodium 135, potassium 4.3, chloride 95, serum bicarb down to 17, BUN 119, creatinine 8.27, glucose 81. No IV maintenance fluids infusing. Troponins were elevated at 0.037, 0.047, 0.044 respectfully. NT proBNP elevated at 40,000. Patient was placed on empiric antibiotics for possible CAP. Remains afebrile. The patient will be monitored in the intensive care unit for now. Progress note dated 05/26/2023. 67-year-old black male, seen again in the intensive care unit, room 266. Yesterday, he had a change in his neurologic status. We will like gas, and a computed tomography scan of the brain, without contrast, as well as a neurology consultation. The patient apparently is also had an EEG. Blood gases show a PaO2 of 102, pCO2 46, and a pH is 7.4. Currently, the patient is on 2 L of oxygen. He is getting saline at 5 mL an hour. He did have hemodialysis yester day, May 25. In addition, for his hypotension, we added the midodrine, back at 10 mg 3 times a day. Currently he is much more awake and alert. Labs today include a white count of 10, hemoglobin 7.8, hematocrit 24.3, and a platelet count of 56,000. Sodium 132, potassium 3.2, chloride 95, CO2 23, BUN 59, creatinine 4.33. Blood cultures are showing evidence of gram-negative bacilli. Chest x-ray shows only a small right pleural effusion. The patient is currently on Rocephin and Flagyl. Progress note dated 05/27/2023. 67-year-old black male seen today in room 266. The patient is very lethargic. He does arouse, and he answers simple questions. Currently, he's on 2 L of oxygen. He's given Cardizem drip of 5 mg an hour, and saline at KVO. He continues on cefepime and Flagyl. The patient has had intermittent episodes of hypotension, requiring norepinephrine. The patient was to have hemodialysis today. White count 16.2, hemoglobin 7.5, hematocrit 23.6, with a platelet count a 62,000. Sodium 1:30, potassium 4.5, chlorides 95, CO2 22, anion gap 13, BUN 73, and creatinine 4.50. Blood cultures are positive for Povidencia. Progress note dated 05/28/2023. 67-year-old male seen in room 266. He currently is on room air. Saturations are 95%. The patient is in atrial fibrillation, with controlled rate. He continues on Cardizem 5 mg an hour, and saline at 10 mL an hour. The patient received 1 unit of packed red blood cells. He had hemodialysis yesterday, where 500 mL was removed. Clinically, he appears to be relatively stable. Currently labs include a white count 13.1, hemoglobin 6.9, hematocrit 22.3, and a platelet count a 63,000. Sodium 132, potassium 3.8, chlorides 97, CO2 27, BUN 39, and creatinine down to 2.79 from 4.50. Albumin is 2. Progress note dated 05/29/2023. 67-year-old male, seen today in room 266. He is currently now on room air. The patient is not receiving any IV fluids. The Cardizem drip was discontinued, and beta tracy was added. The patient is a Tuesday/Tuesday/Tuesday hemodialysis patient. The patient's blood pressure since being here in the unit, has been stable. White count is 12.8, hemoglobin 7.8, hematocrit 24.6, and platelet count 74,000. Objective - Vital Signs Vital signs: Vital Signs Temp 98.2 F 05/29/23 08:00 Pulse 89 05/29/23 08:00 Resp 19 05/29/23 08:00 BP 124/59 05/29/23 08:00 Pulse Ox 94 L 05/29/23 08:14 FiO2 Intake & Output 05/28/23 05/29/23 05/29/23 18:59 06:59 18:59 Intake Total 681.083 363.917 162.125 Output Total 0 0 Balance 681.083 363.917 162.125 Weight 87.8 kg Intake: IV 295 265 150 0.9 Normal Saline @ 5mL/ 95 115 hr Cefepime 1 gm In Sodium 50 50 Chloride 0.9% 50 ml @ 12. 5 mls/hr IVPB Q12HR JACI Rx#:[id number] metroNIDAZOLE-NS PMX 500 200 100 100 mg In Saline 1 100ml.bag @ 100 mls/hr IVPB Q8HR JACI Rx#:[id number] Intake, IV Titration 76.083 98.917 12.125 Amount Cefepime 1 gm In Sodium 50 Chloride 0.9% 50 ml @ 12. 5 mls/hr IVPB Q12HR JACI Rx#:[id number] Diltiazem 125 mg In 26.083 98.917 12.125 Sodium Chloride 0.9% 100 ml @ Per Protocol IV .Q0M JACI Rx#:[id number] Blood Product 310 Rc As-1 Unit 310 [id number] Output: Urine 0 0 Other: # Bowel Movements 1 1 - Exam No acute distress, oriented 3. Room air saturation 94 %. HEENT examination is grossly unremarkable. Mucous membranes are moist. No oral lesions. Neck supple. Full range of motion. No adenopathy thyromegaly or neck vein distention. Cardiovascular examination reveals an irregular rhythm and rate. S1-S2 normal. No S3 or S4. No discernible murmur noted. Heart rate is 89 bpm. Heart sounds are distant. Lungs reveal mostly clear breath sounds. Scattered crackles are noted. No wheezes or rhonchi. Breath sounds are equal bilaterally. Abdomen soft bowel sounds are heard. No masses or tenderness. Extremities are intact. No cyanosis clubbing or edema. Skin is without rash or lesion. Neurologic examination is brief but nonfocal. - Labs CBC & Chem 7: 05/29/23 05:14 05/28/23 23:35 Labs: Abnormal Lab Results - Last 24 Hours (Table) 05/28/23 05/28/23 05/28/23 Range/Units 06:25 14:45 23:35 WBC 17.2 H (3.8-10.6) k/uL RBC 2.88 L (4.30-5.90) m/uL Hgb 8.2 L (13.0-17.5) gm/dL Hct 25.0 L (39.0-53.0) % RDW 17.1 H (11.5-15.5) % Plt Count 68 L (150-450) k/uL Neutrophils # (1.3-7.7) k/uL Lymphocytes # (1.0-4.8) k/uL Sodium 133 L (137-145) mmol/L BUN 46 H (9-20) mg/dL Creatinine 3.30 H (0.66-1.25) mg/dL Crossmatch See Detail 05/29/23 Range/Units 05:14 WBC 12.8 H (3.8-10.6) k/uL RBC 2.73 L (4.30-5.90) m/uL Hgb 7.8 L (13.0-17.5) gm/dL Hct 24.6 L (39.0-53.0) % RDW 17.0 H (11.5-15.5) % Plt Count 74 L (150-450) k/uL Neutrophils # 11.1 H (1.3-7.7) k/uL Lymphocytes # 0.9 L (1.0-4.8) k/uL Sodium (137-145) mmol/L BUN (9-20) mg/dL Creatinine (0.66-1.25) mg/dL Crossmatch Microbiology - Last 24 Hours (Table) 05/26/23 16:27 Blood Culture - Preliminary Blood Assessment and Plan Assessment: Hypotension, resolved, likely secondary to volume depletion, and sepsis. End-stage renal disease, normally maintained on hemodialysis Tuesday, Tuesday, Tuesday. Gram-negative bacteremia, secondary to Providencia. Acute metabolic encephalopathy. Anion gap metabolic acidosis. Acute hypoxemic respiratory failure, improved. Obstructive sleep apnea, utilizes CPAP outpatient. Atrial fibrillation with rapid ventricular rate. Anemia of chronic disease. Thrombocytopenia. Decubitus pressure injury. Hyperlipidemia. History of CVA/TIA. Coronary artery disease. Plan: Plan dated 05/26/2023. The patient is seen in the intensive care unit. The patient's currently on 2 L of oxygen. The patient's getting saline at 5 mL an hour. The patient's blood gases showed a pO2 102, pCO2 46, and a pH is 7.40. The computed tomography scan of the brain showed nothing acute. The patient was seen by neurology. An EEG was ordered, but not interpreted as yet. The patient had hemodialysis yesterday. The patient continues on antibiotics. We will await the findings, as it relates to the gram-negative bacilli in the blood. The patient continues on Rocephin, and Flagyl. Prognosis is guarded. Plan dated 05/27/2023. The patient is seen today in room 266. He remains on 2 L of oxygen. He is currently on cefepime and Flagyl. Remains on Cardizem drip at 5 mg an hour. He is to have hemodialysis today. Blood cultures were positive for Providencia and, the patient is on cefepime and Flagyl. Addition, the patient has intermittent hypotension, and requires norepinephrine. The patient's along the way. Overall prognosis remains very guarded. Labs, x-rays, and all medications are reviewed. Plan dated 05/28/2023. 67-year-old black male seen in room 266. Currently is on room air. His saturations are adequate. Labs, x-rays, and medications are reviewed. The patient continues on a Cardizem drip at 5 mg an hour. He gets 1 unit of packed red blood cells for hemoglobin is below 7. He did have hemodialysis in May 27. He is also getting saline at 10 mL an hour. He continues on cefepime, and Flagyl, for his Providencia sepsis. We will continue to follow make recommendations along the way. Prognosis is guarded. Plan dated 05/29/2023. 67-year-old black male seen in room 266. He's currently on room air. He's not receiving any IV fluids. He is being treated for his infection. Currently, the Cardizem drip has been discontinued. Beta tracy has been added. He continues on cefepime. No hemodialysis, today or yesterday. We will continue to follow and make recommendations along the way. Prognosis is certainly guarded. Labs, x-rays, and medications are all reviewed. Time with Patient: Less than 30
--- NOTE | 2023-05-29 11:21 | P.PN ---
Subjective Patient is seen for follow-up for end-stage renal disease. Maintained on Tuesday schedule. Cardizem drip discontinued. Patient is awake. Patient has been confused on and off No major complaints. Objective - Vital Signs Vital signs: Vital Signs Temp 98.2 F 05/29/23 08:00 Pulse 89 05/29/23 08:00 Resp 19 05/29/23 08:00 BP 124/59 05/29/23 08:00 Pulse Ox 94 L 05/29/23 08:14 FiO2 Intake & Output 05/28/23 05/29/23 05/29/23 18:59 06:59 18:59 Intake Total 681.083 363.917 162.125 Output Total 0 0 Balance 681.083 363.917 162.125 Weight 87.8 kg Intake: IV 295 265 150 0.9 Normal Saline @ 5mL/ 95 115 hr Cefepime 1 gm In Sodium 50 50 Chloride 0.9% 50 ml @ 12. 5 mls/hr IVPB Q12HR [facility] Rx#:[id number] metroNIDAZOLE-NS PMX 500 200 100 100 mg In Saline 1 100ml.bag @ 100 mls/hr IVPB Q8HR JACI Rx#:[id number] Intake, IV Titration 76.083 98.917 12.125 Amount Cefepime 1 gm In Sodium 50 Chloride 0.9% 50 ml @ 12. 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 Confusion on and off - Labs CBC & Chem 7: 05/29/23 05:14 05/28/23 23:35 Labs: Abnormal Lab Results - Last 24 Hours (Table) 05/28/23 05/28/23 05/29/23 Range/Units 14:45 23:35 05:14 WBC 17.2 H 12.8 H (3.8-10.6) k/uL RBC 2.88 L 2.73 L (4.30-5.90) m/uL Hgb 8.2 L 7.8 L (13.0-17.5) gm/dL Hct 25.0 L 24.6 L (39.0-53.0) % RDW 17.1 H 17.0 H (11.5-15.5) % Plt Count 68 L 74 L (150-450) k/uL Neutrophils # 11.1 H (1.3-7.7) k/uL Lymphocytes # 0.9 L (1.0-4.8) k/uL Sodium 133 L (137-145) mmol/L BUN 46 H (9-20) mg/dL Creatinine 3.30 H (0.66-1.25) mg/dL Microbiology - Last 24 Hours (Table) 05/26/23 16:27 Blood Culture - Preliminary Blood Assessment and Plan Assessment: 1. End-stage renal disease maintained on hemodialysis on Tuesday schedule. 2. A. fib with RVR maintain on metoprolol and anticoagulation. Status post Cardizem drip 3. Anemia of chronic kidney disease. High ferritin noted. On Aranesp. Status post packed RBCs 4. Noncompliance with hemodialysis. 5. Hypertension with chronic kidney disease. Controlled. 6. Chronic kidney disease mineral bone disease maintained on Renvela. Phosphorus level 3.9 dated 05/25/2023. 7. Metabolic acidosis secondary to chronic kidney disease. Status post bicarb drip. Improved. 8. Chronic systolic CHF with ejection fraction of 40-45% with mild to moderate mitral regurgitation. Plan: Hemodialysis on 05/30/2023 Continue with midodrine.
--- NOTE | 2023-05-29 14:19 | P.PN ---
Subjective Progress Note Date: 05/28/23 Principal diagnosis: Gram-negative bacteremia Patient is a 67-year-old male with a past medical history significant for hypertension hyperlipidemia [place] end-stage renal disease on hemodialysis to the right arm AV fistula patient presenting to the hospital 3 days ago for e valuation of mental status changes, patient was noticed to have a positive blood culture with a drug-resistant Providencia probably this infectious disease consultation patient did have CT of abdominal pelvis with evidence of colitis On today's evaluation and that is 05/28/2023, the patient denies any fever or any chills, the patient is breathing comfortably on 2 L nasal cannula oxygen, the patient denies chest pain, shortness of breath and no significant cough, patient denies abdominal pain, no nausea/vomiting or diarrhea Patient white count was 17.2, creatinine 3.30 Objective - Vital Signs Vital signs: Vital Signs Temp 97.8 F 05/28/23 12:00 Pulse 94 05/28/23 12:00 Resp 20 05/28/23 12:00 BP 121/68 05/28/23 12:00 Pulse Ox 96 05/28/23 12:51 FiO2 Intake & Output 05/27/23 05/28/23 05/28/23 18:59 06:59 18:59 Intake Total 750 315.833 531.083 Output Total 1050 0 0 Balance -300 315.833 531.083 Weight 82.4 kg 88 kg Intake: IV 55 240 145 0.9 Normal Saline @ 5mL/ 55 90 45 hr Cefepime 1 gm In Sodium 50 Chloride 0.9% 50 ml @ 12. 5 mls/hr IVPB Q12HR [facility] Rx#:[id number] metroNIDAZOLE-NS PMX 500 100 100 mg In Saline 1 100ml.bag @ 100 mls/hr IVPB Q8HR [facility]I Rx#:[id number] Intake, IV Titration 95 75.833 76.083 Amount Cefepime 1 gm In Sodium 50 Chloride 0.9% 50 ml @ 12. 5 mls/hr IVPB Q12HR [facility] Rx#:[id number] Diltiazem 125 mg In 95 75.833 26.083 Sodium Chloride 0.9% 100 ml @ Per Protocol IV .Q0M [facility] Rx#:[id number] Blood Product 310 Rc As-1 Unit 310 [id number] Hemodialysis 600 Output: Urine 0 0 0 Hemodialysis 1050 Other: # Bowel Movements 1 1 - Exam GENERAL DESCRIPTION: An elderly male lying in bed in no distress RESPIRATORY SYSTEM: Unlabored breathing , decreased breath sounds at bases HEART: S1 S2 regular rate and rhythm , ABDOMEN: Soft , mild distention EXTREMITIES: No edema feet - Labs CBC & Chem 7: 05/29/23 05:14 05/28/23 23:35 Labs: Abnormal Lab Results - Last 24 Hours (Table) 05/28/23 05/28/23 05/28/23 Range/Units 04:30 04:30 06:25 WBC 13.1 H (3.8-10.6) k/uL RBC 2.48 L (4.30-5.90) m/uL Hgb 6.9 L* (13.0-17.5) gm/dL Hct 22.3 L (39.0-53.0) % RDW 17.4 H (11.5-15.5) % Plt Count 63 L (150-450) k/uL Neutrophils # 11.8 H (1.3-7.7) k/uL Lymphocytes # 0.6 L (1.0-4.8) k/uL Sodium 132 L (137-145) mmol/L Chloride 97 L (98-107) mmol/L BUN 39 H (9-20) mg/dL Creatinine 2.79 H (0.66-1.25) mg/dL Calcium 8.2 L (8.4-10.2) mg/dL Total Protein 4.7 L (6.3-8.2) g/dL Albumin 2.0 L (3.5-5.0) g/dL Crossmatch See Detail Microbiology - Last 24 Hours (Table) 05/26/23 16:27 Blood Culture - Preliminary Blood Assessment and Plan (1) Gram-negative bacteremia Current Visit: Yes Status: Acute Code(s): R78.81 - BACTEREMIA SNOMED Code(s): 750420018074 (2) Colitis Current Visit: Yes Status: Acute Code(s): K52.9 - NONINFECTIVE GASTROENTERITIS AND COLITIS, UNSPECIFIED SNOMED Code(s): 58272365 Plan: 1patient with the providencia bacteremia with the source questionably abdominal versus pneumonia as there was evidence of moderate right-sided effusion and some infiltrate on the CT of the chest and the patient did have mild abdominal distention however no significant tenderness was noticed 2-blood cultures has been repeated document clearance of his bacteremia 3-patient did have CT abdominal pelvis with oral contrast only, with evidence of colitis possible source of bacteremia 4-we will continue the patient on cefepime 1 g every 12 hours and Flagyl and monitor clinical course closely Dictation was produced using [employer] dictation software. please excuse any grammatical, word or spelling errors.
--- NOTE | 2023-05-29 14:21 | P.PN ---
Subjective Progress Note Date: 05/29/23 Principal diagnosis: Gram-negative bacteremia Patient is a 67-year-old male with a past medical history significant for hypertension hyperlipidemia [place] end-stage renal disease on hemodialysis to the right arm AV fistula patient presenting to the hospital 3 days ago for e valuation of mental status changes, patient was noticed to have a positive blood culture with a drug-resistant Providencia probably this infectious disease consultation patient did have CT of abdominal pelvis with evidence of colitis On today's evaluation and that is 05/29/2023, the patient remains to be afebrile, the patient is breathing comfortably on room air without the need for supplemental oxygen , the patient denies chest pain or cough, patient has been complaining of some nausea no vomiting and some abdominal pain unable to quantify it any further Patient white count is down to 12.8, creatinine 3.30 Objective - Vital Signs Vital signs: Vital Signs Temp 98 F 05/29/23 12:00 Pulse 98 05/29/23 12:00 Resp 19 05/29/23 12:00 BP 117/56 05/29/23 12:00 Pulse Ox 96 05/29/23 12:00 FiO2 Intake & Output 05/28/23 05/29/23 05/29/23 18:59 06:59 18:59 Intake Total 681.083 363.917 162.125 Output Total 0 0 Balance 681.083 363.917 162.125 Weight 87.8 kg Intake: IV 295 265 150 0.9 Normal Saline @ 5mL/ 95 115 hr Cefepime 1 gm In Sodium 50 50 Chloride 0.9% 50 ml @ 12. 5 mls/hr IVPB Q12HR [facility] Rx#:[id number] metroNIDAZOLE-NS PMX 500 200 100 100 mg In Saline 1 100ml.bag @ 100 mls/hr IVPB Q8HR [facility] Rx#:[id number] Intake, IV Titration 76.083 98.917 12.125 Amount Cefepime 1 gm In Sodium 50 Chloride 0.9% 50 ml @ 12. 5 mls/hr IVPB Q12HR [facility] Rx#:[id number] Diltiazem 125 mg In 26.083 98.917 12.125 Sodium Chloride 0.9% 100 ml @ Per Protocol IV .Q0M [facility] Rx#:[id number] Blood Product 310 Rc As-1 Unit 310 [id number] Output: Urine 0 0 Other: # Bowel Movements 1 1 - Exam GENERAL DESCRIPTION: An elderly male lying in bed in no distress RESPIRATORY SYSTEM: Unlabored breathing , decreased breath sounds at bases HEART: S1 S2 regular rate and rhythm , ABDOMEN: Soft , mild distention EXTREMITIES: No edema feet - Labs CBC & Chem 7: 05/29/23 05:14 05/28/23 23:35 Labs: Abnormal Lab Results - Last 24 Hours (Table) 05/28/23 05/28/23 05/29/23 Range/Units 14:45 23:35 05:14 WBC 17.2 H 12.8 H (3.8-10.6) k/uL RBC 2.88 L 2.73 L (4.30-5.90) m/uL Hgb 8.2 L 7.8 L (13.0-17.5) gm/dL Hct 25.0 L 24.6 L (39.0-53.0) % RDW 17.1 H 17.0 H (11.5-15.5) % Plt Count 68 L 74 L (150-450) k/uL Neutrophils # 11.1 H (1.3-7.7) k/uL Lymphocytes # 0.9 L (1.0-4.8) k/uL Sodium 133 L (137-145) mmol/L BUN 46 H (9-20) mg/dL Creatinine 3.30 H (0.66-1.25) mg/dL Microbiology - Last 24 Hours (Table) 05/26/23 16:27 Blood Culture - Preliminary Blood Assessment and Plan (1) Gram-negative bacteremia Current Visit: Yes Status: Acute Code(s): R78.81 - BACTEREMIA SNOMED Co de(s): 825906352822 (2) Colitis Current Visit: Yes Status: Acute Code(s): K52.9 - NONINFECTIVE GASTROENTERITIS AND COLITIS, UNSPECIFIED SNOMED Code(s): 86019943 Plan: 1patient with the providencia bacteremia with the source questionably abdominal versus pneumonia as there was evidence of moderate right-sided effusion and some infiltrate on the CT of the chest and the patient did have mild abdominal distention however no significant tenderness was noticed 2-blood cultures has been repeated document clearance of his bacteremia 3-patient did have CT abdominal pelvis with oral contrast only, with evidence of colitis possible source of bacteremia 4-the patient is afebrile the patient white count is trending down, continue patient on cefepime 1 g every 12 hours and Flagyl and monitor clinical course closely Dictation was produced using [email or web address] dictation software. please excuse any grammatical, word or spelling errors. Time with Patient: Less than 30
--- NOTE | 2023-05-29 15:55 | CT ---
EXAMINATION TYPE: CT brain wo con DATE OF EXAM: 05/29/2023 COMPARISON: 05/25/2023 HISTORY: AMS, r/o CVA CT DLP: 1159.4 mGycm Automated exposure control for dose reduction was used. FINDINGS: The ventricles, basal cisterns and sulci over convexities are moderately to markedly enlarged consist ent with moderate to marked atrophy. There is marked decreased density in the deep periventricular white matter consistent with chronic is chemic white matter demyelination. There is a small remote lacunar infarct in the right basal ganglia . There are remote white matter infarcts in the occipital lobe white matter. There is a small acute t o subacute cortical and subcortical infarct in the left occipital lobe adjacent to the atria of the l eft lateral ventricle. There is no acute intra or extra-axial hemorrhage. There is no mass effect or shift of the midline structures. Posterior fossa including the brainstem, fourth ventricle and cerebellar pontine angles appear normal . Intraorbital contents appear normal and symmetric. Visualized paranasal sinuses and mastoid air cells are well aerated. IMPRESSION: 1. Moderate to marked atrophy. 2. Moderate to marked chronic ischemic white matter demyelination. 3. Small remote lacunar infarct in the right basal ganglia. 4. Remote occipital white matter infarcts. 5. small acute to subacute cortical and subcortical infarct in the left occipital lobe adjacent to th e atria the left lateral ventricle 6. No acute bleed or mass effect. IMPRESSION:
--- NOTE | 2023-05-29 18:45 | P.PN ---
Subjective Progress Note Date: 05/29/23 PROGRESS NOTE The patient is a 67-year-old male with known history of end-stage renal disease, atrial fibrillation, aneurysmal coronary arteries, hyperlipidemia who has missed his dialysis and presented with symptoms of progressive dyspnea. Last night he became hypotensive, was started on norepinephrine and subsequently transferred to the ICU. He is awake, confused and combative this morning. His blood pressure is stable. He is in atrial fibrillation. He has a prior history of ablation in paroxysmal atrial fibrillation. He is scheduled to undergo dialysis today. In the past his ejection fraction was 55-60. May 26: The patient is drowsy this morning. He continues to be confused during the night. He continues to be in atrial fibrillation with episodes of rapid ventricle response, he is nothing by mouth and receiving IV beta tracy. He is undergoing an EEG. He underwent dialysis yesterday. There is no evidence of ventricular ectopic activity. He is off norepinephrine. His echocardiogram showed an ejection fraction of 40-45% with mild pulmonary hypertension and [id number] mitral regurgitation. May 27: The patient is sleepy. He has been started on IV Cardizem because of persistent atrial fibrillation with rapid ventricle response. His blood pressure is stable. He is scheduled to undergo dialysis today. He has not been anticoagulated because of anemia and positive blood in the stool. He has thrombocytopenia. He continues to be on IV beta tracy. He underwent an abdominal computed tomography scan, the results are pending 05/28/23 Patient is laying in bed, awake. He is tolerating oral diet and has been started on oral medications. He was noticed to be anemic with hemoglobin of 6.9 today. Yesterday 7.5. He is status post 1 unit of blood transfusion. Stools Hem +ve Creatinine is much better as compared to yesterday 2.79 today yesterday 4.5 BP 129/52, heart rate 96 beats a minute Continues to be atrial fibrillation on telemetry 05/29/23 Patient is laying in bed tolerating oral diet and oral medications. Hemoglobin 7.8 today, 0.3. PHYSICAL EXAMINATION: LUNGS: Clear to auscultation anteriorly HEART: Irregular rate and rhythm, S1, S2. No S3. Systolic ejection murmur ABDOMEN: Soft, nontender, no organomegaly EXTREMETIES: No edema IMPRESSION: 1. End-stage renal disease, noncompliant with dialysis 2. Atrial fibrillation with episodes of rapid ventricle response 3. Hypotension, improving 4. History of aneurysmal coronary arteries 5. Status post atrial fibrillation ablation 6. Hyperlipidemia 7. Change in mental status PLAN: Off Cardizem drip. Metoprolol 50 mg twice a day. Patient is not a candidate for systemic anticoagulation due to Hemoccult positive stools, anemia and cytopenia 2. Dialysis as per nephro 3. Follow mental status 4. Prognosis is guarded Objective - Vital Signs Vital signs: Vital Signs Temp 98 F 05/29/23 12:00 Pulse 93 05/29/23 16:00 Resp 17 05/29/23 16:00 BP 134/59 05/29/23 16:00 Pulse Ox 96 05/29/23 12:00 FiO2 Intake & Output 05/28/23 05/29/23 05/29/23 18:59 06:59 18:59 Intake Total 681.083 363.917 262.125 Output Total 0 0 0 Balance 681.083 363.917 262.125 Weight 87.8 kg Intake: IV 295 265 250 0.9 Normal Saline @ 5mL/ 95 115 hr Cefepime 1 gm In Sodium 50 50 Chloride 0.9% 50 ml @ 12. 5 mls/hr IVPB Q12HR JACI Rx#:[id number] metroNIDAZOLE-NS PMX 500 200 100 200 mg In Saline 1 100ml.bag @ 100 mls/hr IVPB Q8HR JACI Rx#:[id number] Intake, IV Titration 76.083 98.917 12.125 Amount Cefepime 1 gm In Sodium 50 Chloride 0.9% 50 ml @ 12. 5 mls/hr IVPB Q12HR JACI Rx#:[id number] Diltiazem 125 mg In 26.083 98.917 12.125 Sodium Chloride 0.9% 100 ml @ Per Protocol IV .Q0M JACI Rx#:[id number] Blood Product 310 Rc As-1 Unit 310 [id number] Output: Urine 0 0 0 Other: # Bowel Movements 1 1 - Labs CBC & Chem 7: 05/29/23 05:14 05/28/23 23:35 Labs: Abnormal Lab Results - Last 24 Hours (Table) 05/28/23 05/29/23 Range/Units 23:35 05:14 WBC 12.8 H (3.8-10.6) k/uL RBC 2.73 L (4.30-5.90) m/uL Hgb 7.8 L (13.0-17.5) gm/dL Hct 24.6 L (39.0-53.0) % RDW 17.0 H (11.5-15.5) % Plt Count 74 L (150-450) k/uL Neutrophils # 11.1 H (1.3-7.7) k/uL Lymphocytes # 0.9 L (1.0-4.8) k/uL Sodium 133 L (137-145) mmol/L BUN 46 H (9-20) mg/dL Creatinine 3.30 H (0.66-1.25) mg/dL Microbiology - Last 24 Hours (Table) 05/26/23 16:27 Blood Culture - Preliminary Blood
[2023-05-29] MEDS: NOREPINEPHRINE 4 MG in SODIUM CHLORIDE 0.9% 250 ML IV SCH (19:35)
[2023-05-29] MEDS: ATORVASTATIN 40 MG TAB PO SCH (20:47)
[2023-05-29] MEDS: QUEtiapine 25 MG TAB PO SCH (20:47)
--- NOTE | 2023-05-29 22:41 | PN ---
PROGRESS NOTE SUBJECTIVE: Currently on room air, Cardizem drip discontinued. Beta tracy was added. Patient is on Tuesday, Tuesday, Tuesday hemodialysis. Blood pressure is stable. White count is 12.8, hemoglobin 7.8, platelets 74,000. OBJECTIVE: VITAL SIGNS: Temp 98.2, pulse 89, respiratory rate 18, blood pressure 124/90, O2 of 94%. CARDIOVASCULAR: S1, S2. LUNGS: Clear. GI: Soft. HEMATOLOGY: Negative Homans. PSYCH: Fair mood and affect. LABORATORY DATA: Hemoglobin is 7.8, white count is 12.8, platelets 74. His BUN is 46, creatinine is 3.3, hemoglobin is 8.2. Treating for infection. He is on Cardizem drip. He has been on beta blockers. Prognosis guarded. MMODL / IJN: [id number] /
[2023-05-30] MEDS: metroNIDAZOLE-NS PMX 500 MG in SALINE 1 100ML.BAG IVPB SCH ×3 (00:34→15:36)
[2023-05-30 05:58] LABS: Anisocytosis Slight; Basophils % (A) 0 %; Eosinophils % (A) 0 %; HCT 26.8 % (39.0-53.0); Hypochromasia Marked; Lymphocytes # (A) 0.5 k/uL (1.0-4.8); Lymphocytes % (A) 4 %; MCH 27.6 pg (25.0-35.0); MCV 92.3 fL (80.0-100.0); Mean Platelet Volume 9.9; Monocytes # (A) 0.3 k/uL (0-1.0); Monocytes % (A) 3 %; Neutrophils # (A) 10.6 k/uL (1.3-7.7); Neutrophils % (A) 92 %; Poikilocytosis Slight; RBC 2.91 m/uL (4.30-5.90); RDW 17.3 % (11.5-15.5); WBC 11.4 k/uL (3.8-10.6)
[2023-05-30 06:00] LABS: Platelet Count 75 k/uL (150-450)
[2023-05-30 06:08] LABS: African American GFR (CKD) 17 (>60 ml/min/1.73 sqM); Anion Gap 11 mmol/L; Blood Urea Nitrogen 50 mg/dL (9-20); Calcium 8.9 mg/dL (8.4-10.2); Carbon Dioxide 24 mmol/L (22-30); Chloride 99 mmol/L (98-107); Glucose 82 mg/dL (74-99); Non-African American GFR(CKD) 14 (>60 ml/min/1.73 sqM); Potassium 3.7 mmol/L (3.5-5.1); Sodium 134 mmol/L (137-145)
[2023-05-30] MEDS: DIVALPROEX 250 MG TABLET.DR PO SCH ×2 (06:19→18:11)
[2023-05-30] MEDS: MIDODRINE 5 MG TAB PO SCH ×3 (06:19→15:36)
[2023-05-30] MEDS: SEVELAMER 800 MG TAB PO SCH ×4 (06:20→18:11)
[2023-05-30] MEDS: FLUoxetine HCL 20 MG CAP PO SCH (08:24)
[2023-05-30] MEDS: CEFEPIME 1 GM in SODIUM CHLORIDE 0.9% 50 ML IVPB SCH ×2 (08:24→20:46)
[2023-05-30] MEDS: PANTOPRAZOLE 40 MG/10 ML VIAL IVP SCH ×2 (08:24→20:47)
[2023-05-30] MEDS: CHOLESTYRAMINE (WITH SUGAR) 4 GM PACKET PO SCH (08:25)
[2023-05-30] MEDS: METOPROLOL TARTRATE 50 MG TAB PO SCH ×2 (08:25→20:44)
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
--- NOTE | 2023-05-30 09:53 | P.PN ---
Subjective Progress Note Date: 05/30/23 I am seeing this patient in consultation today 05/25/2023 in the intensive care unit after the patient was found to be hypotensive during the hemodialysis and transferred to the intensive care unit. Patient is a 67-year-old white male with past medical history significant for end-stage renal disease, hemodialysis maintain on a Tuesday, Tuesday, Tuesday schedule, congestive heart failure, paroxysmal atrial fibrillation anticoagulated on Eliquis, CVA/TIA, hyperlipidemia, hypertension, coronary artery disease, obstructive sleep apnea, among other things. Patient is currently a poor historian, not able to participate in HPI. Apparently, the patient has been refusing hemodialysis as his extended care facility. He became confused, and was sent into the emergency room 2 days ago. Apparently, on resuming patient's hemodialysis treatments the patient became hypotensive. He also was in atrial fibrillation with rapid ventricular ventricular rate he was started on a Cardizem infusion temporarily, and transferred to the intensive care unit last night. Patient was placed on when necessary Midodrine earlier in the day, does not look like his evening dose was given. The patient was temporarily started on norepinephrine infusion, which is currently on hold. Heart rate is better controlled. Cardizem is off. Patient is lying in bed, on 2 L/m nasal cannula, in no acute distress. He is confused. Chest CT this admission shows cardiomegaly and moderate right pleural effusion and atelectasis of the right middle lobe and lower lobes. 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 Dilated main pulmonary artery measuring 4.3 cm consistent with pulmonary arterial hypertension. An severe three-vessel coronary artery calcifications. Most recent CBC from yesterday shows a WBC count of 11, hemoglobin 8.8, hematocrit 28, platelets 69,000. Most recent BMP from yesterday shows a sodium 135, potassium 4.3, chloride 95, serum bicarb down to 17, BUN 119, creatinine 8.27, glucose 81. No IV maintenance fluids infusing. Troponins were elevated at 0.037, 0.047, 0.044 respectfully. NT proBNP elevated at 40,000. Patient was placed on empiric antibiotics for possible CAP. Remains afebrile. The patient will be monitored in the intensive care unit for now. Progress note dated 05/26/2023. 67-year-old black male, seen again in the intensive care unit, room 266. Yesterday, he had a change in his neurologic status. We will like gas, and a computed tomography scan of the brain, without contrast, as well as a neurology consultation. The patient apparently is also had an EEG. Blood gases show a PaO2 of 102, pCO2 46, and a pH is 7.4. Currently, the patient is on 2 L of oxygen. He is getting saline at 5 mL an hour. He did have hemodialysis yesterday, May 25. In addition, for his hypotension, we added the midodrine, back at 10 mg 3 times a day. Currently he is much more awake and alert. Labs today include a white count of 10, hemoglobin 7.8, hematocrit 24.3, and a platelet count of 56,000. Sodium 132, potassium 3.2, chloride 95, CO2 23, BUN 59, creatinine 4.33. Blood cultures are showing evidence of gram-negative bacilli. Chest x-ray shows only a small right pleural effusion. The patient is currently on Rocephin and Flagyl. Progress note dated 05/27/2023. 67-year-old black male seen today in room 266. The patient is very lethargic. He does arouse, and he answers simple questions. Currently, he's on 2 L of oxygen. He's given Cardizem drip of 5 mg an hour, and saline at KVO. He continues on cefepime and Flagyl. The patient has had intermittent episodes of hypotension, requiring norepinephrine. The patient was to have hemodialysis today. White count 16.2, hemoglobin 7.5, hematocrit 23.6, with a platelet count a 62,000. Sodium 1:30, potassium 4.5, chlorides 95, CO2 22, anion gap 13, BUN 73, and creatinine 4.50. Blood cultures are positive for Povidencia. Progress note dated 05/28/2023. 67-year-old male seen in room 266. He currently is on room air. Saturations are 95%. The patient is in atrial fibrillation, with controlled rate. He continues on Cardizem 5 mg an hour, and saline at 10 mL an hour. The patient received 1 unit of packed red blood cells. He had hemodialysis yesterday, where 500 mL was removed. Clinically, he appears to be relatively stable. Currently labs include a white count 13.1, hemoglobin 6.9, hematocrit 22.3, and a platelet count a 63,000. Sodium 132, potassium 3.8, chlorides 97, CO2 27, BUN 39, and creatinine down to 2.79 from 4.50. Albumin is 2. Progress note dated 05/29/2023. 67-year-old male, seen today in room 266. He is currently now on room air. The patient is not receiving any IV fluids. The Cardizem drip was discontinued, and beta tracy was added. The patient is a Tuesday/Tuesday/Tuesday hemodialysis patient. The patient's blood pressure since being here in the unit, has been stable. White count is 12.8, hemoglobin 7.8, hematocrit 24.6, and platelet count 74,000. On today's evaluation of 05/30/2023, the patient is resting comfortably on room air oxygen. Is undergoing hemodialysis. Note that his oxygen is improved and the patient was treated with fluid overload/CHF/pulmonary edema and he is currently back on room air oxygen. His last chest x-ray was done on 05/26/2023 and it was consistent with cardiomegaly and CHF. He also has end-stage renal disease and the patient is currently on hemodialysis 3 times a week Wednesdays and Fridays. His current cardiac rhythm is atrial fibrillation with a controlled rate. Hemodynamically stable on no pressors. In terms of his atrial fibrillation, the patient is metoprolol 50 mg by mouth twice a day. The patient is off Cardizem. The patient is also off anticoagulation with Eliquis due to a low hemoglobin and possibility of a bleed. His most recent ec hocardiogram from 05/24/2023 has shown 11 tender ejection fraction of 40-45%, mild aortic stenosis, [id number] mitral regurgitation. He is also known to haveCoronary artery disease. He has previous history of CVA and chronic A. fib, hypertension, along with an incisional disease. During this current admission, the patient was also found to be septic with a possible culture with gram-negative bacteria/Covid dentia and currently is on IV cefepime. Based on the possible culture with gram-negative bacteria, the patient was given a CAT scan of the abdomen that showed fluid overload/CHF along with generalized anasarca. There was also a moderate right and a small left-sided pleural effus ion along with cardiomegaly and extensive triple-vessel coronary calcification. There was moderate circumferential wall thickening in the mid and the distal sigmoid colon and rectum consistent with distal colitis. No abscess or free air. There was additional moderate circumferential bladder wall thickening obviously raising the suspicion for cystitis. The white second Cardizem 11.4, hemoglobin is at 8 and a platelet count of 75. BUN is at 50 with a creatinine of 4.08. Sodium is at 138. He continues to be encephalopathic and confused. Most recent CAT scan of the brain that was done on 05/29/2023 which is essentially yesterday showed moderate to marked atrophy, moderate chronic ischemic white matter demyelination and small to/remote lacunar infarct in the right basal ganglia and remote occipital infarct. There was also small acute to subacute cortical/subcortical infarct and left occipital lobe of the brain adjacent to the left lateral ventricle. No evidence of any bleeding. Objective - Vital Signs Vital signs: Vital Signs Temp 97.8 F 05/30/23 08:00 Pulse 101 H 05/30/23 08:00 Resp 15 05/30/23 08:00 BP 102/64 05/30/23 08:00 Pulse Ox 91 L 05/30/23 08:00 FiO2 Intake & Output 05/29/23 05/30/23 05/30/23 18:59 06:59 18:59 Intake Total 262.125 200 150 Output Total 0 0 Balance 262.125 200 150 Weight 87.2 kg Intake: IV 250 200 100 Cefepime 1 gm In Sodium 50 Chloride 0.9% 50 ml @ 12. 5 mls/hr IVPB Q12HR JACI Rx#:[id number] Cefepime 2 gm In Sodium 100 Chloride 0.9% 100 ml @ 200 mls/hr IVPB ONCE STA Rx#:[id number] metroNIDAZOLE-NS PMX 500 200 100 100 mg In Saline 1 100ml.bag @ 100 mls/hr IVPB Q8HR JACI Rx#:[id number] Intake, IV Titration 12.125 50 Amount Cefepime 1 gm In Sodium 50 Chloride 0.9% 50 ml @ 12. 5 mls/hr IVPB Q12HR JACI Rx#:[id number] Diltiazem 125 mg In 12.125 Sodium Chloride 0.9% 100 ml @ Per Protocol IV .Q0M JACI Rx#:[id number] Output: Urine 0 0 - Exam . Gen. appearance the patient is encephalopathic, lethargic, laying comfortably in bed currently on room air oxygen. HEENT examination is grossly unremarkable. Mucous membranes are moist. No oral lesions. Neck supple. Full range of motion. No adenopathy thyromegaly or neck vein distention. Cardiovascular examination reveals an irregular rhythm and rate. S1-S2 normal. No S3 or S4. No discernible murmur noted. . Heart sounds are distant. Lungs reveal mostly clear breath sounds. Scattered crackles are noted. No wheezes or rhonchi. Breath sounds are equal bilaterally. Abdomen soft bowel sounds are heard. No masses or tenderness. Extremities are intact. No cyanosis clubbing or edema. Skin is without rash or lesion. Neurologic examination is brief but nonfocal. - Labs CBC & Chem 7: 05/30/23 04:02 05/30/23 04:02 Labs: Abnormal Lab Results - Last 24 Hours (Table) 05/30/23 05/30/23 Range/Units 04:02 04:02 WBC 11.4 H (3.8-10.6) k/uL RBC 2.91 L (4.30-5.90) m/uL Hgb 8.0 L (13.0-17.5) gm/dL Hct 26.8 L (39.0-53.0) % MCHC 30.0 L (31.0-37.0) g/dL RDW 17.3 H (11.5-15.5) % Plt Count 75 L (150-450) k/uL Neutrophils # 10.6 H (1.3-7.7) k/uL Lymphocytes # 0.5 L (1.0-4.8) k/uL Sodium 134 L (137-145) mmol/L BUN 50 H (9-20) mg/dL Creatinine 4.08 H (0.66-1.25) mg/dL Microbiology - Last 24 Hours (Table) 05/26/23 16:27 Blood Culture - Preliminary Blood Assessment and Plan Plan: Encephalopathy, multifactorial. The patient has a component of metabolic encephalopathy and septic encephalopathy. At the same time the patient has multi infarcts as noted and the most recent CAT scan of the brain in addition to new acute/subacute include left occipital infarct and chronic generalized atrophy and remote lacunar infarct. Gram-negative sepsis with providencia , currently on IV cefepime and the patient is also on Flagyl suspecting underlying colitis/sigmoid colitis as evidenced on the CAT scan of the abdomen. Hypotension, resolved, likely secondary to volume depletion, and sepsis. End-stage renal disease, normally maintained on hemodialysis Tuesday, Tuesday, Tuesday. The patient is currently undergoing hemodialysis Anion gap metabolic acidosis, improving and the serum bicarb is currently at 24 Acute hypoxemic respiratory failure, improved. The patient is currently on room air oxygen Obstructive sleep apnea, utilizes CPAP outpatient. Atrial fibrillation with rapid ventricular rate. The patient is currently off anticoagulants Anemia of chronic disease. Hemoglobin is stable at 8.0 Thrombocytopenia. The platelet counts are improving is currently up to 75 Decubitus pressure injury. Hyperlipidemia. History of CVA/TIA. Coronary artery disease. CHF with mild impairment of LV function with an ejection fraction of 40-45% Plan: The patient remains encephalopathic. As stated, this could be multifactorial. I would like to consult neurology again and get a clearance to restart the patient anticoagulation special with his ongoing A. fib and multiple infarct as seen on the CAT scan of the brain. The patient's is currently undergoing hem odialysis. We'll continue the IV cefepime. Will continue IV Flagyl. He is on no pressors for now. Platelet counts are improving. Hemoglobin is stable. No signs of any cardiomyopathy. Repeat a chest x-ray as the patient's last chest x-ray was done on 05/26/2023. We'll evaluate his mental status following his dialysis. Will be kept in the ICU for now. He remains itchy fibrillation. Condition is still critical. He remains a full code.
--- NOTE | 2023-05-30 10:50 | PN ---
PROGRESS NOTE Type 2 [place] secondary to sepsis. MMODL / IJN: [id number] /
--- NOTE | 2023-05-30 11:25 | P.PN ---
Subjective Patient is seen for follow-up for end-stage renal disease. Maintained on Tuesday schedule. Cardizem drip discontinued. Patient is awake. Patient is seen on hemodialysis. Tolerating his treatment well. Objective - Vital Signs Vital signs: Vital Signs Temp 97.8 F 05/30/23 08:00 Pulse 101 H 05/30/23 08:00 Resp 15 05/30/23 08:00 BP 102/64 05/30/23 08:00 Pulse Ox 91 L 05/30/23 08:00 FiO2 Intake & Output 05/29/23 05/30/23 05/30/23 18:59 06:59 18:59 Intake Total 262.125 200 150 Output Total 0 0 Balance 262.125 200 150 Weight 87.2 kg Intake: IV 250 200 100 Cefepime 1 gm In Sodium 50 Chloride 0.9% 50 ml @ 12. 5 mls/hr IVPB Q12HR [facility] Rx#:[id number] Cefepime 2 gm In Sodium 100 Chloride 0.9% 100 ml @ 200 mls/hr IVPB ONCE [facility] Rx#:[id number] metroNIDAZOLE-NS PMX 500 200 100 100 mg In Saline 1 100ml.bag @ 100 mls/hr IVPB Q8HR [facility] Rx#:[id number] Intake, IV Titration 12.125 50 Amount Cefepime 1 gm In Sodium 50 Chloride 0.9% 50 ml @ 12. 5 mls/hr IVPB Q12HR [facility] Rx#:[id number] Diltiazem 125 mg In 12.125 Sodium Chloride 0.9% 100 ml @ Per Protocol IV .Q0M [facility] Rx#:[id number] Output: Urine 0 0 - Exam Awake, no acute distress Abdomen is soft nontender Examination lower extremity shows no significant edema OTOLARYNGOLOGY SURGEON exam shows patient is moving all 4 extremities. Confusion on and off - Labs CBC & Chem 7: 05/30/23 04:02 05/30/23 04:02 Labs: Abnormal Lab Results - Last 24 Hours (Table) 05/30/23 05/30/23 Range/Units 04:02 04:02 WBC 11.4 H (3.8-10.6) k/uL RBC 2.91 L (4.30-5.90) m/uL Hgb 8.0 L (13.0-17.5) gm/dL Hct 26.8 L (39.0-53.0) % MCHC 30.0 L (31.0-37.0) g/dL RDW 17.3 H (11.5-15.5) % Plt Count 75 L (150-450) k/uL Neutrophils # 10.6 H (1.3-7.7) k/uL Lymphocytes # 0.5 L (1.0-4.8) k/uL Sodium 134 L (137-145) mmol/L BUN 50 H (9-20) mg/dL Creatinine 4.08 H (0.66-1.25) mg/dL Microbiology - Last 24 Hours (Table) 05/26/23 16:27 Blood Culture - Preliminary Blood Assessment and Plan Assessment: 1. End-stage renal disease maintained on hemodialysis on Tuesday schedule. 2. A. fib with RVR maintain on metoprolol and anticoagulation. Status post Cardizem drip 3. Anemia of chronic kidney disease. High ferritin noted. On Aranesp. Status post packed RBCs 4. Noncompliance with hemodialysis. 5. Hypertension with chronic kidney disease. Controlled. 6. Chronic kidney disease mineral bone disease maintained on Renvela. Phosphorus level 3.9 dated 05/25/2023. 7. Metabolic acidosis secondary to chronic kidney disease. Status post bicarb drip. Improved. 8. Chronic systolic CHF with ejection fraction of 40-45% with mild to moderate mitral regurgitation. Plan: Hemodialysis today Replace potassium Continue with midodrine.
--- NOTE | 2023-05-30 14:07 | XR ---
EXAMINATION TYPE: XR chest 1V portable DATE OF EXAM: 05/30/2023 1:21 PM CLINICAL INDICATION:Male, 67 years old with history of chf; COMPARISON: Chest radiographs from 05/26/2023. TECHNIQUE: XR chest 1V portable Frontal view of the chest. FINDINGS: Lungs/Pleura: Moderate left pleural effusion. There is no evidence of left pleural effusion, focal co nsolidation, or pneumothorax. Pulmonary vascularity: Unremarkable. Heart/mediastinum: Cardiomediastinal silhouette is unremarkable. Musculoskeletal: No acute osseous pathology. IMPRESSION: Cardiomegaly with moderate right pleural effusion.
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
[2023-05-30 16:21] LABS: Glucose,Whole Blood 106 mg/dL (70-110)
--- NOTE | 2023-05-30 17:45 | P.PN ---
Subjective PROGRESS NOTE The patient is a 67-year-old male with known history of end-stage renal disease, atrial fibrillation, aneurysmal coronary arteries, hyperlipidemia who has missed his dialysis and presented with symptoms of progressive dyspnea. Last night he became hypotensive, was started on norepinephrine and subsequently transferred to the ICU. He is awake, confused and combative this morning. His blood pressure is stable. He is in atrial fibrillation. He has a prior history of ablation in paroxysmal atrial fibrillation. He is scheduled to undergo dialysis today. In the past his ejection fraction was 55-60. May 26: The patient is drowsy this morning. He continues to be confused during the night. He continues to be in atrial fibrillation with episodes of rapid ventricle response, he is nothing by mouth and receiving IV beta tracy. He is undergoing an EEG. He underwent dialysis yesterday. There is no evidence of ventricular ectopic activity. He is off norepinephrine. His echocardiogram showed an ejection fraction of 40-45% with mild pulmonary hypertension and [id number] mitral regurgitation. May 27: The patient is sleepy. He has been started on IV Cardizem because of persistent atrial fibrillation with rapid ventricle response. His blood pressure is stable. He is scheduled to undergo dialysis today. He has not been anticoagulated because of anemia and positive blood in the stool. He has throm bocytopenia. He continues to be on IV beta tracy. He underwent an abdominal computed tomography scan, the results are pending 05/28/23 Patient is laying in bed, awake. He is tolerating oral diet and has been started on oral medications. He was noticed to be anemic with hemoglobin of 6.9 today. Yesterday 7.5. He is status post 1 unit of blood transfusion. Stools Hem +ve Creatinine is much better as compared to yesterday 2.79 today yesterday 4.5 05/29/23 Patient is laying in bed tolerating oral diet and oral medications. Hemoglobin 7.8 today, 0.3. 05/30 Patient seen and examined. Patient not following commands however answers some questions appropriately, states "he is doing fine." Has been able to take the metoprolol at heart rates mainly in the 90s to the low 100s. Hemoglobin borderline however has been fairly stable and therefore we will restart Alquist 2.5 mg twice a day. PHYSICAL EXAMINATION: LUNGS: Clear to auscultation anteriorly HEART: Irregular rate and rhythm, S1, S2. No S3. Systolic ejection murmur ABDOMEN: Soft, nontender, no organomegaly EXTREMETIES: No edema IMPRESSION: 1. End-stage renal disease, noncompliant with dialysis 2. Atrial fibrillation with episodes of rapid ventricle response 3. Hypotension, improving 4. History of aneurysmal coronary arteries 5. Status post atrial fibrillation ablation 6. Hyperlipidemia 7. Change in mental status PLAN: Heart rates borderline elevated 90s to low 100s on the metoprolol. restart antic oagulation as there do not appear to be any contraindications to starting this however monitor hgb closely. Monitor neurologic status. Prognosis guarded. Objective - Vital Signs Vital signs: Vital Signs Temp 97.8 F 05/30/23 15:28 Pulse 97 05/30/23 15:28 Resp 16 05/30/23 15:28 BP 131/82 05/30/23 15:28 Pulse Ox 100 05/30/23 15:28 FiO2 Intake & Output 05/29/23 05/30/23 05/30/23 18:59 06:59 18:59 Intake Total 262.125 200 750 Output Total 0 0 1500 Balance 262.125 200 -750 Weight 87.2 kg Intake: IV 250 200 200 Cefepime 1 gm In Sodium 50 Chloride 0.9% 50 ml @ 12. 5 mls/hr IVPB Q12HR [facility] Rx#:[id number] Cefepime 2 gm In Sodium 100 Chloride 0.9% 100 ml @ 200 mls/hr IVPB ONCE [facility] Rx#:[id number] metroNIDAZOLE-NS PMX 500 200 100 200 mg In Saline 1 100ml.bag @ 100 mls/hr IVPB Q8HR [facility] Rx#:[id number] Intake, IV Titration 12.125 50 Amount Cefepime 1 gm In Sodium 50 Chloride 0.9% 50 ml @ 12. 5 mls/hr IVPB Q12HR [facility] Rx#:[id number] Diltiazem 125 mg In 12.125 Sodium Chloride 0.9% 100 ml @ Per Protocol IV .Q0M [facility] Rx#:[id number] Oral 100 Hemodialysis 400 Output: Urine 0 0 Hemodialysis 1500 Other: # Bowel Movements 1 - Labs CBC & Chem 7: 05/30/23 04:02 05/30/23 04:02 Labs: Abnormal Lab Results - Last 24 Hours (Table) 05/30/23 05/30/23 Range/Units 04:02 04:02 WBC 11.4 H (3.8-10.6) k/uL RBC 2.91 L (4.30-5.90) m/uL Hgb 8.0 L (13.0-17.5) gm/dL Hct 26.8 L (39.0-53.0) % MCHC 30.0 L (31.0-37.0) g/dL RDW 17.3 H (11.5-15.5) % Plt Count 75 L (150-450) k/uL Neutrophils # 10.6 H (1.3-7.7) k/uL Lymphocytes # 0.5 L (1.0-4.8) k/uL Sodium 134 L (137-145) mmol/L BUN 50 H (9-20) mg/dL Creatinine 4.08 H (0.66-1.25) mg/dL Microbiology - Last 24 Hours (Table) 05/26/23 16:27 Blood Culture - Preliminary Blood
--- NOTE | 2023-05-30 18:55 | US ---
EXAMINATION TYPE: US carotid duplex BILAT DATE OF EXAM: 05/30/2023 COMPARISON: CLINICAL INDICATION: Male, 67 years old with history of Stroke; Hx of right IJV clot. Poor historian . Portable ICU patient TECHNIQUE: Carotid duplex ultrasound examination. Indirect Doppler criteria was utilized. FINDINGS: EXAM MEASUREMENTS: RIGHT: Peak Systolic Velocity (PSV) cm/sec ----- Right CCA: 57.0 ----- Right ICA: 64.0 ----- Right ECA: 64.0 ICA/CCA ratio: 1.1 RIGHT: End Diastole cm/sec ----- Right CCA: 0.0 ----- Right ICA: 7.9 ----- Right ECA: 4.6 LEFT: Peak Systolic Velocity (PSV) cm/sec ----- Left CCA: 45.3 ----- Left ICA: 42.8 ----- Left ECA: 49.0 ICA/CCA ratio: 0.9 LEFT: End Diastole cm/sec ----- Left CCA: 12.3 ----- Left ICA: 4.4 ----- Left ECA: 0.0 VERTEBRALS (direction of flow): Right Vertebral: Antegrade Left Vertebral: Antegrade Rhythm: Arrhythmia SUBSTATION TECHNICIAN NOTES: Extremely limited due to patient moving head and talking gibberish No eleva brannon velocities or significant stenosis. Bilateral wall thickening. Plaque seen right proximal ICA. Incidental finding, right prox/mid thrombus IMPRESSION: Atheromatous plaquing without significant flow-limiting stenosis based on velocities. Criteria for Assigning % of Stenosis / Diameter reduction (Estimation based on the indirect measurements of the internal carotid artery velocities (ICA PSV). 1. Normal (no stenosis)=ICA PSV < 125 cm/s: ratio < 2.0: ICA EDV<40 cm/s. 2. Less than 50% stenosis=ICA PSV < 125 cm/s: ratio < 2.0: ICA EDV<40 cm/s. 3. 50 to 69% stenosis=ICA PSV of 125 to 230 cm/s: ration 2.0 ? 4.0: ICA EDV 40-100 cm/s. 4. Greater than 70% stenosis to near occlusion= ICA PSV > 230 cm/s: ratio > 4.0: ICA EDV > 100 cm/s. 5. Near occlusion= ICA PSV velocities may be low or undetectable: variable ratio and ICA EDV. 6. Total occlusion=unable to detect flow.
[2023-05-30] MEDS: APIXABAN 2.5 MG TABLET PO SCH (20:44)
[2023-05-30] MEDS: QUEtiapine 25 MG TAB PO SCH (20:55)
[2023-05-30] MEDS: ATORVASTATIN 40 MG TAB PO SCH (20:55)
[2023-05-30] MEDS: NOREPINEPHRINE 4 MG in SODIUM CHLORIDE 0.9% 250 ML IV SCH (22:49)
--- NOTE | 2023-05-31 02:44 | PN ---
PROGRESS NOTE SUBJECTIVE: He required carotid Doppler study today. Carotid Doppler showed arrhythmia, no elevated velocities, there is no blockage. The patient remains in ICU, end-stage renal disease, atrial fibrillation, aneurysmal coronary arteries, dyslipidemia, with dialysis, came in with progressive dyspnea. He is more alert than when he came in, not following commands, but answering questions appropriately, states he is doing fine. He is taking metoprolol, heart rates in the 90s to low 100s. He is restarted on Eliquis. His carotid Doppler was negative. He remains in ICU. OBJECTIVE: LUNGS: Clear. HEART: S1, S2. ABDOMEN: Soft. EXTREMITIES: No cyanosis, clubbing, or edema. ASSESSMENT: End-stage renal disease, atrial fibrillation, hypotension improving, history of aneurysmal coronary arteries, post atrial fibrillation ablation, dyslipidemia, change in mentation. He is going to restart his blood thinners. Medications are reviewed, labs are reviewed. Continue current treatment. Prognosis guarded. MMODL / IJN: [id number] /
[2023-05-31 04:56] LABS: Anisocytosis Slight; Basophils # (A) 0.1 k/uL (0-0.2); Basophils % (A) 0 %; Eosinophils # (A) 0.1 k/uL (0-0.7); Eosinophils % (A) 1 %; HCT 27.6 % (39.0-53.0); HGB 8.9 gm/dL (13.0-17.5); Hypochromasia Moderate; Lymphocytes # (A) 1.1 k/uL (1.0-4.8); Lymphocytes % (A) 8 %; MCH 29.1 pg (25.0-35.0); MCHC 32.4 g/dL (31.0-37.0); MCV 89.8 fL (80.0-100.0); Mean Platelet Volume 12.7; Monocytes # (A) 0.8 k/uL (0-1.0); Monocytes % (A) 6 %; Neutrophils # (A) 10.9 k/uL (1.3-7.7); Neutrophils % (A) 83 %; Platelet Count 66 k/uL (150-450); Poikilocytosis Slight; RBC 3.07 m/uL (4.30-5.90); RDW 18.7 % (11.5-15.5); WBC 13.2 k/uL (3.8-10.6)
[2023-05-31] MEDS: DIVALPROEX 250 MG TABLET.DR PO SCH ×2 (06:34→16:59)
[2023-05-31] MEDS: SEVELAMER 800 MG TAB PO SCH ×3 (06:34→16:59)
[2023-05-31] MEDS: MIDODRINE 5 MG TAB PO SCH ×3 (06:34→16:59)
[2023-05-31 07:00] LABS: ALT 12 U/L (4-49); AST 29 U/L (17-59); African American GFR (CKD) 28 (>60 ml/min/1.73 sqM); Albumin 2.1 g/dL (3.5-5.0); Alkaline Phosphatase 71 U/L (38-126); Anion Gap 9 mmol/L; Blood Urea Nitrogen 33 mg/dL (9-20); Calcium 8.5 mg/dL (8.4-10.2); Carbon Dioxide 24 mmol/L (22-30); Chloride 101 mmol/L (98-107); Glucose 73 mg/dL (74-99); Non-African American GFR(CKD) 24 (>60 ml/min/1.73 sqM); Potassium 4.4 mmol/L (3.5-5.1); Sodium 134 mmol/L (137-145); Total Bilirubin 0.8 mg/dL (0.2-1.3); Total Protein 4.9 g/dL (6.3-8.2)
[2023-05-31] MEDS: APIXABAN 2.5 MG TABLET PO SCH ×2 (08:30→20:47)
[2023-05-31] MEDS: FLUoxetine HCL 20 MG CAP PO SCH (08:30)
[2023-05-31] MEDS: CEFEPIME 1 GM in SODIUM CHLORIDE 0.9% 50 ML IVPB SCH ×2 (08:30→16:26)
[2023-05-31] MEDS: PANTOPRAZOLE 40 MG/10 ML VIAL IVP SCH ×2 (08:30→20:47)
[2023-05-31] MEDS: METOPROLOL TARTRATE 50 MG TAB PO SCH ×2 (08:30→20:47)
[2023-05-31] MEDS: CHOLESTYRAMINE (WITH SUGAR) 4 GM PACKET PO SCH (08:31)
--- NOTE | 2023-05-31 09:46 | P.PN ---
Subjective PROGRESS NOTE The patient is a 67-year-old male with known history of end-stage renal disease, atrial fibrillation, aneurysmal coronary arteries, hyperlipidemia who has missed his dialysis and presented with symptoms of progressive dyspnea. Last night he became hypotensive, was started on norepinephrine and subsequently transferred to the ICU. He is awake, confused and combative this morning. His blood pressure is stable. He is in atrial fibrillation. He has a prior history of ablation in paroxysmal atrial fibrillation. He is scheduled to undergo dialysis today. In the past his ejection fraction was 55-60. May 26: The patient is drowsy this morning. He continues to be confused during the night. He continues to be in atrial fibrillation with episodes of rapid ventricle response, he is nothing by mouth and receiving IV beta tracy. He is undergoing an EEG. He underwent dialysis yesterday. There is no evidence of ventricular ectopic activity. He is off norepinephrine. His echocardiogram showed an ejection fraction of 40-45% with mild pulmonary hypertension and [id number] mitral regurgitation. May 27: The patient is sleepy. He has been started on IV Cardizem because of persistent atrial fibrillation with rapid ventricle response. His blood pressure is stable. He is scheduled to undergo dialysis today. He has not been anticoagulated because of anemia and positive blood in the stool. He has throm bocytopenia. He continues to be on IV beta tracy. He underwent an abdominal computed tomography scan, the results are pending 05/28/23 Patient is laying in bed, awake. He is tolerating oral diet and has been started on oral medications. He was noticed to be anemic with hemoglobin of 6.9 today. Yesterday 7.5. He is status post 1 unit of blood transfusion. Stools Hem +ve Creatinine is much better as compared to yesterday 2.79 today yesterday 4.5 05/29/23 Patient is laying in bed tolerating oral diet and oral medications. Hemoglobin 7.8 today, 0.3. 05/30 Patient seen and examined. Patient not following commands however answers some questions appropriately, states "he is doing fine." Has been able to take the metoprolol at heart rates mainly in the 90s to the low 100s. Hemoglobin borderline however has been fairly stable and therefore we will restart Alquist 2.5 mg twice a day. 05/31 Patient seen and examined. Patient denies any chest pain or pressure however is complaining of back pain. Somewhat more alert today however still not answering questions appropriately. He was restarted on anticoagulation yesterday. PHYSICAL EXAMINATION: LUNGS: Clear to auscultation anteriorly HEART: Irregular rate and rhythm, S1, S2. No S3. Systolic ejection murmur ABDOMEN: Soft, nontender, no organomegaly EXTREMETIES: No edema IMPRESSION: 1. End-stage renal disease, noncompliant with dialysis 2. Atrial fibrillation with episodes of rapid ventricle response 3. Hypotension, improving 4. History of aneurysmal coronary arteries 5. Status post atrial fibrillation ablation 6. Hyperlipidemia 7. Change in mental status PLAN: Heart rates borderline elevated 90s to low 100s on the metoprolol and we will continue with current dose. Continue anticoagulation and monitor hgb closely. Monitor neurologic status. Prognosis guarded. Objective - Vital Signs Vital signs: Vital Signs Temp 97.9 F 05/31/23 08:00 Pulse 110 H 05/31/23 08:00 Resp 16 05/31/23 08:00 BP 99/62 05/31/23 08:00 Pulse Ox 99 05/31/23 08:00 FiO2 Intake & Output 05/30/23 05/31/23 05/31/23 18:59 06:59 18:59 Intake Total 750 100 50 Output Total 1500 Balance -750 100 50 Weight 85.3 kg 85.3 kg Intake: IV 200 50 50 Cefepime 1 gm In Sodium 50 50 Chloride 0.9% 50 ml @ 12. 5 mls/hr IVPB Q12HR [facility] Rx#:[id number] metroNIDAZOLE-NS PMX 500 200 mg In Saline 1 100ml.bag @ 100 mls/hr IVPB Q8HR [facility] Rx#:[id number] Intake, IV Titration 50 Amount Cefepime 1 gm In Sodium 50 Chloride 0.9% 50 ml @ 12. 5 mls/hr IVPB Q12HR [facility] Rx#:[id number] Oral 100 50 Hemodialysis 400 Output: Hemodialysis 1500 Other: # Bowel Movements 1 2 1 - Labs CBC & Chem 7: 05/31/23 03:42 05/31/23 05:49 Labs: Abnormal Lab Results - Last 24 Hours (Table) 05/31/23 05/31/23 Range/Units 03:42 05:49 WBC 13.2 H (3.8-10.6) k/uL RBC 3.07 L (4.30-5.90) m/uL Hgb 8.9 L (13.0-17.5) gm/dL Hct 27.6 L (39.0-53.0) % RDW 18.7 H (11.5-15.5) % Plt Count 66 L (150-450) k/uL Neutrophils # 10.9 H (1.3-7.7) k/uL Sodium 134 L (137-145) mmol/L BUN 33 H (9-20) mg/dL Creatinine 2.69 H (0.66-1.25) mg/dL Glucose 73 L (74-99) mg/dL Total Protein 4.9 L (6.3-8.2) g/dL Albumin 2.1 L (3.5-5.0) g/dL
--- NOTE | 2023-05-31 10:23 | P.PN ---
Subjective Progress Note Date: 05/31/23 I am seeing this patient in consultation today 05/25/2023 in the intensive care unit after the patient was found to be hypotensive during the hemodialysis and transferred to the intensive care unit. Patient is a 67-year-old white male with past medical history significant for end-stage renal disease, hemodialysis maintain on a Tuesday, Tuesday, Tuesday schedule, congestive heart failure, paroxysmal atrial fibrillation anticoagulated on Eliquis, CVA/TIA, hyperlipidemia, hypertension, coronary artery disease, obstructive sleep apnea, among other things. Patient is currently a poor historian, not able to participate in HPI. Apparently, the patient has been refusing hemodialysis as his extended care facility. He became confused, and was sent into the emergency room 2 days ago. Apparently, on resuming patient's hemodialysis treatments the patient became hypotensive. He also was in atrial fibrillation with rapid ventricular ventricular rate he was started on a Cardizem infusion temporarily, and transferred to the intensive care unit last night. Patient was placed on when necessary Midodrine earlier in the day, does not look like his evening dose was given. The patient was temporarily started on norepinephrine infusion, which is currently on hold. Heart rate is better controlled. Cardizem is off. Patient is lying in bed, on 2 L/m nasal cannula, in no acute distress. He is confused. Chest CT this admission shows cardiomegaly and moderate right pleural effusion and atelectasis of the right middle lobe and lower lobes. 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 Dilated main pulmonary artery measuring 4.3 cm consistent with pulmonary arterial hypertension. An severe three-vessel coronary artery calcifications. Most recent CBC from yesterday shows a WBC count of 11, hemoglobin 8.8, hematocrit 28, platelets 69,000. Most recent BMP from yesterday shows a sodium 135, potassium 4.3, chloride 95, serum bicarb down to 17, BUN 119, creatinine 8.27, glucose 81. No IV maintenance fluids infusing. Troponins were elevated at 0.037, 0.047, 0.044 respectfully. NT proBNP elevated at 40,000. Patient was placed on empiric antibiotics for possible CAP. Remains afebrile. The patient will be monitored in the intensive care unit for now. Progress note dated 05/26/2023. 67-year-old black male, seen again in the intensive care unit, room 266. Yesterday, he had a change in his neurologic status. We will like gas, and a computed tomography scan of the brain, without contrast, as well as a neurology consultation. The patient apparently is also had an EEG. Blood gases show a PaO2 of 102, pCO2 46, and a pH is 7.4. Currently, the patient is on 2 L of oxygen. He is getting saline at 5 mL an hour. He did have hemodialysis yesterday, May 25. In addition, for his hypotension, we added the midodrine, back at 10 mg 3 times a day. Currently he is much more awake and alert. Labs today include a white count of 10, hemoglobin 7.8, hematocrit 24.3, and a platelet count of 56,000. Sodium 132, potassium 3.2, chloride 95, CO2 23, BUN 59, creatinine 4.33. Blood cultures are showing evidence of gram-negative bacilli. Chest x-ray shows only a small right pleural effusion. The patient is currently on Rocephin and Flagyl. Progress note dated 05/27/2023. 67-year-old black male seen today in room 266. The patient is very lethargic. He does arouse, and he answers simple questions. Currently, he's on 2 L of oxygen. He's given Cardizem drip of 5 mg an hour, and saline at KVO. He continues on cefepime and Flagyl. The patient has had intermittent episodes of hypotension, requiring norepinephrine. The patient was to have hemodialysis today. White count 16.2, hemoglobin 7.5, hematocrit 23.6, with a platelet count a 62,000. Sodium 1:30, potassium 4.5, chlorides 95, CO2 22, anion gap 13, BUN 73, and creatinine 4.50. Blood cultures are positive for Povidencia. Progress note dated 05/28/2023. 67-year-old male seen in room 266. He currently is on room air. Saturations are 95%. The patient is in atrial fibrillation, with controlled rate. He continues on Cardizem 5 mg an hour, and saline at 10 mL an hour. The patient received 1 unit of packed red blood cells. He had hemodialysis yesterday, where 500 mL was removed. Clinically, he appears to be relatively stable. Currently labs include a white count 13.1, hemoglobin 6.9, hematocrit 22.3, and a platelet count a 63,000. Sodium 132, potassium 3.8, chlorides 97, CO2 27, BUN 39, and creatinine down to 2.79 from 4.50. Albumin is 2. Progress note dated 05/29/2023. 67-year-old male, seen today in room 266. He is currently now on room air. The patient is not receiving any IV fluids. The Cardizem drip was discontinued, and beta tracy was added. The patient is a Tuesday/Tuesday/Tuesday hemodialysis patient. The patient's blood pressure since being here in the unit, has been stable. White count is 12.8, hemoglobin 7.8, hematocrit 24.6, and platelet count 74,000. On today's evaluation of 05/30/2023, the patient is resting comfortably on room air oxygen. Is undergoing hemodialysis. Note that his oxygen is improved and the patient was treated with fluid overload/CHF/pulmonary edema and he is currently back on room air oxygen. His last chest x-ray was done on 05/26/2023 and it was consistent with cardiomegaly and CHF. He also has end-stage renal disease and the patient is currently on hemodialysis 3 times a week Wednesdays and Fridays. His current cardiac rhythm is atrial fibrillation with a controlled rate. Hemodynamically stable on no pressors. In terms of his atrial fibrillation, the patient is metoprolol 50 mg by mouth twice a day. The patient is off Cardizem. The patient is also off anticoagulation with Eliquis due to a low hemoglobin and possibility of a bleed. His most recent ec hocardiogram from 05/24/2023 has shown 11 tender ejection fraction of 40-45%, mild aortic stenosis, [id number] mitral regurgitation. He is also known to haveCoronary artery disease. He has previous history of CVA and chronic A. fib, hypertension, along with an incisional disease. During this current admission, the patient was also found to be septic with a possible culture with gram-negative bacteria/Covid dentia and currently is on IV cefepime. Based on the possible culture with gram-negative bacteria, the patient was given a CAT scan of the abdomen that showed fluid overload/CHF along with generalized anasarca. There was also a moderate right and a small left-sided pleural effus ion along with cardiomegaly and extensive triple-vessel coronary calcification. There was moderate circumferential wall thickening in the mid and the distal sigmoid colon and rectum consistent with distal colitis. No abscess or free air. There was additional moderate circumferential bladder wall thickening obviously raising the suspicion for cystitis. The white second Cardizem 11.4, hemoglobin is at 8 and a platelet count of 75. BUN is at 50 with a creatinine of 4.08. Sodium is at 138. He continues to be encephalopathic and confused. Most recent CAT scan of the brain that was done on 05/29/2023 which is essentially yesterday showed moderate to marked atrophy, moderate chronic ischemic white matter demyelination and small to/remote lacunar infarct in the right basal ganglia and remote occipital infarct. There was also small acute to subacute cortical/subcortical infarct and left occipital lobe of the brain adjacent to the left lateral ventricle. No evidence of any bleeding. There is evaluation of 05/31/2023, I'm seeing the patient for a follow-up. Neurologically, slightly improved. Still encephalopathic although there is some improvement in terms of communication and having limited conversation. Noted the patient underwent hemodialysis yesterday. The same time, the patient is undergoing treatments for sepsis as the patient is gram-negative bacillus in the blood in the form of Providencia . His current antibiotic coverage is with a combination of cefepime and Flagyl. Note that 2 sets of blood cultures were positive on 05/23/2023. The repeat blood culture that was obtained on 05/26/2023 showed no microbial growth thus far. The patient has an incisional disease and is currently on hemodialysis. He has chronic into fibrillation. There was some concerns of development of multiple strokes. CAT scan of the brain was noted. This was discussed with urology. The patient was started back on anticoagulation with Eliquis 2.5 mg twice a day. No significant abdominal distention. No nausea or emesis. No abdominal pain. He is currently on room air oxygen. Blood work from today shows a white cell count of 15.2 with a hemoglobin of 8.9 and platelet count of 66. Sodiums of 134, BUN is at 33 with a creatinine of 2.6. Potassium levels at 4.4. Objective - Vital Signs Vital signs: Vital Signs Temp 97.9 F 05/31/23 08:00 Pulse 110 H 05/31/23 08:00 Resp 16 05/31/23 08:00 BP 99/62 05/31/23 08:00 Pulse Ox 99 05/31/23 08:00 FiO2 Intake & Output 05/30/23 05/31/23 05/31/23 18:59 06:59 18:59 Intake Total 750 100 50 Output Total 1500 Balance -750 100 50 Weight 85.3 kg 85.3 kg Intake: IV 200 50 50 Cefepime 1 gm In Sodium 50 50 Chloride 0.9% 50 ml @ 12. 5 mls/hr IVPB Q12HR JACI Rx#:[id number] metroNIDAZOLE-NS PMX 500 200 mg In Saline 1 100ml.bag @ 100 mls/hr IVPB Q8HR JACI Rx#:[id number] Intake, IV Titration 50 Amount Cefepime 1 gm In Sodium 50 Chloride 0.9% 50 ml @ 12. 5 mls/hr IVPB Q12HR JACI Rx#:[id number] Oral 100 50 Hemodialysis 400 Output: Hemodialysis 1500 Other: # Bowel Movements 1 2 1 - Exam . Gen. appearance the patient is encephalopathic, lethargic, laying comfortably in bed currently on room air oxygen. HEENT examination is grossly unremarkable. Mucous membranes are moist. No oral lesions. Neck supple. Full range of motion. No adenopathy thyromegaly or neck vein distention. Cardiovascular examination reveals an irregular rhythm and rate. S1-S2 normal. No S3 or S4. No discernible murmur noted. . Heart sounds are distant. Lungs reveal mostly clear breath sounds. Scattered crackles are noted. No wheezes or rhonchi. Breath sounds are equal bilaterally. Abdomen soft bowel sounds are heard. No masses or tenderness. Extremities are intact. No cyanosis clubbing or edema. Skin is without rash or lesion. Neurologic examination is brief but nonfocal. - Labs CBC & Chem 7: 05/31/23 03:42 05/31/23 05:49 Labs: Abnormal Lab Results - Last 24 Hours (Table) 05/31/23 05/31/23 Range/Units 03:42 05:49 WBC 13.2 H (3.8-10.6) k/uL RBC 3.07 L (4.30-5.90) m/uL Hgb 8.9 L (13.0-17.5) gm/dL Hct 27.6 L (39.0-53.0) % RDW 18.7 H (11.5-15.5) % Plt Count 66 L (150-450) k/uL Neutrophils # 10.9 H (1.3-7.7) k/uL Sodium 134 L (137-145) mmol/L BUN 33 H (9-20) mg/dL Creatinine 2.69 H (0.66-1.25) mg/dL Glucose 73 L (74-99) mg/dL Total Protein 4.9 L (6.3-8.2) g/dL Albumin 2.1 L (3.5-5.0) g/dL Assessment and Plan Plan: Encephalopathy, multifactorial. The patient has a component of metabolic encephalopathy and septic encephalopathy. At the same time the patient has multi infarcts as noted and the most recent CAT scan of the brain in addition to new acute/subacute include left occipital infarct and chronic generalized atrophy and remote lacunar infarct. The encephalopathy is improving and the pat ient was started on anticoagulation with eloquent 5 mg twice a day Gram-negative sepsis with providencia , currently on IV cefepime and the patient is also on Flagyl suspecting underlying colitis/sigmoid colitis as evidenced on the CAT scan of the abdomen. Hypotension, resolved, likely secondary to volume depletion, and sepsis, improved and the receipt blood culture that was done on 05/26/2023 was negative End-stage renal disease, normally maintained on hemodialysis Tuesday, Tuesday, Tuesday. The patient is currently undergoing hemodialysis, last hemodialysis session was on 05/30/2023 and this was done through the right upper extremity fistula/graft Anion gap metabolic acidosis, improving and the serum bicarb is currently at 24 Acute hypoxemic respiratory failure, improved. The patient is currently on room air oxygen Obstructive sleep apnea, utilizes CPAP outpatient. Atrial fibrillation with rapid ventricular rate. The patient is currently off anticoagulants Anemia of chronic disease. Hemoglobin is stable at 8.9 Thrombocytopenia. The platelet counts are improving is currently up to 66 Decubitus pressure injury. Hyperlipidemia. History of CVA/TIA. Coronary artery disease. CHF with mild impairment of LV function with an ejection fraction of 40-45% Plan: The patient's encephalopathic and this is improving. As stated, this could be multifactorial. I would like to consult neurology again and restarted the patient anticoagulation special with his ongoing A. fib and multiple infarct as seen on the CAT scan of the brain. The patient'nt hemodialysis yesterday. We'll continue the IV cefepime. Will continue IV Flagyl. He is on no pressors for now. Platelet counts are improving. Hemoglobin is stable. No signs of any cardiomyopathy. Repeat a chest x-ray as the patient's last chest x-ray was done on 05/26/2023. We'll evaluate his mental status following his dialysis. He remains atrial fibrillation He remains a full code. May transferred out of the intensive care unit
--- NOTE | 2023-05-31 10:29 | US ---
EXAMINATION TYPE: US carotid duplex BILAT DATE OF EXAM: 05/30/2023 COMPARISON: 12/15/2018 CLINICAL INDICATION: Male, 67 years old with history of stroke; stroke attempted to do carotid patien t became combative had to stop exam. TECHNIQUE: Grayscale imaging of the carotid systems. FINDINGS: Incidental findings clot visualized in right internal jugular vein. The patient became combative and the exam was terminated. IMPRESSION: 1. Right internal jugular vein thrombus. 2. Exam terminated early carotid duplex was terminated early, as well as unable to be evaluated. Findings communicated to Dr. Ellis Lo on 05/31/2023 10:[address] Dominick Jones.
--- NOTE | 2023-05-31 11:04 | P.PN ---
Subjective Patient is seen for follow-up for end-stage renal disease. Maintained on Tuesday schedule. Staying off of Cardizem drip Patient is awake. He does recognize me today. No significant issues overnight. Objective - Vital Signs Vital signs: Vital Signs Temp 97.9 F 05/31/23 08:00 Pulse 110 H 05/31/23 08:00 Resp 16 05/31/23 08:00 BP 99/62 05/31/23 08:00 Pulse Ox 99 05/31/23 08:00 FiO2 Intake & Output 05/30/23 05/31/23 05/31/23 18:59 06:59 18:59 Intake Total 750 100 50 Output Total 1500 Balance -750 100 50 Weight 85.3 kg 85.3 kg Intake: IV 200 50 50 Cefepime 1 gm In Sodium 50 50 Chloride 0.9% 50 ml @ 12. 5 mls/hr IVPB Q12HR JACI Rx#:[id number] metroNIDAZOLE-NS PMX 500 200 mg In Saline 1 100ml.bag @ 100 mls/hr IVPB Q8HR JACI Rx#:[id number] Intake, IV Titration 50 Amount Cefepime 1 gm In Sodium 50 Chloride 0.9% 50 ml @ 12. 5 mls/hr IVPB Q12HR JACI Rx#:[id number] Oral 100 50 Hemodialysis 400 Output: Hemodialysis 1500 Other: # Bowel Movements 1 2 1 - Exam Awake, no acute distress. Answering questions appropriately Examination of the heart S1 and S2 Examination of the lungs bilateral breath sounds are heard Abdomen is soft nontender Examination lower extremity shows no significant edema. Right arm AV fistula REVIEW SPECIALIST exam shows patient is moving all 4 extremities. Confusion on and off - Labs CBC & Chem 7: 05/31/23 03:42 05/31/23 05:49 Labs: Abnormal Lab Results - Last 24 Hours (Table) 05/31/23 05/31/23 Range/Units 03:42 05:49 WBC 13.2 H (3.8-10.6) k/uL RBC 3.07 L (4.30-5.90) m/uL Hgb 8.9 L (13.0-17.5) gm/dL Hct 27.6 L (39.0-53.0) % RDW 18.7 H (11.5-15.5) % Plt Count 66 L (150-450) k/uL Neutrophils # 10.9 H (1.3-7.7) k/uL Sodium 134 L (137-145) mmol/L BUN 33 H (9-20) mg/dL Creatinine 2.69 H (0.66-1.25) mg/dL Glucose 73 L (74-99) mg/dL Total Protein 4.9 L (6.3-8.2) g/dL Albumin 2.1 L (3.5-5.0) g/dL Assessment and Plan Assessment: 1. End-stage renal disease maintained on hemodialysis on Tuesday schedule. 2. A. fib with RVR maintain on metoprolol and anticoagulation. Status post Cardizem drip 3. Anemia of chronic kidney disease. High ferritin noted. On Aranesp. Status post packed RBCs 4. Noncompliance with hemodialysis. 5. Hypertension with chronic kidney disease. Controlled. 6. Chronic kidney disease mineral bone disease maintained on Renvela. Phosphorus level 3.9 dated 05/25/2023. 7. Metabolic acidosis secondary to chronic kidney disease. Status post bicarb drip. Improved. 8. Chronic systolic CHF with ejection fraction of 40-45% with mild to moderate mitral regurgitation. 9. Bacteremia with provedentia, source possibly abdominal. CT is suggestive of colitis Plan: Hemodialysis in a.m. Continue antibiotics Continue with midodrine.
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
--- NOTE | 2023-05-31 13:46 | CT ---
EXAMINATION TYPE: CT brain wo con CT DLP: 1218.4 mGycm, Automated exposure control for dose reduction was used. DATE OF EXAM: 05/31/2023 1:30 PM COMPARISON: 05/29/2023 CLINICAL INDICATION:Male, 67 years old with history of confusion. r/o stroke, Confusion R/o stroke TECHNIQUE: Brain: Axial CT images of the brain were obtained with coronal and sagittal reformats created and rev iewed. Contrast used: None. Oral contrast used: None. FINDINGS: Brain: Extra-axial spaces: No abnormal extra-axial fluid collections. Ventricular system: Dilatation in proportion to cerebral atrophy. Cerebral parenchyma: Remote appearing injury left occipital lobe. Cerebral atrophy. No acute intrapar enchymal hemorrhage or mass effect. The hope-white junction is well differentiated. Scattered hypoat tenuating areas are seen within the white matter. Cerebellum: Age-indeterminate left cerebellar hemisphere injury. Series 204 image 63. Mass effect: No evidence of midline shift. Intracranial vasculature: Atherosclerotic calcifications of the intracranial vessels. Soft tissues: Normal. Calvarium/osseous structures: No depressed skull fracture. Paranasal sinuses and mastoid air cells: Mild scattered paranasal sinus disease. Visualized orbits: Orbital contents are intact. IMPRESSION: 1. Age-indeterminate left cerebellar hemisphere hypodense region could represent CVA. Consider corre lation with MRI. This is seen on prior on 05/29/2023. 2. Remote appearing left inferior occipital lobe injury. 3. Nonspecific white matter changes, likely secondary to chronic small vessel ischemic disease.
--- NOTE | 2023-05-31 14:17 | P.PN ---
Subjective Progress Note Date: 05/30/23 Principal diagnosis: Gram-negative bacteremia Patient is a 67-year-old male with a past medical history significant for hypertension hyperlipidemia [place] end-stage renal disease on hemodialysis to the right arm AV fistula patient presenting to the hospital 3 days ago for e valuation of mental status changes, patient was noticed to have a positive blood culture with a drug-resistant Providencia probably this infectious disease consultation patient did have CT of abdominal pelvis with evidence of colitis On today's evaluation and that is 05/30/2023, the patient continues to be afebrile, the patient is breathing comfortably on room air and denies any chest pain or cough, patient did have some vague abdominal pain, and denies any nausea/vomiting or diarrhea Patient white count is down to 11.4, creatinine is 4.08, blood culture repeat so far negative Objective - Vital Signs Vital signs: Vital Signs Temp 97.8 F 05/30/23 08:00 Pulse 101 H 05/30/23 08:00 Resp 15 05/30/23 08:00 BP 102/64 05/30/23 08:00 Pulse Ox 91 L 05/30/23 08:00 FiO2 Intake & Output 05/29/23 05/30/23 05/30/23 18:59 06:59 18:59 Intake Total 262.125 200 150 Output Total 0 0 Balance 262.125 200 150 Weight 87.2 kg Intake: IV 250 200 100 Cefepime 1 gm In Sodium 50 Chloride 0.9% 50 ml @ 12. 5 mls/hr IVPB Q12HR [facility] Rx#:[id number] Cefepime 2 gm In Sodium 100 Chloride 0.9% 100 ml @ 200 mls/hr IVPB ONCE [facility] Rx#:[id number] metroNIDAZOLE-NS PMX 500 200 100 100 mg In Saline 1 100ml.bag @ 100 mls/hr IVPB Q8HR [facility] Rx#:[id number] Intake, IV Titration 12.125 50 Amount Cefepime 1 gm In Sodium 50 Chloride 0.9% 50 ml @ 12. 5 mls/hr IVPB Q12HR [facility] Rx#:[id number] Diltiazem 125 mg In 12.125 Sodium Chloride 0.9% 100 ml @ Per Protocol IV .Q0M [facility] Rx#:[id number] Output: Urine 0 0 - Exam GENERAL DESCRIPTION: An elderly male lying in bed in no distress RESPIRATORY SYSTEM: Unlabored breathing , decreased breath sounds at bases HEART: S1 S2 regular rate and rhythm , ABDOMEN: Soft , mild distention EXTREMITIES: No edema feet - Labs CBC & Chem 7: 05/31/23 03:42 05/31/23 05:49 Labs: Abnormal Lab Results - Last 24 Hours (Table) 05/30/23 05/30/23 Range/Units 04:02 04:02 WBC 11.4 H (3.8-10.6) k/uL RBC 2.91 L (4.30-5.90) m/uL Hgb 8.0 L (13.0-17.5) gm/dL Hct 26.8 L (39.0-53.0) % MCHC 30.0 L (31.0-37.0) g/dL RDW 17.3 H (11.5-15.5) % Plt Count 75 L (150-450) k/uL Neutrophils # 10.6 H (1.3-7.7) k/uL Lymphocytes # 0.5 L (1.0-4.8) k/uL Sodium 134 L (137-145) mmol/L BUN 50 H (9-20) mg/dL Creatinine 4.08 H (0.66-1.25) mg/dL Microbiology - Last 24 Hours (Table) 05/26/23 16:27 Blood Culture - Preliminary Blood Assessment and Plan (1) Gram-negative bacteremia Current Visit: Yes Status: Acute Code(s): R78.81 - BACTEREMIA SNOMED Code(s): 547225872871 (2) Colitis Current Visit: Yes Status: Acute Code(s): K52.9 - NONINFECTIVE GASTROENTERITIS AND COLITIS, UNSPECIFIED SNOMED Code(s): 18504668 Plan: 1patient with the providencia bacteremia with the source questionably abdominal versus pneumonia as there was evidence of moderate right-sided effusion and some infiltrate on the CT of the chest and the patient did have mild abdominal distention however no significant tenderness was noticed 2-blood cultures has been repeated document clearance of his bacteremia 3-patient did have CT abdominal pelvis with oral contrast only, with evidence of colitis possible source of bacteremia 4-the patient is afebrile the patient white count is trending down, 5-Pt to continue patient on cefepime 1 g every 12 hours and Flagyl and monitor clinical course closely Dictation was produced using [employer] dictation software. please excuse any grammatical, word or spelling errors. Time with Patient: Less than 30
--- NOTE | 2023-05-31 14:18 | P.PN ---
Subjective Progress Note Date: 05/31/23 Principal diagnosis: Gram-negative bacteremia Patient is a 67-year-old male with a past medical history significant for hypertension hyperlipidemia [place] end-stage renal disease on hemodialysis to the right arm AV fistula patient presenting to the hospital 3 days ago for e valuation of mental status changes, patient was noticed to have a positive blood culture with a drug-resistant Providencia probably this infectious disease consultation patient did have CT of abdominal pelvis with evidence of colitis On today's evaluation and that is 05/31/2023, the patient remains to be afebrile, the patient is breathing comfortably on room air without the need for supplemental oxygen and denies any shortness of breath, the patient denies having any chest pain or cough, patient denies nausea/vomiting /diarrhea has been coming of some abdominal pain, Patient white count is down is slightly up to 13.2, creatinine is 2.69, blood culture repeat so far negative Objective - Vital Signs Vital signs: Vital Signs Temp 97.9 F 05/31/23 08:00 Pulse 110 H 05/31/23 08:00 Resp 16 05/31/23 08:00 BP 99/62 05/31/23 08:00 Pulse Ox 99 05/31/23 08:00 FiO2 Intake & Output 05/30/23 05/31/23 05/31/23 18:59 06:59 18:59 Intake Total 750 100 50 Output Total 1500 Balance -750 100 50 Weight 85.3 kg 85.3 kg Intake: IV 200 50 50 Cefepime 1 gm In Sodium 50 50 Chloride 0.9% 50 ml @ 12. 5 mls/hr IVPB Q12HR [facility] Rx#:[id number] metroNIDAZOLE-NS PMX 500 200 mg In Saline 1 100ml.bag @ 100 mls/hr IVPB Q8HR [facility] Rx#:[id number] Intake, IV Titration 50 Amount Cefepime 1 gm In Sodium 50 Chloride 0.9% 50 ml @ 12. 5 mls/hr IVPB Q12HR [facility] Rx#:[id number] Oral 100 50 Hemodialysis 400 Output: Hemodialysis 1500 Other: # Bowel Movements 1 2 1 - Exam GENERAL DESCRIPTION: An elderly male lying in bed in no distress RESPIRATORY SYSTEM: Unlabored breathing , decreased breath sounds at bases HEART: S1 S2 regular rate and rhythm , ABDOMEN: Soft , mild distention EXTREMITIES: No edema feet - Labs CBC & Chem 7: 05/31/23 03:42 05/31/23 05:49 Labs: Abnormal Lab Results - Last 24 Hours (Table) 05/31/23 05/31/23 Range/Units 03:42 05:49 WBC 13.2 H (3.8-10.6) k/uL RBC 3.07 L (4.30-5.90) m/uL Hgb 8.9 L (13.0-17.5) gm/dL Hct 27.6 L (39.0-53.0) % RDW 18.7 H (11.5-15.5) % Plt Count 66 L (150-450) k/uL Neutrophils # 10.9 H (1.3-7.7) k/uL Sodium 134 L (137-145) mmol/L BUN 33 H (9-20) mg/dL Creatinine 2.69 H (0.66-1.25) mg/dL Glucose 73 L (74-99) mg/dL Total Protein 4.9 L (6.3-8.2) g/dL Albumin 2.1 L (3.5-5.0) g/dL Assessment and Plan (1) Gram-negative bacteremia Current Visit: Yes Status: Acute Code(s): R78.81 - BACTEREMIA SNOMED Code(s): 497544689389 (2) Colitis Current Visit: Yes Status: Acute Code(s): K52.9 - NONINFECTIVE GASTROENTERITIS AND COLITIS, UNSPECIFIED SNOMED Code(s): 97034280 Plan: 1patient with the providencia bacteremia with the source questionably abdominal versus pneumonia as there was evidence of moderate right-sided effusion and some infiltrate on the CT of the chest and the patient did have mild abdominal distention however no significant tenderness was noticed 2-blood cultures has been repeated document clearance of his bacteremia 3-patient did have CT abdominal pelvis with oral contrast only, with evidence of colitis possible source of bacteremia 4-the patient is afebrile the patient white count is slightly up today and will monitor closely 5-we will continue with the patient on cefepime 1 g every 12 hours and Flagyl and continue supportive care Dictation was produced using [employer] dictation software. please excuse any grammatical, word or spelling errors. Time with Patient: Less than 30
[2023-05-31] MEDS: ATORVASTATIN 40 MG TAB PO SCH (20:47)
[2023-05-31] MEDS: QUEtiapine 25 MG TAB PO SCH (20:47)
[2023-05-31 23:24] LABS: Potassium 3.6 mmol/L (3.5-5.1)
--- NOTE | 2023-05-31 23:53 | PN ---
PROGRESS NOTE SUBJECTIVE: We are going to possibly increase his Eliquis, get Vascular to see him for possibly a blood clot in the port. A CAT scan of his head shows he possibly could have another stroke, remote, appearing left inferior occipital lobe injury, nonspecific white matter. Dr. Pantoja has been watching them in the ICU. Neurologically, he was improved. He is encephalopathic and somewhat improved in his conversation. He had hemodialysis yesterday and treated for sepsis gram-negative bacillus in the blood Providencia. Current antibiotics are cefepime and Flagyl, two sets were positive. He is on hemodialysis, chronic atrial fibrillation, concerned about development of multiple strokes. CAT scan of the brain was noted. Neurology start him on Eliquis 2.5 b.i.d. He is on room air oxygen is white count 50.2, hemoglobin is 8.9, platelets 66. Sodium 134, BUN is 33, creatinine 2.6, and potassium is 3.4. OBJECTIVE: GENERAL: he is lethargic. He does give some answers appropriately. NECK: Supple. CARDIOVASCULAR: Irregularly irregular rhythm. ABDOMEN: Soft. LUNGS: Decreased breath sounds x4. EXTREMITIES: 2+ edema. No rash or excoriations in the skin. NEUROLOGIC: Nonfocal. Hemoglobin is 8.9, white count is 13.2, BUN 33, creatinine 2.69. A lot of problems. He has possible strokes, gram-negative sepsis, Providencia, encephalopathy, hypotension, end-stage renal disease, anion gap metabolic encephalopathy, acute hypoxemic respiratory failure, obstructive sleep apnea, atrial fibrillation with RVR, anemia of chronic disease, thrombocytopenia, dyslipidemia, previous history of strokes, coronary disease, CHF, as he is getting hemodialysis on multiple antibiotics, sent Eliquis. Some question about his catheter being blocked, possibly get vascular to see. Prognosis guarded. MMODL / IJN: [id number] /
--- NOTE | 2023-06-01 01:36 | XR ---
EXAM: XR Chest, 1 View CLINICAL HISTORY: ITS.REASON XR Reason: DOBBHOFF PLACEMENT TECHNIQUE: Frontal view of the chest. COMPARISON: 05/30/23 FINDINGS: Lungs: Moderate to large right pleural effusion with compressive atelectasis, similar. Heart: Cardiomegaly. Bones/joints: Unchanged. Tubes, lines and devices: Tip of Dobbhoff tube reached the distal body of the stomach, which is over distended with gas, not completely included in the [id number]. IMPRESSION: 1. Tip of Dobbhoff tube reached the distal body of the stomach, which is over distended with gas, not completely included in the [id number]. 2. No substantial change in cardiopulmonary findings.
[2023-06-01] MEDS ORDERED: SODIUM CHLORIDE 0.9% 500 ML 500 ML IV ONE (05:06)
[2023-06-01] MEDS: NOREPINEPHRINE 4 MG in SODIUM CHLORIDE 0.9% 250 ML IV SCH (06:32)
[2023-06-01] MEDS: SEVELAMER 800 MG TAB PO SCH ×3 (06:33→16:06)
[2023-06-01] MEDS: DIVALPROEX 250 MG TABLET.DR PO SCH ×2 (06:33→16:06)
[2023-06-01] MEDS: METOPROLOL TARTRATE 50 MG TAB PO SCH ×2 (06:35→10:03)
[2023-06-01] MEDS: ATORVASTATIN 40 MG TAB PO SCH ×2 (06:35→23:59)
[2023-06-01] MEDS: MIDODRINE 5 MG TAB PO SCH ×3 (07:02→19:58)
[2023-06-01] MEDS: IPRATROPIUM-ALBUTEROL 3 ML NEB INHALATION SCH ×4 (08:34→20:39)
[2023-06-01] MEDS: APIXABAN 2.5 MG TABLET PO SCH ×2 (10:03→23:59)
[2023-06-01] MEDS: FLUoxetine HCL 20 MG CAP PO SCH (10:03)
[2023-06-01] MEDS: PANTOPRAZOLE 40 MG/10 ML VIAL IVP SCH ×2 (10:03→21:30)
[2023-06-01] MEDS: DARBEPOETIN ALFA 40 MCG/0.4 ML SYRINGE SQ SCH (10:03)
[2023-06-01] MEDS: CHOLESTYRAMINE (WITH SUGAR) 4 GM PACKET PO SCH (10:03)
--- NOTE | 2023-06-01 10:27 | P.PN ---
Subjective Progress Note Date: 06/01/23 I am seeing this patient in consultation today 05/25/2023 in the intensive care unit after the patient was found to be hypotensive during the hemodialysis and transferred to the intensive care unit. Patient is a 67-year-old white male with past medical history significant for end-stage renal disease, hemodialysis maintain on a Tuesday, Tuesday, Tuesday schedule, congestive heart failure, paroxysmal atrial fibrillation anticoagulated on Eliquis, CVA/TIA, hyperlipidemia, hypertension, coronary artery disease, obstructive sleep apnea, among other things. Patient is currently a poor historian, not able to participate in HPI. Apparently, the patient has been refusing hemodialysis as his extended care facility. He became confused, and was sent into the emergency room 2 days ago. Apparently, on resuming patient's hemodialysis treatments the patient became hypotensive. He also was in atrial fibrillation with rapid ventricular ventricular rate he was started on a Cardizem infusion temporarily, and transferred to the intensive care unit last night. Patient was placed on when necessary Midodrine earlier in the day, does not look like his evening dose was given. The patient was temporarily started on norepinephrine infusion, which is currently on hold. Heart rate is better controlled. Cardizem is off. Patient is lying in bed, on 2 L/m nasal cannula, in no acute distress. He is confused. Chest CT this admission shows cardiomegaly and moderate right pleural effusion and atelectasis of the right middle lobe and lower lobes. 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 Dilated main pulmonary artery measuring 4.3 cm consistent with pulmonary arterial hypertension. An severe three-vessel coronary artery calcifications. Most recent CBC from yesterday shows a WBC count of 11, hemoglobin 8.8, hematocrit 28, platelets 69,000. Most recent BMP from yesterday shows a sodium 135, potassium 4.3, chloride 95, serum bicarb down to 17, BUN 119, creatinine 8.27, glucose 81. No IV maintenance fluids infusing. Troponins were elevated at 0.037, 0.047, 0.044 respectfully. NT proBNP elevated at 40,000. Patient was placed on empiric antibiotics for possible CAP. Remains afebrile. The patient will be monitored in the intensive care unit for now. Progress note dated 05/26/2023. 67-year-old black male, seen again in the intensive care unit, room 266. Yesterday, he had a change in his neurologic status. We will like gas, and a computed tomography scan of the brain, without contrast, as well as a neurology consultation. The patient apparently is also had an EEG. Blood gases show a PaO2 of 102, pCO2 46, and a pH is 7.4. Currently, the patient is on 2 L of oxygen. He is getting saline at 5 mL an hour. He did have hemodialysis yesterday, May 25. In addition, for his hypotension, we added the midodrine, back at 10 mg 3 times a day. Currently he is much more awake and alert. Labs today include a white count of 10, hemoglobin 7.8, hematocrit 24.3, and a platelet count of 56,000. Sodium 132, potassium 3.2, chloride 95, CO2 23, BUN 59, creatinine 4.33. Blood cultures are showing evidence of gram-negative bacilli. Chest x-ray shows only a small right pleural effusion. The patient is currently on Rocephin and Flagyl. Progress note dated 05/27/2023. 67-year-old black male seen today in room 266. The patient is very lethargic. He does arouse, and he answers simple questions. Currently, he's on 2 L of oxygen. He's given Cardizem drip of 5 mg an hour, and saline at KVO. He continues on cefepime and Flagyl. The patient has had intermittent episodes of hypotension, requiring norepinephrine. The patient was to have hemodialysis today. White count 16.2, hemoglobin 7.5, hematocrit 23.6, with a platelet count a 62,000. Sodium 1:30, potassium 4.5, chlorides 95, CO2 22, anion gap 13, BUN 73, and creatinine 4.50. Blood cultures are positive for Povidencia. Progress note dated 05/28/2023. 67-year-old male seen in room 266. He currently is on room air. Saturations are 95%. The patient is in atrial fibrillation, with controlled rate. He continues on Cardizem 5 mg an hour, and saline at 10 mL an hour. The patient received 1 unit of packed red blood cells. He had hemodialysis yesterday, where 500 mL was removed. Clinically, he appears to be relatively stable. Currently labs include a white count 13.1, hemoglobin 6.9, hematocrit 22.3, and a platelet count a 63,000. Sodium 132, potassium 3.8, chlorides 97, CO2 27, BUN 39, and creatinine down to 2.79 from 4.50. Albumin is 2. Progress note dated 05/29/2023. 67-year-old male, seen today in room 266. He is currently now on room air. The patient is not receiving any IV fluids. The Cardizem drip was discontinued, and beta tracy was added. The patient is a Tuesday/Tuesday/Tuesday hemodialysis patient. The patient's blood pressure since being here in the unit, has been stable. White count is 12.8, hemoglobin 7.8, hematocrit 24.6, and platelet count 74,000. On today's evaluation of 05/30/2023, the patient is resting comfortably on room air oxygen. Is undergoing hemodialysis. Note that his oxygen is improved and the patient was treated with fluid overload/CHF/pulmonary edema and he is currently back on room air oxygen. His last chest x-ray was done on 05/26/2023 and it was consistent with cardiomegaly and CHF. He also has end-stage renal disease and the patient is currently on hemodialysis 3 times a week Wednesdays and Fridays. His current cardiac rhythm is atrial fibrillation with a controlled rate. Hemodynamically stable on no pressors. In terms of his atrial fibrillation, the patient is metoprolol 50 mg by mouth twice a day. The patient is off Cardizem. The patient is also off anticoagulation with Eliquis due to a low hemoglobin and possibility of a bleed. His most recent ec hocardiogram from 05/24/2023 has shown 11 tender ejection fraction of 40-45%, mild aortic stenosis, [id number] mitral regurgitation. He is also known to haveCoronary artery disease. He has previous history of CVA and chronic A. fib, hypertension, along with an incisional disease. During this current admission, the patient was also found to be septic with a possible culture with gram-negative bacteria/Covid dentia and currently is on IV cefepime. Based on the possible culture with gram-negative bacteria, the patient was given a CAT scan of the abdomen that showed fluid overload/CHF along with generalized anasarca. There was also a moderate right and a small left-sided pleural effus ion along with cardiomegaly and extensive triple-vessel coronary calcification. There was moderate circumferential wall thickening in the mid and the distal sigmoid colon and rectum consistent with distal colitis. No abscess or free air. There was additional moderate circumferential bladder wall thickening obviously raising the suspicion for cystitis. The white second Cardizem 11.4, hemoglobin is at 8 and a platelet count of 75. BUN is at 50 with a creatinine of 4.08. Sodium is at 138. He continues to be encephalopathic and confused. Most recent CAT scan of the brain that was done on 05/29/2023 which is essentially yesterday showed moderate to marked atrophy, moderate chronic ischemic white matter demyelination and small to/remote lacunar infarct in the right basal ganglia and remote occipital infarct. There was also small acute to subacute cortical/subcortical infarct and left occipital lobe of the brain adjacent to the left lateral ventricle. No evidence of any bleeding. There is evaluation of 05/31/2023, I'm seeing the patient for a follow-up. Neurologically, slightly improved. Still encephalopathic although there is some improvement in terms of communication and having limited conversation. Noted the patient underwent hemodialysis yesterday. The same time, the patient is undergoing treatments for sepsis as the patient is gram-negative bacillus in the blood in the form of Providencia . His current antibiotic coverage is with a combination of cefepime and Flagyl. Note that 2 sets of blood cultures were positive on 05/23/2023. The repeat blood culture that was obtained on 05/26/2023 showed no microbial growth thus far. The patient has an incisional disease and is currently on hemodialysis. He has chronic into fibrillation. There was some concerns of development of multiple strokes. CAT scan of the brain was noted. This was discussed with urology. The patient was started back on anticoagulation with Eliquis 2.5 mg twice a day. No significant abdominal distention. No nausea or emesis. No abdominal pain. He is currently on room air oxygen. Blood work from today shows a white cell count of 15.2 with a hemoglobin of 8.9 and platelet count of 66. Sodiums of 134, BUN is at 33 with a creatinine of 2.6. Potassium levels at 4.4. On today's evaluation of 06/01/2023, the patient is responsive and he is communicating. He remains encephalopathic and confused. He failed a swallow evaluation yesterday and based on that the patient was given a Dobbhoff 4 enteral feeding and nutritional support. Meanwhile, his being treated for gram-negative sepsis in his blood with Providencia and he is also undergoing hemodialysis. He remains on the same antibiotic coverage including combination of cefepime and Flagyl. We believe that the source of infection was abdominal colitis. Hemodynamically stable. He remains in A. fib and I started the patient back in his anticoagulants as the patient's CAT scan of the brain was showing multiple infarcts which could be potentially embolic in nature. Is currently on oxygen at 2 L/m nasal cannula. His blood work shows a sodium level of 134, BUN of 33 with a creatinine of 2.6 and a potassium level of 4.4. White cell count still pending for now. He is afebrile. He is hemodynamically stable on 2 L of oxygen by nasal cannula with a pulse ox of 98%. Chest x-ray from today shows right-sided pleural effusion. Volume loss in the right compared to the left. Dobbhoff is approaching his stomach. Left lung essentially clear. Objective - Vital Signs Vital signs: Vital Signs Temp 98.4 F 06/01/23 02:00 Pulse 100 06/01/23 08:45 Resp 18 06/01/23 02:00 BP 118/81 06/01/23 02:00 Pulse Ox 98 06/01/23 02:00 FiO2 Intake & Output 05/31/23 06/01/23 06/01/23 18:59 06:59 18:59 Intake Total 100 100 Balance 100 100 Intake: IV 100 100 0.9 Normal Saline @ 5mL/ 100 hr Cefepime 1 gm In Sodium 100 Chloride 0.9% 50 ml @ 12. 5 mls/hr IVPB Q12HR [facility] Rx#:[id number] Other: # Bowel Movements 0 1 - Exam . Gen. appearance the patient is encephalopathic, lethargic, laying comfortably in bed currently on room air oxygen. HEENT examination is grossly unremarkable. Mucous membranes are moist. No oral lesions. Neck supple. Full range of motion. No adenopathy thyromegaly or neck vein distention. Cardiovascular examination reveals an irregular rhythm and rate. S1-S2 normal. No S3 or S4. No discernible murmur noted. . Heart sounds are distant. Lungs reveal mostly clear breath sounds. Scattered crackles are noted. No wheezes or rhonchi. Breath sounds are equal bilaterally. Abdomen soft bowel sounds are heard. No masses or tenderness. Extremities are intact. No cyanosis clubbing or edema. Skin is without rash or lesion. Neurologic examination is brief but nonfocal. - Labs CBC & Chem 7: 05/31/23 03:42 05/31/23 22:39 Labs: Microbiology - Last 24 Hours (Table) 05/26/23 16:27 Blood Culture - Final Blood Assessment and Plan Plan: Encephalopathy, multifactorial. The patient has a component of metabolic encephalopathy and septic encephalopathy. At the same time the patient has multi infarcts as noted and the most recent CAT scan of the brain in addition to new acute/subacute include left occipital infarct and chronic generalized atrophy and remote lacunar infarct. The encephalopathy is improving and the patient was started on anticoagulation with eloquent 5 mg twice a day. The patient continues to have waxing and waning mentation. He seems to be quite sleepy at communicating today. He continues to have an underlying baseline confusion. Unable to swallow. Status swallow evaluation. Given a Dobbhoff 4 enteral feeding and nutritional support. Gram-negative sepsis with providencia , currently on IV cefepime and the patient is also on Flagyl suspecting underlying colitis/sigmoid colitis as evidenced on the CAT scan of the abdomen. Hypotension, resolved, likely secondary to volume depletion, and sepsis, improved and the receipt blood culture that was done on 05/26/2023 was negative End-stage renal disease, normally maintained on hemodialysis Tuesday, Tuesday, Tuesday. The patient is currently undergoing hemodialysis, last hemodialysis session was on 05/30/2023 and this was done through the right upper extremity fistula/graft, and is undergoing his dialysis today on 06/01/2023 with a goal of ultrafiltration 1.9 L. Right-sided pleural effusion, asymptomatic and the patient is currently on 2 L of oxygen nasal cannula Anion gap metabolic acidosis, improving and the serum bicarb is currently at 24 Acute hypoxemic respiratory failure, improved. The patient is currently on 2 L of oxygen by nasal cannula Obstructive sleep apnea, utilizes CPAP outpatient. Atrial fibrillation with rapid ventricular rate. The patient is currently off anticoagulants Anemia of chronic disease. Hemoglobin is stable at 8.9 Thrombocytopenia. The platelet counts are improving is currently up to 66 Decubitus pressure injury. Hyperlipidemia. History of CVA/TIA. Coronary artery disease. CHF with mild impairment of LV function with an ejection fraction of 40-45% Plan: The patient's encephalopathic and this is improving. As stated, this could be multifactorial. I would like to consult neurology again and restarted the patient anticoagulation special with his ongoing A. fib and multiple infarct as seen on the CAT scan of the brain. The patient is undergoing hemodialysis today We'll continue the IV cefepime. We will start enteral feeding for nutritional support following his dialysis. We'll obtain dietary consultation. Dobbhoff is in place May need another swallow evaluation at the later stage once is encephalopathy improves He is on no pressors for now. Platelet counts are improving. Hemoglobin is stable. No signs of any cardiomyopathy. We'll evaluate his mental status following his dialysis. He remains atrial fibrillation He remains a full code. May transferred out of the intensive care unit
--- NOTE | 2023-06-01 11:09 | P.PN ---
Subjective Patient is seen for follow-up for end-stage renal disease. Maintained on Tuesday schedule. Patient is awake. He does recognize me. Patient is seen on hemodialysis. Tolerating treatment well. Dobbhoff tube was placed as patient does not able to eat and failed swallow evaluation Objective - Vital Signs Vital signs: Vital Signs Temp 98.4 F 06/01/23 02:00 Pulse 100 06/01/23 08:45 Resp 18 06/01/23 02:00 BP 118/81 06/01/23 02:00 Pulse Ox 98 06/01/23 02:00 FiO2 Intake & Output 05/31/23 06/01/23 06/01/23 18:59 06:59 18:59 Intake Total 100 100 Balance 100 100 Intake: IV 100 100 0.9 Normal Saline @ 5mL/ 100 hr Cefepime 1 gm In Sodium 100 Chloride 0.9% 50 ml @ 12. 5 mls/hr IVPB Q12HR [facility] Rx#:[id number] Other: # Bowel Movements 0 1 - Exam Awake, no acute distress. Answering questions appropriately Examination of the heart S1 and S2 Examination of the lungs bilateral breath sounds are heard Abdomen is soft nontender Examination lower extremity shows no significant edema. Right arm AV fistula INSOLE CHANNELER exam shows patient is moving all 4 extremities. Confusion on and off - Labs CBC & Chem 7: 05/31/23 03:42 05/31/23 22:39 Labs: Microbiology - Last 24 Hours (Table) 05/26/23 16:27 Blood Culture - Final Blood Assessment and Plan Assessment: 1. End-stage renal disease maintained on hemodialysis on Tuesday schedule. 2. A. fib with RVR maintain on metoprolol and anticoagulation. Status post Cardizem drip 3. Anemia of chronic kidney disease. High ferritin noted. On Aranesp. Status post packed RBCs 4. Noncompliance with hemodialysis. 5. Hypertension with chronic kidney disease. Controlled. 6. Chronic kidney disease mineral bone disease maintained on Renvela. P hosphorus level 3.9 dated 05/25/2023. 7. Metabolic acidosis secondary to chronic kidney disease. Status post bicarb drip. Improved. 8. Chronic systolic CHF with ejection fraction of 40-45% with mild to moderate mitral regurgitation. 9. Bacteremia with provedentia, source possibly abdominal. CT is suggestive of colitis . Repeat blood cultures are negative. Maintained on antibiotics Plan: Hemodialysis today with UF of about 1 L Continue antibiotics Continue with midodrine.
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
--- NOTE | 2023-06-01 12:47 | P.PN ---
Subjective PROGRESS NOTE The patient is a 67-year-old male with known history of end-stage renal disease, atrial fibrillation, aneurysmal coronary arteries, hyperlipidemia who has missed his dialysis and presented with symptoms of progressive dyspnea. Last night he became hypotensive, was started on norepinephrine and subsequently transferred to the ICU. He is awake, confused and combative this morning. His blood pressure is stable. He is in atrial fibrillation. He has a prior history of ablation in paroxysmal atrial fibrillation. He is scheduled to undergo dialysis today. In the past his ejection fraction was 55-60. May 26: The patient is drowsy this morning. He continues to be confused during the night. He continues to be in atrial fibrillation with episodes of rapid ventricle response, he is nothing by mouth and receiving IV beta tracy. He is undergoing an EEG. He underwent dialysis yesterday. There is no evidence of ventricular ectopic activity. He is off norepinephrine. His echocardiogram showed an ejection fraction of 40-45% with mild pulmonary hypertension and [id number] mitral regurgitation. May 27: The patient is sleepy. He has been started on IV Cardizem because of persistent atrial fibrillation with rapid ventricle response. His blood pressure is stable. He is scheduled to undergo dialysis today. He has not been anticoagulated because of anemia and positive blood in the stool. He has thromb ocytopenia. He continues to be on IV beta tracy. He underwent an abdominal computed tomography scan, the results are pending 05/28/23 Patient is laying in bed, awake. He is tolerating oral diet and has been started on oral medications. He was noticed to be anemic with hemoglobin of 6.9 today. Yesterday 7.5. He is status post 1 unit of blood transfusion. Stools Hem +ve Creatinine is much better as compared to yesterday 2.79 today yesterday 4.5 05/29/23 Patient is laying in bed tolerating oral diet and oral medications. Hemoglobin 7.8 today, 0.3. 05/30 Patient seen and examined. Patient not following commands however answers some questions appropriately, states "he is doing fine." Has been able to take the metoprolol at heart rates mainly in the 90s to the low 100s. Hemoglobin borderline however has been fairly stable and therefore we will restart Alquist 2.5 mg twice a day. 05/31 Patient seen and examined. Patient denies any chest pain or pressure however is complaining of back pain. Somewhat more alert today however still not answering questions appropriately. He was restarted on anticoagulation yesterday. 06/01 Patient seen and examined. Patient still with tachycardia heart rates 110s to 120s. He is taking the metoprolol 50 mg twice a day. Receiving dialysis today with 1 L taken off. PHYSICAL EXAMINATION: LUNGS: Clear to auscultation anteriorly HEART: Irregular rate and rhythm, S1, S2. No S3. Systolic ejection murmur ABDOMEN: Soft, nontender, no organomegaly EXTREMETIES: No edema IMPRESSION: 1. End-stage renal disease, noncompliant with dialysis 2. Atrial fibrillation with episodes of rapid ventricle response 3. Hypotension, improving 4. History of aneurysmal coronary arteries 5. Status post atrial fibrillation ablation 6. Hyperlipidemia 7. Change in mental status PLAN: Heart rates are still mildly elevated and we will increase the metoprolol from 50-75 mg and monitor response. Monitor neurologic function. Continue with dialysis as needed. Further recommendations to follow. Objective - Vital Signs Vital signs: Vital Signs Temp 98.4 F 06/01/23 02:00 Pulse 100 06/01/23 08:45 Resp 18 06/01/23 02:00 BP 118/81 06/01/23 02:00 Pulse Ox 98 06/01/23 02:00 FiO2 Intake & Output 05/31/23 06/01/23 06/01/23 18:59 06:59 18:59 Intake Total 100 100 Balance 100 100 Weight 85.3 kg Intake: IV 100 100 0.9 Normal Saline @ 5mL/ 100 hr Cefepime 1 gm In Sodium 100 Chloride 0.9% 50 ml @ 12. 5 mls/hr IVPB Q12HR [facility] Rx#:[id number] Other: # Bowel Movements 0 1 - Labs CBC & Chem 7: 05/31/23 03:42 05/31/23 22:39 Labs: Microbiology - Last 24 Hours (Table) 05/26/23 16:27 Blood Culture - Final Blood
[2023-06-01] MEDS: CEFEPIME 1 GM in SODIUM CHLORIDE 0.9% 50 ML IVPB SCH ×2 (13:41→20:25)
[2023-06-02] MEDS: QUEtiapine 25 MG TAB PO SCH ×3 (00:02→22:54)
[2023-06-02] MEDS: NOREPINEPHRINE 4 MG in SODIUM CHLORIDE 0.9% 250 ML IV SCH (00:02)
--- NOTE | 2023-06-02 00:05 | PN ---
PROGRESS NOTE SUBJECTIVE: A 67-year-old white male. Temperature is afebrile, heart rate is low 100s, respiratory rate 18 to 20, blood pressure is 99 to 115 over 65 to 99. He is saturating 98% on 2 L. Cardiology saw him today, as well as Dr. Bernal. Placed him on breathing treatments last night as well as oxygen. He has a history of difficulty with his breathing, COPD, pulmonary hypertension. He is still tachycardic, but he is less tachycardic than he was yesterday. Had dialysis. OBJECTIVE: LUNGS: Fairly clear today. HEART: Irregularly irregular rhythm. ABDOMEN: Soft. EXTREMITIES: No cyanosis, clubbing, or edema. ASSESSMENT: End-stage renal disease, noncompliant with dialysis, atrial fibrillation with RVR, hypotension, history of aneurysm of coronary arteries, status post atrial fibrillation ablation, dyslipidemia, possibly a new onset stroke. Otherwise, mentally he appears to be talking at his normal baseline. Cardiology increased the metoprolol. Also he had some kind of blood clot in one of his internal carotids. I discussed with ICU nurse about upping his Eliquis [address] Infante wanted. I do not think he really had a stroke. He has generalized cerebral dysfunction and metabolic encephalopathy. He appears to be more mentally with it. He is getting his Eliquis restarted. We upped the dose due to a blood clot found in the internal carotid. Wait for further recommendations. Continue breathing treatments, oxygen. Prognosis guarded. MMODL / IJN: [id number] /
[2023-06-02 05:15] LABS: Anisocytosis Moderate; Basophils % (A) 0 %; Eosinophils % (A) 0 %; HCT 27.6 % (39.0-53.0); HGB 8.3 gm/dL (13.0-17.5); Hypochromasia Marked; Lymphocytes # (A) 0.9 k/uL (1.0-4.8); Lymphocytes % (A) 7 %; MCH 28.7 pg (25.0-35.0); MCHC 30.1 g/dL (31.0-37.0); Macrocytosis Slight; Mean Platelet Volume 10.1; Monocytes # (A) 0.5 k/uL (0-1.0); Monocytes % (A) 4 %; Neutrophils # (A) 10.7 k/uL (1.3-7.7); Neutrophils % (A) 87 %; Poikilocytosis Slight; RBC 2.88 m/uL (4.30-5.90); RDW 21.7 % (11.5-15.5); WBC 12.4 k/uL (3.8-10.6)
[2023-06-02 05:16] LABS: MCV 95.5 fL (80.0-100.0); Platelet Count 83 k/uL (150-450)
[2023-06-02 05:44] LABS: African American GFR (CKD) 29 (>60 ml/min/1.73 sqM); Anion Gap 12 mmol/L; Blood Urea Nitrogen 24 mg/dL (9-20); Calcium 8.8 mg/dL (8.4-10.2); Carbon Dioxide 24 mmol/L (22-30); Chloride 100 mmol/L (98-107); Glucose 76 mg/dL (74-99); Non-African American GFR(CKD) 25 (>60 ml/min/1.73 sqM); Potassium 3.8 mmol/L (3.5-5.1); Sodium 136 mmol/L (137-145)
--- NOTE | 2023-06-02 06:24 | XR ---
EXAM: XR Chest, 1 View CLINICAL HISTORY: ITS.REASON XR Reason: Dobhoff placement confirmation TECHNIQUE: Frontal view of the chest. COMPARISON: 06/01/23 FINDINGS: Lungs: Persistent opacity in the right mid to lower lung. This likely represents combination of airspace disease/atelectasis and effusion. Mild streaky density in the left lung base seen. Pleural space: Pleural effusions suspected in the right lower lung. Heart: Enlarged cardiovascular silhouette, stable. Mediastinum: Prominent mediastinum, unchanged likely tortuous thoracic aorta. Bones/joints: Unremarkable. Vasculature: Tortuous calcified thoracic aorta, unchanged. Tubes, lines and devices: Feeding tube, tip looped in the proximal stomach. Overlying chest leads obscure portion of the chest. IMPRESSION: 1. Feeding tube, tip looped in the proximal stomach. 2. No other change.
[2023-06-02] MEDS: METOPROLOL TARTRATE 50 MG TAB PO SCH ×3 (08:03→20:44)
[2023-06-02] MEDS: FLUoxetine HCL 20 MG CAP PO SCH (08:05)
[2023-06-02] MEDS: PANTOPRAZOLE 40 MG/10 ML VIAL IVP SCH ×2 (08:05→20:44)
[2023-06-02] MEDS: MIDODRINE 5 MG TAB PO SCH ×3 (08:05→17:25)
[2023-06-02] MEDS: APIXABAN 2.5 MG TABLET PO SCH ×3 (08:05→22:54)
[2023-06-02] MEDS: CHOLESTYRAMINE (WITH SUGAR) 4 GM PACKET PO SCH (08:09)
[2023-06-02] MEDS: IPRATROPIUM-ALBUTEROL 3 ML NEB INHALATION SCH ×4 (08:11→20:36)
[2023-06-02] MEDS: SEVELAMER 800 MG TAB PO SCH ×3 (08:29→18:08)
[2023-06-02] MEDS: VALPROIC ACID ORAL SOLN 250 MG/5 ML CUP NG-TUBE SCH ×3 (08:32→22:54)
--- NOTE | 2023-06-02 10:13 | P.PN ---
Subjective Progress Note Date: 06/02/23 I am seeing this patient in consultation today 05/25/2023 in the intensive care unit after the patient was found to be hypotensive during the hemodialysis and transferred to the intensive care unit. Patient is a 67-year-old white male with past medical history significant for end-stage renal disease, hemodialysis maintain on a Tuesday, Tuesday, Tuesday schedule, congestive heart failure, paroxysmal atrial fibrillation anticoagulated on Eliquis, CVA/TIA, hyperlipidemia, hypertension, coronary artery disease, obstructive sleep apnea, among other things. Patient is currently a poor historian, not able to participate in HPI. Apparently, the patient has been refusing hemodialysis as his extended care facility. He became confused, and was sent into the emergency room 2 days ago. Apparently, on resuming patient's hemodialysis treatments the patient became hypotensive. He also was in atrial fibrillation with rapid ventricular ventricular rate he was started on a Cardizem infusion temporarily, and transferred to the intensive care unit last night. Patient was placed on when necessary Midodrine earlier in the day, does not look like his evening dose was given. The patient was temporarily started on norepinephrine infusion, which is currently on hold. Heart rate is better controlled. Cardizem is off. Patient is lying in bed, on 2 L/m nasal cannula, in no acute distress. He is confused. Chest CT this admission shows cardiomegaly and moderate right pleural effusion and atelectasis of the right middle lobe and lower lobes. 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 Dilated main pulmonary artery measuring 4.3 cm consistent with pulmonary arterial hypertension. An severe three-vessel coronary artery calcifications. Most recent CBC from yesterday shows a WBC count of 11, hemoglobin 8.8, hematocrit 28, platelets 69,000. Most recent BMP from yesterday shows a sodium 135, potassium 4.3, chloride 95, serum bicarb down to 17, BUN 119, creatinine 8.27, glucose 81. No IV maintenance fluids infusing. Troponins were elevated at 0.037, 0.047, 0.044 respectfully. NT proBNP elevated at 40,000. Patient was placed on empiric antibiotics for possible CAP. Remains afebrile. The patient will be monitored in the intensive care unit for now. Progress note dated 05/26/2023. 67-year-old black male, seen again in the intensive care unit, room 266. Yesterday, he had a change in his neurologic status. We will like gas, and a computed tomography scan of the brain, without contrast, as well as a neurology consultation. The patient apparently is also had an EEG. Blood gases show a PaO2 of 102, pCO2 46, and a pH is 7.4. Currently, the patient is on 2 L of oxygen. He is getting saline at 5 mL an hour. He did have hemodialysis yesterday, May 25. In addition, for his hypotension, we added the midodrine, back at 10 mg 3 times a day. Currently he is much more awake and alert. Labs today include a white count of 10, hemoglobin 7.8, hematocrit 24.3, and a platelet count of 56,000. Sodium 132, potassium 3.2, chloride 95, CO2 23, BUN 59, creatinine 4.33. Blood cultures are showing evidence of gram-negative bacilli. Chest x-ray shows only a small right pleural effusion. The patient is currently on Rocephin and Flagyl. Progress note dated 05/27/2023. 67-year-old black male seen today in room 266. The patient is very lethargic. He does arouse, and he answers simple questions. Currently, he's on 2 L of oxygen. He's given Cardizem drip of 5 mg an hour, and saline at KVO. He continues on cefepime and Flagyl. The patient has had intermittent episodes of hypotension, requiring norepinephrine. The patient was to have hemodialysis today. White count 16.2, hemoglobin 7.5, hematocrit 23.6, with a platelet count a 62,000. Sodium 1:30, potassium 4.5, chlorides 95, CO2 22, anion gap 13, BUN 73, and creatinine 4.50. Blood cultures are positive for Povidencia. Progress note dated 05/28/2023. 67-year-old male seen in room 266. He currently is on room air. Saturations are 95%. The patient is in atrial fibrillation, with controlled rate. He continues on Cardizem 5 mg an hour, and saline at 10 mL an hour. The patient received 1 unit of packed red blood cells. He had hemodialysis yesterday, where 500 mL was removed. Clinically, he appears to be relatively stable. Currently labs include a white count 13.1, hemoglobin 6.9, hematocrit 22.3, and a platelet count a 63,000. Sodium 132, potassium 3.8, chlorides 97, CO2 27, BUN 39, and creatinine down to 2.79 from 4.50. Albumin is 2. Progress note dated 05/29/2023. 67-year-old male, seen today in room 266. He is currently now on room air. The patient is not receiving any IV fluids. The Cardizem drip was discontinued, and beta tracy was added. The patient is a Tuesday/Tuesday/Tuesday hemodialysis patient. The patient's blood pressure since being here in the unit, has been stable. White count is 12.8, hemoglobin 7.8, hematocrit 24.6, and platelet count 74,000. On today's evaluation of 05/30/2023, the patient is resting comfortably on room air oxygen. Is undergoing hemodialysis. Note that his oxygen is improved and the patient was treated with fluid overload/CHF/pulmonary edema and he is currently back on room air oxygen. His last chest x-ray was done on 05/26/2023 and it was consistent with cardiomegaly and CHF. He also has end-stage renal disease and the patient is currently on hemodialysis 3 times a week Wednesdays and Fridays. His current cardiac rhythm is atrial fibrillation with a controlled rate. Hemodynamically stable on no pressors. In terms of his atrial fibrillation, the patient is metoprolol 50 mg by mouth twice a day. The patient is off Cardizem. The patient is also off anticoagulation with Eliquis due to a low hemoglobin and possibility of a bleed. His most recent ec hocardiogram from 05/24/2023 has shown 11 tender ejection fraction of 40-45%, mild aortic stenosis, cuhb-cy-qruzripy mitral regurgitation. He is also known to haveCoronary artery disease. He has previous history of CVA and chronic A. fib, hypertension, along with an incisional disease. During this current admission, the patient was also found to be septic with a possible culture with gram-negative bacteria/Covid dentia and currently is on IV cefepime. Based on the possible culture with gram-negative bacteria, the patient was given a CAT scan of the abdomen that showed fluid overload/CHF along with generalized anasarca. There was also a moderate right and a small left-sided pleural effus ion along with cardiomegaly and extensive triple-vessel coronary calcification. There was moderate circumferential wall thickening in the mid and the distal sigmoid colon and rectum consistent with distal colitis. No abscess or free air. There was additional moderate circumferential bladder wall thickening obviously raising the suspicion for cystitis. The white second Cardizem 11.4, hemoglobin is at 8 and a platelet count of 75. BUN is at 50 with a creatinine of 4.08. Sodium is at 138. He continues to be encephalopathic and confused. Most recent CAT scan of the brain that was done on 05/29/2023 which is essentially yesterday showed moderate to marked atrophy, moderate chronic ischemic white matter demyelination and small to/remote lacunar infarct in the right basal ganglia and remote occipital infarct. There was also small acute to subacute cortical/subcortical infarct and left occipital lobe of the brain adjacent to the left lateral ventricle. No evidence of any bleeding. There is evaluation of 05/31/2023, I'm seeing the patient for a follow-up. Neurologically, slightly improved. Still encephalopathic although there is some improvement in terms of communication and having limited conversation. Noted the patient underwent hemodialysis yesterday. The same time, the patient is undergoing treatments for sepsis as the patient is gram-negative bacillus in the blood in the form of Providencia . His current antibiotic coverage is with a combination of cefepime and Flagyl. Note that 2 sets of blood cultures were positive on 05/23/2023. The repeat blood culture that was obtained on 05/26/2023 showed no microbial growth thus far. The patient has an incisional disease and is currently on hemodialysis. He has chronic into fibrillation. There was some concerns of development of multiple strokes. CAT scan of the brain was noted. This was discussed with urology. The patient was started back on anticoagulation with Eliquis 2.5 mg twice a day. No significant abdominal distention. No nausea or emesis. No abdominal pain. He is currently on room air oxygen. Blood work from today shows a white cell count of 15.2 with a hemoglobin of 8.9 and platelet count of 66. Sodiums of 134, BUN is at 33 with a creatinine of 2.6. Potassium levels at 4.4. On today's evaluation of 06/01/2023, the patient is responsive and he is communicating. He remains encephalopathic and confused. He failed a swallow evaluation yesterday and based on that the patient was given a Dobbhoff 4 enteral feeding and nutritional support. Meanwhile, his being treated for gram-negative sepsis in his blood with Providencia and he is also undergoing hemodialysis. He remains on the same antibiotic coverage including combination of cefepime and Flagyl. We believe that the source of infection was abdominal colitis. Hemodynamically stable. He remains in A. fib and I started the patient back in his anticoagulants as the patient's CAT scan of the brain was showing multiple infarcts which could be potentially embolic in nature. Is currently on oxygen at 2 L/m nasal cannula. His blood work shows a sodium level of 134, BUN of 33 with a creatinine of 2.6 and a potassium level of 4.4. White cell count still pending for now. He is afebrile. He is hemodynamically stable on 2 L of oxygen by nasal cannula with a pulse ox of 98%. Chest x-ray from today shows right-sided pleural effusion. Volume loss in the right compared to the left. Dobbhoff is approaching his stomach. Left lung essentially clear. Today's evaluation of 06/02/2023, the patient remains that some limited confusion encephalopathy. He thinks he is at home. Note that we inserted a Dobbhoff Him 4 Enteral Feeding and Nutritional Support As the Patient Was Having Difficulties with His Feeding. He Pulled the Tube out and we had to reinsert the tube back again. He underwent hemodialysis yesterday and his last hemodialysis session was on 06/01/2023. Despite his altered mentation, his calm and comfortable. His nonagitated. He remains on IV cefepime regarding his gram-negative sepsis. Is also on anticoagulation with Eliquis. In terms of his blood work, white cell count of 12.4, hemoglobin is 8.3, BUN is at 25 with a creatinine of 2.5 and a sodium level is at 136. Currently, he is receiving enteral feeding and he is currently on Nepro at the rate of 20 mL an hour. Objective - Vital Signs Vital signs: Vital Signs Temp 97.4 F L 06/02/23 08:00 Pulse 110 H 06/02/23 08:23 Resp 16 06/02/23 08:00 BP 123/80 06/02/23 08:00 Pulse Ox 95 06/02/23 08:00 FiO2 Intake & Output 06/01/23 06/02/23 06/02/23 18:59 06:59 18:59 Intake Total 600 Output Total 1600 Balance -1000 Weight 85.3 kg 86.5 kg Intake: Hemodialysis 600 Output: Hemodialysis 1600 Other: Voiding Method Diaper - Exam . Gen. appearance the patient is alert, communicating at confused, The patient is currently on oxygen at 2 L and he has a Dobbhoff catheter in place HEENT examination is grossly unremarkable. Mucous membranes are moist. No oral lesions. Neck supple. Full range of motion. No adenopathy thyromegaly or neck vein distention. Cardiovascular examination reveals an irregular rhythm and rate. S1-S2 normal. No S3 or S4. No discernible murmur noted. . Heart sounds are distant. Lungs reveal mostly clear breath sounds. Scattered crackles are noted. No wheezes or rhonchi. Breath sounds are equal bilaterally. Abdomen soft bowel sounds are heard. No masses or tenderness. Extremities are intact. No cyanosis clubbing or edema. Skin is without rash or lesion. Neurologic examination is brief but nonfocal. - Labs CBC & Chem 7: 06/02/23 04:46 06/02/23 04:46 Labs: Abnormal Lab Results - Last 24 Hours (Table) 06/02/23 06/02/23 Range/Units 04:46 04:46 WBC 12.4 H (3.8-10.6) k/uL RBC 2.88 L (4.30-5.90) m/uL Hgb 8.3 L (13.0-17.5) gm/dL Hct 27.6 L (39.0-53.0) % MCHC 30.1 L (31.0-37.0) g/dL RDW 21.7 H (11.5-15.5) % Plt Count 83 L (150-450) k/uL Neutrophils # 10.7 H (1.3-7.7) k/uL Lymphocytes # 0.9 L (1.0-4.8) k/uL Sodium 136 L (137-145) mmol/L BUN 24 H (9-20) mg/dL Creatinine 2.55 H (0.66-1.25) mg/dL Assessment and Plan Plan: Encephalopathy, multifactorial. The patient has a component of metabolic encephalopathy and septic encephalopathy. At the same time the patient has multi infarcts as noted and the most recent CAT scan of the brain in addition to new acute/subacute include left occipital infarct and chronic generalized atrophy and remote lacunar infarct. The encephalopathy is improving and the patient was started on anticoagulation with Eliquis 2.5 twice a day. The patient continues to have waxing and waning mentation. He seems to be quite sleepy at communicating today. He continues to have an underlying baseline confusion. Unable to swallow. Status swallow evaluation. Given a Dobbhoff / enteral feeding and nutritional support. No significant changes condition since yesterday. Gram-negative sepsis with providencia , currently on IV cefepime suspecting underlying colitis/sigmoid colitis as evidenced on the CAT scan of the abdomen. Hypotension, resolved, likely secondary to volume depletion, and sepsis, improved and the receipt blood culture that was done on 05/26/2023 was negative End-stage renal disease, normally maintained on hemodialysis Tuesday, Tuesday, Tuesday. Hemodialysis was done on 06/01/2023 with 2 L of fluid removal Right-sided pleural effusion, asymptomatic and the patient is currently on 2 L of oxygen nasal cannula Anion gap metabolic acidosis, improving and the serum bicarb is currently at 24 Acute hypoxemic respiratory failure, improved. The patient is currently on 2 L of oxygen by nasal cannula Obstructive sleep apnea, utilizes CPAP outpatient. Atrial fibrillation with rapid ventricular rate. The patient is currently on anticoagulants, currently on metoprolol at a dose of 75 mg by mouth twice a day. He also is on anticoagulation with Eliquis 2.5 mg twice a day. Anemia of chronic disease. Hemoglobin is stable at 8.3 Thrombocytopenia. The platelet counts are improving is currently up to 83 Decubitus pressure injury. Hyperlipidemia. History of CVA/TIA. Coronary artery disease. CHF with mild impairment of LV function with an ejection fraction of 40-45% Plan: The patient's encephalopathic and he is stable As stated, this could be multifactorial. The patient is undergoing hemodialysis , last session was on 06/02/2023 We'll continue the IV cefepime. We will start enteral feeding for nutritional support following his dialysis. We'll obtain dietary consultation. Dobbhoff is in place, the patient is receiving Nepro May need another swallow evaluation at the later stage once is encephalopathy improves He is on no pressors for now. Platelet counts are improving. Hemoglobin is stable. No signs of any cardiomyopathy. We'll evaluate his mental status following his dialysis. He remains atrial fibrillation He remains a full code. May transferred out of the intensive care unit He has a sitter
[2023-06-02] MEDS ORDERED: DIGOXIN 250 MCG/ML 2 ML AMP IVP ONE (10:32)
--- NOTE | 2023-06-02 10:32 | P.PN ---
Subjective PROGRESS NOTE The patient is a 67-year-old male with known history of end-stage renal disease, atrial fibrillation, aneurysmal coronary arteries, hyperlipidemia who has missed his dialysis and presented with symptoms of progressive dyspnea. Last night he became hypotensive, was started on norepinephrine and subsequently transferred to the ICU. He is awake, confused and combative this morning. His blood pressure is stable. He is in atrial fibrillation. He has a prior history of ablation in paroxysmal atrial fibrillation. He is scheduled to undergo dialysis today. In the past his ejection fraction was 55-60. May 26: The patient is drowsy this morning. He continues to be confused during the night. He continues to be in atrial fibrillation with episodes of rapid ventricle response, he is nothing by mouth and receiving IV beta tracy. He is undergoing an EEG. He underwent dialysis yesterday. There is no evidence of ventricular ectopic activity. He is off norepinephrine. His echocardiogram showed an ejection fraction of 40-45% with mild pulmonary hypertension and [id number] mitral regurgitation. May 27: The patient is sleepy. He has been started on IV Cardizem because of persistent atrial fibrillation with rapid ventricle response. His blood pressure is stable. He is scheduled to undergo dialysis today. He has not been anticoagulated because of anemia and positive blood in the stool. He has thromb ocytopenia. He continues to be on IV beta tracy. He underwent an abdominal computed tomography scan, the results are pending 05/28/23 Patient is laying in bed, awake. He is tolerating oral diet and has been started on oral medications. He was noticed to be anemic with hemoglobin of 6.9 today. Yesterday 7.5. He is status post 1 unit of blood transfusion. Stools Hem +ve Creatinine is much better as compared to yesterday 2.79 today yesterday 4.5 05/29/23 Patient is laying in bed tolerating oral diet and oral medications. Hemoglobin 7.8 today, 0.3. 05/30 Patient seen and examined. Patient not following commands however answers some questions appropriately, states "he is doing fine." Has been able to take the metoprolol at heart rates mainly in the 90s to the low 100s. Hemoglobin borderline however has been fairly stable and therefore we will restart Alquist 2.5 mg twice a day. 05/31 Patient seen and examined. Patient denies any chest pain or pressure however is complaining of back pain. Somewhat more alert today however still not answering questions appropriately. He was restarted on anticoagulation yesterday. 06/01 Patient seen and examined. Patient still with tachycardia heart rates 110s to 120s. He is taking the metoprolol 50 mg twice a day. Receiving dialysis today with 1 L taken off. 06/02 Patient seen and examined. Patient still with heart rates in the 110s 120s. The metoprolol was increased from 50-75 mg and blood pressure is borderline 100s over 50s. He has been getting anxious and upset at times and heart rates increase up to 140s. PHYSICAL EXAMINATION: LUNGS: Clear to auscultation anteriorly HEART: Irregular rate and rhythm, S1, S2. No S3. Systolic ejection murmur ABDOMEN: Soft, nontender, no organomegaly EXTREMETIES: No edema IMPRESSION: 1. End-stage renal disease, noncompliant with dialysis 2. Atrial fibrillation with episodes of rapid ventricle response 3. Hypotension, improving 4. History of aneurysmal coronary arteries 5. Status post atrial fibrillation ablation 6. Hyperlipidemia 7. Change in mental status PLAN: Blood pressure still borderline with uncontrolled heart rates 110s to 120s mainly however increasing up to 140s. We will add digoxin however monitor closely with his kidney disease. 250 mcg IV now and then 125 g tomorrow. Monitor response. Objective - Vital Signs Vital signs: Vital Signs Temp 97.4 F L 06/02/23 08:00 Pulse 110 H 06/02/23 08:23 Resp 16 06/02/23 08:00 BP 123/80 06/02/23 08:00 Pulse Ox 95 06/02/23 08:00 FiO2 Intake & Output 06/01/23 06/02/23 06/02/23 18:59 06:59 18:59 Intake Total 600 Output Total 1600 Balance -1000 Weight 85.3 kg 86.5 kg Intake: Hemodialysis 600 Output: Hemodialysis 1600 Other: Voiding Method Diaper - Labs CBC & Chem 7: 06/02/23 04:46 06/02/23 04:46 Labs: Abnormal Lab Results - Last 24 Hours (Table) 06/02/23 06/02/23 Range/Units 04:46 04:46 WBC 12.4 H (3.8-10.6) k/uL RBC 2.88 L (4.30-5.90) m/uL Hgb 8.3 L (13.0-17.5) gm/dL Hct 27.6 L (39.0-53.0) % MCHC 30.1 L (31.0-37.0) g/dL RDW 21.7 H (11.5-15.5) % Plt Count 83 L (150-450) k/uL Neutrophils # 10.7 H (1.3-7.7) k/uL Lymphocytes # 0.9 L (1.0-4.8) k/uL Sodium 136 L (137-145) mmol/L BUN 24 H (9-20) mg/dL Creatinine 2.55 H (0.66-1.25) mg/dL
--- NOTE | 2023-06-02 11:26 | P.PN ---
Subjective Patient is seen for follow-up for end-stage renal disease. Maintained on Tuesday schedule. Patient is awake. He does recognize me. Dobbhoff tube placed as patient failed swallowing evaluation. Patient is currently with a sitter as he has been trying to pull the tube out. Scheduled for hemodialysis tomorrow Objective - Vital Signs Vital signs: Vital Signs Temp 97.4 F L 06/02/23 08:00 Pulse 102 H 06/02/23 11:08 Resp 16 06/02/23 08:00 BP 123/80 06/02/23 08:00 Pulse Ox 95 06/02/23 08:00 FiO2 Intake & Output 06/01/23 06/02/23 06/02/23 18:59 06:59 18:59 Intake Total 600 Output Total 1600 Balance -1000 Weight 85.3 kg 86.5 kg Intake: Hemodialysis 600 Output: Hemodialysis 1600 Other: Voiding Method Diaper - Exam Awake, no acute distress. Answering questions appropriately but has been confused on and off Examination of the heart S1 and S2 Examination of the lungs bilateral breath sounds are heard Abdomen is soft nontender Examination lower extremity shows no significant edema. Right arm AV fistula [employer] exam shows patient is moving all 4 extremities. Confusion on and off - Labs CBC & Chem 7: 06/02/23 04:46 06/02/23 04:46 Labs: Abnormal Lab Results - Last 24 Hours (Table) 06/02/23 06/02/23 Range/Units 04:46 04:46 WBC 12.4 H (3.8-10.6) k/uL RBC 2.88 L (4.30-5.90) m/uL Hgb 8.3 L (13.0-17.5) gm/dL Hct 27.6 L (39.0-53.0) % MCHC 30.1 L (31.0-37.0) g/dL RDW 21.7 H (11.5-15.5) % Plt Count 83 L (150-450) k/uL Neutrophils # 10.7 H (1.3-7.7) k/uL Lymphocytes # 0.9 L (1.0-4.8) k/uL Sodium 136 L (137-145) mmol/L BUN 24 H (9-20) mg/dL Creatinine 2.55 H (0.66-1.25) mg/dL Assessment and Plan Assessment: 1. End-stage renal disease maintained on hemodialysis on Tuesday schedule. 2. A. fib with RVR maintain on metoprolol and anticoagulation. Status post Cardizem drip 3. Anemia of chronic kidney disease. High ferritin noted. On Aranesp. Status post packed RBCs 4. Noncompliance with hemodialysis. 5. Hypertension with chronic kidney disease. Controlled. 6. Chronic kidney disease mineral bone disease maintained on Renvela. Phosphorus level 3.9 dated 05/25/2023. 7. Metabolic acidosis secondary to chronic kidney disease. Status post bicarb drip. Improved. 8. Chronic systolic CHF with ejection fraction of 40-45% with mild to moderate mitral regurgitation. 9. Bacteremia with providentia, source possibly abdominal. CT is suggestive of colitis . Repeat blood cultures are negative. Maintained on antibiotics Plan: Hemodialysis in a.m. Continue antibiotics Continue with midodrine.
[2023-06-02] MEDS: CEFEPIME 1 GM in SODIUM CHLORIDE 0.9% 50 ML IVPB SCH ×2 (11:30→20:44)
[2023-06-02] MEDS ORDERED: POTASSIUM BICARBONATE/CIT AC 20 MEQ TABLET.EFF PO ONE (11:32)
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
[2023-06-02 13:44] LABS: Glucose,Whole Blood 92 mg/dL (70-110)
--- NOTE | 2023-06-02 14:32 | P.PN ---
Subjective Progress Note Date: 06/01/23 Principal diagnosis: Gram-negative bacteremia Patient is a 67-year-old male with a past medical history significant for hypertension hyperlipidemia [place] end-stage renal disease on hemodialysis to the right arm AV fistula patient presenting to the hospital 3 days ago for e valuation of mental status changes, patient was noticed to have a positive blood culture with a drug-resistant Providencia probably this infectious disease consultation patient did have CT of abdominal pelvis with evidence of colitis On today's evaluation and that is 06/01/2023, the patient denies any fever and chills, the patient is breathing comfortably on room air and denies any shortness of breath, the patient denies having any chest pain or cough, patient denies Abdominal pain, nausea/vomiting /diarrhea patient did have NG for feeding Patient white count is down is slightly up to 13.2 as of yesterday no laboratory today, creatinine is 2.69, blood culture repeat so far negative Objective - Vital Signs Vital signs: Vital Signs Temp 98.4 F 06/01/23 02:00 Pulse 100 06/01/23 08:45 Resp 18 06/01/23 02:00 BP 118/81 06/01/23 02:00 Pulse Ox 98 06/01/23 02:00 FiO2 Intake & Output 05/31/23 06/01/23 06/01/23 18:59 06:59 18:59 Intake Total 100 100 Balance 100 100 Weight 85.3 kg Intake: IV 100 100 0.9 Normal Saline @ 5mL/ 100 hr Cefepime 1 gm In Sodium 100 Chloride 0.9% 50 ml @ 12. 5 mls/hr IVPB Q12HR [facility] Rx#:[id number] Other: # Bowel Movements 0 1 - Exam GENERAL DESCRIPTION: An elderly male lying in bed in no distress RESPIRATORY SYSTEM: Unlabored breathing , decreased breath sounds at bases HEART: S1 S2 regular rate and rhythm , ABDOMEN: Soft , mild distention EXTREMITIES: No edema feet - Labs CBC & Chem 7: 06/02/23 04:46 06/02/23 04:46 Labs: Microbiology - Last 24 Hours (Table) 05/26/23 16:27 Blood Culture - Final Blood Assessment and Plan (1) Gram-negative bacteremia Current Visit: Yes Status: Acute Code(s): R78.81 - BACTEREMIA SNOMED Code(s): 206618793427 (2) Colitis Current Visit: Yes Status: Acute Code(s): K52.9 - NONINFECTIVE GASTROEN TERITIS AND COLITIS, UNSPECIFIED SNOMED Code(s): 57699302 Plan: 1patient with the providencia bacteremia with the source questionably abdominal versus pneumonia as there was evidence of moderate right-sided effusion and some infiltrate on the CT of the chest and the patient did have mild abdominal distention however no significant tenderness was noticed 2-blood cultures has been repeated document clearance of his bacteremia 3-patient did have CT abdominal pelvis with oral contrast only, with evidence of colitis possible source of bacteremia 4-the patient is afebrile the patient has shown clinical improvement,we will continue with the patient on cefepime 1 g every 12 hours and Flagyl and continue supportive care Dictation was produced using [employer] dictation software. please excuse any grammatical, word or spelling errors. Time with Patient: Less than 30
--- NOTE | 2023-06-02 14:33 | P.PN ---
Subjective Progress Note Date: 06/02/23 Principal diagnosis: Gram-negative bacteremia Patient is a 67-year-old male with a past medical history significant for hypertension hyperlipidemia [place] end-stage renal disease on hemodialysis to the right arm AV fistula patient presenting to the hospital 3 days ago for e valuation of mental status changes, patient was noticed to have a positive blood culture with a drug-resistant Providencia probably this infectious disease consultation patient did have CT of abdominal pelvis with evidence of colitis On today's evaluation and that is 06/02/2023, the patient continues to be afebrile, the patient is breathing comfortably on room air, the patient denies any chest pain or cough, patient denies abdominal pain, and denies any nausea/vomiting or diarrhea , patient wanted to eat currently he did have NG for tube feeds Patient white count is down is slightly down to 12.4, creatinine is 2.55, blood culture repeat so far negative Objective - Vital Signs Vital signs: Vital Signs Temp 97.4 F L 06/02/23 08:00 Pulse 102 H 06/02/23 11:08 Resp 16 06/02/23 08:00 BP 123/80 06/02/23 08:00 Pulse Ox 95 06/02/23 08:00 FiO2 Intake & Output 06/01/23 06/02/23 06/02/23 18:59 06:59 18:59 Intake Total 600 Output Total 1600 Balance -1000 Weight 85.3 kg 86.5 kg Intake: Hemodialysis 600 Output: Hemodialysis 1600 Other: Voiding Method Diaper - Exam GENERAL DESCRIPTION: An elderly male lying in bed in no distress RESPIRATORY SYSTEM: Unlabored breathing , decreased breath sounds at bases HEART: S1 S2 regular rate and rhythm , ABDOMEN: Soft , mild distention EXTREMITIES: No edema feet - Labs CBC & Chem 7: 06/02/23 04:46 06/02/23 04:46 Labs: Abnormal Lab Results - Last 24 Hours (Table) 06/02/23 06/02/23 Range/Units 04:46 04:46 WBC 12.4 H (3.8-10.6) k/uL RBC 2.88 L (4.30-5.90) m/uL Hgb 8.3 L (13.0-17.5) gm/dL Hct 27.6 L (39.0-53.0) % MCHC 30.1 L (31.0-37.0) g/dL RDW 21.7 H (11.5-15.5) % Plt Count 83 L (150-450) k/uL Neutrophils # 10.7 H (1.3-7.7) k/uL Lymphocytes # 0.9 L (1.0-4.8) k/uL Sodium 136 L (137-145) mmol/L BUN 24 H (9-20) mg/dL Creatinine 2.55 H (0.66-1.25) mg/dL Assessment and Plan (1) Gram-negative bacteremia Current Visit: Yes Status: Acute Code(s): R78.81 - BACTEREMIA SNOMED Code(s): 761091425702 (2) Colitis Current Visit: Yes Status: Acute Code(s): K52.9 - NONINFECTIVE GASTROEN TERITIS AND COLITIS, UNSPECIFIED SNOMED Code(s): 25914675 Plan: 1patient with the providencia bacteremia with the source questionably abdominal versus pneumonia as there was evidence of moderate right-sided effusion and some infiltrate on the CT of the chest and the patient did have mild abdominal distention however no significant tenderness was noticed 2-blood cultures has been repeated document clearance of his bacteremia 3-patient did have CT abdominal pelvis with oral contrast only, with evidence of colitis possible source of bacteremia 4-the patient is afebrile the patient white count is trending down 5plan is to continue with the patient on cefepime 1 g every 12 hours and Flagyl to finish a two-week course of therapy Dictation was produced using [employer] dictation software. please excuse any grammatical, word or spelling errors. Time with Patient: Less than 30
[2023-06-02 18:19] LABS: Glucose,Whole Blood 104 mg/dL (70-110)
--- NOTE | 2023-06-02 20:41 | EEG ---
ELECTROENCEPHALOGRAM REPORT CLINICAL HISTORY: This is a 67-year-old gentleman with altered mental status. The video EEG is obtained to evaluate for seizure and epileptiform activity. RELEVANT MEDICATION: Depakote. EEG TYPE: A routine 21-channel EEG with video using the 10/20 electrode placement system. DESCRIPTION: Wakefulness is only obtained. During awake state, the background consists of low-to- moderate voltage 7 to 8 Hz activity intermixed with diffuse nonrhythmic delta activity that is polymorphic. There is no physiological stage II sleep architecture. There is no focal slowing. INTERICTAL AND ICTAL: None. ACTIVATION PROCEDURE: Photic stimulation and hyperventilation are not performed. CLINICAL INTERPRETATION: This is an abnormal routine EEG. The background slowing is suggestive of moderate encephalopathy. Otherwise, moderate encephalopathy likely due to toxic metabolic derangement. Otherwise, there is no focal slowing, epileptiform discharge, or seizure on the EEG. Today's study is similar to the most recent EEG on 05/26/2023. MMODL / IJN: [id number] /
[2023-06-02] MEDS: ATORVASTATIN 40 MG TAB PO SCH ×2 (20:43→22:54)
[2023-06-02] MEDS: METOPROLOL TARTRATE 5 MG/5 ML VIAL IVP SCH (23:03)
[2023-06-03 00:54] LABS: Glucose,Whole Blood 99 mg/dL (70-110)
[2023-06-03] MEDS: METOPROLOL TARTRATE 5 MG/5 ML VIAL IVP SCH (05:00)
[2023-06-03 06:47] LABS: Glucose,Whole Blood 86 mg/dL (70-110)
[2023-06-03 06:57] LABS: Anisocytosis Marked; HCT 25.2 % (39.0-53.0); HGB 7.6 gm/dL (13.0-17.5); Hypochromasia Marked; MCH 29.5 pg (25.0-35.0); MCHC 30.3 g/dL (31.0-37.0); MCV 97.4 fL (80.0-100.0); Macrocytosis Slight; Mean Platelet Volume 9.9; Poikilocytosis Slight; RBC 2.59 m/uL (4.30-5.90); WBC 14.7 k/uL (3.8-10.6)
[2023-06-03 07:10] LABS: African American GFR (CKD) 26 (>60 ml/min/1.73 sqM); Anion Gap 8 mmol/L; Blood Urea Nitrogen 30 mg/dL (9-20); Calcium 8.5 mg/dL (8.4-10.2); Carbon Dioxide 24 mmol/L (22-30); Chloride 103 mmol/L (98-107); Glucose 83 mg/dL (74-99); Non-African American GFR(CKD) 22 (>60 ml/min/1.73 sqM); Potassium 3.7 mmol/L (3.5-5.1); Sodium 135 mmol/L (137-145)
[2023-06-03 07:14] LABS: Platelet Count 80 k/uL (150-450)
[2023-06-03] MEDS: IPRATROPIUM-ALBUTEROL 3 ML NEB INHALATION SCH ×5 (08:59→20:46)
--- NOTE | 2023-06-03 09:05 | P.PN ---
Subjective Patient is seen in follow-up for end-stage renal disease. He is maintained on hemodialysis on Tuesday schedule. Tolerating dialysis well. Awake. Confused. Hemodynamically stable. Vital signs are stable. General: No acute distress. HEENT: Head exam is unremarkable. LUNGS: No audible rhonchi or wheezes. HEART: Irregular rate and rhythm. ABDOMEN: Nontender. EXTREMITITES: No edema. Objective - Vital Signs Vital signs: Vital Signs Temp 98.2 F 06/03/23 02:00 Pulse 111 H 06/03/23 08:59 Resp 18 06/03/23 02:00 BP 126/53 06/03/23 02:00 Pulse Ox 99 06/03/23 02:00 FiO2 Intake & Output 06/02/23 06/03/23 06/03/23 18:59 06:59 18:59 Intake Total 50 60 Balance 50 60 Weight 84 kg Intake: IV 50 60 0.9 Normal Saline @ 5mL/ 60 hr Cefepime 1 gm In Sodium 50 Chloride 0.9% 50 ml @ 12. 5 mls/hr IVPB Q12HR [facility] Rx#:[id number] Other: Voiding Method Diaper Diaper # Bowel Movements 3 - Labs CBC & Chem 7: 06/03/23 06:40 06/03/23 06:40 Labs: Abnormal Lab Results - Last 24 Hours (Table) 06/03/23 06/03/23 Range/Units 06:40 06:40 WBC 14.7 H (3.8-10.6) k/uL RBC 2.59 L (4.30-5.90) m/uL Hgb 7.6 L (13.0-17.5) gm/dL Hct 25.2 L (39.0-53.0) % MCHC 30.3 L (31.0-37.0) g/dL RDW 24.0 H (11.5-15.5) % Plt Count 80 L (150-450) k/uL Sodium 135 L (137-145) mmol/L BUN 30 H (9-20) mg/dL Creatinine 2.84 H (0.66-1.25) mg/dL Assessment and Plan Plan: Assessment: 1. End-stage renal disease maintained on hemodialysis on Tuesday schedule. 2. A. fib with RVR maintain on metoprolol and anticoagulation. 3. Anemia of chronic kidney disease. High ferritin noted. On Aranesp. 4. Noncompliance with hemodialysis. 5. Hypertension with chronic kidney disease. Controlled. 6. Chronic kidney disease mineral bone disease maintained on Renvela. Phosphorus level 3.9 dated 05/25/2023. 7. Metabolic acidosis secondary to chronic kidney disease. Status post bicarb drip. Resolved. 8. Chronic systolic CHF with ejection fraction of 40-45% with mild to moderate mitral regurgitation. 9. Providencia bacteremia. Infectious disease following. Abdominal source ve rsus pneumonia. Colitis noted on CT. Plan: Currently seen while undergoing hemodialysis. Maintain midodrine hold for systolic blood pressure greater than 110. Life threatening risks of noncompliance with medications and hemodialysis treatments has been discussed with patient multiple times.
[2023-06-03] MEDS: SEVELAMER 800 MG TAB PO SCH ×3 (09:16→18:52)
[2023-06-03] MEDS: APIXABAN 2.5 MG TABLET PO SCH ×2 (09:16→20:28)
[2023-06-03] MEDS: MIDODRINE 5 MG TAB PO SCH ×3 (09:16→18:53)
[2023-06-03] MEDS: DIGOXIN 125 MCG TAB PO SCH (09:17)
[2023-06-03] MEDS: NOREPINEPHRINE 4 MG in SODIUM CHLORIDE 0.9% 250 ML IV SCH ×2 (09:17→21:10)
[2023-06-03] MEDS: CHOLESTYRAMINE (WITH SUGAR) 4 GM PACKET PO SCH (09:17)
[2023-06-03] MEDS: FLUoxetine HCL 20 MG CAP PO SCH (09:17)
--- NOTE | 2023-06-03 10:07 | P.PN ---
Subjective Progress Note Date: 06/03/23 I am seeing this patient in consultation today 05/25/2023 in the intensive care unit after the patient was found to be hypotensive during the hemodialysis and transferred to the intensive care unit. Patient is a 67-year-old white male with past medical history significant for end-stage renal disease, hemodialysis maintain on a Tuesday, Tuesday, Tuesday schedule, congestive heart failure, paroxysmal atrial fibrillation anticoagulated on Eliquis, CVA/TIA, hyperlipidemia, hypertension, coronary artery disease, obstructive sleep apnea, among other things. Patient is currently a poor historian, not able to participate in HPI. Apparently, the patient has been refusing hemodialysis as his extended care facility. He became confused, and was sent into the emergency room 2 days ago. Apparently, on resuming patient's hemodialysis treatments the patient became hypotensive. He also was in atrial fibrillation with rapid ventricular ventricular rate he was started on a Cardizem infusion temporarily, and transferred to the intensive care unit last night. Patient was placed on when necessary Midodrine earlier in the day, does not look like his evening dose was given. The patient was temporarily started on norepinephrine infusion, which is currently on hold. Heart rate is better controlled. Cardizem is off. Patient is lying in bed, on 2 L/m nasal cannula, in no acute distress. He is confused. Chest CT this admission shows cardiomegaly and moderate right pleural effusion and atelectasis of the right middle lobe and lower lobes. 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 Dilated main pulmonary artery measuring 4.3 cm consistent with pulmonary arterial hypertension. An severe three-vessel coronary artery calcifications. Most recent CBC from yesterday shows a WBC count of 11, hemoglobin 8.8, hematocrit 28, platelets 69,000. Most recent BMP from yesterday shows a sodium 135, potassium 4.3, chloride 95, serum bicarb down to 17, BUN 119, creatinine 8.27, glucose 81. No IV maintenance fluids infusing. Troponins were elevated at 0.037, 0.047, 0.044 respectfully. NT proBNP elevated at 40,000. Patient was placed on empiric antibiotics for possible CAP. Remains afebrile. The patient will be monitored in the intensive care unit for now. Progress note dated 05/26/2023. 67-year-old black male, seen again in the intensive care unit, room 266. Yesterday, he had a change in his neurologic status. We will like gas, and a computed tomography scan of the brain, without contrast, as well as a neurology consultation. The patient apparently is also had an EEG. Blood gases show a PaO2 of 102, pCO2 46, and a pH is 7.4. Currently, the patient is on 2 L of oxygen. He is getting saline at 5 mL an hour. He did have hemodialysis yesterday, May 25. In addition, for his hypotension, we added the midodrine, back at 10 mg 3 times a day. Currently he is much more awake and alert. Labs today include a white count of 10, hemoglobin 7.8, hematocrit 24.3, and a platelet count of 56,000. Sodium 132, potassium 3.2, chloride 95, CO2 23, BUN 59, creatinine 4.33. Blood cultures are showing evidence of gram-negative bacilli. Chest x-ray shows only a small right pleural effusion. The patient is currently on Rocephin and Flagyl. Progress note dated 05/27/2023. 67-year-old black male seen today in room 266. The patient is very lethargic. He does arouse, and he answers simple questions. Currently, he's on 2 L of oxygen. He's given Cardizem drip of 5 mg an hour, and saline at KVO. He continues on cefepime and Flagyl. The patient has had intermittent episodes of hypotension, requiring norepinephrine. The patient was to have hemodialysis today. White count 16.2, hemoglobin 7.5, hematocrit 23.6, with a platelet count a 62,000. Sodium 1:30, potassium 4.5, chlorides 95, CO2 22, anion gap 13, BUN 73, and creatinine 4.50. Blood cultures are positive for Povidencia. Progress note dated 05/28/2023. 67-year-old male seen in room 266. He currently is on room air. Saturations are 95%. The patient is in atrial fibrillation, with controlled rate. He continues on Cardizem 5 mg an hour, and saline at 10 mL an hour. The patient received 1 unit of packed red blood cells. He had hemodialysis yesterday, where 500 mL was removed. Clinically, he appears to be relatively stable. Currently labs include a white count 13.1, hemoglobin 6.9, hematocrit 22.3, and a platelet count a 63,000. Sodium 132, potassium 3.8, chlorides 97, CO2 27, BUN 39, and creatinine down to 2.79 from 4.50. Albumin is 2. Progress note dated 05/29/2023. 67-year-old male, seen today in room 266. He is currently now on room air. The patient is not receiving any IV fluids. The Cardizem drip was discontinued, and beta tracy was added. The patient is a Tuesday/Tuesday/Tuesday hemodialysis patient. The patient's blood pressure since being here in the unit, has been stable. White count is 12.8, hemoglobin 7.8, hematocrit 24.6, and platelet count 74,000. On today's evaluation of 05/30/2023, the patient is resting comfortably on room air oxygen. Is undergoing hemodialysis. Note that his oxygen is improved and the patient was treated with fluid overload/CHF/pulmonary edema and he is currently back on room air oxygen. His last chest x-ray was done on 05/26/2023 and it was consistent with cardiomegaly and CHF. He also has end-stage renal disease and the patient is currently on hemodialysis 3 times a week Wednesdays and Fridays. His current cardiac rhythm is atrial fibrillation with a controlled rate. Hemodynamically stable on no pressors. In terms of his atrial fibrillation, the patient is metoprolol 50 mg by mouth twice a day. The patient is off Cardizem. The patient is also off anticoagulation with Eliquis due to a low hemoglobin and possibility of a bleed. His most recent ec hocardiogram from 05/24/2023 has shown 11 tender ejection fraction of 40-45%, mild aortic stenosis, [id number] mitral regurgitation. He is also known to haveCoronary artery disease. He has previous history of CVA and chronic A. fib, hypertension, along with an incisional disease. During this current admission, the patient was also found to be septic with a possible culture with gram-negative bacteria/Covid dentia and currently is on IV cefepime. Based on the possible culture with gram-negative bacteria, the patient was given a CAT scan of the abdomen that showed fluid overload/CHF along with generalized anasarca. There was also a moderate right and a small left-sided pleural effus ion along with cardiomegaly and extensive triple-vessel coronary calcification. There was moderate circumferential wall thickening in the mid and the distal sigmoid colon and rectum consistent with distal colitis. No abscess or free air. There was additional moderate circumferential bladder wall thickening obviously raising the suspicion for cystitis. The white second Cardizem 11.4, hemoglobin is at 8 and a platelet count of 75. BUN is at 50 with a creatinine of 4.08. Sodium is at 138. He continues to be encephalopathic and confused. Most recent CAT scan of the brain that was done on 05/29/2023 which is essentially yesterday showed moderate to marked atrophy, moderate chronic ischemic white matter demyelination and small to/remote lacunar infarct in the right basal ganglia and remote occipital infarct. There was also small acute to subacute cortical/subcortical infarct and left occipital lobe of the brain adjacent to the left lateral ventricle. No evidence of any bleeding. There is evaluation of 05/31/2023, I'm seeing the patient for a follow-up. Neurologically, slightly improved. Still encephalopathic although there is some improvement in terms of communication and having limited conversation. Noted the patient underwent hemodialysis yesterday. The same time, the patient is undergoing treatments for sepsis as the patient is gram-negative bacillus in the blood in the form of Providencia . His current antibiotic coverage is with a combination of cefepime and Flagyl. Note that 2 sets of blood cultures were positive on 05/23/2023. The repeat blood culture that was obtained on 05/26/2023 showed no microbial growth thus far. The patient has an incisional disease and is currently on hemodialysis. He has chronic into fibrillation. There was some concerns of development of multiple strokes. CAT scan of the brain was noted. This was discussed with urology. The patient was started back on anticoagulation with Eliquis 2.5 mg twice a day. No significant abdominal distention. No nausea or emesis. No abdominal pain. He is currently on room air oxygen. Blood work from today shows a white cell count of 15.2 with a hemoglobin of 8.9 and platelet count of 66. Sodiums of 134, BUN is at 33 with a creatinine of 2.6. Potassium levels at 4.4. On today's evaluation of 06/01/2023, the patient is responsive and he is communicating. He remains encephalopathic and confused. He failed a swallow evaluation yesterday and based on that the patient was given a Dobbhoff 4 enteral feeding and nutritional support. Meanwhile, his being treated for gram-negative sepsis in his blood with Providencia and he is also undergoing hemodialysis. He remains on the same antibiotic coverage including combination of cefepime and Flagyl. We believe that the source of infection was abdominal colitis. Hemodynamically stable. He remains in A. fib and I started the patient back in his anticoagulants as the patient's CAT scan of the brain was showing multiple infarcts which could be potentially embolic in nature. Is currently on oxygen at 2 L/m nasal cannula. His blood work shows a sodium level of 134, BUN of 33 with a creatinine of 2.6 and a potassium level of 4.4. White cell count still pending for now. He is afebrile. He is hemodynamically stable on 2 L of oxygen by nasal cannula with a pulse ox of 98%. Chest x-ray from today shows right-sided pleural effusion. Volume loss in the right compared to the left. Dobbhoff is approaching his stomach. Left lung essentially clear. Today's evaluation of 06/02/2023, the patient remains that some limited confusion encephalopathy. He thinks he is at home. Note that we inserted a Dobbhoff Him 4 Enteral Feeding and Nutritional Support As the Patient Was Having Difficulties with His Feeding. He Pulled the Tube out and we had to reinsert the tube back again. He underwent hemodialysis yesterday and his last hemodialysis session was on 06/01/2023. Despite his altered mentation, his calm and comfortable. His nonagitated. He remains on IV cefepime regarding his gram-negative sepsis. Is also on anticoagulation with Eliquis. In terms of his blood work, white cell count of 12.4, hemoglobin is 8.3, BUN is at 25 with a creatinine of 2.5 and a sodium level is at 136. Currently, he is receiving enteral feeding and he is currently on Nepro at the rate of 20 mL an hour. On 06/03/2023, the patient remains confused. Probably slightly worse compared to yesterday. Not aware of his location. He is not aware of time. He has porcine insight on his condition. He is not aware that he is undergoing hemodialysis. Noted the patient was started on another session of hemodialysis this morning. The patient is moving all 4 extremities. He is not answering questions appropriately. His swallow evaluation was done and the patient passed and based on that the Dobbhoff catheter. He remains on IV cefepime regarding his gram-negative sepsis. He is hemodynamically stable. The blood work from today shows a WBC count of 14.7, hemoglobin 7.6 and a platelet count of 80. BUN is at 30 with a creatinine of 2.84 and a sodium level is at 135. He is afebrile. He remains on anticoagulation with Eliquis as the patient was found to have multifocal CVA as noted on his MRI of the brain. He remains on anticoagulation with Eliquis 2.5 mg twice a day. His current cardiac rhythm is still A. fib and the rate is controlled. He remains also on Seroquel 25 mg at bedtime and Prozac 20 mg by mouth daily. Objective - Vital Signs Vital signs: Vital Signs Temp 98.2 F 06/03/23 02:00 Pulse 101 H 06/03/23 09:16 Resp 18 06/03/23 02:00 BP 126/53 06/03/23 02:00 Pulse Ox 99 06/03/23 02:00 FiO2 Intake & Output 06/02/23 06/03/23 06/03/23 18:59 06:59 18:59 Intake Total 50 60 Balance 50 60 Weight 84 kg Intake: IV 50 60 0.9 Normal Saline @ 5mL/ 60 hr Cefepime 1 gm In Sodium 50 Chloride 0.9% 50 ml @ 12. 5 mls/hr IVPB Q12HR [facility] Rx#:[id number] Other: Voiding Method Diaper Diaper # Bowel Movements 3 - Exam . Gen. appearance the patient is alert, communicating at confused, The patient is currently on oxygen at 2 L , calm and comfortable and confused. No agitation. Follows simple commands. He is A and O 1. Head exam was generally normal. There was no scleral icterus or corneal arcus. Mucous membranes were moist. HEENT examination is grossly unremarkable. Mucous membranes are moist. No oral lesions. Neck supple. Full range of motion. No adenopathy thyromegaly or neck vein distention. Cardiovascular examination reveals an irregular rhythm and rate. S1-S2 normal. No S3 or S4. No discernible murmur noted. . Heart sounds are distant. Lungs reveal mostly clear breath sounds. Scattered crackles are noted. No wheezes or rhonchi. Breath sounds are equal bilaterally. Abdomen soft bowel sounds are heard. No masses or tenderness. Extremities are intact. No cyanosis clubbing or edema. Skin is without rash or lesion. Neurologic examination is showing that the patient is confused. He is AO 1. Morning all 4 extremities. He was able to pass swallow. The cranial nerves are intact. - Labs CBC & Chem 7: 06/03/23 06:40 06/03/23 06:40 Labs: Abnormal Lab Results - Last 24 Hours (Table) 06/03/23 06/03/23 Range/Units 06:40 06:40 WBC 14.7 H (3.8-10.6) k/uL RBC 2.59 L (4.30-5.90) m/uL Hgb 7.6 L (13.0-17.5) gm/dL Hct 25.2 L (39.0-53.0) % MCHC 30.3 L (31.0-37.0) g/dL RDW 24.0 H (11.5-15.5) % Plt Count 80 L (150-450) k/uL Sodium 135 L (137-145) mmol/L BUN 30 H (9-20) mg/dL Creatinine 2.84 H (0.66-1.25) mg/dL Assessment and Plan Plan: Encephalopathy, multifactorial. The patient remains confused. No focal neurological deficit. Without that the patient may have an underlying component of metabolic encephalopathy and septic encephalopathy. At the same time the patient has multi infarcts as noted and the most recent CAT scan of the brain in addition to new acute/subacute include left occipital infarct and chronic generalized atrophy and remote lacunar infarct. The encephalopathy is still present and the patient was started on anticoagulation with Eliquis 2.5 twice a day. The patient continues to have waxing and waning mentation. He has not fully recovered at this point in time. Gram-negative sepsis with providencia , currently on IV cefepime suspecting underlying colitis/sigmoid colitis as evidenced on the CAT scan of the abdomen. Hypotension, resolved, likely secondary to volume depletion, and sepsis, improved and the receipt blood culture that was done on 05/26/2023 was negative End-stage renal disease, normally maintained on hemodialysis Tuesday, Tuesday, Tuesday. Hemodialysis is being done today Right-sided pleural effusion, asymptomatic and the patient is currently on 2 L of oxygen nasal cannula Anion gap metabolic acidosis, improving Acute hypoxemic respiratory failure, improved. The patient is currently on 2 L of oxygen by nasal cannula Obstructive sleep apnea, utilizes CPAP outpatient. Atrial fibrillation with rapid ventricular rate. The patient is currently on anticoagulants, currently on metoprolol at a dose of 50 mg by mouth twice a day. He also is on anticoagulation with Eliquis 2.5 mg twice a day. Anemia of chronic disease. Hemoglobin is stable at 7.6 Thrombocytopenia. The platelet counts are improving is currently up to 80 Decubitus pressure injury. Hyperlipidemia. History of CVA/TIA. Coronary artery disease. CHF with mild impairment of LV function with an ejection fraction of 40-45% Plan: The patient's encephalopathic and he is stable As stated, this could be multifactorial. No agitation, still ongoing confusion. Neurology is on the case. His mentation is not clear and the patient remains confused. The patient is undergoing hemodialysis , last session was on 06/01/2023, undergoing dialysis today on 06/03/2023 We'll continue the IV cefepime. The patient is taking regular diet and the Dobbhoff catheter has been removed He is on no pressors for now. Platelet counts are improving. Hemoglobin is stable. . He remains atrial fibrillation, continue anticoagulation, start metoprolol 50 mg twice a day, and he is also on Digoxin Continue Seroquel Continue Prozac Continue Depakote, Check levels He remains a full code. May transferred out of the intensive care unit
[2023-06-03] MEDS: PANTOPRAZOLE 40 MG/10 ML VIAL IVP SCH ×2 (11:03→20:28)
--- NOTE | 2023-06-03 12:58 | P.PN ---
Subjective Progress Note Date: 06/03/23 Principal diagnosis: Gram-negative bacteremia Patient is a 67-year-old male with a past medical history significant for hypertension hyperlipidemia LA end-stage renal disease on hemodialysis to the right arm AV fistula patient presenting to the hospital 3 days ago for e valuation of mental status changes, patient was noticed to have a positive blood culture with a drug-resistant Providencia probably this infectious disease consultation patient did have CT of abdominal pelvis with evidence of colitis On today's evaluation and that is 06/03/2023, the patient denies any fever or any chills, the patient is breathing comfortably on 2 L nasal cannula supplemental oxygen, the patient has been complaining of hurting all over no cough or sputum remission and no diarrhea has been reported Patient white count is up to 14.7 , creatinine is 2.84, blood culture repeat so far negative Objective - Vital Signs Vital signs: Vital Signs Temp 97.5 F L 06/03/23 08:00 Pulse 101 H 06/03/23 09:16 Resp 20 06/03/23 08:00 BP 105/50 06/03/23 08:00 Pulse Ox 99 06/03/23 08:00 FiO2 Intake & Output 06/02/23 06/03/23 06/03/23 18:59 06:59 18:59 Intake Total 50 60 Balance 50 60 Weight 84 kg 84 kg Intake: IV 50 60 0.9 Normal Saline @ 5mL/ 60 hr Cefepime 1 gm In Sodium 50 Chloride 0.9% 50 ml @ 12. 5 mls/hr IVPB Q12HR [facility] Rx#:[id number] Other: Voiding Method Diaper Diaper Incontinent # Bowel Movements 3 - Exam GENERAL DESCRIPTION: An elderly male lying in bed in no distress RESPIRATORY SYSTEM: Unlabored breathing , decreased breath sounds at bases HEART: S1 S2 regular rate and rhythm , ABDOMEN: Soft , mild distention EXTREMITIES: No edema feet - Labs CBC & Chem 7: 06/03/23 06:40 06/03/23 06:40 Labs: Abnormal Lab Results - Last 24 Hours (Table) 06/03/23 06/03/23 Range/Units 06:40 06:40 WBC 14.7 H (3.8-10.6) k/uL RBC 2.59 L (4.30-5.90) m/uL Hgb 7.6 L (13.0-17.5) gm/dL Hct 25.2 L (39.0-53.0) % MCHC 30.3 L (31.0-37.0) g/dL RDW 24.0 H (11.5-15.5) % Plt Count 80 L (150-450) k/uL Sodium 135 L (137-145) mmol/L BUN 30 H (9-20) mg/dL Creatinine 2.84 H (0.66-1.25) mg/dL Assessment and Plan (1) Gram-negative bacteremia Current Visit: Yes Status: Acute Code(s): R78.81 - BACTEREMIA SNOMED Code( s): 381400690449 (2) Colitis Current Visit: Yes Status: Acute Code(s): K52.9 - NONINFECTIVE GASTROENTERITIS AND COLITIS, UNSPECIFIED SNOMED Code(s): 90093251 Plan: 1patient with the providencia bacteremia with the source questionably abdominal versus pneumonia as there was evidence of moderate right-sided effusion and some infiltrate on the CT of the chest and the patient did have mild abdominal distention however no significant tenderness was noticed 2-blood cultures has been repeated document clearance of his bacteremia 3-patient did have CT abdominal pelvis with oral contrast only, with evidence of colitis possible source of bacteremia 4-the patient is afebrile the patient white count is slightly up 5plan is to continue with the patient on cefepime 1 g every 12 hours and Flagyl has been restarted and will repeat a CBC with a.m. labs Dictation was produced using [employer] dictation software. please excuse any gramma tical, word or spelling errors. Time with Patient: Less than 30
[2023-06-03] MEDS: METOPROLOL TARTRATE 50 MG TAB PO SCH ×2 (13:10→20:30)
[2023-06-03] MEDS: CEFEPIME 1 GM in SODIUM CHLORIDE 0.9% 50 ML IVPB SCH ×2 (13:11→20:35)
[2023-06-03] MEDS: VALPROIC ACID ORAL SOLN 250 MG/5 ML CUP NG-TUBE SCH ×2 (13:11→20:30)
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
[2023-06-03] MEDS: ACETAMINOPHEN TAB 325 MG TAB PO PRN (15:31)
[2023-06-03] MEDS: metroNIDAZOLE 500 MG TAB PO SCH ×2 (15:31→20:30)
--- NOTE | 2023-06-03 15:36 | P.PN ---
Subjective PROGRESS NOTE The patient is a 67-year-old male with known history of end-stage renal disease, atrial fibrillation, aneurysmal coronary arteries, hyperlipidemia who has missed his dialysis and presented with symptoms of progressive dyspnea. Last night he became hypotensive, was started on norepinephrine and subsequently transferred to the ICU. He is awake, confused and combative this morning. His blood pressure is stable. He is in atrial fibrillation. He has a prior history of ablation in paroxysmal atrial fibrillation. He is scheduled to undergo dialysis today. In the past his ejection fraction was 55-60. May 26: The patient is drowsy this morning. He continues to be confused during the night. He continues to be in atrial fibrillation with episodes of rapid ventricle response, he is nothing by mouth and receiving IV beta tracy. He is undergoing an EEG. He underwent dialysis yesterday. There is no evidence of ventricular ectopic activity. He is off norepinephrine. His echocardiogram showed an ejection fraction of 40-45% with mild pulmonary hypertension and [id number] mitral regurgitation. May 27: The patient is sleepy. He has been started on IV Cardizem because of persistent atrial fibrillation with rapid ventricle response. His blood pressure is stable. He is scheduled to undergo dialysis today. He has not been anticoagulated because of anemia and positive blood in the stool. He has thromb ocytopenia. He continues to be on IV beta tracy. He underwent an abdominal computed tomography scan, the results are pending 05/28/23 Patient is laying in bed, awake. He is tolerating oral diet and has been started on oral medications. He was noticed to be anemic with hemoglobin of 6.9 today. Yesterday 7.5. He is status post 1 unit of blood transfusion. Stools Hem +ve Creatinine is much better as compared to yesterday 2.79 today yesterday 4.5 05/29/23 Patient is laying in bed tolerating oral diet and oral medications. Hemoglobin 7.8 today, 0.3. 05/30 Patient seen and examined. Patient not following commands however answers some questions appropriately, states "he is doing fine." Has been able to take the metoprolol at heart rates mainly in the 90s to the low 100s. Hemoglobin borderline however has been fairly stable and therefore we will restart Alquist 2.5 mg twice a day. 05/31 Patient seen and examined. Patient denies any chest pain or pressure however is complaining of back pain. Somewhat more alert today however still not answering questions appropriately. He was restarted on anticoagulation yesterday. 06/01 Patient seen and examined. Patient still with tachycardia heart rates 110s to 120s. He is taking the metoprolol 50 mg twice a day. Receiving dialysis today with 1 L taken off. 06/02 Patient seen and examined. Patient still with heart rates in the 110s 120s. The metoprolol was increased from 50-75 mg and blood pressure is borderline 100s over 50s. He has been getting anxious and upset at times and heart rates increase up to 140s. 06/03 Patient seen and examined. Heart rates still remain 110s and 120s. He pulled out his NG tube however passed a swallow eval. Initially the oral metoprolol was discontinued and switched IV however he was put back on metoprolol however at the decreased rate previously on 75 now and 50 mg twice a day. Additionally he was started on digoxin IV yesterday and oral dose today. PHYSICAL EXAMINATION: LUNGS: Clear to auscultation anteriorly HEART: Irregular rate and rhythm, S1, S2. No S3. Systolic ejection murmur ABDOMEN: Soft, nontender, no organomegaly EXTREMETIES: No edema IMPRESSION: 1. End-stage renal disease, noncompliant with dialysis 2. Atrial fibrillation with episodes of rapid ventricle response 3. Hypotension, improving 4. History of aneurysmal coronary arteries 5. Status post atrial fibrillation ablation 6. Hyperlipidemia 7. Change in mental status PLAN: Still with somewhat borderline blood pressures and we will continue with the 50 mg Lopressor twice a day as well as digoxin. If blood pressures remain stable likely increase Lopressor tomorrow. Objective - Vital Signs Vital signs: Vital Signs Temp 97.5 F L 06/03/23 13:02 Pulse 126 H 06/03/23 13:02 Resp 18 06/03/23 13:02 BP 111/71 06/03/23 13:02 Pulse Ox 99 06/03/23 08:00 FiO2 Intake & Output 06/02/23 06/03/23 06/03/23 18:59 06:59 18:59 Intake Total 50 60 400 Output Total 1700 Balance 50 60 -1300 Weight 84 kg 84 kg Intake: IV 50 60 0.9 Normal Saline @ 5mL/ 60 hr Cefepime 1 gm In Sodium 50 Chloride 0.9% 50 ml @ 12. 5 mls/hr IVPB Q12HR [facility] Rx#:[id number] Hemodialysis 400 Output: Hemodialysis 1700 Other: Voiding Method Diaper Diaper Incontinent # Bowel Movements 3 - Labs CBC & Chem 7: 06/03/23 06:40 06/03/23 06:40 Labs: Abnormal Lab Results - Last 24 Hours (Table) 06/03/23 06/03/23 Range/Units 06:40 06:40 WBC 14.7 H (3.8-10.6) k/uL RBC 2.59 L (4.30-5.90) m/uL Hgb 7.6 L (13.0-17.5) gm/dL Hct 25.2 L (39.0-53.0) % MCHC 30.3 L (31.0-37.0) g/dL RDW 24.0 H (11.5-15.5) % Plt Count 80 L (150-450) k/uL Sodium 135 L (137-145) mmol/L BUN 30 H (9-20) mg/dL Creatinine 2.84 H (0.66-1.25) mg/dL
[2023-06-03] MEDS: ATORVASTATIN 40 MG TAB PO SCH (20:28)
[2023-06-03] MEDS: QUEtiapine 25 MG TAB PO SCH (20:30)
--- NOTE | 2023-06-03 22:58 | PN ---
PROGRESS NOTE DATE OF SERVICE: 06/02/2023 SUBJECTIVE: end-stage renal disease. He is awake, recognizes people. He is going to sitters getting hemodialysis tomorrow. OBJECTIVE: VITAL SIGNS: Reviewed. LUNGS: Clear. ABDOMEN: Soft. EXTREMITIES: AV fistula. White count is 12.4, hemoglobin is 8.3, creatinine is 2.55. The end-stage renal disease, atrial fibrillation, RVR, anemia chronic disease, noncompliance with dialysis, hypertensive chronic kidney disease, chronic systolic CHF, ejection fraction 45-50, bacteremia Providencia, abdominal source versus colitis daily. Repeat cultures are negative. He remains on antibiotics, dialysis in the morning. Continue midodrine for orthostatic hypotension. Prognosis guarded. MMODL / IJN: [id number] /
[2023-06-04] MEDS: LORazepam 0.5 MG TAB PO SCH (01:28)
[2023-06-04] MEDS: DIVALPROEX 250 MG TABLET.DR PO SCH (01:29)
[2023-06-04] MEDS: MIDODRINE 5 MG TAB PO SCH ×4 (04:57→18:37)
[2023-06-04] MEDS: SEVELAMER 800 MG TAB PO SCH ×3 (06:15→18:37)
[2023-06-04] MEDS: IPRATROPIUM-ALBUTEROL 3 ML NEB INHALATION SCH ×4 (07:36→20:34)
--- NOTE | 2023-06-04 09:00 | P.PN ---
Subjective Progress Note Date: 06/04/23 I am seeing this patient in consultation today 05/25/2023 in the intensive care unit after the patient was found to be hypotensive during the hemodialysis and transferred to the intensive care unit. Patient is a 67-year-old white male with past medical history significant for end-stage renal disease, hemodialysis maintain on a Tuesday, Tuesday, Tuesday schedule, congestive heart failure, paroxysmal atrial fibrillation anticoagulated on Eliquis, CVA/TIA, hyperlipidemia, hypertension, coronary artery disease, obstructive sleep apnea, among other things. Patient is currently a poor historian, not able to participate in HPI. Apparently, the patient has been refusing hemodialysis as his extended care facility. He became confused, and was sent into the emergency room 2 days ago. Apparently, on resuming patient's hemodialysis treatments the patient became hypotensive. He also was in atrial fibrillation with rapid ventricular ventricular rate he was started on a Cardizem infusion temporarily, and transferred to the intensive care unit last night. Patient was placed on when necessary Midodrine earlier in the day, does not look like his evening dose was given. The patient was temporarily started on norepinephrine infusion, which is currently on hold. Heart rate is better controlled. Cardizem is off. Patient is lying in bed, on 2 L/m nasal cannula, in no acute distress. He is confused. Chest CT this admission shows cardiomegaly and moderate right pleural effusion and atelectasis of the right middle lobe and lower lobes. 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 Dilated main pulmonary artery measuring 4.3 cm consistent with pulmonary arterial hypertension. An severe three-vessel coronary artery calcifications. Most recent CBC from yesterday shows a WBC count of 11, hemoglobin 8.8, hematocrit 28, platelets 69,000. Most recent BMP from yesterday shows a sodium 135, potassium 4.3, chloride 95, serum bicarb down to 17, BUN 119, creatinine 8.27, glucose 81. No IV maintenance fluids infusing. Troponins were elevated at 0.037, 0.047, 0.044 respectfully. NT proBNP elevated at 40,000. Patient was placed on empiric antibiotics for possible CAP. Remains afebrile. The patient will be monitored in the intensive care unit for now. Progress note dated 05/26/2023. 67-year-old black male, seen again in the intensive care unit, room 266. Yesterday, he had a change in his neurologic status. We will like gas, and a computed tomography scan of the brain, without contrast, as well as a neurology consultation. The patient apparently is also had an EEG. Blood gases show a PaO2 of 102, pCO2 46, and a pH is 7.4. Currently, the patient is on 2 L of oxygen. He is getting saline at 5 mL an hour. He did have hemodialysis yesterday, May 25. In addition, for his hypotension, we added the midodrine, back at 10 mg 3 times a day. Currently he is much more awake and alert. Labs today include a white count of 10, hemoglobin 7.8, hematocrit 24.3, and a platelet count of 56,000. Sodium 132, potassium 3.2, chloride 95, CO2 23, BUN 59, creatinine 4.33. Blood cultures are showing evidence of gram-negative bacilli. Chest x-ray shows only a small right pleural effusion. The patient is currently on Rocephin and Flagyl. Progress note dated 05/27/2023. 67-year-old black male seen today in room 266. The patient is very lethargic. He does arouse, and he answers simple questions. Currently, he's on 2 L of oxygen. He's given Cardizem drip of 5 mg an hour, and saline at KVO. He continues on cefepime and Flagyl. The patient has had intermittent episodes of hypotension, requiring norepinephrine. The patient was to have hemodialysis today. White count 16.2, hemoglobin 7.5, hematocrit 23.6, with a platelet count a 62,000. Sodium 1:30, potassium 4.5, chlorides 95, CO2 22, anion gap 13, BUN 73, and creatinine 4.50. Blood cultures are positive for Povidencia. Progress note dated 05/28/2023. 67-year-old male seen in room 266. He currently is on room air. Saturations are 95%. The patient is in atrial fibrillation, with controlled rate. He continues on Cardizem 5 mg an hour, and saline at 10 mL an hour. The patient received 1 unit of packed red blood cells. He had hemodialysis yesterday, where 500 mL was removed. Clinically, he appears to be relatively stable. Currently labs include a white count 13.1, hemoglobin 6.9, hematocrit 22.3, and a platelet count a 63,000. Sodium 132, potassium 3.8, chlorides 97, CO2 27, BUN 39, and creatinine down to 2.79 from 4.50. Albumin is 2. Progress note dated 05/29/2023. 67-year-old male, seen today in room 266. He is currently now on room air. The patient is not receiving any IV fluids. The Cardizem drip was discontinued, and beta tracy was added. The patient is a Tuesday/Tuesday/Tuesday hemodialysis patient. The patient's blood pressure since being here in the unit, has been stable. White count is 12.8, hemoglobin 7.8, hematocrit 24.6, and platelet count 74,000. On today's evaluation of 05/30/2023, the patient is resting comfortably on room air oxygen. Is undergoing hemodialysis. Note that his oxygen is improved and the patient was treated with fluid overload/CHF/pulmonary edema and he is currently back on room air oxygen. His last chest x-ray was done on 05/26/2023 and it was consistent with cardiomegaly and CHF. He also has end-stage renal disease and the patient is currently on hemodialysis 3 times a week Wednesdays and Fridays. His current cardiac rhythm is atrial fibrillation with a controlled rate. Hemodynamically stable on no pressors. In terms of his atrial fibrillation, the patient is metoprolol 50 mg by mouth twice a day. The patient is off Cardizem. The patient is also off anticoagulation with Eliquis due to a low hemoglobin and possibility of a bleed. His most recent ec hocardiogram from 05/24/2023 has shown 11 tender ejection fraction of 40-45%, mild aortic stenosis, [id number] mitral regurgitation. He is also known to haveCoronary artery disease. He has previous history of CVA and chronic A. fib, hypertension, along with an incisional disease. During this current admission, the patient was also found to be septic with a possible culture with gram-negative bacteria/Covid dentia and currently is on IV cefepime. Based on the possible culture with gram-negative bacteria, the patient was given a CAT scan of the abdomen that showed fluid overload/CHF along with generalized anasarca. There was also a moderate right and a small left-sided pleural effus ion along with cardiomegaly and extensive triple-vessel coronary calcification. There was moderate circumferential wall thickening in the mid and the distal sigmoid colon and rectum consistent with distal colitis. No abscess or free air. There was additional moderate circumferential bladder wall thickening obviously raising the suspicion for cystitis. The white second Cardizem 11.4, hemoglobin is at 8 and a platelet count of 75. BUN is at 50 with a creatinine of 4.08. Sodium is at 138. He continues to be encephalopathic and confused. Most recent CAT scan of the brain that was done on 05/29/2023 which is essentially yesterday showed moderate to marked atrophy, moderate chronic ischemic white matter demyelination and small to/remote lacunar infarct in the right basal ganglia and remote occipital infarct. There was also small acute to subacute cortical/subcortical infarct and left occipital lobe of the brain adjacent to the left lateral ventricle. No evidence of any bleeding. There is evaluation of 05/31/2023, I'm seeing the patient for a follow-up. Neurologically, slightly improved. Still encephalopathic although there is some improvement in terms of communication and having limited conversation. Noted the patient underwent hemodialysis yesterday. The same time, the patient is undergoing treatments for sepsis as the patient is gram-negative bacillus in the blood in the form of Providencia . His current antibiotic coverage is with a combination of cefepime and Flagyl. Note that 2 sets of blood cultures were positive on 05/23/2023. The repeat blood culture that was obtained on 05/26/2023 showed no microbial growth thus far. The patient has an incisional disease and is currently on hemodialysis. He has chronic into fibrillation. There was some concerns of development of multiple strokes. CAT scan of the brain was noted. This was discussed with urology. The patient was started back on anticoagulation with Eliquis 2.5 mg twice a day. No significant abdominal distention. No nausea or emesis. No abdominal pain. He is currently on room air oxygen. Blood work from today shows a white cell count of 15.2 with a hemoglobin of 8.9 and platelet count of 66. Sodiums of 134, BUN is at 33 with a creatinine of 2.6. Potassium levels at 4.4. On today's evaluation of 06/01/2023, the patient is responsive and he is communicating. He remains encephalopathic and confused. He failed a swallow evaluation yesterday and based on that the patient was given a Dobbhoff 4 enteral feeding and nutritional support. Meanwhile, his being treated for gram-negative sepsis in his blood with Providencia and he is also undergoing hemodialysis. He remains on the same antibiotic coverage including combination of cefepime and Flagyl. We believe that the source of infection was abdominal colitis. Hemodynamically stable. He remains in A. fib and I started the patient back in his anticoagulants as the patient's CAT scan of the brain was showing multiple infarcts which could be potentially embolic in nature. Is currently on oxygen at 2 L/m nasal cannula. His blood work shows a sodium level of 134, BUN of 33 with a creatinine of 2.6 and a potassium level of 4.4. White cell count still pending for now. He is afebrile. He is hemodynamically stable on 2 L of oxygen by nasal cannula with a pulse ox of 98%. Chest x-ray from today shows right-sided pleural effusion. Volume loss in the right compared to the left. Dobbhoff is approaching his stomach. Left lung essentially clear. Today's evaluation of 06/02/2023, the patient remains that some limited confusion encephalopathy. He thinks he is at home. Note that we inserted a Dobbhoff Him 4 Enteral Feeding and Nutritional Support As the Patient Was Having Difficulties with His Feeding. He Pulled the Tube out and we had to reinsert the tube back again. He underwent hemodialysis yesterday and his last hemodialysis session was on 06/01/2023. Despite his altered mentation, his calm and comfortable. His nonagitated. He remains on IV cefepime regarding his gram-negative sepsis. Is also on anticoagulation with Eliquis. In terms of his blood work, white cell count of 12.4, hemoglobin is 8.3, BUN is at 25 with a creatinine of 2.5 and a sodium level is at 136. Currently, he is receiving enteral feeding and he is currently on Nepro at the rate of 20 mL an hour. On 06/03/2023, the patient remains confused. Probably slightly worse compared to yesterday. Not aware of his location. He is not aware of time. He has porcine insight on his condition. He is not aware that he is undergoing hemodialysis. Noted the patient was started on another session of hemodialysis this morning. The patient is moving all 4 extremities. He is not answering questions appropriately. His swallow evaluation was done and the patient passed and based on that the Dobbhoff catheter. He remains on IV cefepime regarding his gram-negative sepsis. He is hemodynamically stable. The blood work from today shows a WBC count of 14.7, hemoglobin 7.6 and a platelet count of 80. BUN is at 30 with a creatinine of 2.84 and a sodium level is at 135. He is afebrile. He remains on anticoagulation with Eliquis as the patient was found to have multifocal CVA as noted on his MRI of the brain. He remains on anticoagulation with Eliquis 2.5 mg twice a day. His current cardiac rhythm is still A. fib and the rate is controlled. He remains also on Seroquel 25 mg at bedtime and Prozac 20 mg by mouth daily. On today's evaluation of 05/27/2023, the patient was aware that he was in the hospital. He still confused and the year. He is calm and comfortable and communicating. Able to swallow. He remains in atrial fibrillation. He remains on a combination of amiodarone, metoprolol and is also anticoagulated. His last session of hemodialysis was done yesterday. Hemodynamically stable. W thousand 14.7 with a hemoglobin of 7.6 and a platelet count of 80 which is stable compared to yesterday. He is at 30 with a creatinine of 2.8 and sodium levels of 135. No other significant events overnight. The patient is calm and comfortable at this point in time. He is a medical floor overflow. Objective - Vital Signs Vital signs: Vital Signs Temp 97.6 F 06/04/23 01:14 Pulse 116 H 06/04/23 02:52 Resp 16 06/04/23 01:14 BP 111/53 06/04/23 05:02 Pulse Ox 97 06/04/23 01:14 FiO2 Intake & Output 06/03/23 06/04/23 06/04/23 18:59 06:59 18:59 Intake Total 400 Output Total 1700 Balance -1300 Weight 84 kg 82.4 kg Intake: Hemodialysis 400 Output: Hemodialysis 1700 Other: Voiding Method Incontinent - Exam . Gen. appearance the patient is alert, communicating at confused, The patient is currently on RA , calm and comfortable and confused. No agitation. Follows simple commands. He is A and O 1. Head exam was generally normal. There was no scleral icterus or corneal arcus. Mucous membranes were moist. HEENT examination is grossly unremarkable. Mucous membranes are moist. No oral lesions. Neck supple. Full range of motion. No adenopathy thyromegaly or neck vein distention. Cardiovascular examination reveals an irregular rhythm and rate. S1-S2 normal. No S3 or S4. No discernible murmur noted. . Heart sounds are distant. Lungs reveal mostly clear breath sounds. Scattered crackles are noted. No wheezes or rhonchi. Breath sounds are equal bilaterally. Abdomen soft bowel sounds are heard. No masses or tenderness. Extremities are intact. No cyanosis clubbing or edema. Skin is without rash or lesion. Neurologic examination is showing that the patient is confused. He is AO 1. Morning all 4 extremities. He was able to pass swallow. The cranial nerves are intact. - Labs CBC & Chem 7: 06/03/23 06:40 06/03/23 06:40 Assessment and Plan Plan: Encephalopathy, multifactorial. The patient remains confused. No focal neurological deficit. Without that the patient may have an underlying component of metabolic encephalopathy and septic encephalopathy. At the same time the patient has multi infarcts as noted and the most recent CAT scan of the brain in addition to new acute/subacute include left occipital infarct and chronic generalized atrophy and remote lacunar infarct. The encephalopathy is still present and the patient was started on anticoagulation with Eliquis 2.5 twice a day. The patient continues to have waxing and waning mentation. Alert and awake and communicating although confused. Gram-negative sepsis with providencia , currently on IV cefepime suspecting underlying colitis/sigmoid colitis as evidenced on the CAT scan of the abdomen. Hypotension, resolved, likely secondary to volume depletion, and sepsis, improved and the receipt blood culture that was done on 05/26/2023 was negative End-stage renal disease, normally maintained on hemodialysis Tuesday, Tuesday, Tuesday. Hemodialysis last session was on 06/03/2023 Right-sided pleural effusion, asymptomatic and the patient is currently on room air oxygen Anion gap metabolic acidosis, improving Acute hypoxemic respiratory failure, improved. The patient is currently on room air oxygen Obstructive sleep apnea, utilizes CPAP outpatient. Atrial fibrillation with rapid ventricular rate. The patient is currently on anticoagulants, currently on metoprolol at a dose of 50 mg by mouth twice a day. He also is on anticoagulation with Eliquis 2.5 mg twice a day. Anemia of chronic disease. Hemoglobin is stable at 7.6 Thrombocytopenia. The platelet counts are improving is currently up to 80 Decubitus pressure injury. Hyperlipidemia. History of CVA/TIA. Coronary artery disease. CHF with mild impairment of LV function with an ejection fraction of 40-45% Plan: The patient's encephalopathic and he is stable As stated, this could be multifactorial. The patient is undergoing hemodialysis , last session was on 06/03/2023 We'll continue the IV cefepime. The patient is taking regular diet He is on no pressors for now. Platelet counts are improving. Hemoglobin is stable. . He remains atrial fibrillation, continue anticoagulation, start metoprolol 50 mg twice a day, and he is also on Digoxin Continue Seroquel Continue Prozac Continue Depakote, Check levels He remains a full code. May transferred out of the intensive care unit
--- NOTE | 2023-06-04 09:58 | P.PN ---
Subjective Progress Note Date: 06/04/23 Principal diagnosis: Acute on chronic systolic heart failure baseline ejection fraction of 40% Altered mental status due to metabolic encephalopathy Sepsis Gram-negative bacteremia due to probably dentia Providencia source likely bowel End-stage renal disease on hemodialysis Tuesday Hypoxic respiratory failure on 2 L oxygen Sleep apnea and sleep disorder breathing Chronic atrial fibrillation Anemia of chronic disease Thrombocytopenia Dyslipidemia History of CVA Coronary artery disease 06/04/2023, patient seen eval examined in ICU while covering for Dr. Shahram Almanza, patient resting at 2 L oxygen denies any chest pain remains confused, patient is more awake and alert and able to swallow, patient is in A. fib with controlled ventricular response, patient is being anticoagulated, patient is due for hemodialysis tomorrow labs from yesterday white cell count is 14.7 hemoglobin and hematocrit is 7.6/25 platelet count of 80,000, D and GERD and 30/2.8 sodium is 137, last chest x-ray infiltrate/opacity in right midlung field also involving the lower lungs combination of pneumonia or atelectasis and effusion, cardiomegaly Review of the data revealed that patient is a 67-year-old male with past medical history significant for end-stage renal disease, hemodialysis maintain on a Tuesday, Tuesday, Tuesday schedule, congestive heart failure, paroxysmal atrial fibrillation anticoagulated on Eliquis, CVA/TIA, hyperlipidemia, hypertension, coronary artery disease, obstructive sleep apnea, among other things. Patient is poor historian. patient has been refusing hemodialysis as his extended care facility. He became confused, and was sent into the emergency room 2 days ago. Apparently, on resuming patient's hemodialysis treatments the patient became hypotensive. He also was in atrial fibrillation with rapid ventricular ventricular rate he was started on a Cardizem infusion temporarily, and transferred to the intensive care unit last night. Patient was placed on when necessary Midodrine earlier in the day, does not look like his evening dose was given. The patient was temporarily started on norepinephrine infusion, which is currently on hold. Heart rate is better controlled. Cardizem is off. Patient is lying in bed, on 2 L/m nasal cannula, in no acute distress. He is confused. Chest CT this admission shows cardiomegaly and moderate right pleural effusion and atelectasis of the right middle lobe and lower lobes. There is also incide ntally ascending thoracic aortic root aneurysm measuring 4.3 and 4 cm respectively. Dilated main pulmonary artery measuring 4.3 cm consistent with pulmonary arterial hypertension. An severe three-vessel coronary artery calcifications. Most recent CBC from yesterday shows a WBC count of 11, hemogl obin 8.8, hematocrit 28, platelets 69,000. Most recent BMP from yesterday shows a sodium 135, potassium 4.3, chloride 95, serum bicarb down to 17, BUN 119, creatinine 8.27, glucose 81. No IV maintenance fluids infusing. Troponins were elevated at 0.037, 0.047, 0.044 respectfully. NT proBNP elevated at 40,000. Patient was placed on empiric antibiotics for possible CAP. Remains afebrile Objective - Vital Signs Vital signs: Vital Signs Temp 97.6 F 06/04/23 01:14 Pulse 116 H 06/04/23 02:52 Resp 16 06/04/23 01:14 BP 111/53 06/04/23 05:02 Pulse Ox 97 06/04/23 01:14 FiO2 Intake & Output 06/03/23 06/04/23 06/04/23 18:59 06:59 18:59 Intake Total 400 Output Total 1700 Balance -1300 Weight 84 kg 82.4 kg Intake: Hemodialysis 400 Output: Hemodialysis 1700 Other: Voiding Method Incontinent - Constitutional General appearance: Present: average body habitus, cooperative, disheveled - EENT Eyes: Present: anicteric sclerae, EOMI, PERRLA ENT: Present: normal oropharynx Ears: bilateral: normal - Neck Carotids: bilateral: upstroke normal Thyroid: bilateral: normal size - Respiratory Respiratory: bilateral: diminished, rales - Cardiovascular Rhythm: irregularly irregular Heart sounds: normal: S1, S2 - Gastrointestinal General gastrointestinal: Present: decreased bowel sounds, soft - Integumentary Integumentary Comment(s): +2 edema of lower extremities Integumentary: Present: decreased turgor - Neurologic Neurologic: Present: CNII-XII intact - Musculoskeletal Musculoskeletal: Present: generalized weakness, strength equal bilaterally - Psychiatric Psychiatric: Present: A&O x's 3, appropriate affect, intact judgment & insight - Labs CBC & Chem 7: 06/03/23 06:40 06/03/23 06:40 - Imaging and Cardiology Chest x-ray: report reviewed, image reviewed, other (Chest x-ray performed on June 02) Assessment and Plan Assessment: Acute on chronic systolic heart failure baseline ejection fraction of 40% Altered mental status due to metabolic encephalopathy Sepsis Gram-negative bacteremia due to probably dentia Providencia source likely bowel End-stage renal disease on hemodialysis Tuesday Hypoxic respiratory failure on 2 L oxygen Sleep apnea and sleep disorder breathing Chronic atrial fibrillation Anemia of chronic disease Thrombocytopenia Dyslipidemia History of CVA Coronary artery disease Plan: Patient is more awake, continue to monitor mental status closely, continue broad-spectrum antibiotics and cephapirin Increase appetite as tolerated Continue supplemental oxygen Monitor labs closely, continue anticoagulation with metastases to control heart cardiovascular disease following, patient is on metoprolol as well as digoxin anticoagulation with direct oral anticoagulant Mental status more stable, composed on Serevent: Prozac and Depakote it appears that patient likely will be transferred to ICU soon
[2023-06-04] MEDS: PANTOPRAZOLE 40 MG/10 ML VIAL IVP SCH ×2 (10:33→19:43)
[2023-06-04] MEDS: FLUoxetine HCL 20 MG CAP PO SCH (10:33)
[2023-06-04] MEDS: metroNIDAZOLE 500 MG TAB PO SCH ×3 (10:33→19:42)
[2023-06-04] MEDS: APIXABAN 2.5 MG TABLET PO SCH ×2 (10:33→19:42)
[2023-06-04] MEDS: METOPROLOL TARTRATE 50 MG TAB PO SCH ×2 (10:33→19:44)
[2023-06-04] MEDS: DIGOXIN 125 MCG TAB PO SCH (10:34)
[2023-06-04] MEDS: VALPROIC ACID ORAL SOLN 250 MG/5 ML CUP NG-TUBE SCH ×2 (10:34→19:43)
[2023-06-04] MEDS: CHOLESTYRAMINE (WITH SUGAR) 4 GM PACKET PO SCH (10:34)
[2023-06-04] MEDS: CEFEPIME 1 GM in SODIUM CHLORIDE 0.9% 50 ML IVPB SCH ×2 (11:21→19:43)
--- NOTE | 2023-06-04 16:42 | P.PN ---
Subjective PROGRESS NOTE The patient is a 67-year-old male with known history of end-stage renal disease, atrial fibrillation, aneurysmal coronary arteries, hyperlipidemia who has missed his dialysis and presented with symptoms of progressive dyspnea. Last night he became hypotensive, was started on norepinephrine and subsequently transferred to the ICU. He is awake, confused and combative this morning. His blood pressure is stable. He is in atrial fibrillation. He has a prior history of ablation in paroxysmal atrial fibrillation. He is scheduled to undergo dialysis today. In the past his ejection fraction was 55-60. May 26: The patient is drowsy this morning. He continues to be confused during the night. He continues to be in atrial fibrillation with episodes of rapid ventricle response, he is nothing by mouth and receiving IV beta tracy. He is undergoing an EEG. He underwent dialysis yesterday. There is no evidence of ventricular ectopic activity. He is off norepinephrine. His echocardiogram showed an ejection fraction of 40-45% with mild pulmonary hypertension and [id number] mitral regurgitation. May 27: The patient is sleepy. He has been started on IV Cardizem because of persistent atrial fibrillation with rapid ventricle response. His blood pressure is stable. He is scheduled to undergo dialysis today. He has not been anticoagulated because of anemia and positive blood in the stool. He has thromb ocytopenia. He continues to be on IV beta tracy. He underwent an abdominal computed tomography scan, the results are pending 05/28/23 Patient is laying in bed, awake. He is tolerating oral diet and has been started on oral medications. He was noticed to be anemic with hemoglobin of 6.9 today. Yesterday 7.5. He is status post 1 unit of blood transfusion. Stools Hem +ve Creatinine is much better as compared to yesterday 2.79 today yesterday 4.5 05/29/23 Patient is laying in bed tolerating oral diet and oral medications. Hemoglobin 7.8 today, 0.3. 05/30 Patient seen and examined. Patient not following commands however answers some questions appropriately, states "he is doing fine." Has been able to take the metoprolol at heart rates mainly in the 90s to the low 100s. Hemoglobin borderline however has been fairly stable and therefore we will restart Alquist 2.5 mg twice a day. 05/31 Patient seen and examined. Patient denies any chest pain or pressure however is complaining of back pain. Somewhat more alert today however still not answering questions appropriately. He was restarted on anticoagulation yesterday. 06/01 Patient seen and examined. Patient still with tachycardia heart rates 110s to 120s. He is taking the metoprolol 50 mg twice a day. Receiving dialysis today with 1 L taken off. 06/02 Patient seen and examined. Patient still with heart rates in the 110s 120s. The metoprolol was increased from 50-75 mg and blood pressure is borderline 100s over 50s. He has been getting anxious and upset at times and heart rates increase up to 140s. 06/03 Patient seen and examined. Heart rates still remain 110s and 120s. He pulled out his NG tube however passed a swallow eval. Initially the oral metoprolol was discontinued and switched IV however he was put back on metoprolol however at the decreased rate previously on 75 now and 50 mg twice a day. Additionally he was started on digoxin IV yesterday and oral dose today. 06/04 Patient seen and examined. Heart rates mildly improved mainly 90s to low 100s. Blood pressures remain borderline in the 90s over 50s. He still complains of the lower back pain. PHYSICAL EXAMINATION: LUNGS: Clear to auscultation anteriorly HEART: Irregular rate and rhythm, S1, S2. No S3. Systolic ejection murmur ABDOMEN: Soft, nontender, no organomegaly EXTREMETIES: No edema IMPRESSION: 1. End-stage renal disease, noncompliant with dialysis 2. Atrial fibrillation with episodes of rapid ventricle response 3. Hypotension, improving 4. History of aneurysmal coronary arteries 5. Status post atrial fibrillation ablation 6. Hyperlipidemia 7. Change in mental status PLAN: He remains on the Lopressor as well as the digoxin. Continue current regimen. Continue with anticoagulation. Further recommendations to follow. Likely will need to decrease digoxin dose pending clinical response with his CKD. Objective - Vital Signs Vital signs: Vital Signs Temp 97.9 F 06/04/23 08:00 Pulse 105 H 06/04/23 11:21 Resp 20 06/04/23 08:00 BP 117/85 06/04/23 08:00 Pulse Ox 98 06/04/23 08:00 FiO2 Intake & Output 06/03/23 06/04/23 06/04/23 18:59 06:59 18:59 Intake Total 400 Output Total 1700 Balance -1300 Weight 84 kg 82.4 kg Intake: Hemodialysis 400 Output: Hemodialysis 1700 Other: Voiding Method Incontinent Incontinent - Labs CBC & Chem 7: 06/03/23 06:40 06/03/23 06:40
--- NOTE | 2023-06-04 17:06 | P.PN ---
Subjective Progress Note Date: 06/04/23 Follow-up for ESRD. Objective - Vital Signs Vital signs: Vital Signs Temp 97.9 F 06/04/23 08:00 Pulse 105 H 06/04/23 11:21 Resp 20 06/04/23 08:00 BP 117/85 06/04/23 08:00 Pulse Ox 98 06/04/23 08:00 FiO2 Intake & Output 06/03/23 06/04/23 06/04/23 18:59 06:59 18:59 Intake Total 400 Output Total 1700 Balance -1300 Weight 84 kg 82.4 kg Intake: Hemodialysis 400 Output: Hemodialysis 1700 Other: Voiding Method Incontinent Incontinent - Exam No acute distress. S1-S2 heard Lungs clear No edema - Labs CBC & Chem 7: 06/03/23 06:40 06/03/23 06:40 Assessment and Plan Assessment: #1 ESRD, MWF schedule. #2 A. fib with RVR #3 anemia with chronic kidney disease #4 hypertension with chronic kidney disease #5 metabolic bone disease #6 procidentia bacteremia Plan: #1 hemodialysis MWF schedule. #2 ICU care
[2023-06-04] MEDS: ACETAMINOPHEN TAB 325 MG TAB PO PRN (19:42)
[2023-06-04] MEDS: ATORVASTATIN 40 MG TAB PO SCH (19:42)
[2023-06-04] MEDS: QUEtiapine 25 MG TAB PO SCH (19:42)
[2023-06-04] MEDS: NOREPINEPHRINE 4 MG in SODIUM CHLORIDE 0.9% 250 ML IV SCH (19:52)
[2023-06-04 23:52] LABS: Glucose,Whole Blood 90 mg/dL (70-110)
[2023-06-05 06:20] LABS: Glucose,Whole Blood 87 mg/dL (70-110)
[2023-06-05] MEDS: MIDODRINE 5 MG TAB PO SCH ×3 (06:59→18:06)
[2023-06-05] MEDS: ACETAMINOPHEN TAB 325 MG TAB PO PRN ×2 (06:59→21:07)
[2023-06-05] MEDS: SEVELAMER 800 MG TAB PO SCH ×3 (07:00→18:06)
[2023-06-05] MEDS: IPRATROPIUM-ALBUTEROL 3 ML NEB INHALATION SCH ×4 (07:58→21:12)
[2023-06-05] MEDS: METOPROLOL TARTRATE 50 MG TAB PO SCH ×2 (09:59→21:07)
[2023-06-05] MEDS: CHOLESTYRAMINE (WITH SUGAR) 4 GM PACKET PO SCH (09:59)
[2023-06-05] MEDS: VALPROIC ACID ORAL SOLN 250 MG/5 ML CUP NG-TUBE SCH ×2 (09:59→21:08)
[2023-06-05] MEDS: APIXABAN 2.5 MG TABLET PO SCH ×2 (09:59→21:10)
[2023-06-05] MEDS: CEFEPIME 1 GM in SODIUM CHLORIDE 0.9% 50 ML IVPB SCH ×2 (09:59→21:30)
[2023-06-05] MEDS: FLUoxetine HCL 20 MG CAP PO SCH (09:59)
[2023-06-05] MEDS: DIGOXIN 125 MCG TAB PO SCH (09:59)
[2023-06-05] MEDS: metroNIDAZOLE 500 MG TAB PO SCH ×3 (09:59→21:07)
[2023-06-05] MEDS: PANTOPRAZOLE 40 MG/10 ML VIAL IVP SCH ×2 (10:01→21:08)
--- NOTE | 2023-06-05 10:07 | P.PN ---
Subjective Progress Note Date: 06/05/23 Principal diagnosis: Acute on chronic systolic heart failure baseline ejection fraction of 40% Altered mental status due to metabolic encephalopathy Sepsis Gram-negative bacteremia due to probably dentia Providencia source likely bowel End-stage renal disease on hemodialysis Tuesday Hypoxic respiratory failure on 2 L oxygen Sleep apnea and sleep disorder breathing Chronic atrial fibrillation Anemia of chronic disease Thrombocytopenia Dyslipidemia History of CVA Coronary artery disease 06/05/2023, patient seen eval reexamined during the rounds labs reviewed me dications reviewed care plan discussed with nurse, patient has been using oxygen off and on, denies any chest pain intermittent cough is present, patient remains on bronchodilators and diuretic oral anticoagulant his statins broad-spectrum antibiotics with cephapirin has been on Cardizem as well with melatonin Lopressor and Flagyl might retrain for hemodynamic supports patient has been off of pressors, labs done done today to let us stable patient remains on Cardizem drip and IV antibiotics will discuss with cardiovascular services and ID service if they can be switched to oral 06/04/2023, patient seen evraisa examined in ICU while covering for Dr. Shahram Almanza, patient resting at 2 L oxygen denies any chest pain remains confused, patient is more awake and alert and able to swallow, patient is in A. fib with controlled ventricular response, patient is being anticoagulated, patient is due for hemodialysis tomorrow labs from yesterday white cell count is 14.7 hemoglobin and hematocrit is 7.6/25 platelet count of 80,000, D and GERD and 30/2.8 sodium is 137, last chest x-ray infiltrate/opacity in right midlung field also involving the lower lungs combination of pneumonia or atelectasis and effusion, cardiomegaly Review of the data revealed that patient is a 67-year-old male with past medical history significant for end-stage renal disease, hemodialysis maintain on a Tuesday, Tuesday, Tuesday schedule, congestive heart failure, paroxysmal atrial fibrillation anticoagulated on Eliquis, CVA/TIA, hyperlipidemia, hypertension, coronary artery disease, obstructive sleep apnea, among other things. Patient is poor historian. patient has been refusing hemodialysis as his extended care facility. He became confused, and was sent into the emergency room 2 days ago. Apparently, on resuming patient's hemodialysis treatments the patient became hypotensive. He also was in atrial fibrillation with rapid ventricular ventricular rate he was started on a Cardizem infusion temporarily, and transferred to the intensive care unit last night. Patient was placed on when necessary Midodrine earlier in the day, does not look like his evening dose was given. The patient was temporarily started on norepinephrine infusion, which is currently on hold. Heart rate is better controlled. Cardizem is off. Patient is lying in bed, on 2 L/m nasal cannula, in no acute distress. He is confused. Chest CT this admission shows cardiomegaly and moderate right pleural effusion and atelectasis of the right middle lobe and lower lobes. 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 Dilated main pulmonary artery measuring 4.3 cm consistent with pulmonary arterial hypertension. An severe three-vessel coronary artery calcifications. Most recent CBC from yesterday shows a WBC count of 11, hemoglobin 8.8, hematocrit 28, platelets 69,000. Most recent BMP from yesterday shows a sodium 135, potassium 4.3, chloride 95, serum bicarb down to 17, BUN 119, creatinine 8.27, glucose 81. No IV maintenance fluids infusing. Troponins were elevated at 0.037, 0.047, 0.044 respectfully. NT proBNP elevated at 40,000. Patient was placed on empiric antibiotics for possible CAP. Remains afebrile Objective - Vital Signs Vital signs: Vital Signs Temp 97.7 F 06/05/23 02:00 Pulse 110 H 06/05/23 02:00 Resp 18 06/05/23 02:00 BP 108/69 06/05/23 02:00 Pulse Ox 93 L 06/05/23 02:00 FiO2 Intake & Output 06/04/23 06/05/23 06/05/23 18:59 06:59 18:59 Weight 89.1 kg Other: Voiding Method Incontinent Incontinent - Exam - Constitutional General appearance: Present: average body habitus, cooperative, disheveled - EENT Eyes: Present: anicteric sclerae, EOMI, PERRLA ENT: Present: normal oropharynx Ears: bilateral: normal - Neck Carotids: bilateral: upstroke normal Thyroid: bilateral: normal size - Respiratory Respiratory: bilateral: diminished, rales - Cardiovascular Rhythm: irregularly irregular Heart sounds: normal: S1, S2 - Gastrointestinal General gastrointestinal: Present: decreased bowel sounds, soft - Integumentary Integumentary Comment(s): +2 edema of lower extremities Integumentary: Present: decreased turgor - Neurologic Neurologic: Present: CNII-XII intact - Musculoskeletal Musculoskeletal: Present: generalized weakness, strength equal bilaterally - Psychiatric Psychiatric: Present: A&O x's 3, appropriate affect, intact judgment & insight - Labs CBC & Chem 7: 06/03/23 06:40 06/03/23 06:40 Assessment and Plan Assessment: Acute on chronic systolic heart failure baseline ejection fraction of 40% Altered mental status due to metabolic encephalopathy Sepsis Gram-negative bacteremia due to probably dentia Providencia source likely bowel End-stage renal disease on hemodialysis Tuesday Hypoxic respiratory failure on 2 L oxygen Sleep apnea and sleep disorder breathing Chronic atrial fibrillation Anemia of chronic disease Thrombocytopenia Dyslipidemia History of CVA Coronary artery disease Plan: Patient is more awake, continue to monitor mental status closely, continue broad-spectrum antibiotics and cephapirin Increase appetite as tolerated Continue supplemental oxygen Monitor labs closely, continue anticoagulation with metastases to control heart cardiovascular disease following, patient is on metoprolol as well as digoxin anticoagulation with direct oral anticoagulant, repeat labs in the morning consult requested with discharge planning nurse Mental status more stable, composed on Serevent: Prozac and Depakote it appears that patient likely will be transferred to ICU soon Time with Patient: Greater than 30
--- NOTE | 2023-06-05 10:13 | P.PN ---
Subjective Progress Note Date: 06/05/23 I am seeing this patient in consultation today 05/25/2023 in the intensive care unit after the patient was found to be hypotensive during the hemodialysis and transferred to the intensive care unit. Patient is a 67-year-old white male with past medical history significant for end-stage renal disease, hemodialysis maintain on a Tuesday, Tuesday, Tuesday schedule, congestive heart failure, paroxysmal atrial fibrillation anticoagulated on Eliquis, CVA/TIA, hyperlipidemia, hypertension, coronary artery disease, obstructive sleep apnea, among other things. Patient is currently a poor historian, not able to participate in HPI. Apparently, the patient has been refusing hemodialysis as his extended care facility. He became confused, and was sent into the emergency room 2 days ago. Apparently, on resuming patient's hemodialysis treatments the patient became hypotensive. He also was in atrial fibrillation with rapid ventricular ventricular rate he was started on a Cardizem infusion temporarily, and transferred to the intensive care unit last night. Patient was placed on when necessary Midodrine earlier in the day, does not look like his evening dose was given. The patient was temporarily started on norepinephrine infusion, which is currently on hold. Heart rate is better controlled. Cardizem is off. Patient is lying in bed, on 2 L/m nasal cannula, in no acute distress. He is confused. Chest CT this admission shows cardiomegaly and moderate right pleural effusion and atelectasis of the right middle lobe and lower lobes. 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 Dilated main pulmonary artery measuring 4.3 cm consistent with pulmonary arterial hypertension. An severe three-vessel coronary artery calcifications. Most recent CBC from yesterday shows a WBC count of 11, hemoglobin 8.8, hematocrit 28, platelets 69,000. Most recent BMP from yesterday shows a sodium 135, potassium 4.3, chloride 95, serum bicarb down to 17, BUN 119, creatinine 8.27, glucose 81. No IV maintenance fluids infusing. Troponins were elevated at 0.037, 0.047, 0.044 respectfully. NT proBNP elevated at 40,000. Patient was placed on empiric antibiotics for possible CAP. Remains afebrile. The patient will be monitored in the intensive care unit for now. Progress note dated 05/26/2023. 67-year-old black male, seen again in the intensive care unit, room 266. Yesterday, he had a change in his neurologic status. We will like gas, and a computed tomography scan of the brain, without contrast, as well as a neurology consultation. The patient apparently is also had an EEG. Blood gases show a PaO2 of 102, pCO2 46, and a pH is 7.4. Currently, the patient is on 2 L of oxygen. He is getting saline at 5 mL an hour. He did have hemodialysis yesterday, May 25. In addition, for his hypotension, we added the midodrine, back at 10 mg 3 times a day. Currently he is much more awake and alert. Labs today include a white count of 10, hemoglobin 7.8, hematocrit 24.3, and a platelet count of 56,000. Sodium 132, potassium 3.2, chloride 95, CO2 23, BUN 59, creatinine 4.33. Blood cultures are showing evidence of gram-negative bacilli. Chest x-ray shows only a small right pleural effusion. The patient is currently on Rocephin and Flagyl. Progress note dated 05/27/2023. 67-year-old black male seen today in room 266. The patient is very lethargic. He does arouse, and he answers simple questions. Currently, he's on 2 L of oxygen. He's given Cardizem drip of 5 mg an hour, and saline at KVO. He continues on cefepime and Flagyl. The patient has had intermittent episodes of hypotension, requiring norepinephrine. The patient was to have hemodialysis today. White count 16.2, hemoglobin 7.5, hematocrit 23.6, with a platelet count a 62,000. Sodium 1:30, potassium 4.5, chlorides 95, CO2 22, anion gap 13, BUN 73, and creatinine 4.50. Blood cultures are positive for Povidencia. Progress note dated 05/28/2023. 67-year-old male seen in room 266. He currently is on room air. Saturations are 95%. The patient is in atrial fibrillation, with controlled rate. He continues on Cardizem 5 mg an hour, and saline at 10 mL an hour. The patient received 1 unit of packed red blood cells. He had hemodialysis yesterday, where 500 mL was removed. Clinically, he appears to be relatively stable. Currently labs include a white count 13.1, hemoglobin 6.9, hematocrit 22.3, and a platelet count a 63,000. Sodium 132, potassium 3.8, chlorides 97, CO2 27, BUN 39, and creatinine down to 2.79 from 4.50. Albumin is 2. Progress note dated 05/29/2023. 67-year-old male, seen today in room 266. He is currently now on room air. The patient is not receiving any IV fluids. The Cardizem drip was discontinued, and beta tracy was added. The patient is a Tuesday/Tuesday/Tuesday hemodialysis patient. The patient's blood pressure since being here in the unit, has been stable. White count is 12.8, hemoglobin 7.8, hematocrit 24.6, and platelet count 74,000. On today's evaluation of 05/30/2023, the patient is resting comfortably on room air oxygen. Is undergoing hemodialysis. Note that his oxygen is improved and the patient was treated with fluid overload/CHF/pulmonary edema and he is currently back on room air oxygen. His last chest x-ray was done on 05/26/2023 and it was consistent with cardiomegaly and CHF. He also has end-stage renal disease and the patient is currently on hemodialysis 3 times a week Wednesdays and Fridays. His current cardiac rhythm is atrial fibrillation with a controlled rate. Hemodynamically stable on no pressors. In terms of his atrial fibrillation, the patient is metoprolol 50 mg by mouth twice a day. The patient is off Cardizem. The patient is also off anticoagulation with Eliquis due to a low hemoglobin and possibility of a bleed. His most recent ec hocardiogram from 05/24/2023 has shown 11 tender ejection fraction of 40-45%, mild aortic stenosis, [id number] mitral regurgitation. He is also known to haveCoronary artery disease. He has previous history of CVA and chronic A. fib, hypertension, along with an incisional disease. During this current admission, the patient was also found to be septic with a possible culture with gram-negative bacteria/Covid dentia and currently is on IV cefepime. Based on the possible culture with gram-negative bacteria, the patient was given a CAT scan of the abdomen that showed fluid overload/CHF along with generalized anasarca. There was also a moderate right and a small left-sided pleural effus ion along with cardiomegaly and extensive triple-vessel coronary calcification. There was moderate circumferential wall thickening in the mid and the distal sigmoid colon and rectum consistent with distal colitis. No abscess or free air. There was additional moderate circumferential bladder wall thickening obviously raising the suspicion for cystitis. The white second Cardizem 11.4, hemoglobin is at 8 and a platelet count of 75. BUN is at 50 with a creatinine of 4.08. Sodium is at 138. He continues to be encephalopathic and confused. Most recent CAT scan of the brain that was done on 05/29/2023 which is essentially yesterday showed moderate to marked atrophy, moderate chronic ischemic white matter demyelination and small to/remote lacunar infarct in the right basal ganglia and remote occipital infarct. There was also small acute to subacute cortical/subcortical infarct and left occipital lobe of the brain adjacent to the left lateral ventricle. No evidence of any bleeding. There is evaluation of 05/31/2023, I'm seeing the patient for a follow-up. Neurologically, slightly improved. Still encephalopathic although there is some improvement in terms of communication and having limited conversation. Noted the patient underwent hemodialysis yesterday. The same time, the patient is undergoing treatments for sepsis as the patient is gram-negative bacillus in the blood in the form of Providencia . His current antibiotic coverage is with a combination of cefepime and Flagyl. Note that 2 sets of blood cultures were positive on 05/23/2023. The repeat blood culture that was obtained on 05/26/2023 showed no microbial growth thus far. The patient has an incisional disease and is currently on hemodialysis. He has chronic into fibrillation. There was some concerns of development of multiple strokes. CAT scan of the brain was noted. This was discussed with urology. The patient was started back on anticoagulation with Eliquis 2.5 mg twice a day. No significant abdominal distention. No nausea or emesis. No abdominal pain. He is currently on room air oxygen. Blood work from today shows a white cell count of 15.2 with a hemoglobin of 8.9 and platelet count of 66. Sodiums of 134, BUN is at 33 with a creatinine of 2.6. Potassium levels at 4.4. On today's evaluation of 06/01/2023, the patient is responsive and he is communicating. He remains encephalopathic and confused. He failed a swallow evaluation yesterday and based on that the patient was given a Dobbhoff 4 enteral feeding and nutritional support. Meanwhile, his being treated for gram-negative sepsis in his blood with Providencia and he is also undergoing hemodialysis. He remains on the same antibiotic coverage including combination of cefepime and Flagyl. We believe that the source of infection was abdominal colitis. Hemodynamically stable. He remains in A. fib and I started the patient back in his anticoagulants as the patient's CAT scan of the brain was showing multiple infarcts which could be potentially embolic in nature. Is currently on oxygen at 2 L/m nasal cannula. His blood work shows a sodium level of 134, BUN of 33 with a creatinine of 2.6 and a potassium level of 4.4. White cell count still pending for now. He is afebrile. He is hemodynamically stable on 2 L of oxygen by nasal cannula with a pulse ox of 98%. Chest x-ray from today shows right-sided pleural effusion. Volume loss in the right compared to the left. Dobbhoff is approaching his stomach. Left lung essentially clear. Today's evaluation of 06/02/2023, the patient remains that some limited confusion encephalopathy. He thinks he is at home. Note that we inserted a Dobbhoff Him 4 Enteral Feeding and Nutritional Support As the Patient Was Having Difficulties with His Feeding. He Pulled the Tube out and we had to reinsert the tube back again. He underwent hemodialysis yesterday and his last hemodialysis session was on 06/01/2023. Despite his altered mentation, his calm and comfortable. His nonagitated. He remains on IV cefepime regarding his gram-negative sepsis. Is also on anticoagulation with Eliquis. In terms of his blood work, white cell count of 12.4, hemoglobin is 8.3, BUN is at 25 with a creatinine of 2.5 and a sodium level is at 136. Currently, he is receiving enteral feeding and he is currently on Nepro at the rate of 20 mL an hour. On 06/03/2023, the patient remains confused. Probably slightly worse compared to yesterday. Not aware of his location. He is not aware of time. He has porcine insight on his condition. He is not aware that he is undergoing hemodialysis. Noted the patient was started on another session of hemodialysis this morning. The patient is moving all 4 extremities. He is not answering questions appropriately. His swallow evaluation was done and the patient passed and based on that the Dobbhoff catheter. He remains on IV cefepime regarding his gram-negative sepsis. He is hemodynamically stable. The blood work from today shows a WBC count of 14.7, hemoglobin 7.6 and a platelet count of 80. BUN is at 30 with a creatinine of 2.84 and a sodium level is at 135. He is afebrile. He remains on anticoagulation with Eliquis as the patient was found to have multifocal CVA as noted on his MRI of the brain. He remains on anticoagulation with Eliquis 2.5 mg twice a day. His current cardiac rhythm is still A. fib and the rate is controlled. He remains also on Seroquel 25 mg at bedtime and Prozac 20 mg by mouth daily. 8 On today's evaluation of 06/04/2023, the patient was aware that he was in the hospital. He still confused and the year. He is calm and comfortable and communicating. Able to swallow. He remains in atrial fibrillation. He remains on a combination of amiodarone, metoprolol and is also anticoagulated. His last session of hemodialysis was done yesterday. Hemodynamically stable. W thousand 14.7 with a hemoglobin of 7.6 and a platelet count of 80 which is stable compared to yesterday. He is at 30 with a creatinine of 2.8 and sodium levels of 135. No other significant events overnight. The patient is calm and comfortable at this point in time. He is a medical floor overflow. 06/05/2023, crit patient continues to be pleasantly confused. No major issues overnight. Was not dialyzed yesterday and the plan is to dialyze this patient tomorrow. Labs are all stable, BUN is 30 with a creatinine of 2.8, white cell count is at 14.7 with a hemoglobin of 7.6. The patient on IV antibiotics regarding his gram-negative sepsis and he is receiving IV cefepime. He is able to swallow properly. No issues with aspiration. Is currently on room air oxygen. No signs of any respiratory distress at this point in time. Objective - Vital Signs Vital signs: Vital Signs Temp 97.7 F 06/05/23 02:00 Pulse 110 H 06/05/23 02:00 Resp 18 06/05/23 02:00 BP 108/69 06/05/23 02:00 Pulse Ox 93 L 06/05/23 02:00 FiO2 Intake & Output 06/04/23 06/05/23 06/05/23 18:59 06:59 18:59 Weight 89.1 kg Other: Voiding Method Incontinent Incontinent - Exam . Gen. appearance the patient is alert, communicating at confused, The patient is currently on RA , calm and comfortable and confused. No agitation. Follows simple commands. He is A and O 1. Head exam was generally normal. There was no scleral icterus or corneal arcus. Mucous membranes were moist. HEENT examination is grossly unremarkable. Mucous membranes are moist. No oral lesions. Neck supple. Full range of motion. No adenopathy thyromegaly or neck vein distention. Cardiovascular examination reveals an irregular rhythm and rate. S1-S2 normal. No S3 or S4. No discernible murmur noted. . Heart sounds are distant. Lungs reveal mostly clear breath sounds. Scattered crackles are noted. No wheezes or rhonchi. Breath sounds are equal bilaterally. Abdomen soft bowel sounds are heard. No masses or tenderness. Extremities are intact. No cyanosis clubbing or edema. Skin is without rash or lesion. Neurologic examination is showing that the patient is confused. He is AO 1. Morning all 4 extremities. He was able to pass swallow. The cranial nerves are intact. - Labs CBC & Chem 7: 06/03/23 06:40 06/03/23 06:40 Assessment and Plan Plan: Encephalopathy, multifactorial. The patient remains confused. No focal neurological deficit. Without that the patient may have an underlying component of metabolic encephalopathy and septic encephalopathy. At the same time the patient has multi infarcts as noted and the most recent CAT scan of the brain in addition to new acute/subacute include left occipital infarct and chronic generalized atrophy and remote lacunar infarct. The encephalopathy is still present and the patient was started on anticoagulation with Eliquis 2.5 twice a day. The patient continues to have waxing and waning mentation. Alert and awake and communicating although confused. Gram-negative sepsis with providencia , currently on IV cefepime suspecting underlying colitis/sigmoid colitis as evidenced on the CAT scan of the abdomen. Hypotension, resolved, likely secondary to volume depletion, and sepsis, improved and the receipt blood culture that was done on 05/26/2023 was negative End-stage renal disease, normally maintained on hemodialysis Tuesday, Tuesday, Tuesday. Hemodialysis last session was on 06/03/2023 Right-sided pleural effusion, asymptomatic and the patient is currently on room air oxygen Anion gap metabolic acidosis, improving Acute hypoxemic respiratory failure, improved. The patient is currently on room air oxygen Obstructive sleep apnea, utilizes CPAP outpatient. Atrial fibrillation with rapid ventricular rate. The patient is currently on anticoagulants, currently on metoprolol at a dose of 50 mg by mouth twice a day. He also is on anticoagulation with Eliquis 2.5 mg twice a day. Anemia of chronic disease. Hemoglobin is stable at 7.6 Thrombocytopenia. The platelet counts are improving is currently up to 80 Decubitus pressure injury. Hyperlipidemia. History of CVA/TIA. Coronary artery disease. CHF with mild impairment of LV function with an ejection fraction of 40-45% Plan: The patient's encephalopathic and he is stable As stated, this could be multifactorial. No changes condition compared to yesterday. Nevertheless, there is no agitation. He is able to swallow and is tolerating his diet and swallowing properly. The patient is undergoing hemodialysis , last session was on 06/03/2023, next dialysis is for tomorrow We'll continue the IV cefepime. The patient is taking regular diet He is on no pressors for now. Platelet counts are improving. Hemoglobin is stable. . He remains atrial fibrillation, continue anticoagulation, metoprolol 50 mg twice a day, and he is also on Digoxin Continue Seroquel Continue Prozac Continue Depakote, Check levels He remains a full code. May transferred out of the intensive care unit
--- NOTE | 2023-06-05 12:43 | P.PN ---
Subjective PROGRESS NOTE The patient is a 67-year-old male with known history of end-stage renal disease, atrial fibrillation, aneurysmal coronary arteries, hyperlipidemia who has missed his dialysis and presented with symptoms of progressive dyspnea. Last night he became hypotensive, was started on norepinephrine and subsequently transferred to the ICU. He is awake, confused and combative this morning. His blood pressure is stable. He is in atrial fibrillation. He has a prior history of ablation in paroxysmal atrial fibrillation. He is scheduled to undergo dialysis today. In the past his ejection fraction was 55-60. May 26: The patient is drowsy this morning. He continues to be confused during the night. He continues to be in atrial fibrillation with episodes of rapid ventricle response, he is nothing by mouth and receiving IV beta tracy. He is undergoing an EEG. He underwent dialysis yesterday. There is no evidence of ventricular ectopic activity. He is off norepinephrine. His echocardiogram showed an ejection fraction of 40-45% with mild pulmonary hypertension and [id number] mitral regurgitation. May 27: The patient is sleepy. He has been started on IV Cardizem because of persistent atrial fibrillation with rapid ventricle response. His blood pressure is stable. He is scheduled to undergo dialysis today. He has not been anticoagulated because of anemia and positive blood in the stool. He has throm bocytopenia. He continues to be on IV beta tracy. He underwent an abdominal computed tomography scan, the results are pending 05/28/23 Patient is laying in bed, awake. He is tolerating oral diet and has been started on oral medications. He was noticed to be anemic with hemoglobin of 6.9 today. Yesterday 7.5. He is status post 1 unit of blood transfusion. Stools Hem +ve Creatinine is much better as compared to yesterday 2.79 today yesterday 4.5 05/29/23 Patient is laying in bed tolerating oral diet and oral medications. Hemoglobin 7.8 today, 0.3. 05/30 Patient seen and examined. Patient not following commands however answers some questions appropriately, states "he is doing fine." Has been able to take the metoprolol at heart rates mainly in the 90s to the low 100s. Hemoglobin borderline however has been fairly stable and therefore we will restart Alquist 2.5 mg twice a day. 05/31 Patient seen and examined. Patient denies any chest pain or pressure however is complaining of back pain. Somewhat more alert today however still not answering questions appropriately. He was restarted on anticoagulation yesterday. 06/01 Patient seen and examined. Patient still with tachycardia heart rates 110s to 120s. He is taking the metoprolol 50 mg twice a day. Receiving dialysis today with 1 L taken off. 06/02 Patient seen and examined. Patient still with heart rates in the 110s 120s. The metoprolol was increased from 50-75 mg and blood pressure is borderline 100s over 50s. He has been getting anxious and upset at times and heart rates increase up to 140s. 06/03 Patient seen and examined. Heart rates still remain 110s and 120s. He pulled out his NG tube however passed a swallow eval. Initially the oral metoprolol was discontinued and switched IV however he was put back on metoprolol however at the decreased rate previously on 75 now and 50 mg twice a day. Additionally he was started on digoxin IV yesterday and oral dose today. 06/04 Patient seen and examined. Heart rates mildly improved mainly 90s to low 100s. Blood pressures remain borderline in the 90s over 50s. He still complains of the lower back pain. 06/05 Patient seen and examined. Heart rates better controlled mainly in the 90s- 100's. Blood pressures remain borderline 90s over 50s. PHYSICAL EXAMINATION: LUNGS: Clear to auscultation anteriorly HEART: Irregular rate and rhythm, S1, S2. No S3. Systolic ejection murmur ABDOMEN: Soft, nontender, no organomegaly EXTREMETIES: No edema IMPRESSION: 1. End-stage renal disease, noncompliant with dialysis 2. Atrial fibrillation with episodes of rapid ventricle response 3. Hypotension, improving 4. History of aneurysmal coronary arteries 5. Status post atrial fibrillation ablation 6. Hyperlipidemia 7. Change in mental status PLAN: Continue Lopressor as well as digoxin. Continue with anticoagulation. Further recommendations to follow. Objective - Vital Signs Vital signs: Vital Signs Temp 98.1 F 06/05/23 08:00 Pulse 109 H 06/05/23 08:00 Resp 16 06/05/23 08:00 BP 123/50 06/05/23 08:00 Pulse Ox 95 06/05/23 08:00 FiO2 Intake & Output 06/04/23 06/05/23 06/05/23 18:59 06:59 18:59 Weight 89.1 kg Other: Voiding Method Incontinent Incontinent Incontinent - Labs CBC & Chem 7: 06/03/23 06:40 06/03/23 06:40
--- NOTE | 2023-06-05 15:00 | P.PN ---
Subjective Progress Note Date: 06/05/23 Follow-up for ESRD. Objective - Vital Signs Vital signs: Vital Signs Temp 98.1 F 06/05/23 08:00 Pulse 109 H 06/05/23 08:00 Resp 16 06/05/23 08:00 BP 123/50 06/05/23 08:00 Pulse Ox 95 06/05/23 08:00 FiO2 Intake & Output 06/04/23 06/05/23 06/05/23 18:59 06:59 18:59 Weight 89.1 kg Other: Voiding Method Incontinent Incontinent Incontinent - Exam No acute distress. S1-S2 heard Lungs clear No edema - Labs CBC & Chem 7: 06/03/23 06:40 06/03/23 06:40 Assessment and Plan Assessment: #1 ESRD, MWF schedule. #2 A. fib with RVR #3 anemia with chronic kidney disease #4 hypertension with chronic kidney disease #5 metabolic bone disease #6 procidentia bacteremia Plan: #1 hemodialysis MWF schedule. #2 ICU care
--- NOTE | 2023-06-05 15:08 | P.PN ---
Subjective Progress Note Date: 06/04/23 Principal diagnosis: Gram-negative bacteremia Patient is a 67-year-old male with a past medical history significant for hypertension hyperlipidemia [place] end-stage renal disease on hemodialysis to the right arm AV fistula patient presenting to the hospital 3 days ago for e valuation of mental status changes, patient was noticed to have a positive blood culture with a drug-resistant Providencia probably this infectious disease consultation patient did have CT of abdominal pelvis with evidence of colitis On today's evaluation and that is 06/04/2023, the patient remains to be afebrile, the patient is breathing comfortably on 2 L nasal cannula oxygen denies any shortness of breath, the patient denies any chest pain or cough, patient denies Abdominal pain and no worsening diarrhea reported by the nursing staff Patient white count is 14.7 as of 06/03/2023 , creatinine is 2.84, blood culture repeat so far negative Objective - Vital Signs Vital signs: Vital Signs Temp 97.9 F 06/04/23 08:00 Pulse 105 H 06/04/23 11:21 Resp 20 06/04/23 08:00 BP 117/85 06/04/23 08:00 Pulse Ox 98 06/04/23 08:00 FiO2 Intake & Output 06/03/23 06/04/23 06/04/23 18:59 06:59 18:59 Intake Total 400 Output Total 1700 Balance -1300 Weight 84 kg 82.4 kg Intake: Hemodialysis 400 Output: Hemodialysis 1700 Other: Voiding Method Incontinent Incontinent - Exam GENERAL DESCRIPTION: An elderly male lying in bed in no distress RESPIRATORY SYSTEM: Unlabored breathing , decreased breath sounds at bases HEART: S1 S2 regular rate and rhythm , ABDOMEN: Soft , mild distention EXTREMITIES: No edema feet - Labs CBC & Chem 7: 06/03/23 06:40 06/03/23 06:40 Assessment and Plan (1) Gram-negative bacteremia Current Visit: Yes Status: Acute Code(s): R78.81 - BACTEREMIA SNOMED Code(s): 881488009447 (2) Colitis Current Visit: Yes Status: Acute Code(s): K52.9 - NONINFECTIVE GASTROENTERITIS AND COLITIS, UNSPECIFIED SNOMED Code(s): 09360299 Plan: 1patient with the providencia bacteremia with the source questionably abdominal versus pneumonia as there was evidence of moderate right-sided effusion and some infiltrate on the CT of the chest and the patient did have mild abdominal distention however no significant tenderness was noticed 2-blood cultures has been repeated document clearance of his bacteremia 3-patient did have CT abdominal pelvis with oral contrast only, with evidence of colitis possible source of bacteremia 4-the patient is afebrile the patient white count is slightly up, no CBC was done today 5patient to continue with the patient on cefepime 1 g every 12 hours and Flagyl and monitor clinical course closely Dictation was produced using [employer] dictation software. please excuse any grammatical, word or spelling errors. Time with Patient: Less than 30
--- NOTE | 2023-06-05 15:10 | P.PN ---
Subjective Progress Note Date: 06/05/23 Principal diagnosis: Gram-negative bacteremia Patient is a 67-year-old male with a past medical history significant for hypertension hyperlipidemia [place] end-stage renal disease on hemodialysis to the right arm AV fistula patient presenting to the hospital 3 days ago for e valuation of mental status changes, patient was noticed to have a positive blood culture with a drug-resistant Providencia probably this infectious disease consultation patient did have CT of abdominal pelvis with evidence of colitis On today's evaluation and that is 06/05/2023, the patient continues to be afebrile, the patient is breathing comfortably on 3 L nasal cannula oxygen, patient is slightly sleepy today and did not answer any question per the nursing staff he was doing well and is just sleepy no vomiting is eating and drinking okay did have a bowel movement last night and no diarrhea has been reported Patient white count is 14.7 as of 06/03/2023 , creatinine is 2.84, blood culture repeat so far negative Objective - Vital Signs Vital signs: Vital Signs Temp 98.1 F 06/05/23 08:00 Pulse 109 H 06/05/23 08:00 Resp 16 06/05/23 08:00 BP 123/50 06/05/23 08:00 Pulse Ox 95 06/05/23 08:00 FiO2 Intake & Output 06/04/23 06/05/23 06/05/23 18:59 06:59 18:59 Weight 89.1 kg Other: Voiding Method Incontinent Incontinent Incontinent - Exam GENERAL DESCRIPTION: An elderly male lying in bed in no distress RESPIRATORY SYSTEM: Unlabored breathing , decreased breath sounds at bases HEART: S1 S2 regular rate and rhythm , ABDOMEN: Soft , mild distention EXTREMITIES: No edema feet - Labs CBC & Chem 7: 06/03/23 06:40 06/03/23 06:40 Assessment and Plan (1) Gram-negative bacteremia Current Visit: Yes Status: Acute Code(s): R78.81 - BACTEREMIA SNOMED Code(s): 174486457177 (2) Colitis Current Visit: Yes Status: Acute Code(s): K52.9 - NONINFECTIVE GASTROENTERITIS AND COLITIS, UNSPECIFIED SNOMED Code(s): 56561144 Plan: 1patient with the providencia bacteremia with the source questionably abdominal versus pneumonia as there was evidence of moderate right-sided effusion and some infiltrate on the CT of the chest and the patient did have mild abdominal distention however no significant tenderness was noticed 2-blood cultures has been repeated document clearance of his bacteremia 3-patient did have CT abdominal pelvis with oral contrast only, with evidence of colitis possible source of bacteremia 4-the patient is afebrile the patient white count is slightly up, no CBC was done today 5patient to continue with the patient on cefepime 1 g every 12 hours and Flagyl we will repeat a CBC with a.m. lab to make sure the white count has normalized Dictation was produced using [employer] dictation software. please excuse any grammatical, word or spelling errors. Time with Patient: Less than 30
[2023-06-05 20:26] LABS: Anisocytosis Marked; Basophils % (A) 0 %; Eosinophils # (A) 0.1 k/uL (0-0.7); Eosinophils % (A) 0 %; HCT 29.6 % (39.0-53.0); HGB 8.6 gm/dL (13.0-17.5); Hypochromasia Marked; Lymphocytes # (A) 0.9 k/uL (1.0-4.8); Lymphocytes % (A) 6 %; MCH 29.8 pg (25.0-35.0); MCHC 29.1 g/dL (31.0-37.0); Macrocytosis Moderate; Mean Platelet Volume 10.8; Monocytes # (A) 0.9 k/uL (0-1.0); Monocytes % (A) 6 %; Neutrophils # (A) 12.8 k/uL (1.3-7.7); Neutrophils % (A) 86 %; Poikilocytosis Slight; RBC 2.89 m/uL (4.30-5.90); WBC 14.9 k/uL (3.8-10.6)
[2023-06-05 20:28] LABS: MCV 102.5 fL (80.0-100.0); Platelet Count 87 k/uL (150-450); RDW 26.4 % (11.5-15.5)
[2023-06-05 20:52] LABS: ALT 14 U/L (4-49); AST 21 U/L (17-59); African American GFR (CKD) 22 (>60 ml/min/1.73 sqM); Albumin 2.3 g/dL (3.5-5.0); Alkaline Phosphatase 90 U/L (38-126); Anion Gap 14 mmol/L; Blood Urea Nitrogen 30 mg/dL (9-20); Carbon Dioxide 20 mmol/L (22-30); Chloride 100 mmol/L (98-107); Glucose 93 mg/dL (74-99); Non-African American GFR(CKD) 19 (>60 ml/min/1.73 sqM); Potassium 3.6 mmol/L (3.5-5.1); Sodium 134 mmol/L (137-145); Total Bilirubin 1.4 mg/dL (0.2-1.3); Total Protein 5.3 g/dL (6.3-8.2)
[2023-06-05] MEDS: ATORVASTATIN 40 MG TAB PO SCH (21:07)
[2023-06-05] MEDS: QUEtiapine 25 MG TAB PO SCH (21:08)
[2023-06-06] MEDS: ACETAMINOPHEN TAB 325 MG TAB PO PRN ×2 (05:22→17:38)
[2023-06-06] MEDS: NOREPINEPHRINE 4 MG in SODIUM CHLORIDE 0.9% 250 ML IV SCH ×2 (05:27→19:55)
[2023-06-06 05:49] LABS: Anisocytosis Marked; Basophils % (A) 0 %; Eosinophils # (A) 0.1 k/uL (0-0.7); Eosinophils % (A) 0 %; HCT 29.3 % (39.0-53.0); HGB 8.7 gm/dL (13.0-17.5); Hypochromasia Marked; Lymphocytes # (A) 0.9 k/uL (1.0-4.8); Lymphocytes % (A) 6 %; MCH 30.7 pg (25.0-35.0); MCHC 29.6 g/dL (31.0-37.0); MCV 103.8 fL (80.0-100.0); Macrocytosis Marked; Mean Platelet Volume 11.1; Monocytes # (A) 0.4 k/uL (0-1.0); Monocytes % (A) 3 %; Neutrophils # (A) 14.1 k/uL (1.3-7.7); Neutrophils % (A) 89 %; Poikilocytosis Slight; RBC 2.82 m/uL (4.30-5.90); WBC 15.8 k/uL (3.8-10.6)
[2023-06-06 05:52] LABS: Platelet Count 72 k/uL (150-450); RDW 26.3 % (11.5-15.5)
[2023-06-06 06:14] LABS: ALT 12 U/L (4-49); AST 22 U/L (17-59); African American GFR (CKD) 20 (>60 ml/min/1.73 sqM); Albumin 2.1 g/dL (3.5-5.0); Alkaline Phosphatase 85 U/L (38-126); Anion Gap 12 mmol/L; Blood Urea Nitrogen 32 mg/dL (9-20); Carbon Dioxide 20 mmol/L (22-30); Chloride 102 mmol/L (98-107); Glucose 104 mg/dL (74-99); Non-African American GFR(CKD) 18 (>60 ml/min/1.73 sqM); Potassium 3.6 mmol/L (3.5-5.1); Sodium 134 mmol/L (137-145); Total Bilirubin 1.2 mg/dL (0.2-1.3); Total Protein 5.2 g/dL (6.3-8.2)
[2023-06-06] MEDS: MIDODRINE 5 MG TAB PO SCH ×3 (08:16→17:37)
[2023-06-06] MEDS: SEVELAMER 800 MG TAB PO SCH ×3 (08:58→17:37)
[2023-06-06] MEDS: IPRATROPIUM-ALBUTEROL 3 ML NEB INHALATION SCH ×4 (09:11→20:31)
[2023-06-06] MEDS: DIVALPROEX 250 MG TABLET.DR PO SCH (09:12)
--- NOTE | 2023-06-06 10:35 | P.PN ---
Subjective Patient is seen in follow-up for end-stage renal disease. He is maintained on hemodialysis on Tuesday schedule. Tolerating dialysis well. Confused. Hemodynamically stable. Vital signs are stable. General: No acute distress. HEENT: Head exam is unremarkable. LUNGS: No audible rhonchi or wheezes. HEART: Irregular rate and rhythm. ABDOMEN: Nontender. EXTREMITITES: No edema. Objective - Vital Signs Vital signs: Vital Signs Temp 97.4 F L 06/06/23 08:00 Pulse 101 H 06/06/23 09:17 Resp 18 06/06/23 09:17 BP 106/24 06/06/23 08:00 Pulse Ox 100 06/06/23 08:00 FiO2 Intake & Output 06/05/23 06/06/23 06/06/23 18:59 06:59 18:59 Weight 82.7 kg Other: Voiding Method Incontinent Incontinent - Labs CBC & Chem 7: 06/06/23 05:32 06/06/23 05:32 Labs: Abnormal Lab Results - Last 24 Hours (Table) 06/05/23 06/05/23 06/06/23 Range/Units 20:20 20:20 05:32 WBC 14.9 H (3.8-10.6) k/uL RBC 2.89 L (4.30-5.90) m/uL Hgb 8.6 L (13.0-17.5) gm/dL Hct 29.6 L (39.0-53.0) % MCV 102.5 H D (80.0-100.0) fL MCHC 29.1 L (31.0-37.0) g/dL RDW 26.4 H (11.5-15.5) % Plt Count 87 L (150-450) k/uL Neutrophils # 12.8 H (1.3-7.7) k/uL Lymphocytes # 0.9 L (1.0-4.8) k/uL Macrocytosis Sodium 134 L 134 L (137-145) mmol/L Carbon Dioxide 20 L 20 L (22-30) mmol/L BUN 30 H 32 H (9-20) mg/dL Creatinine 3.26 H 3.45 H (0.66-1.25) mg/dL Glucose 104 H (74-99) mg/dL Total Bilirubin 1.4 H (0.2-1.3) mg/dL Total Protein 5.3 L 5.2 L (6.3-8.2) g/dL Albumin 2.3 L 2.1 L (3.5-5.0) g/dL 06/06/23 Range/Units 05:32 WBC 15.8 H (3.8-10.6) k/uL RBC 2.82 L (4.30-5.90) m/uL Hgb 8.7 L (13.0-17.5) gm/dL Hct 29.3 L (39.0-53.0) % MCV 103.8 H (80.0-100.0) fL MCHC 29.6 L (31.0-37.0) g/dL RDW 26.3 H (11.5-15.5) % Plt Count 72 L (150-450) k/uL Neutrophils # 14.1 H (1.3-7.7) k/uL Lymphocytes # 0.9 L (1.0-4.8) k/uL Macrocytosis Marked A Sodium (137-145) mmol/L Carbon Dioxide (22-30) mmol/L BUN (9-20) mg/dL Creatinine (0.66-1.25) mg/dL Glucose (74-99) mg/dL Total Bilirubin (0.2-1.3) mg/dL Total Protein (6.3-8.2) g/dL Albumin (3.5-5.0) g/dL Assessment and Plan Plan: Assessment: 1. End-stage renal disease maintained on hemodialysis on Tuesday schedule. 2. A. fib with RVR maintain on metoprolol and anticoagulation. 3. Anemia of chronic kidney disease. High ferritin noted. On Aranesp. 4. Noncompliance with hemodialysis. 5. Hypertension with chronic kidney disease. Controlled. 6. Chronic kidney disease mineral bone disease maintained on Renvela. Phosphorus level 3.9 dated 05/25/2023. 7. Metabolic acidosis secondary to chronic kidney disease. Status post bicarb drip. Resolved. 8. Chronic systolic CHF with ejection fraction of 40-45% with mild to moderate mitral regurgitation. 9. Providencia bacteremia. Infectious disease following. Abdominal source versus pneumonia. Colitis noted on CT. Plan: Currently seen while undergoing hemodialysis. Maintain midodrine - hold for systolic blood pressure greater than 110. Life threatening risks of noncompliance with medications and hemodialysis treatments has been discussed with patient multiple times.
[2023-06-06] MEDS: DIGOXIN 125 MCG TAB PO SCH (10:51)
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
[2023-06-06 11:21] VITALS: BMI 26.9
--- NOTE | 2023-06-06 11:40 | PN ---
PROGRESS NOTE SUBJECTIVE: This is a 67-year-old gentleman who has been admitted to the hospital and has multiple medical problems in the form of end-stage renal disease, on hemodialysis, atrial fibrillation, aneurysmal coronary arteries, hyperlipidemia. Currently, dialysis is being performed 3 times a week basis. His heart rate is fairly well controlled. He remains in atrial fibrillation. I am suggesting that we decrease the dose of digoxin from 0.125 mg daily to every other day. He is also on a beta tracy. We will continue that. Continue other medications. Heart rate control is fair. He has multiple comorbid conditions. OBJECTIVE: VITAL SIGNS: Stable. NECK: JVD is evident 1 cm. HEART: Reveals S1, S2 with irregular rhythm. Short systolic murmur. LUNGS: Revealed diminished air entry. ABDOMEN: Soft. MUSCULOSKELETAL: Lower extremities reveal diminished pulses. CENTRAL NERVOUS SYSTEM: Assessment was not performed. MMODL / IJN: [id number] /
--- NOTE | 2023-06-06 11:48 | P.PN ---
Subjective Progress Note Date: 06/06/23 Principal diagnosis: Acute on chronic systolic heart failure baseline ejection fraction of 40% Altered mental status due to metabolic encephalopathy Sepsis Gram-negative bacteremia due to probably dentia Providencia source likely bowel End-stage renal disease on hemodialysis Tuesday Hypoxic respiratory failure on 2 L oxygen Sleep apnea and sleep disorder breathing Chronic atrial fibrillation Anemia of chronic disease Thrombocytopenia Dyslipidemia History of CVA Coronary artery disease 06/06/2023, patient seen eval examined during rounds labs reviewed medications reviewed care plan discussed, patient undergoing hemodialysis, patient has some labile blood pressure currently stable, cardiology and renal service M been following. Patient remains afebrile blood pressure stable, saturation is 100% labs today reviewed white cell count 15.8 with hemoglobin hematocrit is 8.7/29th grade count of the 72,000, BUN/creatinine 32/3.45 sodium-potassium is 1343.6 06/05/2023, patient seen eval reexamined during the rounds labs reviewed medications reviewed care plan discussed with nurse, patient has been using oxygen off and on, denies any chest pain intermittent cough is present, patient remains on bronchodilators and diuretic oral anticoagulant his statins broad- spectrum antibiotics with cephapirin has been on Cardizem as well with melatonin Lopressor and Flagyl might retrain for hemodynamic supports patient has been off of pressors, labs done done today to let us stable patient remains on Cardizem drip and IV antibiotics will discuss with cardiovascular services and ID service if they can be switched to oral 06/04/2023, patient seen eval examined in ICU while covering for Dr. Shahram Almanza, patient resting at 2 L oxygen denies any chest pain remains confused, patient is more awake and alert and able to swallow, patient is in A. fib with controlled ventricular response, patient is being anticoagulated, patient is due for hemodialysis tomorrow labs from yesterday white cell count is 14.7 hemoglobin and hematocrit is 7.6/25 platelet count of 80,000, D and GERD and 30/2.8 sodium is 137, last chest x-ray infiltrate/opacity in right midlung field also involving the lower lungs combination of pneumonia or atelectasis and effusion, cardiomegaly Review of the data revealed that patient is a 67-year-old male with past medical history significant for end-stage renal disease, hemodialysis maintain on a Tuesday, Tuesday, Tuesday schedule, congestive heart failure, paroxysmal atrial fibrillation anticoagulated on Eliquis, CVA/TIA, hyperlipidemia, hypertension, coronary artery disease, obstructive sleep apnea, among other things. Patient is poor historian. patient has been refusing hemodialysis as his extended care facility. He became confused, and was sent into the emergency room 2 days ago. Apparently, on resuming patient's hemodialysis treatments the patient became hypotensive. He also was in atrial fibrillation with rapid ventricular ventricular rate he was started on a Cardizem infusion temporarily, and transferred to the intensive care unit last night. Patient was placed on when necessary Midodrine earlier in the day, does not look like his evening dose was given. The patient was temporarily started on norepinephrine infusion, which is currently on hold. Heart rate is better controlled. Cardizem is off. Patient is lying in bed, on 2 L/m nasal cannula, in no acute distress. He is confused. Chest CT this admission shows cardiomegaly and moderate right pleural effusion and atelectasis of the right middle lobe and lower lobes. 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 Dilated main pulmonary artery measuring 4.3 cm consistent with pulmonary arterial hypertension. An severe three-vessel coronary artery calcifications. Most recent CBC from yesterday shows a WBC count of 11, hemoglobin 8.8, hematocrit 28, platelets 69,000. Most recent BMP from yesterday shows a sodium 135, potassium 4.3, chloride 95, serum bicarb down to 17, BUN 119, creatinine 8.27, glucose 81. No IV maintenance fluids infusing. Troponins were elevated at 0.037, 0.047, 0.044 respectfully. NT proBNP elevated at 40,000. Patient was placed on empiric antibiotics for possible CAP. Remains afebrile Objective - Vital Signs Vital signs: Vital Signs Temp 97.4 F L 06/06/23 08:00 Pulse 111 H 06/06/23 11:36 Resp 18 06/06/23 11:36 BP 106/24 06/06/23 08:00 Pulse Ox 100 06/06/23 08:00 FiO2 Intake & Output 06/05/23 06/06/23 06/06/23 18:59 06:59 18:59 Weight 82.7 kg 82.7 kg Other: Voiding Method Incontinent Incontinent Incontinent - Exam - Constitutional General appearance: Present: average body habitus, cooperative, disheveled - EENT Eyes: Present: anicteric sclerae, EOMI, PERRLA ENT: Present: normal oropharynx Ears: bilateral: normal - Neck Carotids: bilateral: upstroke normal Thyroid: bilateral: normal size - Respiratory Respiratory: bilateral: diminished, rales - Cardiovascular Rhythm: irregularly irregular Heart sounds: normal: S1, S2 - Gastrointestinal General gastrointestinal: Present: decreased bowel sounds, soft - Integumentary Integumentary Comment(s): +2 edema of lower extremities Integumentary: Present: decreased turgor - Neurologic Neurologic: Present: CNII-XII intact - Musculoskeletal Musculoskeletal: Present: generalized weakness, strength equal bilaterally - Psychiatric Psychiatric: Present: A&O x's 3, appropriate affect, intact judgment & insight - Labs CBC & Chem 7: 06/06/23 05:32 06/06/23 05:32 Labs: Abnormal Lab Results - Last 24 Hours (Table) 06/05/23 06/05/23 06/06/23 Range/Units 20:20 20:20 05:32 WBC 14.9 H (3.8-10.6) k/uL RBC 2.89 L (4.30-5.90) m/uL Hgb 8.6 L (13.0-17.5) gm/dL Hct 29.6 L (39.0-53.0) % MCV 102.5 H D (80.0-100.0) fL MCHC 29.1 L (31.0-37.0) g/dL RDW 26.4 H (11.5-15.5) % Plt Count 87 L (150-450) k/uL Neutrophils # 12.8 H (1.3-7.7) k/uL Lymphocytes # 0.9 L (1.0-4.8) k/uL Macrocytosis Sodium 134 L 134 L (137-145) mmol/L Carbon Dioxide 20 L 20 L (22-30) mmol/L BUN 30 H 32 H (9-20) mg/dL Creatinine 3.26 H 3.45 H (0.66-1.25) mg/dL Glucose 104 H (74-99) mg/dL Total Bilirubin 1.4 H (0.2-1.3) mg/dL Total Protein 5.3 L 5.2 L (6.3-8.2) g/dL Albumin 2.3 L 2.1 L (3.5-5.0) g/dL 06/06/23 Range/Units 05:32 WBC 15.8 H (3.8-10.6) k/uL RBC 2.82 L (4.30-5.90) m/uL Hgb 8.7 L (13.0-17.5) gm/dL Hct 29.3 L (39.0-53.0) % MCV 103.8 H (80.0-100.0) fL MCHC 29.6 L (31.0-37.0) g/dL RDW 26.3 H (11.5-15.5) % Plt Count 72 L (150-450) k/uL Neutrophils # 14.1 H (1.3-7.7) k/uL Lymphocytes # 0.9 L (1.0-4.8) k/uL Macrocytosis Marked A Sodium (137-145) mmol/L Carbon Dioxide (22-30) mmol/L BUN (9-20) mg/dL Creatinine (0.66-1.25) mg/dL Glucose (74-99) mg/dL Total Bilirubin (0.2-1.3) mg/dL Total Protein (6.3-8.2) g/dL Albumin (3.5-5.0) g/dL Assessment and Plan Assessment: A. fib with RVR, well-controlled remains on the anticoagulation and metoprolol for rate control Acute on chronic systolic heart failure baseline ejection fraction of 40% Altered mental status due to metabolic encephalopathy Sepsis Gram-negative bacteremia due to probably dentia Providencia source likely bowel End-stage renal disease on hemodialysis Tuesday Hypoxic respiratory failure on 2 L oxygen Sleep apnea and sleep disorder breathing Chronic atrial fibrillation Anemia of chronic disease Thrombocytopenia Dyslipidemia History of CVA Coronary artery disease Plan: Patient is more awake, continue to monitor mental status closely, continue broad-spectrum antibiotics and cephapirin Increase appetite as tolerated Continue supplemental oxygen Monitor labs closely, continue anticoagulation with metastases to control heart cardiovascular disease following, patient is on metoprolol as well as digoxin anticoagulation with direct oral anticoagulant, repeat labs in the morning consult requested with discharge planning nurse Mental status more stable, composed on Serevent: Prozac and Amarilis it appears that patient likely will be transferred to ICU soon Time with Patient: Greater than 30
--- NOTE | 2023-06-06 12:29 | P.PN ---
Subjective Progress Note Date: 06/06/23 Principal diagnosis: Gram-negative bacteremia Patient is a 67-year-old male with a past medical history significant for hypertension hyperlipidemia CT end-stage renal disease on hemodialysis to the right arm AV fistula patient presenting to the hospital 3 days ago for e valuation of mental status changes, patient was noticed to have a positive blood culture with a drug-resistant Providencia probably this infectious disease consultation patient did have CT of abdominal pelvis with evidence of colitis On today's evaluation and that is 06/06/2023, the patient continues to be afebrile , the patient is breathing comfortably on 2 L nasal cannula oxygen, the patient is undergoing dialysis and did not answer any question he continued to talk without making any sense no vomiting or diarrhea has been reported by the nursing staff Patient white count is slightly elevated at 15.8, creatinine is 3.45, blood culture repeat so far negative Objective - Vital Signs Vital signs: Vital Signs Temp 97.4 F L 06/06/23 08:00 Pulse 111 H 06/06/23 11:36 Resp 18 06/06/23 11:36 BP 106/24 06/06/23 08:00 Pulse Ox 100 06/06/23 08:00 FiO2 Intake & Output 06/05/23 06/06/23 06/06/23 18:59 06:59 18:59 Weight 82.7 kg 82.7 kg Other: Voiding Method Incontinent Incontinent Incontinent - Exam GENERAL DESCRIPTION: An elderly male lying in bed in no distress RESPIRATORY SYSTEM: Unlabored breathing , decreased breath sounds at bases HEART: S1 S2 regular rate and rhythm , ABDOMEN: Soft , mild distention EXTREMITIES: No edema feet - Labs CBC & Chem 7: 06/06/23 05:32 06/06/23 05:32 Labs: Abnormal Lab Results - Last 24 Hours (Table) 06/05/23 06/05/23 06/06/23 Range/Units 20:20 20:20 05:32 WBC 14.9 H (3.8-10.6) k/uL RBC 2.89 L (4.30-5.90) m/uL Hgb 8.6 L (13.0-17.5) gm/dL Hct 29.6 L (39.0-53.0) % MCV 102.5 H D (80.0-100.0) fL MCHC 29.1 L (31.0-37.0) g/dL RDW 26.4 H (11.5-15.5) % Plt Count 87 L (150-450) k/uL Neutrophils # 12.8 H (1.3-7.7) k/uL Lymphocytes # 0.9 L (1.0-4.8) k/uL Macrocytosis Sodium 134 L 134 L (137-145) mmol/L Carbon Dioxide 20 L 20 L (22-30) mmol/L BUN 30 H 32 H (9-20) mg/dL Creatinine 3.26 H 3.45 H (0.66-1.25) mg/dL Glucose 104 H (74-99) mg/dL Total Bilirubin 1.4 H (0.2-1.3) mg/dL Total Protein 5.3 L 5.2 L (6.3-8.2) g/dL Albumin 2.3 L 2.1 L (3.5-5.0) g/dL 06/06/23 Range/Units 05:32 WBC 15.8 H (3.8-10.6) k/uL RBC 2.82 L (4.30-5.90) m/uL Hgb 8.7 L (13.0-17.5) gm/dL Hct 29.3 L (39.0-53.0) % MCV 103.8 H (80.0-100.0) fL MCHC 29.6 L (31.0-37.0) g/dL RDW 26.3 H (11.5-15.5) % Plt Count 72 L (150-450) k/uL Neutrophils # 14.1 H (1.3-7.7) k/uL Lymphocytes # 0.9 L (1.0-4.8) k/uL Macrocytosis Marked A Sodium (137-145) mmol/L Carbon Dioxide (22-30) mmol/L BUN (9-20) mg/dL Creatinine (0.66-1.25) mg/dL Glucose (74-99) mg/dL Total Bilirubin (0.2-1.3) mg/dL Total Protein (6.3-8.2) g/dL Albumin (3.5-5.0) g/dL Assessment and Plan (1) Gram-negative bacteremia Current Visit: Yes Status: Acute Code(s): R78.81 - BACTEREMIA SNOMED Code(s): 236589998140 (2) Colitis Current Visit: Yes Status: Acute Code(s): K52.9 - NONINFECTIVE GASTROENTERITIS AND COLITIS, UNSPECIFIED SNOMED Code(s): 57755182 (3) Leukocytosis Current Visit: Yes Status: Acute Code(s): D72.829 - ELEVATED WHITE BLOOD CELL COUNT, UNSPECIFIED SNOMED Code(s): 637256890 Plan: 1patient with the providencia bacteremia with the source questionably abdominal versus pneumonia as there was evidence of moderate right-sided effusion and some infiltrate on the CT of the chest and the patient did have mild abdominal distention however no significant tenderness was noticed 2-blood cultures has been repeated document clearance of his bacteremia 3-patient did have CT abdominal pelvis with oral contrast only, with evidence of colitis possible source of bacteremia 4-the patient is afebrile the patient white count is trending up patient is high risk for continued infection could be related to his elevated white count 5patient to continue with the patient on cefepime 1 g every 12 hours and Flagyl unable to add fluconazole because of Seroquel we will start Eraxis and repeat a CBC with the morning Dictation was produced using [employer] dictation software. please excuse any grammatical, word or spelling errors. Time with Patient: Less than 30
[2023-06-06 12:42] LABS: Glucose,Whole Blood 81 mg/dL (70-110)
[2023-06-06] MEDS ORDERED: ANIDULAFUNGIN 200 MG in SODIUM CHLORIDE 0.9% 200 ML IVPB ONE (13:30)
[2023-06-06] MEDS: PANTOPRAZOLE 40 MG/10 ML VIAL IVP SCH (14:41)
[2023-06-06] MEDS: CHOLESTYRAMINE (WITH SUGAR) 4 GM PACKET PO SCH (14:42)
[2023-06-06] MEDS: METOPROLOL TARTRATE 50 MG TAB PO SCH (14:42)
[2023-06-06] MEDS: FLUoxetine HCL 20 MG CAP PO SCH (14:43)
[2023-06-06] MEDS: metroNIDAZOLE 500 MG TAB PO SCH ×2 (14:43→15:25)
[2023-06-06] MEDS: APIXABAN 2.5 MG TABLET PO SCH (14:44)
--- NOTE | 2023-06-06 14:45 | P.PN ---
Subjective Progress Note Date: 06/06/23 Principal diagnosis: Acute metabolic encephalopathy and gram-negative sepsis with providentia I am seeing this patient in consultation today 05/25/2023 in the intensive care unit after the patient was found to be hypotensive during the hemodialysis and transferred to the intensive care unit. Patient is a 67-year-old white male with past medical history significant for end-stage renal disease, hemodialysis maintain on a Tuesday, Tuesday, Tuesday schedule, congestive heart failure, paroxysmal atrial fibrillation anticoagulated on Eliquis, CVA/TIA, hyperlipidemia, hypertension, coronary artery disease, obstructive sleep apnea, among other things. Patient is currently a poor historian, not able to participate in [facility]. Apparently, the patient has been refusing hemodialysis as his extended care facility. He became confused, and was sent into the emergency room 2 days ago. Apparently, on resuming patient's hemodialysis treatments the patient became hypotensive. He also was in atrial fibrillation with rapid ventricular ventricular rate he was started on a Cardizem infusion temporarily, and transferred to the intensive care unit last night. Patient was placed on when necessary Midodrine earlier in the day, does not look like his evening dose was given. The patient was temporarily started on norepinephrine infusion, which is currently on hold. Heart rate is better controlled. Cardizem is off. Patient is lying in bed, on 2 L/m nasal cannula, in no acute distress. He is confused. Chest CT this admission shows cardiomegaly and moderate right pleural effusion and atelectasis of the right middle lobe and lower lobes. 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 Dilated main pulmonary artery measuring 4.3 cm consistent with pulmonary arterial hypertension. An severe three-vessel coronary artery calcifications. Most recent CBC from yesterday shows a WBC count of 11, hemoglobin 8.8, hematocrit 28, platelets 69,000. Most recent BMP from yesterday shows a sodium 135, potassium 4.3, chloride 95, serum bicarb down to 17, BUN 119, creatinine 8.27, glucose 81. No IV maintenance fluids infusing. Troponins were elevated at 0.037, 0.047, 0.044 respectfully. NT proBNP elevated at 40,000. Patient was placed on empiric antibiotics for possible CAP. Remains afebrile. The patient will be monitored in the intensive care unit for now. 8 On today's evaluation of 06/04/2023, the patient was aware that he was in the hospital. He still confused and the year. He is calm and comfortable and com municating. Able to swallow. He remains in atrial fibrillation. He remains on a combination of amiodarone, metoprolol and is also anticoagulated. His last session of hemodialysis was done yesterday. Hemodynamically stable. W thousand 14.7 with a hemoglobin of 7.6 and a platelet count of 80 which is stable compared to yesterday. He is at 30 with a creatinine of 2.8 and sodium levels of 135. No other significant events overnight. The patient is calm and comfortable at this point in time. He is a medical floor overflow. 06/05/2023, crit patient continues to be pleasantly confused. No major issues overnight. Was not dialyzed yesterday and the plan is to dialyze this patient tomorrow. Labs are all stable, BUN is 30 with a creatinine of 2.8, white cell count is at 14.7 with a hemoglobin of 7.6. The patient on IV antibiotics regarding his gram-negative sepsis and he is receiving IV cefepime. He is able to swallow properly. No issues with aspiration. Is currently on room air oxygen. No signs of any respiratory distress at this point in time. Reevaluated today, patient remains in the ICU, undergoing hemodialysis, patient is confused, and yelling gout. Does not seem to be in any distress. On 2 L nasal cannula, hemodynamically stable blood pressure 116/55. WBC count is 15.8 hemoglobin 8.7 basic metabolic profile is normal bicarb is 20 BUN is 32 creatinine 3.45. Patient is still being followed by infectious disease for his gram-negative bacteremia and colitis patient remains on cefepime, his also on Flagyl, patient is also on Eraxis Objective - Vital Signs Vital signs: Vital Signs Temp 97.4 F L 06/06/23 08:00 Pulse 111 H 06/06/23 11:36 Resp 18 06/06/23 11:36 BP 106/24 06/06/23 08:00 Pulse Ox 100 06/06/23 08:00 FiO2 Intake & Output 06/05/23 06/06/23 06/06/23 18:59 06:59 18:59 Weight 82.7 kg 82.7 kg Other: Voiding Method Incontinent Incontinent Incontinent - Exam Gen. Revealed a 67-year-old male confused, yelling out. Head exam was generally normal. There was no scleral icterus or corneal arcus. Mucous membranes were moist. HEENT examination is grossly unremarkable. Mucous membranes are moist. No oral lesions. Neck supple. Full range of motion. No adenopathy thyromegaly or neck vein distention. Cardiovascular examination reveals an irregular rhythm and rate. S1-S2 normal. No S3 or S4. No discernible murmur noted. . Heart sounds are distant. Lungs reveal mostly clear breath sounds. Scattered crackles are noted. No wheezes or rhonchi. Breath sounds are equal bilaterally. Abdomen soft bowel sounds are heard. No masses or tenderness. Extremities are intact. No cyanosis clubbing or edema. Skin is without rash or lesion. Neurologic : confused. Yelling gout, He is AO 1. Moving all 4 extremities. - Labs CBC & Chem 7: 06/06/23 05:32 06/06/23 05:32 Labs: Abnormal Lab Results - Last 24 Hours (Table) 06/05/23 06/05/23 06/06/23 Range/Units 20:20 20:20 05:32 WBC 14.9 H (3.8-10.6) k/uL RBC 2.89 L (4.30-5.90) m/uL Hgb 8.6 L (13.0-17.5) gm/dL Hct 29.6 L (39.0-53.0) % MCV 102.5 H D (80.0-100.0) fL MCHC 29.1 L (31.0-37.0) g/dL RDW 26.4 H (11.5-15.5) % Plt Count 87 L (150-450) k/uL Neutrophils # 12.8 H (1.3-7.7) k/uL Lymphocytes # 0.9 L (1.0-4.8) k/uL Macrocytosis Sodium 134 L 134 L (137-145) mmol/L Carbon Dioxide 20 L 20 L (22-30) mmol/L BUN 30 H 32 H (9-20) mg/dL Creatinine 3.26 H 3.45 H (0.66-1.25) mg/dL Glucose 104 H (74-99) mg/dL Total Bilirubin 1.4 H (0.2-1.3) mg/dL Total Protein 5.3 L 5.2 L (6.3-8.2) g/dL Albumin 2.3 L 2.1 L (3.5-5.0) g/dL 06/06/23 Range/Units 05:32 WBC 15.8 H (3.8-10.6) k/uL RBC 2.82 L (4.30-5.90) m/uL Hgb 8.7 L (13.0-17.5) gm/dL Hct 29.3 L (39.0-53.0) % MCV 103.8 H (80.0-100.0) fL MCHC 29.6 L (31.0-37.0) g/dL RDW 26.3 H (11.5-15.5) % Plt Count 72 L (150-450) k/uL Neutrophils # 14.1 H (1.3-7.7) k/uL Lymphocytes # 0.9 L (1.0-4.8) k/uL Macrocytosis Marked A Sodium (137-145) mmol/L Carbon Dioxide (22-30) mmol/L BUN (9-20) mg/dL Creatinine (0.66-1.25) mg/dL Glucose (74-99) mg/dL Total Bilirubin (0.2-1.3) mg/dL Total Protein (6.3-8.2) g/dL Albumin (3.5-5.0) g/dL Assessment and Plan Assessment: Acute metabolic encephalopathy, multifactorial Gram-negative bacteremia and sepsis with providencia , currently on IV cefepime suspecting underlying colitis/sigmoid colitis as evidenced on the CAT scan of the abdomen. Hypotension, resolved, likely secondary to volume depletion, and sepsis, End-stage renal disease, normally maintained on hemodialysis Tuesday, Tuesday, Tuesday. Hemodialysis last session was on 06/03/2023 Right-sided pleural effusion, asymptomatic and the patient is currently on room air oxygen Anion gap metabolic acidosis, improving Acute hypoxemic respiratory failure, improved. The patient is currently on room air oxygen Obstructive sleep apnea, utilizes CPAP outpatient. Atrial fibrillation with rapid ventricular rate. The patient is currently on anticoagulants, currently on metoprolol at a dose of 50 mg by mouth twice a day. He also is on anticoagulation with Eliquis 2.5 mg twice a day. Anemia of chronic disease. Thrombocytopenia. Decubitus pressure injury. Hyperlipidemia. History of CVA/TIA. Coronary artery disease. CHF with mild impairment of LV function with an ejection fraction of 40-45% Recommendation: Continue present supportive care measures Continue antibiotics as per infectious disease on the case Consider transferring the patient out of the ICU to a regular medical floor Continue Seroquel and Prozac as well as Depakote Consider transferring the patient out of the ICU once a bed is available Continue hemodialysis Continue to monitor labs on a daily basis. Overall prognosis is extremely poor and guarded We'll continue to follow Time with Patient: Less than 30
[2023-06-06] MEDS: CEFEPIME 1 GM in SODIUM CHLORIDE 0.9% 50 ML IVPB SCH (16:23)
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
[2023-06-06 18:13] LABS: Glucose,Whole Blood 110 mg/dL (70-110)
[2023-06-06] MEDS ORDERED: ZINC OXIDE PASTE (Z-GUARD) 1 APPLIC APPLIC TOPICAL PRN (18:13)
[2023-06-06 23:51] LABS: Glucose,Whole Blood 93 mg/dL (70-110)
[2023-06-07] MEDS: APIXABAN 2.5 MG TABLET PO SCH ×2 (01:04→09:03)
[2023-06-07] MEDS: ATORVASTATIN 40 MG TAB PO SCH (01:04)
[2023-06-07] MEDS: DIVALPROEX 250 MG TABLET.DR PO SCH ×2 (01:04→09:02)
[2023-06-07] MEDS: METOPROLOL TARTRATE 50 MG TAB PO SCH ×2 (01:04→09:03)
[2023-06-07] MEDS: QUEtiapine 25 MG TAB PO SCH (01:05)
[2023-06-07] MEDS: metroNIDAZOLE 500 MG TAB PO SCH ×2 (01:05→09:05)
[2023-06-07] MEDS: PANTOPRAZOLE 40 MG/10 ML VIAL IVP SCH ×2 (01:17→09:01)
[2023-06-07] MEDS: CEFEPIME 1 GM in SODIUM CHLORIDE 0.9% 50 ML IVPB SCH ×2 (01:17→09:48)
[2023-06-07] MEDS: NOREPINEPHRINE 4 MG in SODIUM CHLORIDE 0.9% 250 ML IV SCH (01:21)
[2023-06-07] MEDS ORDERED: DILTIAZEM 125 MG in SODIUM CHLORIDE 0.9% 100 ML IV SCH (02:45)
[2023-06-07] MEDS: DILTIAZEM 125 MG in SODIUM CHLORIDE 0.9% 100 ML IV SCH (02:57)
[2023-06-07 06:00] LABS: African American GFR (CKD) 24 (>60 ml/min/1.73 sqM); Anion Gap 15 mmol/L; Blood Urea Nitrogen 25 mg/dL (9-20); Calcium 9.1 mg/dL (8.4-10.2); Carbon Dioxide 16 mmol/L (22-30); Chloride 103 mmol/L (98-107); Glucose 76 mg/dL (74-99); Non-African American GFR(CKD) 21 (>60 ml/min/1.73 sqM); Potassium 4.5 mmol/L (3.5-5.1); Sodium 134 mmol/L (137-145)
[2023-06-07 06:13] LABS: Glucose,Whole Blood 89 mg/dL (70-110)
[2023-06-07] MEDS: MIDODRINE 5 MG TAB PO SCH (06:43)
[2023-06-07] MEDS: SEVELAMER 800 MG TAB PO SCH ×2 (06:43→12:25)
[2023-06-07 07:09] LABS: Anisocytosis Marked; HCT 26.8 % (39.0-53.0); HGB 7.8 gm/dL (13.0-17.5); Hypochromasia Marked; MCHC 29.3 g/dL (31.0-37.0); MCV 105.7 fL (80.0-100.0); Macrocytosis Marked; Mean Platelet Volume 12.2; Poikilocytosis Slight; RBC 2.53 m/uL (4.30-5.90)
[2023-06-07 07:30] LABS: Platelet Count 71 k/uL (150-450); RDW 26.5 % (11.5-15.5)
--- NOTE | 2023-06-07 08:01 | PN ---
PROGRESS NOTE SUBJECTIVE: Mr. Hamilton is in atrial fibrillation. The rate is controlled. He has end-stage renal disease, on hemodialysis. He is unable to take oral medications. He is on Cardizem 5 mg drip, I am suggesting we increase it to 10 mg. He is unable to take the oral metoprolol. His vitals are stable. However, he is not well oriented. He does not have any meaningful response to questions. I am suggesting that we continue his current medical regimen including Eliquis and since he cannot take oral medications, I will place him on Cardizem 10 mg/hour drip. OBJECTIVE: VITALS: Stable. HEART: S1, S2 with irregular rhythm noted, short systolic murmur noted. LUNGS: Revealed diminished air entry. Rest of physical examination is unchanged. MMODL / IJN: [id number] /
[2023-06-07] MEDS ORDERED: ANIDULAFUNGIN 100 MG in SODIUM CHLORIDE 0.9% 100 ML IVPB SCH (09:00)
[2023-06-07] MEDS ORDERED: DIGOXIN 125 MCG TAB PO SCH ×2 (09:00)
[2023-06-07] MEDS: FLUoxetine HCL 20 MG CAP PO SCH (09:03)
[2023-06-07] MEDS: IPRATROPIUM-ALBUTEROL 3 ML NEB INHALATION SCH ×2 (09:07→12:44)
[2023-06-07] MEDS ORDERED: LORazepam 1 MG TAB PO SCH (09:30)
[2023-06-07] MEDS: CHOLESTYRAMINE (WITH SUGAR) 4 GM PACKET PO SCH (09:31)
[2023-06-07] MEDS: ACETAMINOPHEN TAB 325 MG TAB PO PRN (09:39)
--- NOTE | 2023-06-07 10:47 | P.PN ---
Subjective Patient is seen in follow-up for end-stage renal disease. He is maintained on hemodialysis on Tuesday schedule. No problems with dialysis yesterday. Confused. Poor historian. Hemodynamically stable. Vital signs are stable. General: No acute distress. HEENT: Head exam is unremarkable. LUNGS: No audible rhonchi or wheezes. HEART: Irregular rate and rhythm. ABDOMEN: Nontender. EXTREMITITES: No edema. Objective - Vital Signs Vital signs: Vital Signs Temp 97.9 F 06/07/23 08:00 Pulse 101 H 06/07/23 09:17 Resp 22 06/07/23 09:17 BP 138/58 06/07/23 09:00 Pulse Ox 96 06/07/23 09:00 FiO2 Intake & Output 06/06/23 06/07/23 06/07/23 18:59 06:59 18:59 Intake Total 300 300.209 Output Total 1300 0 0 Balance -1000 300.209 0 Weight 82.7 kg 88.6 kg Intake: IV 50 Cefepime 1 gm In Sodium 50 Chloride 0.9% 50 ml @ 12. 5 mls/hr IVPB Q12HR JACI Rx#:[id number] Intake, IV Titration 250.209 Amount Diltiazem 125 mg In 0 Sodium Chloride 0.9% 100 ml @ Per Protocol IV .Q0M JACI Rx#:[id number] Norepinephrine 4 mg In 250.209 Sodium Chloride 0.9% 250 ml @ 0.03 MCG/KG/MIN 9. 332 mls/hr IV .Q24H JACI Rx#:[id number] Hemodialysis 300 Output: Urine 0 0 Hemodialysis 1300 Other: Voiding Method Incontinent Incontinent Incontinent - Labs CBC & Chem 7: 06/07/23 05:30 06/07/23 05:30 Labs: Abnormal Lab Results - Last 24 Hours (Table) 06/07/23 06/07/23 Range/Units 05:30 05:30 WBC 15.3 H (3.8-10.6) k/uL RBC 2.53 L (4.30-5.90) m/uL Hgb 7.8 L (13.0-17.5) gm/dL Hct 26.8 L (39.0-53.0) % MCV 105.7 H (80.0-100.0) fL MCHC 29.3 L (31.0-37.0) g/dL RDW 26.5 H (11.5-15.5) % Macrocytosis Marked A Sodium 134 L (137-145) mmol/L Carbon Dioxide 16 L (22-30) mmol/L BUN 25 H (9-20) mg/dL Creatinine 3.03 H (0.66-1.25) mg/dL Assessment and Plan Plan: Assessment: 1. End-stage renal disease maintained on hemodialysis on Tuesday schedule. 2. A. fib with RVR maintained on Cardizem drip and anticoagulation. Also on metoprolol. 3. Anemia of chronic kidney disease. High ferritin noted. On Aranesp. 4. Noncompliance with hemodialysis. 5. Hypertension with chronic kidney disease. Controlled. 6. Chronic kidney disease mineral bone disease maintained on Renvela. Phosph orus level 3.9 dated 05/25/2023. 7. Metabolic acidosis secondary to chronic kidney disease. 8. Chronic systolic CHF with ejection fraction of 40-45% with mild to moderate mitral regurgitation. 9. Providencia bacteremia. Infectious disease following. Abdominal source versus pneumonia. Colitis noted on CT. Plan: Hemodialysis tomorrow. Maintain midodrine - hold for systolic blood pressure greater than 110. Patient is now no code. Hospice being considered which is appropriate.
[2023-06-07 11:40] LABS: Glucose,Whole Blood 37 mg/dL (70-110)
[2023-06-07] MEDS ORDERED: DEXTROSE 50% SYRINGE 50 ML IVP ONE (11:40)
[2023-06-07 11:43] LABS: Glucose,Whole Blood 42 mg/dL (70-110)
[2023-06-07 11:47] LABS: Band Neutrophils % 2 %; Neutrophils % (M) 86 %; Nucleated Red Blood Cells 3 /100 WBC (0-0); Total Cells Counted 200
[2023-06-07 11:48] LABS: Lymphocytes # (M) 1.34 k/uL (1.0-4.8); WBC 14.9 k/uL (3.8-10.6)
[2023-06-07 11:49] LABS: Polychromasia Present
[2023-06-07 12:04] LABS: Glucose,Whole Blood 115 mg/dL (70-110)
[2023-06-07 12:37] VITALS: BP 132/57; PULSE 93; RESP 28; TEMP 96.6
--- NOTE | 2023-06-07 12:38 | P.PN ---
Subjective Progress Note Date: 06/07/23 Principal diagnosis: Acute metabolic encephalopathy and gram-negative sepsis with providentia I am seeing this patient in consultation today 05/25/2023 in the intensive care unit after the patient was found to be hypotensive during the hemodialysis and transferred to the intensive care unit. Patient is a 67-year-old white male with past medical history significant for end-stage renal disease, hemodialysis maintain on a Tuesday, Tuesday, Tuesday schedule, congestive heart failure, paroxysmal atrial fibrillation anticoagulated on Eliquis, CVA/TIA, hyperlipidemia, hypertension, coronary artery disease, obstructive sleep apnea, among other things. Patient is currently a poor historian, not able to participate in [facility]. Apparently, the patient has been refusing hemodialysis as his extended care facility. He became confused, and was sent into the emergency room 2 days ago. Apparently, on resuming patient's hemodialysis treatments the patient became hypotensive. He also was in atrial fibrillation with rapid ventricular ventricular rate he was started on a Cardizem infusion temporarily, and transferred to the intensive care unit last night. Patient was placed on when necessary Midodrine earlier in the day, does not look like his evening dose was given. The patient was temporarily started on norepinephrine infusion, which is currently on hold. Heart rate is better controlled. Cardizem is off. Patient is lying in bed, on 2 L/m nasal cannula, in no acute distress. He is confused. Chest CT this admission shows cardiomegaly and moderate right pleural effusion and atelectasis of the right middle lobe and lower lobes. 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 Dilated main pulmonary artery measuring 4.3 cm consistent with pulmonary arterial hypertension. An severe three-vessel coronary artery calcifications. Most recent CBC from yesterday shows a WBC count of 11, hemoglobin 8.8, hematocrit 28, platelets 69,000. Most recent BMP from yesterday shows a sodium 135, potassium 4.3, chloride 95, serum bicarb down to 17, BUN 119, creatinine 8.27, glucose 81. No IV maintenance fluids infusing. Troponins were elevated at 0.037, 0.047, 0.044 respectfully. NT proBNP elevated at 40,000. Patient was placed on empiric antibiotics for possible CAP. Remains afebrile. The patient will be monitored in the intensive care unit for now. 8 On today's evaluation of 06/04/2023, the patient was aware that he was in the hospital. He still confused and the year. He is calm and comfortable and com municating. Able to swallow. He remains in atrial fibrillation. He remains on a combination of amiodarone, metoprolol and is also anticoagulated. His last session of hemodialysis was done yesterday. Hemodynamically stable. W thousand 14.7 with a hemoglobin of 7.6 and a platelet count of 80 which is stable compared to yesterday. He is at 30 with a creatinine of 2.8 and sodium levels of 135. No other significant events overnight. The patient is calm and comfortable at this point in time. He is a medical floor overflow. 06/05/2023, crit patient continues to be pleasantly confused. No major issues overnight. Was not dialyzed yesterday and the plan is to dialyze this patient tomorrow. Labs are all stable, BUN is 30 with a creatinine of 2.8, white cell count is at 14.7 with a hemoglobin of 7.6. The patient on IV antibiotics regarding his gram-negative sepsis and he is receiving IV cefepime. He is able to swallow properly. No issues with aspiration. Is currently on room air oxygen. No signs of any respiratory distress at this point in time. Reevaluated today, patient remains in the ICU, undergoing hemodialysis, patient is confused, and yelling out. Does not seem to be in any distress. On 2 L nasal cannula, hemodynamically stable blood pressure 116/55. WBC count is 15.8 hemoglobin 8.7 basic metabolic profile is normal bicarb is 20 BUN is 32 creatinine 3.45. Patient is still being followed by infectious disease for his gram-negative bacteremia and colitis patient remains on cefepime, his also on Flagyl, patient is also on Eraxis Reevaluated today on 06/07/23, patient remains in the ICU, continues to be encephalopathic, continues to mumble and yelling out loud, not in pulmonary distress, on 2 L nasal cannula with O2 session of 97%. Hemodynamically the patient is stable. WBC count is 14.9 hemoglobin is 7.8 basic metabolic profile is normal bicarb is 16 anion gap is 15 BUN is 25 creatinine 3.03 Objective - Vital Signs Vital signs: Vital Signs Temp 96.6 F L 06/07/23 12:00 Pulse 93 06/07/23 12:00 Resp 28 H 06/07/23 12:00 BP 132/57 06/07/23 12:00 Pulse Ox 97 06/07/23 12:00 FiO2 Intake & Output 06/06/23 06/07/23 06/07/23 18:59 06:59 18:59 Intake Total 300 300.209 400 Output Total 1300 0 0 Balance -1000 300.209 400 Weight 82.7 kg 88.6 kg Intake: IV 50 150 Anidulafungin 100 mg In 100 Sodium Chloride 0.9% 100 ml @ 84 mls/hr IVPB DAILY JACI Rx#:[id number] Anidulafungin 200 mg In 0 Sodium Chloride 0.9% 200 ml @ 84 mls/hr IVPB ONCE ONE Rx#:[id number] Cefepime 1 gm In Sodium 50 50 Chloride 0.9% 50 ml @ 12. 5 mls/hr IVPB Q12HR JACI Rx#:[id number] Intake, IV Titration 250.209 Amount Diltiazem 125 mg In 0 Sodium Chloride 0.9% 100 ml @ Per Protocol IV .Q0M JACI Rx#:[id number] Norepinephrine 4 mg In 250.209 Sodium Chloride 0.9% 250 ml @ 0.03 MCG/KG/MIN 9. 332 mls/hr IV .Q24H JACI Rx#:[id number] Oral 250 Hemodialysis 300 Output: Urine 0 0 Hemodialysis 1300 Other: Voiding Method Incontinent Incontinent Incontinent - Exam Gen. Revealed a 67-year-old male confused, yelling out. Loud. Head exam was generally normal. There was no scleral icterus or corneal arcus. Mucous membranes were moist. HEENT examination is grossly unremarkable. Mucous membranes are moist. No oral lesions. Neck supple. Full range of motion. No adenopathy thyromegaly or neck vein distention. Cardiovascular examination reveals an irregular rhythm and rate. S1-S2 normal. No S3 or S4. No discernible murmur noted. . Heart sounds are distant. Lungs reveal mostly clear breath sounds. Scattered crackles are noted. No wheezes or rhonchi. Breath sounds are equal bilaterally. Abdomen soft bowel sounds are heard. No masses or tenderness. Extremities are intact. No cyanosis clubbing or edema. Skin is without rash or lesion. Neurologic : confused. Yelling gout, He is AO 1. Moving all 4 extremities. - Labs CBC & Chem 7: 06/07/23 05:30 06/07/23 05:30 Labs: Abnormal Lab Results - Last 24 Hours (Table) 06/07/23 06/07/23 06/07/23 Range/Units 05:30 05:30 11:38 WBC 14.9 H (3.8-10.6) k/uL RBC 2.53 L (4.30-5.90) m/uL Hgb 7.8 L (13.0-17.5) gm/dL Hct 26.8 L (39.0-53.0) % MCV 105.7 H (80.0-100.0) fL MCHC 29.3 L (31.0-37.0) g/dL RDW 26.5 H (11.5-15.5) % Plt Count 71 L (150-450) k/uL Neutrophils # (Manual) 13.10 H (1.3-7.7) k/uL Nucleated RBCs 3 H (0-0) /100 WBC Macrocytosis Marked A Sodium 134 L (137-145) mmol/L Carbon Dioxide 16 L (22-30) mmol/L BUN 25 H (9-20) mg/dL Creatinine 3.03 H (0.66-1.25) mg/dL POC Glucose (mg/dL) 37 L (70-110) mg/dL 06/07/23 06/07/23 Range/Units 11:41 12:02 WBC (3.8-10.6) k/uL RBC (4.30-5.90) m/uL Hgb (13.0-17.5) gm/dL Hct (39.0-53.0) % MCV (80.0-100.0) fL MCHC (31.0-37.0) g/dL RDW (11.5-15.5) % Plt Count (150-450) k/uL Neutrophils # (Manual) (1.3-7.7) k/uL Nucleated RBCs (0-0) /100 WBC Macrocytosis Sodium (137-145) mmol/L Carbon Dioxide (22-30) mmol/L BUN (9-20) mg/dL Creatinine (0.66-1.25) mg/dL POC Glucose (mg/dL) 42 L 115 H (70-110) mg/dL Assessment and Plan Assessment: Acute metabolic encephalopathy, multifactorial Gram-negative bacteremia and sepsis with providencia , currently on IV cefepime suspecting underlying colitis/sigmoid colitis as evidenced on the CAT scan of the abdomen. Hypotension, resolved, likely secondary to volume depletion, and sepsis, End-stage renal disease, normally maintained on hemodialysis Tuesday, Tuesday, Tuesday. Hemodialysis last session was on 06/03/2023 Right-sided pleural effusion, asymptomatic and the patient is currently on room air oxygen Anion gap metabolic acidosis, improving Acute hypoxemic respiratory failure, improved. The patient is currently on room air oxygen Obstructive sleep apnea, utilizes CPAP outpatient. Atrial fibrillation with rapid ventricular rate. The patient is currently on anticoagulants, currently on metoprolol at a dose of 50 mg by mouth twice a day. He also is on anticoagulation with Eliquis 2.5 mg twice a day. Anemia of chronic disease. Thrombocytopenia. Decubitus pressure injury. Hyperlipidemia. History of CVA/TIA. Coronary artery disease. CHF with mild impairment of LV function with an ejection fraction of 40-45% Recommendation: Patient's CODE STATUS was changed to DO NOT RESUSCITATE and he will likely go to comfort care measures today. Suggest going to comfort care measures Can potentially transfer out of the ICU with comfort care measures in planning. Will follow as needed Time with Patient: Less than 30
--- NOTE | 2023-06-07 12:43 | P.PN ---
Subjective Progress Note Date: 06/07/23 Principal diagnosis: Gram-negative bacteremia Patient is a 67-year-old male with a past medical history significant for hypertension hyperlipidemia VA end-stage renal disease on hemodialysis to the right arm AV fistula patient presenting to the hospital 3 days ago for e valuation of mental status changes, patient was noticed to have a positive blood culture with a drug-resistant Providencia probably this infectious disease consultation patient did have CT of abdominal pelvis with evidence of colitis On today's evaluation and that is 06/07/2023, the patient remains to be afebrile , the patient is breathing comfortably on 2 L nasal cannula oxygen, the patient is lethargic and did not answer any question no vomiting diarrhea or any other changes reported by the nursing staff Patient white count is slightly down to 14.9, creatinine is 3.03, blood culture repeat so far negative Objective - Vital Signs Vital signs: Vital Signs Temp 96.6 F L 06/07/23 12:00 Pulse 93 06/07/23 12:00 Resp 28 H 06/07/23 12:00 BP 132/57 06/07/23 12:00 Pulse Ox 97 06/07/23 12:00 FiO2 Intake & Output 06/06/23 06/07/23 06/07/23 18:59 06:59 18:59 Intake Total 300 300.209 400 Output Total 1300 0 0 Balance -1000 300.209 400 Weight 82.7 kg 88.6 kg Intake: IV 50 150 Anidulafungin 100 mg In 100 Sodium Chloride 0.9% 100 ml @ 84 mls/hr IVPB DAILY JACI Rx#:[id number] Anidulafungin 200 mg In 0 Sodium Chloride 0.9% 200 ml @ 84 mls/hr IVPB ONCE ONE Rx#:[id number] Cefepime 1 gm In Sodium 50 50 Chloride 0.9% 50 ml @ 12. 5 mls/hr IVPB Q12HR JACI Rx#:[id number] Intake, IV Titration 250.209 Amount Diltiazem 125 mg In 0 Sodium Chloride 0.9% 100 ml @ Per Protocol IV .Q0M JACI Rx#:[id number] Norepinephrine 4 mg In 250.209 Sodium Chloride 0.9% 250 ml @ 0.03 MCG/KG/MIN 9. 332 mls/hr IV .Q24H JACI Rx#:[id number] Oral 250 Hemodialysis 300 Output: Urine 0 0 Hemodialysis 1300 Other: Voiding Method Incontinent Incontinent Incontinent - Exam GENERAL DESCRIPTION: An elderly male lying in bed in no distress RESPIRATORY SYSTEM: Unlabored breathing , decreased breath sounds at bases HEART: S1 S2 regular rate and rhythm , ABDOMEN: Soft , mild distention EXTREMITIES: No edema feet - Labs CBC & Chem 7: 06/07/23 05:30 06/07/23 05:30 Labs: Abnormal Lab Results - Last 24 Hours (Table) 06/07/23 06/07/23 06/07/23 Range/Units 05:30 05:30 11:38 WBC 14.9 H (3.8-10.6) k/uL RBC 2.53 L (4.30-5.90) m/uL Hgb 7.8 L (13.0-17.5) gm/dL Hct 26.8 L (39.0-53.0) % MCV 105.7 H (80.0-100.0) fL MCHC 29.3 L (31.0-37.0) g/dL RDW 26.5 H (11.5-15.5) % Plt Count 71 L (150-450) k/uL Neutrophils # (Manual) 13.10 H (1.3-7.7) k/uL Nucleated RBCs 3 H (0-0) /100 WBC Macrocytosis Marked A Sodium 134 L (137-145) mmol/L Carbon Dioxide 16 L (22-30) mmol/L BUN 25 H (9-20) mg/dL Creatinine 3.03 H (0.66-1.25) mg/dL POC Glucose (mg/dL) 37 L (70-110) mg/dL 06/07/23 06/07/23 Range/Units 11:41 12:02 WBC (3.8-10.6) k/uL RBC (4.30-5.90) m/uL Hgb (13.0-17.5) gm/dL Hct (39.0-53.0) % MCV (80.0-100.0) fL MCHC (31.0-37.0) g/dL RDW (11.5-15.5) % Plt Count (150-450) k/uL Neutrophils # (Manual) (1.3-7.7) k/uL Nucleated RBCs (0-0) /100 WBC Macrocytosis Sodium (137-145) mmol/L Carbon Dioxide (22-30) mmol/L BUN (9-20) mg/dL Creatinine (0.66-1.25) mg/dL POC Glucose (mg/dL) 42 L 115 H (70-110) mg/dL Assessment and Plan (1) Gram-negative bacteremia Current Visit: Yes Status: Acute Code(s): R78.81 - BACTEREMIA SNOMED Code(s): 452595201219 (2) Colitis Current Visit: Yes Status: Acute Code(s): K52.9 - NONINFECTIVE GASTROENTERITIS AND COLITIS, UNSPECIFIED SNOMED Code(s): 27095032 (3) Leukocytosis Current Visit: Yes Status: Acute Code(s): D72.829 - ELEVATED WHITE BLOOD CELL COUNT, UNSPECIFIED SNOMED Code(s): 636977030 Plan: 1patient with the providencia bacteremia with the source questionably abdominal versus pneumonia as there was evidence of moderate right-sided effusion and some infiltrate on the CT of the chest and the patient did have mild abdominal distention however no significant tenderness was noticed 2-blood cultures has been repeated document clearance of his bacteremia 3-patient did have CT abdominal pelvis with oral contrast only, with evidence of colitis possible source of bacteremia 4-the patient is afebrile the patient white count is trending up patient is high risk for fungal infection could be related to his elevated white count 5patient is possibly going hospice which may be appropriate for the patient at that time antibiotic and antifungal can be safely discontinued Sister. at the bedside questions and concerns were answered Dictation was produced using [employer] dictation software. please excuse any grammatical, word or spelling errors. Time with Patient: Less than 30
== END 2023-06-07 12:55 | disposition hospice, inpatient (51) | DRG 871 ==
LOC: EEVIPCON 12:38 → EC 12:38 → 4SSUR 15:20 → 3SCARD 22:18 → 2SICU 05-24 20:37
PROVIDERS: ADMIT Family Medicine; ATTEND Family Medicine
PROC: 5A1D70Z Performance of Urinary Filtration, Intermittent, Less than 6 Hours Per Day (ICD-10-PCS; principal; 2023-05-25)
PROC: 3E043XZ Introduction of Vasopressor into Central Vein, Percutaneous Approach (ICD-10-PCS; 2023-05-25)
DX: A41.50 Gram-negative sepsis, unspecified (principal); G92.8 Other toxic encephalopathy; I21.A1 Myocardial infarction type 2; I50.23 Acute on chronic systolic (congestive) heart failure; J96.01 Acute respiratory failure with hypoxia; N18.6 End stage renal disease; I13.2 Hypertensive heart and chronic kidney disease with heart failure and with stage 5 chronic kidney disease, or end stage renal disease; E87.20 Acidosis, unspecified; I48.19 Other persistent atrial fibrillation; I82.C11 Acute embolism and thrombosis of right internal jugular vein; J98.11 Atelectasis; D63.1 Anemia in chronic kidney disease; D69.6 Thrombocytopenia, unspecified; I71.21 Aneurysm of the ascending aorta, without rupture; I95.9 Hypotension, unspecified; L89.152 Pressure ulcer of sacral region, stage 2; Z99.2 Dependence on renal dialysis; E83.9 Disorder of mineral metabolism, unspecified; I27.21 Secondary pulmonary arterial hypertension; Z51.5 Encounter for palliative care; Z66 Do not resuscitate; I08.3 Combined rheumatic disorders of mitral, aortic and tricuspid valves; K21.9 Gastro-esophageal reflux disease without esophagitis; I25.2 Old myocardial infarction; M19.071 Primary osteoarthritis, right ankle and foot; K52.9 Noninfective gastroenteritis and colitis, unspecified; M10.9 Gout, unspecified; I25.10 Atherosclerotic heart disease of native coronary artery without angina pectoris; E78.5 Hyperlipidemia, unspecified; G47.33 Obstructive sleep apnea (adult) (pediatric); E86.9 Volume depletion, unspecified; Z79.01 Long term (current) use of anticoagulants; Z79.82 Long term (current) use of aspirin; Z79.899 Other long term (current) drug therapy; Z82.49 Family history of ischemic heart disease and other diseases of the circulatory system; Z83.3 Family history of diabetes mellitus; Z86.73 Personal history of transient ischemic attack (TIA), and cerebral infarction without residual deficits; Z86.79 Personal history of other diseases of the circulatory system; Z87.820 Personal history of traumatic brain injury; Z91.148 Patient's other noncompliance with medication regimen for other reason; Z91.158 Patient's noncompliance with renal dialysis for other reason; Z28.311 Partially vaccinated for COVID-19; Z28.21 Immunization not carried out because of patient refusal; Z92.3 Personal history of irradiation
CPT/HCPCS: 36415; 36600; 70450; 71045; 71250; 74176; 80048; 80053; 80164; 82272; 82728; 82805; 83540; 83550; 83735; 83880; 84100; 84132; 84145; 84484; 85025; 85027; 85610; 85730; 86706; 86850; 86900; 86901; 86920; 87040; 87077; 87186; 87324; 87340; 90935; 93005; 93306; 93880; 94640; 94760; 95816; 96365; 96366; 96367; 96368; 99285

== ENCOUNTER 2023-06-07 12:16 | Inpatient (IN) | payer MEDICAID ==
[2023-06-07] MEDS ORDERED: ACETAMINOPHEN SUPPOSITORY 650 MG SUPP RECTAL PRN (12:23)
[2023-06-07] MEDS ORDERED: ATROPINE OPHTH SOLN 1% 5ML BTL SUBLINGUAL PRN (12:23)
[2023-06-07] MEDS ORDERED: GLYCOPYRROLATE 0.2 MG/ML 2 ML VIAL IVP PRN (12:23)
[2023-06-07] MEDS ORDERED: ONDANSETRON 4 MG/2 ML VIAL IVP PRN (12:23)
[2023-06-07] MEDS ORDERED: LORazepam 2 MG/ML INJ IV PRN (12:23)
[2023-06-07] MEDS ORDERED: MORPHINE SULFATE 4 MG/ML SYRINGE IV PRN (12:23)
[2023-06-07] MEDS ORDERED: DRY MOUTH SPRAY 44.3 SPRAY/44.3 ML SPRAY MUCOUS MEM PRN (12:23)
[2023-06-07] MEDS ORDERED: SCOPOLAMINE 1 MG/72 HR PATCH TRANSDERM SCH (13:00)
[2023-06-07] MEDS ORDERED: MORPHINE SULFATE (100 MG/2 ML) 100 MG in SODIUM CHLORIDE 0.9% 100 ML IV SCH (13:30)
== END 2023-06-07 16:45 | disposition expired | DRG 951 ==
LOC: 2SICU 12:57
PROVIDERS: ADMIT Internal Medicine Sleep Medicine; ATTEND Internal Medicine Sleep Medicine
DX: Z51.5 Encounter for palliative care (principal); N18.6 End stage renal disease; J44.1 Chronic obstructive pulmonary disease with (acute) exacerbation; Z66 Do not resuscitate; R41.82 Altered mental status, unspecified; R53.1 Weakness; R79.89 Other specified abnormal findings of blood chemistry; I50.9 Heart failure, unspecified; R60.1 Generalized edema; Z91.148 Patient's other noncompliance with medication regimen for other reason; Z79.899 Other long term (current) drug therapy